=== PATIENT | female | born 1960 | race Caucasian/White ===

== ENCOUNTER 2016-11-03 14:42 | Inpatient (IN) ==
[2016-11-03] MEDS ORDERED: MORPHINE 2 MG/1 ML SYRINGE IV STA (15:13)
[2016-11-03] MEDS ORDERED: NITROGLYCERIN SL 0.4 MG TABLET SL PRN ×2 (15:13→18:25)
[2016-11-03] MEDS ORDERED: NITROGLYCERIN 2% OINT 1 INCH/GM PACK TOP STA (15:13)
[2016-11-03 15:38] LABS: Basophils % 0.3 % (0.0-0.8); Eosinophils # 0.1 10*3/uL (0.0-0.87); Eosinophils % 1.7 % (0.00-10.9); Hematocrit 41.7 VOL% (35.7-47.0); Hemoglobin 14.8 GM/DL (12.0-16.0); Immature Granulocytes % 0.3 %; Immature Granulocytes Absolute 0.02 #; Lymphocytes % 27.8 % (21.3-54.2); Mean Corpuscular HGB Conc 35.5 GM/DL (32-36); Mean Corpuscular Hemoglobin 30 PG (27-34); Mean Corpuscular Volume 84.9 FL (87-102); Mean Platelet Volume 10.1 FL (9.6-12.0); Monocytes # 0.5 10*3/uL (0.11-0.8); Monocytes % 6.3 % (1.7-12.7); Neutrophils # 4.5 10*3/uL (1.4-7.4); Neutrophils % 63.6 % (38.7-73.9); Platelet Count 210 T/CUMM (130-400); Red Blood Count 4.91 MC/CUMM (3.8-5.5); Red Cell Distribution Width 12.4 % (9.3-17.3); White Blood Count 7.1 T/CUMM (4-12)
--- NOTE | 2016-11-03 15:50 | XRay Report ---
XR chest 2V Indication: Chest pain. Chest 2 views: Comparison 05/07/2012. ACDF again shown. Tiny left pleural effusion is present better seen on lateral view. Lungs are clear. Heart size and mediastinal contour normal. Impression: Tiny left pleural effusion posteriorly. Otherwise negative chest. PROCEDURE INTERPRETED AT [facility] DEPARTMENT OF RADIOLOGY Final Report Signed by: Jeremy Mccarthy M.D.
[2016-11-03] MEDS ORDERED: MORPHINE 2 MG/1 ML SYRINGE ONE (15:54)
[2016-11-03] MEDS ORDERED: NITROGLYCERIN 2% OINT 1 INCH/GM PACK TOP ONE (15:54)
[2016-11-03 16:07] LABS: Bilirubin,Total 0.5 MG/DL (0.2-1.0); Calcium 9.1 MG/DL (8.5-10.1); Potassium 3.5 MMOL/L (3.5-5.1); Total Protein 7.6 G/DL (6.4-8.3)
[2016-11-03 16:09] LABS: Albumin 3.8 G/DL (3.4-5.0); Osmolality,Calculated 280.1 MOS/KG (273-304)
--- NOTE | 2016-11-03 16:22 | Order Completion Report ---
See report scanned to EMR
[2016-11-03] MEDS ORDERED: ZALEPLON 5 MG CAPSULE PO PRN (16:47)
[2016-11-03] MEDS ORDERED: DEXTROSE 50% 25 GM/50 ML SYRINGE IV PRN (16:47)
[2016-11-03] MEDS ORDERED: MAGNESIUM SULF RIDER 4 GM in PREMIX 1 EACH IV PRN (16:47)
[2016-11-03] MEDS ORDERED: MORPHINE 2 MG/1 ML SYRINGE IV PRN (16:47)
[2016-11-03] MEDS ORDERED: POTASSIUM CHLORIDE 20 MEQ TABLET PO PRN (16:47)
[2016-11-03] MEDS ORDERED: ONDANSETRON 4 MG/2 ML VIAL IV PRN (16:47)
[2016-11-03] MEDS ORDERED: GLUCAGON 1 MG VIAL IM PRN (16:47)
[2016-11-03] MEDS ORDERED: MAGNESIUM SULF RIDER 2 GM in PREMIX 1 EACH IV PRN (16:47)
--- NOTE | 2016-11-03 16:47 | Emergency Department Note ---
Casper John Brittany, am scribing for, and in the presence of, Bret Barrera MD 15:13. Bruce John Doug C, MD, personally performed the services described in this documentation, ascribed by Clementina Shirley in my presence, and it is both accurate and complete 647 . Arrival - Arrival Chief Complaint: Chest Pain Stated Complaint: heart attack ED Nursing Triage Note: C/o midsternal chest pain and shortness of breath-onset two weeks ago. Denies chest pain right now, but states she was sent from Dr. Child's office for a possible heart attack. Mode of Arrival: Ambulatory Limitations: No Limitations Source: Patient, RN Notes Reviewed - History of Present Illness HPI Narrative: Patient is a 56-year-old white female presents emergency room complaining of weakness, shortness of breath, cough and dyspnea with exertion as well as intermittent chest pain that had been going off and on for the last 2 weeks. Patient states she also has pain in her back with her shortness of breath. Patient went to her regular doctor did an EKG and told to come here as she was fearful she may be having a heart attack. Patient was given a prescription for nitroglycerin on an earlier visit but she did not get them filled. Patient states she is under quite a bit of stress due to problems with her son. She does abuse tobacco and smokes 2 packs of cigarettes a day. Her mother of lung cancer and her father of a heart attack. She denies radiation of her discomfort. She is not having any diaphoresis or vomiting though she does feel a bit nauseated. Onset (ago): week(s) (2) Consistency: intermittent Date of Last Menstrual Period: hysterectomy Allergies/Adverse Reactions: Allergies Allergy/AdvReac Type Severity Reaction Status Date / Time aspirin Allergy Unknown/Unable Verified 11/03/16 14:50 to obtain Cefaclor [From Ceclor] Allergy Unknown/Unable Verified 11/03/16 14:50 to obtain Penicillins Allergy Unknown/Unable Verified 11/03/16 14:50 to obtain Home Medications: Home Medications Medication Instructions Recorded Confirmed Type ALPRAZolam [Xanax] 0.25 mg PO Q8H PRN 11/03/16 11/03/16 History Ergocalciferol (Vitamin D2) 50,000 unit PO Q7D 11/03/16 11/03/16 History [Vitamin D2] Gabapentin 100 mg PO TID PRN 11/03/16 11/03/16 History Hydrocodone/Acetaminophen [[place] 1 each PO Q6H PRN 11/03/16 11/03/16 History 10-325 Tablet] Linaclotide [Linzess] 290 mcg PO BEDTIME 11/03/16 11/03/16 History Linagliptin [Tradjenta] 5 mg PO BEDTIME 11/03/16 11/03/16 History Nitroglycerin [Nitroglycerin SL 0.4 mg SL Q5M PRN 11/03/16 11/03/16 History Tab] Pramipexole Di-HCl [Mirapex] 0.125 mg PO BEDTIME PRN 11/03/16 11/03/16 History Pramipexole [Mirapex] 0.25 mg PO BEDTIME PRN 11/03/16 11/03/16 History Ranitidine Tab [Zantac Tab] 150 mg PO BEDTIME 11/03/16 11/03/16 History Rosuvastatin [Crestor] 10 mg PO BEDTIME 11/03/16 11/03/16 History Trazodone HCl 150 mg PO BEDTIME 11/03/16 11/03/16 History clonazePAM TAB [KlonoPIN] 0.25 mg PO Q12H PRN 11/03/16 11/03/16 History clonazePAM TAB [KlonoPIN] 0.5 mg PO Q12H PRN 11/03/16 11/03/16 History Review of System - Review of System 12 point system: reviewed and no additional remarkable complaints except as stated - Review of System Constitutional: Absent: chills, diaphoresis, fever Eyes: Absent: vision change Head/Ears/Nose/Throat: Absent: nasal drainage, sore throat Respiratory: Present: cough, respiratory distress Cardiovascular: Present: chest pain, dyspnea on exertion, edema Gastrointestinal: Absent: abdominal pain, nausea, vomiting, diarrhea, constipation, melena, hematochezia Genitourinary female: Absent: dysuria, frequency, urgency Musculoskeletal: Absent: arm pain, back pain, leg pain, neck pain Skin: Absent: rash Neurological: Absent: headache Psychiatric: Present: anxiety Hematological/Lymphatic: Absent: easy bleeding, easy bruising Medical,Surgical,& Family Hx - Medical History Neurology: History of: Cerebrovascular Accident Endocrine: History of: Diabetes Mellitus (IDDM), Dyslipidemia - Surgical History Abdominal Surgeries: Surgical HX of: Cholecystectomy Reproductive Surgeries: Surgical HX of;: Section, Hysterectomy - Family History Family History: Reports;: Family Cancer (Lung CA mother), Family Diabetes, Family Heart Disease (Father passed of [place]), Family Hypertension - Social History Smoking Status: Smoker, status unknown Frequency of Alcohol Use: None Type of Drug Use: None Exam Vital Signs: Vital Signs Temperature 97.5 F L 11/03/16 14:45 Pulse Rate 123 H 11/03/16 14:45 Respiratory Rate 16 11/03/16 15:37 Blood Pressure 116/80 11/03/16 14:45 O2 Sat by Pulse Oximetry 97 11/03/16 14:45 - General General appearance: alert, in no apparent distress, other (smells of cigarettes) - Head Head exam: Present: atraumatic, normocephalic, normal inspection - Eye Eye exam: Present: normal appearance, PERRL, EOMI - ENT ENT exam: Present: normal exam, normal oropharynx - Neck Neck exam: Present: normal inspection, full ROM, trachea midline - Chest Chest inspection: Present: symmetric chest wall rise, tenderness (CW TTP) - Respiratory Respiratory exam: Present: normal lung sounds bilaterally. Absent: respiratory distress - Cardiovascular Cardiovascular exam: Present: regular rate, normal rhythm, normal heart sounds. Absent: murmur, rubs, gallop - Abdominal Exam Abdominal exam: Present: soft, normal bowel sounds. Absent: distention, tenderness - Extremities Exam Extremities exam: Present: normal inspection. Absent: pedal edema - Back Exam Back exam: Present: normal inspection - Neurological Exam Neurological exam: Present: alert, oriented X3, CN II-XII intact. Absent: motor sensory deficit - Psychiatric Psychiatric exam: Present: normal affect, normal mood - Skin Skin exam: Present: warm, dry Course Course Narrative: Patient's clinical presentation, laboratory and radiographic findings were discussed with Dr. Ramírez. Patient be admitted to telemetry with the diagnosis of non-STEMI. Results - Labs CBC & BMP: 11/03/16 15:34 11/03/16 15:34 Lab Results: I have reviewed the patients labs Labs: Laboratory Tests 11/03/16 15:34 WBC 7.1 RBC 4.91 Hgb 14.8 Hct 41.7 MCV 84.9 L Plt Count 210 Laboratory Tests 11/03/16 15:34 D-Dimer, Quantitative <= 0.5 Laboratory Tests 11/03/16 11/03/16 15:34 15:34 Sodium 135 L Potassium 3.5 Chloride 101 Carbon Dioxide 26 BUN 9 Creatinine 0.80 Glucose 316 H Troponin I 0.115 H Globulin 3.8 H Albumin/Globulin Ratio 1.0 L - EKG EKG results: interpreted by [facility] EKG shows: tachycardia (Sinus tachycardia rate 101 bpm) - Diagnostic Findings Procedure: Chest x-ray: report reviewed by me (Tiny left pleural effusion posteriorly. Otherwise negative chest.) Disposition Clinical Impression: Non-STEMI (non-ST elevated myocardial infarction) Case discussed with: patient Disposition: Still a Patient Condition: Guarded Time of Disposition: 16:47
[2016-11-03] MEDS ORDERED: ENOXAPARIN 60 MG/0.6 ML SYRINGE SUBCUT STA (16:57)
[2016-11-03 17:03] LABS: Barbiturates Screen,Urine Negative (Negative); Benzodiazepines Screen,Urine Negative (Negative); Cannabinoid Screen,Urine Negative (Negative); Opiate Screen,Urine Negative (Negative); Phencyclidine Screen,Urine Negative (Negative)
--- NOTE | 2016-11-03 18:22 | Cardiology History & Physical ---
Assessment and Plan (1) Chest pain Status: Acute Assessment and plan: This is actually 4 days ago and none since then. Certainly this may have been a cardiac event. Her troponin is not diagnosis in her ECG is abnormal but we have no baseline to compare. Will reevaluate the patient tomorrow using echocardiogram and see what her enzymes look like. If we have evidence for such we make need to consider cardiac catheterization. We will leave her n.p.o. for reevaluation tomorrow. Current Visit: Yes (2) Elevated troponin Status: Acute Assessment and plan: This certainly is borderline but not specifically diagnostic. We will check CPK and MB fraction tomorrow with the troponin. Current Visit: Yes (3) Diabetes mellitus Status: Chronic Assessment and plan: On sliding scale continue her home medications. Current Visit: Yes (4) Heavy cigarette smoker (20-39 per day) Status: Acute Assessment and plan: Needs to stop smoking we discussed this with her. Will need to have smoking cessation therapy. I will start a nicotine patch. Current Visit: Yes (5) Dyslipidemia Status: Chronic Assessment and plan: Apparently chronic and has been on rosuvastatin. Current Visit: Yes History of Present Illness Chief complaint: Abnormal ECG, previous chest pain History of present illness: Ms. Nesbitt is a 56 year old female who is followed by Dr. Stein and sent to the emergency room today through which she was admitted. The patient gives a history that she was recently placed on amitriptyline and since then has been not felt well. She took amitriptyline this past Sunday and then shortly thereafter developed chest pain shortness of breath. She did not go to the emergency room even though that she threatened to do so. Anyway she was a family member's house. The pain though resolved she has had no further pain. She was seen by Dr. Stein today and ECG that was done was abnormal and was told at that ECG with her change since a previous ECG. She has had no no symptomatology this since Sunday. She has no prior cardiac history but did see Dr. Cox 2 years ago for shortness of breath and had echocardiogram stress test was told these were normal. She does have a family history of heart disease and is a smoker. In the emergency room the patient's troponin was 0.115. There is no CPK. We do not have the outside ECG but ECG here revealed sinus rhythm with diffuse ST- T abnormalities especially inferior laterally. Again did not have outside ECG to compare to. Patient chest x-ray fairly unremarkable based on radiology's interpretation. Home Medications Medication Instructions Recorded Confirmed Type ALPRAZolam [Xanax] 0.25 mg PO Q8H PRN 11/03/16 11/03/16 History Ergocalciferol (Vitamin D2) 50,000 unit PO Q7D 11/03/16 11/03/16 History [Vitamin D2] Gabapentin 100 mg PO TID PRN 11/03/16 11/03/16 History Hydrocodone/Acetaminophen [[place] 1 each PO Q6H PRN 11/03/16 11/03/16 History 10-325 Tablet] Linaclotide [Linzess] 290 mcg PO BEDTIME 11/03/16 11/03/16 History Linagliptin [Tradjenta] 5 mg PO BEDTIME 11/03/16 11/03/16 History Nitroglycerin [Nitroglycerin SL 0.4 mg SL Q5M PRN 11/03/16 11/03/16 History Tab] Pramipexole Di-HCl [Mirapex] 0.125 mg PO BEDTIME PRN 11/03/16 11/03/16 History Pramipexole [Mirapex] 0.25 mg PO BEDTIME PRN 11/03/16 11/03/16 History Ranitidine Tab [Zantac Tab] 150 mg PO BEDTIME 11/03/16 11/03/16 History Rosuvastatin [Crestor] 10 mg PO BEDTIME 11/03/16 11/03/16 History Trazodone HCl 150 mg PO BEDTIME 11/03/16 11/03/16 History clonazePAM TAB [KlonoPIN] 0.25 mg PO Q12H PRN 11/03/16 11/03/16 History clonazePAM TAB [KlonoPIN] 0.5 mg PO Q12H PRN 11/03/16 11/03/16 History Allergies Allergy/AdvReac Type Severity Reaction Status Date / Time aspirin Allergy Unknown/Unable Verified 11/03/16 14:50 to obtain Cefaclor [From [facility]] Allergy Unknown/Unable Verified 11/03/16 14:50 to obtain Penicillins Allergy Unknown/Unable Verified 11/03/16 14:50 to obtain Review of systems: Constitutional: Denies anorexia, chills, fatigue, fever, frequent falls, night sweats, weight gain, weight loss Eyes: Denies visual changes or loss of vision Ears: Denies decreased hearing, vertigo Nose, mouth and throat: Denies dysphagia, epistaxis, headaches, neck pain, tongue swelling, Neck: Denies thyromegaly or masses. No stiffness. Cardiovascular: as per HPI Respiratory: Denies cough, dyspnea, hemoptysis, dyspnea on exertion, wheezing, snoring Gastrointestinal: Denies abdominal pain, constipation, dyspepsia, dysphagia, hematemesis, hematochezia, melena, nausea, vomiting Genitourinary: Denies dysuria, hematuria, nocturia Musculoskeletal: Denies arthralgias, joint swelling, muscle weakness, myalgias Neurological: denies abnormal gait, abnormal speech, confusion, convulsions, frequent falls, headaches, memory loss, syncope Psychiatric: Denies anxiety, confusion, depression Endocrine: Denies cold intolerance, fatigue, heat intolerance Hematologic/Lymphatic: Denies easy bleeding, easy bruising Dermatologic: Denies Rash, itching, shingles Medical,Surgical,& Family Hx - Medical History Neurology: History of: Cerebrovascular Accident Endocrine: History of: Diabetes Mellitus (IDDM), Dyslipidemia - Surgical History Abdominal Surgeries: Surgical HX of: Cholecystectomy Reproductive Surgeries: Surgical HX of;: Section, Hysterectomy - Family History Family History: Reports;: Family Cancer (Lung CA mother), Family Diabetes, Family Heart Disease (Father passed of [place]), Family Hypertension - Social History Smoking Status: Heavy tobacco smoker (2 packs per day.) Frequency of Alcohol Use: Occasionally Type of Drug Use: None Marital Status: Single Lives With:: Alone Functional capacity: independent ambulation Cardiology Physical Exam - Constitutional Vitals: Vital Signs Temp Pulse Resp BP Pulse Ox 97.5 F L 102 H 18 108/84 97 11/03/16 14:45 11/03/16 17:26 11/03/16 17:26 11/03/16 17:26 11/03/16 17:26 Intake and Output 11/03/16 11/03/16 11/03/16 07:59 15:59 23:59 Other: Weight 62.142 kg Patient Weight 11/03/16 23:59 Weight 62.142 kg Exam: General appearance: normal weight, no acute distress Head exam: normal inspection, atraumatic Eye exam: Pupils are equal and reactive. EOMI. There is no trauma. Ear exam: Anatomically normal. Normal auditory acuity to conversation. Oral exam: No significant oral lesions. Neck exam: normal inspection no JVD. No carotid bruit. Trachea is in midline. Respiratory exam: clear to auscultation bilaterally posteriorly and anteriorly with good air movement. No rales, rhonchi or wheezes. Cardiovascular exam: regular rate and rhythm, no murmur or gallop or rub. No precordial lift. No bruits over the major arteries. Chest wall/torso: Anatomically normal. No tenderness, deformity Peripheral Pulses: 2+ throughout. GI/Abdominal exam: normal bowel sounds, soft and nontender, no abdominal bruits or pulsatile masses. Musculoskeletal/Extremities exam: normal inspection without edema or cyanosis. No deformities or trauma. Neurological exam: alert, oriented X3. There is no gross neurologic deficits. Psychiatric exam: normal affect, normal mood. Cognitive function is grossly intact. Skin exam: normal color, warm. No rashes or other skin lesions. Result/EKG - Labs CBC & BMP: 11/03/16 15:34 11/03/16 15:34 Lab Results: I have reviewed the past 24 hour labs Labs: Laboratory Results - last 24 hr 11/03/16 11/03/16 11/03/16 15:20 15:34 15:34 WBC RBC Hgb Hct MCV MCH MCHC RDW Plt Count MPV Neut % (Auto) Lymph % (Auto) [place] % (Auto) Eos % (Auto) Baso % (Auto) Neut # (Auto) Lymph # (Auto) [place] # (Auto) Eos # (Auto) Baso # (Auto) Immature Gran % Nucleated RBC % Immature Gran # Nucleated RBCs # Immature Plt Fraction D-Dimer, Quantitative <= 0.5 Sodium 135 L Potassium 3.5 Chloride 101 Carbon Dioxide 26 Anion Gap 11.5 BUN 9 Creatinine 0.80 GFR Calculation 82 BUN/Creatinine Ratio 11.00 Glucose 316 H Calculated Osmolality 280.1 Calcium 9.1 Total Bilirubin 0.50 AST 14 ALT 18 Alkaline Phosphatase 86 Troponin I Total Protein 7.6 Albumin 3.8 Globulin 3.8 H Albumin/Globulin Ratio 1.0 L Urine Opiates Screen Negative Ur Barbiturates Screen Negative Ur Phencyclidine Scrn Negative U Amphetamine/Methamph Negative U Benzodiazepines Scrn Negative U Cocaine Metab Screen Negative U Cannabinoids Screen Negative 11/03/16 11/03/16 15:34 15:34 WBC 7.1 RBC 4.91 Hgb 14.8 Hct 41.7 MCV 84.9 L MCH 30 MCHC 35.5 RDW 12.4 Plt Count 210 MPV 10.1 Neut % (Auto) 63.6 Lymph % (Auto) 27.8 [place] % (Auto) 6.3 Eos % (Auto) 1.7 Baso % (Auto) 0.3 Neut # (Auto) 4.5 Lymph # (Auto) 2.0 Kimble # (Auto) 0.5 Eos # (Auto) 0.1 Baso # (Auto) 0.0 Immature Gran % 0.3 Nucleated RBC % 0.0 Immature Gran # 0.02 Nucleated RBCs # 0.00 Immature Plt Fraction 0.0 D-Dimer, Quantitative Sodium Potassium Chloride Carbon Dioxide Anion Gap BUN Creatinine GFR Calculation BUN/Creatinine Ratio Glucose Calculated Osmolality Calcium Total Bilirubin AST ALT Alkaline Phosphatase Troponin I 0.115 H Total Protein Albumin Globulin Albumin/Globulin Ratio Urine Opiates Screen Ur Barbiturates Screen Ur Phencyclidine Scrn U Amphetamine/Methamph U Benzodiazepines Scrn U Cocaine Metab Screen U Cannabinoids Screen - Impressions Impressions: ECG was sinus rhythm with diffuse inferior lateral ST-T abnormalities.
[2016-11-03] MEDS ORDERED: ALPRAZolam 0.25 MG TABLET PO PRN (18:25)
[2016-11-03] MEDS ORDERED: PRAMIPEXOLE DI HCL 0.125 MG PO PRN (18:25)
[2016-11-03] MEDS ORDERED: PRAMIPEXOLE 0.25 MG TABLET PO PRN (18:25)
[2016-11-03] MEDS ORDERED: GABAPENTIN 100 MG CAPSULE PO PRN (18:25)
[2016-11-03] MEDS ORDERED: clonazePAM 0.5 MG TABLET PO PRN ×2 (18:25)
[2016-11-03] MEDS ORDERED: ERGOCALCIFEROL 50,000 UNIT CAPSULE PO SCH (18:30)
--- NOTE | 2016-11-03 18:31 | Order Completion Report ---
See report scanned to EMR
[2016-11-03] MEDS: ENOXAPARIN 60 MG/0.6 ML SYRINGE SUBCUT SCH (18:40)
[2016-11-03] MEDS: SODIUM CHLORIDE 0.45% 1,000 ML IV SCH (19:07)
[2016-11-03] MEDS ORDERED: FAMOTIDINE 20 MG TABLET PO SCH (21:00)
[2016-11-03] MEDS: INSULIN LISPRO 100 UNIT/ML SUBCUT SCH (21:10)
[2016-11-03] MEDS: METOPROLOL TARTRATE 25 MG TABLET PO SCH (21:11)
[2016-11-03] MEDS: ROSUVASTATIN 10 MG TABLET PO SCH (21:11)
[2016-11-04 05:45] LABS: Basophils % 0.5 % (0.0-0.8); Eosinophils # 0.2 10*3/uL (0.0-0.87); Eosinophils % 2.8 % (0.00-10.9); Hematocrit 39.2 VOL% (35.7-47.0); Hemoglobin 13.7 GM/DL (12.0-16.0); Immature Granulocytes % 0.2 %; Immature Granulocytes Absolute 0.01 #; Lymphocytes # 1.7 10*3/uL (1.4-4.0); Lymphocytes % 29.9 % (21.3-54.2); Mean Corpuscular HGB Conc 34.9 GM/DL (32-36); Mean Corpuscular Hemoglobin 30 PG (27-34); Mean Corpuscular Volume 85.6 FL (87-102); Mean Platelet Volume 10.1 FL (9.6-12.0); Monocytes # 0.5 10*3/uL (0.11-0.8); Monocytes % 8.5 % (1.7-12.7); Neutrophils # 3.3 10*3/uL (1.4-7.4); Neutrophils % 58.1 % (38.7-73.9); Platelet Count 199 T/CUMM (130-400); Red Blood Count 4.58 MC/CUMM (3.8-5.5); Red Cell Distribution Width 12.4 % (9.3-17.3); White Blood Count 5.7 T/CUMM (4-12)
[2016-11-04] MEDS: SODIUM CHLORIDE 0.45% 1,000 ML IV SCH (06:14)
[2016-11-04] MEDS: ENOXAPARIN 60 MG/0.6 ML SYRINGE SUBCUT SCH (06:17)
[2016-11-04 06:19] LABS: Cholesterol 191 MG/DL (50-200); HDL Cholesterol 47 MG/DL (40-60); Risk Ratio 4.06; Triglycerides 156 MG/DL (2-150); VLDL CHOLESTEROL 31.2 MG/DL
[2016-11-04 06:20] LABS: Troponin I Only 0.112 NG/ML (0.00-0.045)
[2016-11-04] MEDS: INSULIN LISPRO 100 UNIT/ML SUBCUT SCH ×4 (08:11→21:02)
--- NOTE | 2016-11-04 09:11 | Order Completion Report ---
See report scanned to EMR
--- NOTE | 2016-11-04 09:15 | XRay Report ---
XR chest 1V portable Indication: Shortness of breath Comparison: 03 November 2016 Findings: The heart and mediastinum are normal in size and configuration. The pulmonary vascularity is normal in caliber. No lung infiltrates, effusions, pneumothorax or other abnormality is demonstrated. Impression: Normal chest x-ray PROCEDURE INTERPRETED AT [facility] DEPARTMENT OF RADIOLOGY Final Report Signed by: Dr. Vu Sutton
--- NOTE | 2016-11-04 10:31 | Order Completion Report ---
See report scanned to EMR
[2016-11-04] MEDS ORDERED: ASPIRIN 325 MG TABLET PO ONE (10:54)
[2016-11-04] MEDS ORDERED: DIAZEPAM 5 MG TABLET PO ONE (10:54)
[2016-11-04] MEDS ORDERED: MAGNESIUM SULF RIDER 2 GM in PREMIX 1 EACH IV PRN (10:54)
[2016-11-04] MEDS ORDERED: POTASSIUM CHLORIDE RIDER 10 MEQ in PREMIX 1 EACH IV PRN (10:54)
[2016-11-04] MEDS ORDERED: diphenhydrAMINE CAP 25 MG CAPSULE PO ONE (10:54)
--- NOTE | 2016-11-04 10:57 | History and Physical Update ---
Sedation H&P Update - History and Physical H&P was reviewed, the patient examined and there: are no changes in the patients condition since last H&P was completed. - Dictation Physical: refer to H&P completed by admitting physician - Physical Exam Mental Status: alert and oriented Heart: regular rate and rhythm Lung: clear to auscultation Abdomen: within normal limits Vitals: within normal limits History and Physical Changes: None - Sedation Plan for Sedation: moderate Patient Consent: Procedure disscussed with patient and patinet has consented., Risks and benefits were discussed with patient,including infection,, bleeding, injury to surrounding structures, seizure, temporary nerve, Patient understands and accepts potential risks/benefits and agrees to, proceed. ASA Class: III Airway Assessment: Class II: Soft palate, uvula, fauces visible
--- NOTE | 2016-11-04 11:00 | Cardiology Progress Note ---
Assessment and Plan - Time spent with patient Time spent with patient: Greater than 30 minutes (1) Chest pain Status: Acute Assessment and plan: This patient's had no chest pain since being hospitalized and has had none since Sunday of this week. It is not clear that his chest pain is ischemic at all in nature. With her risk factors for her cardiomyopathy though coronary disease and certainly significant possibility. Current Visit: Yes (2) Elevated troponin Status: Acute Assessment and plan: These are actually borderline and nondiagnostic. Because they are flat there certainly none ischemic and certainly do not indicate a microinfarction. Current Visit: Yes (3) Diabetes mellitus Status: Chronic Assessment and plan: On sliding scale continue her home medications. Current Visit: Yes (4) Heavy cigarette smoker (20-39 per day) Status: Acute Assessment and plan: Needs to stop smoking we discussed this with her. Will need to have smoking cessation therapy. I will start a nicotine patch. After catheterization we will certainly have cardiac rehab to see the patient. Current Visit: Yes (5) Dyslipidemia Status: Chronic Assessment and plan: Apparently chronic and has been on rosuvastatin. Current Visit: Yes (6) Abnormal ECG Status: Acute Assessment and plan: Duration is really unknown. Has really nondiagnostic T-wave abnormalities inferior laterally. Current Visit: Yes Cardiology - PN: Subj Interval history: Since admission the patient's had no chest pain or significant shortness of breath. She is anxious. Her troponins are flat and really nondiagnostic. Chest x-ray today is normal. Her blood pressures are borderline low. Echocardiograms ejection fraction 20% to 25% may be at best. There is no significant valvular abnormalities and it worse mild elevated right-sided pressures. ECG today reveals nonspecific ST-T abnormalities inferior laterally. This delayed anterior R-wave progression cannot rule out possible prior anterior microinfarction. Since admission the patient's had no chest pain has had no chest pain since this past Sunday. With his severe cardiomyopathy certainly she needs aggressive therapy but is not clear on etiology. Certainly ischemia is a possibility with her multiple risk factors including heavy smoking, diabetes mellitus dyslipidemia. I do not think this patient's had a non-ST segment elevation microinfarction at presentation. Her troponins are flat and again nondiagnostic with normal CPK and MB fraction. I recommend a left heart catheterization which we can do today and discussed the indications procedure risk and benefits with the patient and her sons. I discussed cardiac catheterization and percutaneous coronary intervention with the patient and available family (her sons). I reviewed with them the indications for the procedure and the basis of how the procedure would be carried out. I also reviewed with them the risk of the procedure which include but not necessarily limited to access site bleeding, bruising, pain, swelling or vascular injury that may require emergency vascular surgery, blood transfusion, or thrombin injection. Also discussed the possibility of stroke, myocardial infarction, arrhythmia which may require electrocardioversion, and the possibility of dye reaction that would require medical therapy. Also discussed the possibility of coronary artery injury, ruptured, closure or perforation that may require emergency bypass surgery. We also discussed the possibility of from a major complication. They voice understanding and agree to proceed. She was initially reluctant to do so without her father being here but he will be here shortly. She does agree to proceed. Exam (Progress Note) - Constitutional Vitals: Period Temp Pulse Resp BP Sys/Morillo Pulse Ox Last 24 Hr 97.4 F-99.1 F 52-123 16-18 86-116/54-84 92-98 Exam: General appearance: normal weight/thin, no acute distress HEENT: Atraumatic, eye exam is unremarkable and unchanged. Neck exam: normal inspection no JVD. No carotid bruit. Trachea is in midline. Respiratory exam: clear to auscultation bilaterally posteriorly and anteriorly with good air movement. No rales, rhonchi or wheezes. Cardiovascular exam: regular rate and rhythm, no murmur or gallop or rub. No precordial lift. No bruits over the major arteries. Chest wall/torso: Anatomically normal. No tenderness, deformity Peripheral Pulses: 2+ throughout. GI/Abdominal exam: normal bowel sounds, soft and nontender, no abdominal bruits or pulsatile masses. Musculoskeletal/Extremities exam: normal inspection without edema or cyanosis. No deformities or trauma. Neurological exam: alert, oriented X3. There is no gross neurologic deficits. Psychiatric exam: normal affect, normal mood. Cognitive function is grossly intact. Skin exam: normal color, warm. No rashes or other skin lesions. Result/EKG - Labs CBC & BMP: 11/04/16 05:27 11/03/16 15:34 Lab Results: I have reviewed the past 24 hour labs Labs: Laboratory Results - last 24 hr 11/03/16 11/03/16 11/03/16 15:20 15:34 15:34 WBC RBC Hgb Hct MCV MCH MCHC RDW Plt Count MPV Neut % (Auto) Lymph % (Auto) [place] % (Auto) Eos % (Auto) Baso % (Auto) Neut # (Auto) Lymph # (Auto) [place] # (Auto) Eos # (Auto) Baso # (Auto) Immature Gran % Nucleated RBC % Immature Gran # Nucleated RBCs # Immature Plt Fraction D-Dimer, Quantitative <= 0.5 Sodium 135 L Potassium 3.5 Chloride 101 Carbon Dioxide 26 Anion Gap 11.5 BUN 9 Creatinine 0.80 GFR Calculation 82 BUN/Creatinine Ratio 11.00 Glucose 316 H POC Glucose Calculated Osmolality 280.1 Calcium 9.1 Total Bilirubin 0.50 AST 14 ALT 18 Alkaline Phosphatase 86 Total Creatine Kinase CK-MB (CK-2) Troponin I Total Protein 7.6 Albumin 3.8 Globulin 3.8 H Albumin/Globulin Ratio 1.0 L Triglycerides Cholesterol LDL Cholesterol VLDL Cholesterol HDL Cholesterol Heart Disease Risk Ratio Urine Opiates Screen Negative Ur Barbiturates Screen Negative Ur Phencyclidine Scrn Negative U Amphetamine/Methamph Negative U Benzodiazepines Scrn Negative U Cocaine Metab Screen Negative U Cannabinoids Screen Negative 11/03/16 11/03/16 11/03/16 15:34 15:34 19:12 WBC 7.1 RBC 4.91 Hgb 14.8 Hct 41.7 MCV 84.9 L MCH 30 MCHC 35.5 RDW 12.4 Plt Count 210 MPV 10.1 Neut % (Auto) 63.6 Lymph % (Auto) 27.8 [place] % (Auto) 6.3 Eos % (Auto) 1.7 Baso % (Auto) 0.3 Neut # (Auto) 4.5 Lymph # (Auto) 2.0 [place] # (Auto) 0.5 Eos # (Auto) 0.1 Baso # (Auto) 0.0 Immature Gran % 0.3 Nucleated RBC % 0.0 Immature Gran # 0.02 Nucleated RBCs # 0.00 Immature Plt Fraction 0.0 D-Dimer, Quantitative Sodium Potassium Chloride Carbon Dioxide Anion Gap BUN Creatinine GFR Calculation BUN/Creatinine Ratio Glucose POC Glucose Calculated Osmolality Calcium Total Bilirubin AST ALT Alkaline Phosphatase Total Creatine Kinase CK-MB (CK-2) Troponin I 0.115 H 0.138 H Total Protein Albumin Globulin Albumin/Globulin Ratio Triglycerides Cholesterol LDL Cholesterol VLDL Cholesterol HDL Cholesterol Heart Disease Risk Ratio Urine Opiates Screen Ur Barbiturates Screen Ur Phencyclidine Scrn U Amphetamine/Methamph U Benzodiazepines Scrn U Cocaine Metab Screen U Cannabinoids Screen 11/03/16 11/03/16 11/04/16 20:59 22:15 05:26 WBC RBC Hgb Hct MCV MCH MCHC RDW Plt Count MPV Neut % (Auto) Lymph % (Auto) [place] % (Auto) Eos % (Auto) Baso % (Auto) Neut # (Auto) Lymph # (Auto) [place] # (Auto) Eos # (Auto) Baso # (Auto) Immature Gran % Nucleated RBC % Immature Gran # Nucleated RBCs # Immature Plt Fraction D-Dimer, Quantitative Sodium Potassium Chloride Carbon Dioxide Anion Gap BUN Creatinine GFR Calculation BUN/Creatinine Ratio Glucose POC Glucose 310 H Calculated Osmolality Calcium Total Bilirubin AST ALT Alkaline Phosphatase Total Creatine Kinase 76 CK-MB (CK-2) 1.5 Troponin I 0.126 H 0.112 H Total Protein Albumin Globulin Albumin/Globulin Ratio Triglycerides 156 H Cholesterol 191 LDL Cholesterol 124.0 VLDL Cholesterol 31.2 HDL Cholesterol 47 Heart Disease Risk Ratio 4.06 Urine Opiates Screen Ur Barbiturates Screen Ur Phencyclidine Scrn U Amphetamine/Methamph U Benzodiazepines Scrn U Cocaine Metab Screen U Cannabinoids Screen 11/04/16 11/04/16 05:27 07:09 WBC 5.7 RBC 4.58 Hgb 13.7 Hct 39.2 MCV 85.6 L MCH 30 MCHC 34.9 RDW 12.4 Plt Count 199 MPV 10.1 Neut % (Auto) 58.1 Lymph % (Auto) 29.9 [place] % (Auto) 8.5 Eos % (Auto) 2.8 Baso % (Auto) 0.5 Neut # (Auto) 3.3 Lymph # (Auto) 1.7 [place] # (Auto) 0.5 Eos # (Auto) 0.2 Baso # (Auto) 0.0 Immature Gran % 0.2 Nucleated RBC % 0.0 Immature Gran # 0.01 Nucleated RBCs # 0.00 Immature Plt Fraction 0.0 D-Dimer, Quantitative Sodium Potassium Chloride Carbon Dioxide Anion Gap BUN Creatinine GFR Calculation BUN/Creatinine Ratio Glucose POC Glucose 379 H Calculated Osmolality Calcium Total Bilirubin AST ALT Alkaline Phosphatase Total Creatine Kinase CK-MB (CK-2) Troponin I Total Protein Albumin Globulin Albumin/Globulin Ratio Triglycerides Cholesterol LDL Cholesterol VLDL Cholesterol HDL Cholesterol Heart Disease Risk Ratio Urine Opiates Screen Ur Barbiturates Screen Ur Phencyclidine Scrn U Amphetamine/Methamph U Benzodiazepines Scrn U Cocaine Metab Screen U Cannabinoids Screen - Impressions Impressions: Echocardiogram as noted in history present illness. Please see that.
[2016-11-04] MEDS: sitaGLIPtin 100 MG TABLET PO SCH (11:10)
[2016-11-04] MEDS: NICOTINE 14 MG/24 HR PATCH TRANSDERM SCH (11:10)
[2016-11-04] MEDS: SODIUM CHLORIDE 0.9% 1,000 ML IV SCH (11:20)
[2016-11-04] MEDS ORDERED: MIDAZOLAM 2 MG/2 ML VIAL ONE (11:21)
[2016-11-04] MEDS ORDERED: LIDOCAINE 1% 20 ML VIAL ONE (11:21)
[2016-11-04] MEDS ORDERED: fentaNYL 100 MCG/2 ML VIAL ONE (11:22)
[2016-11-04] MEDS: METOPROLOL TARTRATE 25 MG TABLET PO SCH ×2 (11:26→21:01)
[2016-11-04] MEDS: PANTOPRAZOLE 40 MG TABLET PO SCH (11:26)
[2016-11-04] MEDS ORDERED: diphenhydrAMINE 50 MG/1 ML VIAL ONE (11:49)
[2016-11-04] MEDS ORDERED: NITROGLYCERIN DRIP 50 MG/250 ML BOTTLE IV ONE (11:59)
--- NOTE | 2016-11-04 12:16 | Operative Note ---
Date of procedure: 11/04/16 Procedure Preformed: Left heart catheterization with BEVERLY angiogram. LV gram not done to conserve contrast and echocardiogram done earlier today. Surgeon / Physician: Jeremy Ramírez Nurse Examiner: Alison Sutton Post-op diagnosis: same Findings: Multivessel stenosis. Specimens: none sent Estimated blood loss: minimal Condition: stable Anesthesia: local, conscious sedation Disposition: floor
[2016-11-04] MEDS ORDERED: DEXTROSE 50% 25 GM/50 ML VIAL IV PRN (12:17)
--- NOTE | 2016-11-04 13:27 | Event Note ---
Patient stable postcatheterization but still sedate. Right groin stable. Discussed again with the patient and family findings catheterization. Will await cardiovascular surgery's opinion in regard to her the possibility of bypass surgery. Vessels though were not to graze a target suspicion LAD system.
[2016-11-04 14:46] LABS: ABG Base Excess -2.5 MMOL/L (-2.5-2.5); ABG HCO3 22.3 MMOL/L (20-26); ABG Oxygen Saturation 95.6 % (95-100); ABG PH 7.376 (7.35-7.45); ABG PO2 84.5 MM HG (80-95); ABG TCO2 23.5 MMOL/L (23-27); Allen Test Positive
[2016-11-04] MEDS: ROSUVASTATIN 10 MG TABLET PO SCH (21:01)
[2016-11-04] MEDS: LINACLOTIDE 145 MCG CAPSULE PO SCH (21:03)
[2016-11-05] MEDS: SODIUM CHLORIDE 0.9% 1,000 ML IV SCH (02:33)
[2016-11-05 05:58] LABS: Basophils % 0.3 % (0.0-0.8); Eosinophils # 0.1 10*3/uL (0.0-0.87); Eosinophils % 1.7 % (0.00-10.9); Hematocrit 36.8 VOL% (35.7-47.0); Hemoglobin 12.9 GM/DL (12.0-16.0); Immature Granulocytes % 0.3 %; Immature Granulocytes Absolute 0.02 #; Lymphocytes # 2.1 10*3/uL (1.4-4.0); Lymphocytes % 28.9 % (21.3-54.2); Mean Corpuscular HGB Conc 35.1 GM/DL (32-36); Mean Corpuscular Hemoglobin 30 PG (27-34); Mean Corpuscular Volume 85.4 FL (87-102); Mean Platelet Volume 10.7 FL (9.6-12.0); Monocytes # 0.5 10*3/uL (0.11-0.8); Neutrophils # 4.4 10*3/uL (1.4-7.4); Neutrophils % 61.8 % (38.7-73.9); Platelet Count 161 T/CUMM (130-400); Red Blood Count 4.31 MC/CUMM (3.8-5.5); Red Cell Distribution Width 12.2 % (9.3-17.3); White Blood Count 7.2 T/CUMM (4-12)
[2016-11-05 06:21] LABS: Calcium 8.7 MG/DL (8.5-10.1); Osmolality,Calculated 288.5 MOS/KG (273-304); Potassium 3.9 MMOL/L (3.5-5.1)
--- NOTE | 2016-11-05 08:14 | Order Completion Report ---
See report scanned to EMR
--- NOTE | 2016-11-05 08:38 | Cardiothoracic Progress Note ---
Cardiothoracic Subjective Interval history: Patient seen and cardiac cath films reviewed. Patient has severe three-vessel disease with relatively small coronary vessels. She probably is going to be best treated with surgery and I think that certainly the circumflex and right coronary arteries are suitable targets. My only question would be in the anterior descending which appears to be very small distally. It is possible that she has a diagonal which is significant enough to bypass. She has significant reservations about proceeding with any intervention and wants to go home. I have encouraged her to stay and she is asked to seek a second opinion. She apparently has seen Dr. Cox the past and has confidence in his advice and ability, as do I. We will try to get Dr. Cox to see her tomorrow. Exam (Progress Note) - Constitutional Vitals: Period Temp Pulse Resp BP Sys/Morillo Pulse Ox Last 24 Hr 97.7 F-99.2 F 61-96 16-20 74-108/45-66 91-99 Result/EKG - Labs CBC & BMP: 11/05/16 05:11 11/05/16 05:11 Labs: Laboratory Results - last 24 hr 11/04/16 11/04/16 11/04/16 11:26 14:38 16:02 WBC RBC Hgb Hct MCV MCH MCHC RDW Plt Count MPV Neut % (Auto) Lymph % (Auto) [place] % (Auto) Eos % (Auto) Baso % (Auto) Neut # (Auto) Lymph # (Auto) [place] # (Auto) Eos # (Auto) Baso # (Auto) Immature Gran % Nucleated RBC % Immature Gran # Nucleated RBCs # Immature Plt Fraction ABG pH 7.376 ABG pCO2 39.0 ABG pO2 84.5 ABG HCO3 22.3 ABG Total CO2 23.5 ABG O2 Saturation 95.6 ABG Base Excess -2.5 FiO2 21.00 Sodium Potassium Chloride Carbon Dioxide Anion Gap BUN Creatinine GFR Calculation BUN/Creatinine Ratio Glucose POC Glucose 271 H 427 H Calculated Osmolality Calcium 11/04/16 11/05/16 11/05/16 19:59 05:11 05:11 WBC 7.2 RBC 4.31 Hgb 12.9 Hct 36.8 MCV 85.4 L MCH 30 MCHC 35.1 RDW 12.2 Plt Count 161 MPV 10.7 Neut % (Auto) 61.8 Lymph % (Auto) 28.9 [place] % (Auto) 7.0 Eos % (Auto) 1.7 Baso % (Auto) 0.3 Neut # (Auto) 4.4 Lymph # (Auto) 2.1 [place] # (Auto) 0.5 Eos # (Auto) 0.1 Baso # (Auto) 0.0 Immature Gran % 0.3 Nucleated RBC % 0.0 Immature Gran # 0.02 Nucleated RBCs # 0.00 Immature Plt Fraction 0.0 ABG pH ABG pCO2 ABG pO2 ABG HCO3 ABG Total CO2 ABG O2 Saturation ABG Base Excess FiO2 Sodium 139 Potassium 3.9 Chloride 105 Carbon Dioxide 28 Anion Gap 9.9 BUN 18 Creatinine 0.70 GFR Calculation 99 BUN/Creatinine Ratio 25.00 H Glucose 276 H POC Glucose 159 H Calculated Osmolality 288.5 Calcium 8.7 Quality Measures - VTE Contraindication to Pharmacological VTE Prophylaxis: High Risk of Bleeding
[2016-11-05] MEDS: INSULIN LISPRO 100 UNIT/ML SUBCUT SCH ×4 (10:04→22:07)
[2016-11-05] MEDS: METOPROLOL TARTRATE 25 MG TABLET PO SCH ×2 (10:06→22:08)
[2016-11-05] MEDS: MONTELUKAST 10 MG TABLET PO SCH (10:06)
[2016-11-05] MEDS: sitaGLIPtin 100 MG TABLET PO SCH (10:06)
[2016-11-05] MEDS: PANTOPRAZOLE 40 MG TABLET PO SCH (10:06)
[2016-11-05] MEDS: NICOTINE 14 MG/24 HR PATCH TRANSDERM SCH (10:06)
--- NOTE | 2016-11-05 10:25 | Pulmonology Consult Note ---
History of Present Illness Chief complaint: HD. Possible CABG. COPD. Tobacco abuse. History of present illness: Ms. Nesbitt is a 56 year old white female whom I been asked to see in pulmonary consultation for an opinion concerning her pulmonary status if she should go to surgery. This patient was referred by Dr. Stein. The patient had developed lower extremity edema increased shortness of breath and dyspnea on exertion. Dr. Livingston noted that her EKG was abnormal. Since admission here she has had a cardiac catheterization that shows very significant three-vessel coronary artery disease. This patient has been advised coronary artery bypass is would benefit her situation. At present time she wants a second opinion. See Dr. Elmo Whitehead's thoracic surgery note. I totally agree with his recommendations concerning surgery and a second opinion from Dr. Alex Shah. 2 years ago she was evaluated for shortness of breath and had a stress test and echocardiogram which she says was normal. This patient has some chronic dyspnea on exertion. On my exam she has some mild large airway wheeze with prolonged expiration. She denies any chronic sputum production. The remainder of her review of systems is negative. Allergies. Aspirin. Ceclor. Penicillin. Home medicines. See below Past history. Recent diagnosis of three-vessel coronary artery disease. See above. Diabetes mellitus. Hyperlipidemia. Depression. Irritable bowel syndrome. Vitamin D deficiency. History of CVA. Cholecystectomy. Hysterectomy. Social history. Smokes 1-2 packs of cigarettes per day. Started smoking when she was age 23. Occasionally uses alcohol. Single. Family history. Mother had lung cancer. Her father of myocardial infarction. There is a family history of high blood pressure and diabetes. Chest x-ray. 11/04/2016 and 11/03/2016. My impression. Heart size is normal. Pulmonary arteries are normal. No hilar adenopathy. Mediastinum is normal. Lung flores are mildly hyperinflated with no mass infiltrate or pulmonary edema. I see no bony lesions. Echocardiogram. Mildly dilated left ventricle with severe global hypokinesis and ejection fraction of 20%. Right ventricle is normal. No valvular abnormalities. Possible mild elevation of right-sided pressures. The estimated pulmonary artery systolic pressure was 28.84 mmHg. Microbiology. No positive test. Lab. Electrolytes are normal. Creatinine is 0.7 with a BUN of 18. White count 7200 with a normal differential. H&H 12.9/36.8 and platelets are 161, 000. Cholesterol is 191. HDL is 47. LDL is 124. Triglycerides are 156. Drug screen was negative. Physical exam. Vital signs. See below Psychiatric. Oriented 3. Patient was insisting on discharge. I told her I thought her doctors would go along with any request that she had. I added that if she does go home she needs to be very careful because she has no margin for error as far as her heart disease is concerned. I tried to explain this to her. Face. Symmetrical. No edema of the lips or tongue. Neurologic. Cranial nerves are intact. Patient moves all 4 extremities. Gait was not tested. Sensory exam was not done.. Neck. Symmetrical. No meningismus. Lymphatics. No submandibular cervical supraclavicular or epitrochlear adenopathy. Heart. Regular. I did not hear a gallop or murmur. Chest. Symmetrical and slightly hyperinflated. Patient has very mild large airway wheeze. Breast deferred Abdomen positive bowel sounds Extremities nothing to suggest deep venous thrombophlebitis or ischemia. The remainder the physical exam was negative Impression. 1. Tobacco abuse. 27-76-whwc-year history of smoking. 2. Probable COPD. Mild wheeze. Probable bronchospastic disease. 3. Severe three-vessel heart disease with ejection fraction of 20% and global hypokinesis 4. Hyperlipidemia. 5. Diabetes mellitus. 6. See past history Recommendations. 1. Start Singulair 10 daily. 2. Patient will need intervention of some type with her heart in the near future. 3. She has been counseled by others to stop smoking. 4. Is my opinion from a pulmonary standpoint at this patient will be able to tolerate cardiac surgery. If she decides to have surgery pulmonary function tests with pre-and postbronchodilator spirometry may further clarify her status. Home Medications Medication Instructions Recorded Confirmed Type ALPRAZolam [Xanax] 0.25 mg PO Q8H PRN 11/03/16 11/03/16 History Amitriptyline HCl 25 mg PO BEDTIME 11/03/16 11/03/16 History Ergocalciferol (Vitamin D2) 50,000 unit PO Q7D 11/03/16 11/03/16 History [Vitamin D2] Gabapentin 100 mg PO TID PRN 11/03/16 11/03/16 History Hydrocodone/Acetaminophen [[place] 1 each PO Q6H PRN 11/03/16 11/03/16 History 10-325 Tablet] Linaclotide [Linzess] 290 mcg PO BEDTIME 11/03/16 11/03/16 History Linagliptin [Tradjenta] 5 mg PO BEDTIME 11/03/16 11/03/16 History Nitroglycerin [Nitroglycerin SL 0.4 mg SL Q5M PRN 11/03/16 11/03/16 History Tab] Omeprazole 20 mg PO DAILY 11/03/16 11/03/16 History Pramipexole [Mirapex] 0.25 mg PO BEDTIME PRN 11/03/16 11/03/16 History Ranitidine Tab [Zantac Tab] 150 mg PO BEDTIME 11/03/16 11/03/16 History Rosuvastatin [Crestor] 10 mg PO BEDTIME 11/03/16 11/03/16 History Trazodone HCl 150 mg PO BEDTIME 11/03/16 11/03/16 History clonazePAM TAB [KlonoPIN] 0.25 mg PO Q12H PRN 11/03/16 11/03/16 History clonazePAM TAB [KlonoPIN] 0.5 mg PO Q12H PRN 11/03/16 11/03/16 History hydrOXYzine HCl [Hydroxyzine HCl] 25 mg PO RT Q8H PRN 11/03/16 11/03/16 History Allergies Allergy/AdvReac Type Severity Reaction Status Date / Time aspirin Allergy Unknown/Unable Verified 11/03/16 14:50 to obtain Cefaclor [From [facility]] Allergy Unknown/Unable Verified 11/03/16 14:50 to obtain Penicillins Allergy Unknown/Unable Verified 11/03/16 14:50 to obtain Exam (Pulmonay) H&P - Constitutional Vitals: Period Temp Pulse Resp BP Sys/Morillo Pulse Ox Last 24 Hr 97.7 F-99.2 F 61-96 16-20 74-108/45-66 91-99 Medical,Surgical,& Family Hx - Medical History Cardio: History of: Hypertension Neurology: History of: Cerebrovascular Accident No history of: Seizures Endocrine: History of: Diabetes Mellitus (IDDM), Dyslipidemia - Surgical History Cardiac Surgeries: Patient Denies: Cardiac Catheterization Thoracic Surgeries: Patient denies;: Lobectomy Neurologic Surgeries: Patient denies: Neurologic Surgery Abdominal Surgeries: Surgical HX of: Cholecystectomy Reproductive Surgeries: Surgical HX of;: Section, Hysterectomy - Family History Family History: Reports;: Family Cancer (Lung CA mother), Family Diabetes, Family Heart Disease (Father passed of [place]), Family Hypertension - Social History Smoking Status: Heavy tobacco smoker (2 packs per day.) Frequency of Alcohol Use: Occasionally Type of Drug Use: None Results - Labs CBC & BMP: 11/05/16 05:11 11/05/16 05:11 Quality Measures - VTE Contraindication to Pharmacological VTE Prophylaxis: High Risk of Bleeding
--- NOTE | 2016-11-05 15:20 | Cardiology Progress Note ---
Assessment and Plan (1) Chest pain Status: Acute Assessment and plan: Certainly her anatomy her chest pain certainly may be anginal in nature. She has not had any that over the last 24 hours. Current Visit: Yes (2) Elevated troponin Status: Acute Assessment and plan: There is a borderline troponins were stable. Current Visit: Yes (3) Diabetes mellitus Status: Chronic Assessment and plan: On sliding scale continue her home medications. Current Visit: Yes (4) Heavy cigarette smoker (20-39 per day) Status: Acute Assessment and plan: Prior masses seen the patient assisting us in care for her smoking history and underlying lung disease. Current Visit: Yes (5) Dyslipidemia Status: Chronic Assessment and plan: Apparently chronic and has been on rosuvastatin. Current Visit: Yes (6) Abnormal ECG Status: Acute Assessment and plan: Duration is really unknown. Has really nondiagnostic T-wave abnormalities inferior laterally. Current Visit: Yes Cardiology - PN: Subj Interval history: Patient doing well today post catheterization. She has multivessel coronary disease and would potentially benefit from bypass surgery. She has ischemic cardiomyopathy. Dr. Whitehead is seen the patient and agrees of bypass surgery. Hopefully a diagonal of the LAD can be bypassed. Vessels are generally small in her LAD is diffusely diseased. Pulmonary medicine i.e. Dr. Stewart is seen the patient and evaluated her. He is treating her underlying lung issues. The patient is agreeable to staying will contact Dr. Whitehead to set up surgery. She generally otherwise is doing well. Long-term risk factor modification is necessary. Please note that she did see Dr. Cox 2 years ago. Exam (Progress Note) - Constitutional Vitals: Period Temp Pulse Resp BP Sys/Morillo Pulse Ox Last 24 Hr 98.1 F-99.2 F 61-96 16-20 74-108/46-66 91-99 Exam: General appearance: normal weight/thin, no acute distress HEENT: Atraumatic, eye exam is unremarkable and unchanged. Neck exam: normal inspection no JVD. No carotid bruit. Trachea is in midline. Respiratory exam: clear to auscultation bilaterally posteriorly and anteriorly with good air movement. No rales, rhonchi or wheezes. Cardiovascular exam: regular rate and rhythm, no murmur or gallop or rub. No precordial lift. No bruits over the major arteries. Chest wall/torso: Anatomically normal. No tenderness, deformity Peripheral Pulses: 2+ throughout. GI/Abdominal exam: normal bowel sounds, soft and nontender, no abdominal bruits or pulsatile masses. Musculoskeletal/Extremities exam: normal inspection without edema or cyanosis. Right groin stable. Neurological exam: alert, oriented X3. There is no gross neurologic deficits. Psychiatric exam: normal affect, normal mood. Cognitive function is grossly intact. Skin exam: normal color, warm. No rashes or other skin lesions. Result/EKG - Labs CBC & BMP: 11/05/16 05:11 11/05/16 05:11 Lab Results: I have reviewed the past 24 hour labs Labs: Laboratory Results - last 24 hr 11/04/16 11/04/16 11/05/16 16:02 19:59 05:11 WBC 7.2 RBC 4.31 Hgb 12.9 Hct 36.8 MCV 85.4 L MCH 30 MCHC 35.1 RDW 12.2 Plt Count 161 MPV 10.7 Neut % (Auto) 61.8 Lymph % (Auto) 28.9 [place] % (Auto) 7.0 Eos % (Auto) 1.7 Baso % (Auto) 0.3 Neut # (Auto) 4.4 Lymph # (Auto) 2.1 [place] # (Auto) 0.5 Eos # (Auto) 0.1 Baso # (Auto) 0.0 Immature Gran % 0.3 Nucleated RBC % 0.0 Immature Gran # 0.02 Nucleated RBCs # 0.00 Immature Plt Fraction 0.0 Sodium Potassium Chloride Carbon Dioxide Anion Gap BUN Creatinine GFR Calculation BUN/Creatinine Ratio Glucose POC Glucose 427 H 159 H Calculated Osmolality Calcium 11/05/16 11/05/16 11/05/16 05:11 07:54 12:49 WBC RBC Hgb Hct MCV MCH MCHC RDW Plt Count MPV Neut % (Auto) Lymph % (Auto) [place] % (Auto) Eos % (Auto) Baso % (Auto) Neut # (Auto) Lymph # (Auto) [place] # (Auto) Eos # (Auto) Baso # (Auto) Immature Gran % Nucleated RBC % Immature Gran # Nucleated RBCs # Immature Plt Fraction Sodium 139 Potassium 3.9 Chloride 105 Carbon Dioxide 28 Anion Gap 9.9 BUN 18 Creatinine 0.70 GFR Calculation 99 BUN/Creatinine Ratio 25.00 H Glucose 276 H POC Glucose 288 H 264 H Calculated Osmolality 288.5 Calcium 8.7 - Impressions Impressions: ECG with sinus rhythm with T-wave abnormalities especially inferior laterally. Unchanged. Telemetry is stable. Quality Measures - VTE Contraindication to Pharmacological VTE Prophylaxis: High Risk of Bleeding
[2016-11-05] MEDS: ENOXAPARIN 60 MG/0.6 ML SYRINGE SUBCUT SCH ×2 (16:39→17:45)
[2016-11-05] MEDS: ROSUVASTATIN 10 MG TABLET PO SCH (22:06)
[2016-11-05] MEDS: LINACLOTIDE 145 MCG CAPSULE PO SCH (22:08)
[2016-11-06] MEDS: ENOXAPARIN 60 MG/0.6 ML SYRINGE SUBCUT SCH ×3 (06:07→17:29)
[2016-11-06] MEDS: sitaGLIPtin 100 MG TABLET PO SCH (08:36)
[2016-11-06] MEDS: INSULIN LISPRO 100 UNIT/ML SUBCUT SCH ×4 (08:36→21:12)
[2016-11-06] MEDS: MONTELUKAST 10 MG TABLET PO SCH (08:36)
[2016-11-06] MEDS: NICOTINE 14 MG/24 HR PATCH TRANSDERM SCH (08:36)
[2016-11-06] MEDS: PANTOPRAZOLE 40 MG TABLET PO SCH (08:36)
[2016-11-06] MEDS: METOPROLOL TARTRATE 25 MG TABLET PO SCH ×2 (08:38→21:16)
--- NOTE | 2016-11-06 09:33 | Cardiology Progress Note ---
Assessment and Plan - Time spent with patient Time spent with patient: Greater than 30 minutes (1) 3-vessel CAD Status: Acute Assessment and plan: SEE PLAN OF CARE LISTED BELOW. Current Visit: Yes (2) Elevated troponin Status: Acute Assessment and plan: SEE PLAN OF CARE LISTED BELOW. Current Visit: Yes (3) Heavy cigarette smoker (20-39 per day) Status: Chronic Assessment and plan: SEE PLAN OF CARE LISTED BELOW. Current Visit: Yes (4) Diabetes mellitus Status: Chronic Assessment and plan: SEE PLAN OF CARE LISTED BELOW. Current Visit: Yes (5) Dyslipidemia Status: Chronic Assessment and plan: SEE PLAN OF CARE LISTED BELOW. Current Visit: Yes (6) Anxiety Status: Chronic Assessment and plan: SEE PLAN OF CARE LISTED BELOW. Current Visit: Yes (7) Ischemic cardiomyopathy Status: Acute Assessment and plan: SEE PLAN OF CARE LISTED BELOW. 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 Child office for further evaluation of chest pain that she had been experiencing for 2 weeks. She has a past medical history of dyslipidemia, diabetes, anxiety, tobacco abuse and GERD. She was seen by Dr. Child in the clinic and was noted to have an abnormal EKG. Subsequently, she was sent over to the emergency department. She underwent heart catheterization which revealed multivessel disease. Subsequently, Dr. Whitehead has been consulted to evaluate for surgery. NOVEMBER 06, 2016 Patient was seen and examined on the telemetry unit. She is doing well this morning without complaints of chest pain, heaviness or tightness. Right groin is soft without bleeding, hematoma or bruit. Distal pulses 2+. Patient has ambulated without difficulty. Right groin has remained stable post ambulation. Dr. Whitehead saw patient in consultation yesterday and recommended bypass surgery. Patient is anxious to undergo the surgery but tells me this morning that she will undergo if absolutely necessary. I spent 30 minutes with patient discussing what to expect with bypass surgery. Dr. Whitehead will see her later today to further discuss what to expect. Continue therapeutic Lovenox. If planned for CABG in the morning she will receive last dose tonight. Unfortunately, patient is allergic to aspirin and unable to tolerate this medication. PENNY inhibitor/ARB cannot be initiated as a pressure will not tolerate. Labs reviewed. Patient is hemodynamically stable. I will further discuss with Dr. Coello and await his additional recommendations. REVIEW OF SYSTEMS: Cardiovascular: Denies chest pain, heaviness or tightness. GI: Denies nausea, vomiting and abdominal pain Respiratory: Denies shortness of breath, dyspnea on exertion orthopnea IMPRESSION AND PLAN: 1. MULTIVESSEL CORONARY ARTERY DISEASE - Heart catheterization November 04, 2016 revealed multivessel coronary artery disease. Dr. Whitehead has been consulted and is discussing surgery with patient. Patient is anxious for surgery but tells me today that she will undergo the surgery it if it is necessary. She has been chest pain-free. Patient is allergic to aspirin, therefore this medication has not been initiated. Continue therapeutic Lovenox and nitrates. Beta-blockade has been decreased due to borderline hypotension. Unable to introduce PENNY inhibitor or ARB as a pressure will not tolerate. 2. DYSLIPIDEMIA - LDL 124. I have increased patient's statin to high intensity. 3. DIABETES - I have increased patient's sliding scale to medium regimen. Will continue to monitor and increase sliding scale regimen as needed. 4. ANXIETY - Home medications have been reinitiated. These will be continued. 5. TOBACCO ABUSE - Current everyday smoker. I have spent several minutes discussing the importance of smoking cessation. Continue nicotine patch. 6. ISCHEMIC CARDIOMYOPATHY - EF calculated at 20% per echocardiogram this admission. Unfortunately, her blood pressure will not allow initiation of PENNY inhibitor or ARB. Low-dose beta-blockade will be continued. Will monitor blood pressure closely with this medication. Hopeful, PENNY inhibitor/ARB can be initiated prior to discharge. 7. PROBABLE COPD - Dr. Horan is following and managing. Exam (Progress Note) - Constitutional Vitals: Period Temp Pulse Resp BP Sys/Morillo Pulse Ox Last 24 Hr 97.8 F-99.6 F 72-93 16-18 80-104/54-66 90-98 Exam: General: Appears well with no apparent distress. Pleasant and cooperative. Appears comfortable. HEENT: PERRL, normocephalic, atraumatic. Mucous membranes moist. No jaundice noted. Conjunctiva moist and clear, sclerae anicteric Neck: No JVD/HJR, no thyromegaly or lymphadenopathy noted. No carotid bruit appreciated Cardiac: Regular rate and rhythm. No murmur rub or gallop. Lungs: Clear to auscultation without accessory muscle use to assist the respiratory pattern. Not requiring oxygen. Abdomen: Soft, bowel sounds normoactive. Nontender and nondistended. No abdominal bruit or thrill noted. No masses noted. Extremities: No clubbing, cyanosis noted. No edema noted. Upper extremity pulses 2+. Lower extremity pulses 2+. Capillary refill less than 3 seconds. Right groin soft without bleeding, hematoma or bruit. Distal pulses 2+. Skin: No unusual lesions or rashes. No skin breakdown appreciated. Neuro: Awake, alert and oriented 3. Moves all extremities well without hemiparesis or paralysis. No essential tremor is appreciated. Result/EKG - Labs CBC & BMP: 11/05/16 05:11 11/05/16 05:11 Lab Results: I have reviewed the past 24 hour labs Labs: Laboratory Results - last 24 hr 11/05/16 11/05/16 11/05/16 07:54 12:49 16:05 POC Glucose 288 H 264 H 305 H 11/05/16 11/06/16 21:23 08:00 POC Glucose 227 H 277 H Quality Measures - VTE Contraindication to Pharmacological VTE Prophylaxis: High Risk of Bleeding
--- NOTE | 2016-11-06 10:44 | Cardiothoracic Progress Note ---
Cardiothoracic Subjective Interval history: Patient is decided to go ahead with surgery. We are planning for surgery morning. Patient has out-of-town family and this schedule works well for her. She is to remain in the hospital until surgery. Exam (Progress Note) - Constitutional Vitals: Period Temp Pulse Resp BP Sys/Morillo Pulse Ox Last 24 Hr 97.8 F-99.6 F 72-93 16-18 80-104/54-66 90-98 Result/EKG - Labs CBC & BMP: 11/05/16 05:11 11/05/16 05:11 Labs: Laboratory Results - last 24 hr 11/05/16 11/05/16 11/05/16 07:54 12:49 16:05 POC Glucose 288 H 264 H 305 H 11/05/16 11/06/16 21:23 08:00 POC Glucose 227 H 277 H Quality Measures - VTE Contraindication to Pharmacological VTE Prophylaxis: High Risk of Bleeding
[2016-11-06] MEDS ORDERED: DEXTROSE 50% 25 GM/50 ML SYRINGE IV PRN (10:53)
[2016-11-06] MEDS ORDERED: GLUCAGON 1 MG VIAL IM PRN (10:53)
[2016-11-06] MEDS ORDERED: VANCOMYCIN INJ 1,000 MG in SODIUM CHLORIDE 0.9% 250 ML IV ONE (10:53)
--- NOTE | 2016-11-06 11:58 | Pulmonology Progress Note ---
Pulmonary - PN: Subj Interval history: Gennaro Jiang, TEREZA-, acting as scribe for Dr. Raymond Horan Ms. maldonado is a 56-year-old white female who we saw in initial pulmonary consultation 11/05/2016. At that time, our impressions were: 1. Tobacco abuse. [id number]-year history of smoking. 2. Probable COPD. Mild wheeze. Probable bronchospastic disease. 3. Severe three-vessel heart disease with ejection fraction of 20% and global hypokinesis 4. Hyperlipidemia. 5. Diabetes mellitus. 6. See past history 11/06/2016. The patient has decided to go forth with CABG. This will most likely be done tomorrow. In anticipation of this, we will obtain complete pulmonary function testing today with pre-and post bronchodilator spirometry. Her previously noted large airway wheeze has resolved with the addition of Singulair. This needs to be continued. Medications have been reviewed. We made no changes today. Labs been reviewed. No new labs were drawn today. Exam (Progress Note) - Constitutional Vitals: Period Temp Pulse Resp BP Sys/Morillo Pulse Ox Last 24 Hr 97.8 F-99.6 F 72-93 16-18 80-104/54-66 90-98 Exam: Chest... See above Heart no gallop Abdomen is nontender and nondistended; bowel sounds are positive 4 Lower extremities with nothing to suggest acute deep venous thrombophlebitis Psychiatric oriented 3 Neurologic long-term motor function is intact Plan: Complete pulmonary function tests today. Anticipate CABG tomorrow. Continue present pulmonary treatment. See orders. Results - Labs CBC & BMP: 11/05/16 05:11 11/05/16 05:11
[2016-11-06] MEDS: SODIUM CHLORIDE 0.9% 1,000 ML IV SCH (12:27)
--- NOTE | 2016-11-06 13:18 | Sleep Medicine Consult ---
Assessment and Plan (1) Unspecified sleep apnea Status: Acute Assessment and plan: Her symptoms certainly are consistent with sleep apnea. We will go ahead and schedule her for home sleep test evaluation tonight and follow-up on those results. Thank you for this consult. Current Visit: Yes (2) Diabetes mellitus Status: Chronic Assessment and plan: The prevalence rate for obstructive sleep apnea in patients with type 2 diabetes can be as high as 86%. Those patients with moderate to severe obstructive sleep apnea are at a greater risk for diabetic nephropathy and neuropathy. Compliance with CPAP therapy for these patients can lead to improvement in glycemic control and improvement in insulin sensitivity. Current Visit: Yes (3) 3-vessel CAD Status: Acute Assessment and plan: I reviewed the Dash data from Lancet 2004 with the patient to their understanding. This study proved significant reduction in the risk of fatal and nonfatal cardiac events in patients with severe obstructive sleep apnea compliant with CPAP, in comparison with those noncompliant with CPAP for severe sleep apnea. Current Visit: Yes History of Present Illness Chief complaint: Sleep apnea History of present illness: Ms. Nesbitt is a 56 year old female admitted with chest pain and found to have multivessel coronary artery disease and is scheduled to undergo bypass surgery on . She screened is being at high risk for sleep apnea and sleep medicine was consulted. She does have a long history of loud snoring. She has never been told that she stops breathing during her sleep and she denies awakening from sleep short of breath. However she will awaken multiple times during the night and does not describe her sleep is refreshing. She awakens at least 3-4 times a night to urinate. She does have significant sleepiness during the day, having an [place] sleepiness score of at least 15. She also has symptoms of restless legs and takes Mirapex therapy for that. Home Medications Medication Instructions Recorded Confirmed Type ALPRAZolam [Xanax] 0.25 mg PO Q8H PRN 11/03/16 11/03/16 History Amitriptyline HCl 25 mg PO BEDTIME 11/03/16 11/03/16 History Ergocalciferol (Vitamin D2) 50,000 unit PO Q7D 11/03/16 11/03/16 History [Vitamin D2] Gabapentin 100 mg PO TID PRN 11/03/16 11/03/16 History Hydrocodone/Acetaminophen [[place] 1 each PO Q6H PRN 11/03/16 11/03/16 History 10-325 Tablet] Linaclotide [Linzess] 290 mcg PO BEDTIME 11/03/16 11/03/16 History Linagliptin [Tradjenta] 5 mg PO BEDTIME 11/03/16 11/03/16 History Nitroglycerin [Nitroglycerin SL 0.4 mg SL Q5M PRN 11/03/16 11/03/16 History Tab] Omeprazole 20 mg PO DAILY 11/03/16 11/03/16 History Pramipexole [Mirapex] 0.25 mg PO BEDTIME PRN 11/03/16 11/03/16 History Ranitidine Tab [Zantac Tab] 150 mg PO BEDTIME 11/03/16 11/03/16 History Rosuvastatin [Crestor] 10 mg PO BEDTIME 11/03/16 11/03/16 History Trazodone HCl 150 mg PO BEDTIME 11/03/16 11/03/16 History clonazePAM TAB [KlonoPIN] 0.25 mg PO Q12H PRN 11/03/16 11/03/16 History clonazePAM TAB [KlonoPIN] 0.5 mg PO Q12H PRN 11/03/16 11/03/16 History hydrOXYzine HCl [Hydroxyzine HCl] 25 mg PO RT Q8H PRN 11/03/16 11/03/16 History Allergies Allergy/AdvReac Type Severity Reaction Status Date / Time aspirin Allergy Unknown/Unable Verified 11/03/16 14:50 to obtain Cefaclor [From [facility]] Allergy Unknown/Unable Verified 11/03/16 14:50 to obtain Penicillins Allergy Unknown/Unable Verified 11/03/16 14:50 to obtain Review of systems: Otherwise unremarkable from a sleep medicine standpoint. Exam (Pulmonay) H&P - Constitutional Vitals: Period Temp Pulse Resp BP Sys/Morillo Pulse Ox Last 24 Hr 97.8 F-99.6 F 72-109 16-18 80-104/54-66 90-97 Exam: Patient is alert and responsive in no acute distress. Pupils equal round reactive to light and accommodation. Extraocular movements intact. Oropharynx with a class III Mallampati exam. Neck is supple without adenopathy or thyromegaly. No supraclavicular adenopathy is noted. Chest with symmetrical breath sounds without focal wheeze, rhonchi, or rales. Cardiac exam reveals a regular rhythm without murmur or gallop. Abdomen soft nontender without palpable hepatosplenomegaly or mass. Extremities are without clubbing, cyanosis , or edema. Neurologically, she is grossly intact. She moves all extremities with good strength. Medical,Surgical,& Family Hx - Medical History Cardio: History of: Hypertension Neurology: History of: Cerebrovascular Accident No history of: Seizures Endocrine: History of: Diabetes Mellitus (IDDM), Dyslipidemia - Surgical History Cardiac Surgeries: Patient Denies: Cardiac Catheterization Thoracic Surgeries: Patient denies;: Lobectomy Neurologic Surgeries: Patient denies: Neurologic Surgery Abdominal Surgeries: Surgical HX of: Cholecystectomy Reproductive Surgeries: Surgical HX of;: Section, Hysterectomy - Family History Family History: Reports;: Family Cancer (Lung CA mother), Family Diabetes, Family Heart Disease (Father passed of [place]), Family Hypertension - Social History Smoking Status: Heavy tobacco smoker (2 packs per day.) Frequency of Alcohol Use: Occasionally Type of Drug Use: None Results - Labs CBC & BMP: 11/05/16 05:11 11/05/16 05:11 Lab Results: I have reviewed the past 24 hour labs Quality Measures - VTE Contraindication to Pharmacological VTE Prophylaxis: High Risk of Bleeding
[2016-11-06] MEDS: LINACLOTIDE 145 MCG CAPSULE PO SCH (21:11)
[2016-11-06] MEDS: ROSUVASTATIN 20 MG TABLET PO SCH (21:12)
[2016-11-06] MEDS: CHLORHEXIDINE 0.12% ORAL RINSE 60 ML BOTTLE SWISH/SPIT SCH (21:35)
[2016-11-07] MEDS: ENOXAPARIN 60 MG/0.6 ML SYRINGE SUBCUT SCH (05:52)
--- NOTE | 2016-11-07 06:27 | Cardiothoracic Progress Note ---
Cardiothoracic Subjective Interval history: Patient is ready for surgery on . Exam (Progress Note) - Constitutional Vitals: Period Temp Pulse Resp BP Sys/Morillo Pulse Ox Last 24 Hr 97.3 F-98.5 F 79-109 16-18 82-102/53-64 92-97 Result/EKG - Labs CBC & BMP: 11/05/16 05:11 11/05/16 05:11 Labs: Laboratory Results - last 24 hr 11/06/16 11/06/16 11/06/16 08:00 11:10 11:37 POC Glucose 277 H 267 H Blood Type O POSITIVE Antibody Screen Negative 11/06/16 11/06/16 15:59 19:42 POC Glucose 260 H 225 H Blood Type Antibody Screen Quality Measures - VTE Contraindication to Pharmacological VTE Prophylaxis: High Risk of Bleeding
[2016-11-07 06:47] LABS: Basophils % 0.3 % (0.0-0.8); Eosinophils # 0.2 10*3/uL (0.0-0.87); Eosinophils % 2.2 % (0.00-10.9); Hematocrit 36.5 VOL% (35.7-47.0); Hemoglobin 12.5 GM/DL (12.0-16.0); Immature Granulocytes % 0.3 %; Immature Granulocytes Absolute 0.02 #; Lymphocytes % 29.2 % (21.3-54.2); Mean Corpuscular HGB Conc 34.2 GM/DL (32-36); Mean Corpuscular Hemoglobin 29 PG (27-34); Mean Corpuscular Volume 85.7 FL (87-102); Mean Platelet Volume 11.1 FL (9.6-12.0); Monocytes # 0.6 10*3/uL (0.11-0.8); Monocytes % 8.5 % (1.7-12.7); Neutrophils % 59.5 % (38.7-73.9); Platelet Count 145 T/CUMM (130-400); Red Blood Count 4.26 MC/CUMM (3.8-5.5); Red Cell Distribution Width 12.3 % (9.3-17.3); White Blood Count 6.7 T/CUMM (4-12)
[2016-11-07 07:11] LABS: Calcium 8.8 MG/DL (8.5-10.1); Osmolality,Calculated 286.1 MOS/KG (273-304)
--- NOTE | 2016-11-07 08:03 | Order Completion Report ---
See report scanned to EMR
[2016-11-07] MEDS: CLORAZEPATE 3.75 MG TABLET PO SCH ×3 (08:39→21:25)
[2016-11-07] MEDS: sitaGLIPtin 100 MG TABLET PO SCH (08:39)
[2016-11-07] MEDS: MONTELUKAST 10 MG TABLET PO SCH (08:39)
[2016-11-07] MEDS: PANTOPRAZOLE 40 MG TABLET PO SCH (08:39)
[2016-11-07] MEDS: INSULIN LISPRO 100 UNIT/ML SUBCUT SCH ×4 (08:39→21:28)
[2016-11-07] MEDS: NICOTINE 14 MG/24 HR PATCH TRANSDERM SCH (08:40)
--- NOTE | 2016-11-07 08:59 | Sleep Medicine Progress Note ---
Assessment and Plan (1) Unspecified sleep apnea Status: Acute Assessment and plan: We will follow-up on HST results from last night and further treatment will be forthcoming. Current Visit: Yes (2) Diabetes mellitus Status: Chronic Current Visit: Yes (3) 3-vessel CAD Status: Acute Current Visit: Yes Sleep Medicine Subjective Interval history: Patient had an up-and-down night but did have home sleep testing done. That study has not been reviewed as yet but we will review and follow-up on results. If positive for sleep apnea, we will initiate auto CPAP tonight. Exam (Progress Note) - Constitutional Vitals: Period Temp Pulse Resp BP Sys/Morillo Pulse Ox Last 24 Hr 97.3 F-98.7 F 79-109 16-18 82-102/53-64 92-97 Exam: He is alert and responsive in no acute distress. Equal round reactive to light and accommodation. Extraocular movements intact. Oropharynx with class IV Mallampati exam. Chest with good breath sounds without focal wheeze or rhonchi. Cardiac exam reveals regular rhythm without murmur or gallop. Abdomen soft nontender extremities without edema. Results - Labs CBC & BMP: 11/07/16 05:05 11/07/16 05:05 Lab Results: I have reviewed the past 24 hour labs
[2016-11-07] MEDS: METOPROLOL TARTRATE 25 MG TABLET PO SCH (09:15)
[2016-11-07] MEDS: CHLORHEXIDINE 0.12% ORAL RINSE 60 ML BOTTLE SWISH/SPIT SCH ×2 (09:15→21:47)
--- NOTE | 2016-11-07 12:15 | Cardiology Progress Note ---
Assessment and Plan (1) 3-vessel CAD Status: Acute Assessment and plan: SEE PLAN OF CARE LISTED BELOW. Current Visit: Yes (2) Elevated troponin Status: Acute Assessment and plan: SEE PLAN OF CARE LISTED BELOW. Current Visit: Yes (3) Heavy cigarette smoker (20-39 per day) Status: Chronic Assessment and plan: SEE PLAN OF CARE LISTED BELOW. Current Visit: Yes (4) Diabetes mellitus Status: Chronic Assessment and plan: SEE PLAN OF CARE LISTED BELOW. Current Visit: Yes (5) Dyslipidemia Status: Chronic Assessment and plan: SEE PLAN OF CARE LISTED BELOW. Current Visit: Yes (6) Anxiety Status: Chronic Assessment and plan: SEE PLAN OF CARE LISTED BELOW. Current Visit: Yes (7) Ischemic cardiomyopathy Status: Acute Assessment and plan: SEE PLAN OF CARE LISTED BELOW. Current Visit: Yes (8) Hematoma Status: Acute Assessment and plan: SEE PLAN OF CARE LISTED BELOW. Current Visit: Yes (9) Unspecified sleep apnea Status: Acute Assessment and plan: SEE PLAN OF CARE LISTED BELOW. 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 Child office for further evaluation of chest pain that she had been experiencing for 2 weeks. She has a past medical history of dyslipidemia, diabetes, anxiety, tobacco abuse and GERD. She was seen by Dr. Child in the clinic and was noted to have an abnormal EKG. Subsequently, she was sent over to the emergency department. She underwent heart catheterization which revealed multivessel disease. Subsequently, Dr. Whitehead has been consulted to evaluate for surgery. NOVEMBER 07, 2016 Patient was seen and examined on the telemetry unit along with Dr. Coello. She continues to do well this morning and is without complaints of chest pain, heaviness or tightness. Denies shortness of breath or dyspnea on exertion. She continues to be anxious about the upcoming surgery. She has requested to see her "blockages" that are in her heart. I will print these off and show these to her. She complains of right groin soreness especially when she coughs. Upon exam, she does have a small hematoma to her right groin cath site. Without overt bleeding or bruit. We will order ultrasound to rule out vessel damage. She continues to be borderline hypotensive at times. I will switch her Lopressor to Coreg with hold parameters as this will hopefully not have as much effect on blood pressure. Unable to introduce PENNY inhibitor or ARB at this time. Hopeful that this can be introduced prior to discharge. Labs reviewed and are overall unremarkable. I will discuss with Dr. Coello and await his additional recommendations. REVIEW OF SYSTEMS: Cardiovascular: Denies chest pain, heaviness or tightness. GI: Denies nausea, vomiting and abdominal pain Respiratory: Denies shortness of breath, dyspnea on exertion orthopnea Extremities: Right groin is sore with cough. IMPRESSION AND PLAN: 1. MULTIVESSEL CORONARY ARTERY DISEASE - Heart catheterization November 04, 2016 revealed multivessel coronary artery disease. Dr. Whitehead has been consulted , plan for CABG . Patient has remained chest pain-free. Patient is allergic to aspirin, therefore this medication has not been initiated. Continue therapeutic Lovenox and nitrates. Due to borderline hypotension, will change Lopressor to Coreg with hold parameters as this will likely not have as much effect on her blood pressure. Unable to introduce PENNY inhibitor or ARB as a pressure will not tolerate. Will discontinue Lovenox Sunday night. I will further discuss with Dr. Coello and await his additional recommendations. 2. DYSLIPIDEMIA - LDL 124. I have increased patient's statin to high intensity. 3. DIABETES - I have increased patient's sliding scale to high regimen. 4. ANXIETY - Home medications have been reinitiated. These will be continued. 5. TOBACCO ABUSE - Current everyday smoker. I have spent several minutes discussing the importance of smoking cessation. Continue nicotine patch. 6. ISCHEMIC CARDIOMYOPATHY - EF calculated at 20% per echocardiogram this admission. Unfortunately, her blood pressure will not allow initiation of PENNY inhibitor or ARB. Low-dose beta-blockade will be continued with hold parameters. Will monitor blood pressure closely with this medication. Hopeful , PENNY inhibitor/ARB can be initiated prior to discharge. Plan for revascularization . Patient will need repeat echocardiogram 3 months after discharge to reevaluate ejection fraction. If no improvement is noted she will be a candidate for ICD placement. 7. PROBABLE COPD - Dr. Horan is following and managing. Appreciate his assistance. 8. UNSPECIFIED SLEEP APNEA - Agarwal is following. Appreciate his assistance. 9. SMALL HEMATOMA TO RIGHT GROIN - Will order ultrasound to rule out pseudoaneurysm Exam (Progress Note) - Constitutional Vitals: Period Temp Pulse Resp BP Sys/Morillo Pulse Ox Last 24 Hr 97.3 F-98.7 F 79-92 16-18 82-96/53-64 92-95 Exam: General: Appears well with no apparent distress. Pleasant and cooperative. Appears comfortable. HEENT: PERRL, normocephalic, atraumatic. Mucous membranes moist. No jaundice noted. Conjunctiva moist and clear, sclerae anicteric Neck: No JVD/HJR, no thyromegaly or lymphadenopathy noted. No carotid bruit appreciated Cardiac: Regular rate and rhythm. No murmur rub or gallop. Lungs: Clear to auscultation without accessory muscle use to assist the respiratory pattern. Not requiring oxygen. Abdomen: Soft, bowel sounds normoactive. Nontender and nondistended. No abdominal bruit or thrill noted. No masses noted. Extremities: No clubbing, cyanosis noted. No edema noted. Upper extremity pulses 2+. Lower extremity pulses 2+. Capillary refill less than 3 seconds. Right groin soft without bleeding, hematoma or bruit. Distal pulses 2+. Skin: No unusual lesions or rashes. No skin breakdown appreciated. Neuro: Awake, alert and oriented 3. Moves all extremities well without hemiparesis or paralysis. No essential tremor is appreciated. Result/EKG - Labs CBC & BMP: 11/07/16 05:05 11/07/16 05:05 Lab Results: I have reviewed the past 24 hour labs Labs: Laboratory Results - last 24 hr 11/06/16 11/06/16 11/06/16 11:10 15:59 19:42 WBC RBC Hgb Hct MCV MCH MCHC RDW Plt Count MPV Neut % (Auto) Lymph % (Auto) [place] % (Auto) Eos % (Auto) Baso % (Auto) Neut # (Auto) Lymph # (Auto) [place] # (Auto) Eos # (Auto) Baso # (Auto) Immature Gran % Nucleated RBC % Immature Gran # Nucleated RBCs # Immature Plt Fraction Sodium Potassium Chloride Carbon Dioxide Anion Gap BUN Creatinine GFR Calculation BUN/Creatinine Ratio Glucose POC Glucose 260 H 225 H Hemoglobin A1c Calculated Osmolality Calcium Magnesium Blood Type O POSITIVE Antibody Screen Negative 11/07/16 11/07/16 11/07/16 05:04 05:05 05:05 WBC 6.7 RBC 4.26 Hgb 12.5 Hct 36.5 MCV 85.7 L MCH 29 MCHC 34.2 RDW 12.3 Plt Count 145 MPV 11.1 Neut % (Auto) 59.5 Lymph % (Auto) 29.2 [place] % (Auto) 8.5 Eos % (Auto) 2.2 Baso % (Auto) 0.3 Neut # (Auto) 4.0 Lymph # (Auto) 2.0 [place] # (Auto) 0.6 Eos # (Auto) 0.2 Baso # (Auto) 0.0 Immature Gran % 0.3 Nucleated RBC % 0.0 Immature Gran # 0.02 Nucleated RBCs # 0.00 Immature Plt Fraction 0.0 Sodium 142 Potassium 4.0 Chloride 107 Carbon Dioxide 28 Anion Gap 11.0 BUN 10 Creatinine 0.50 L GFR Calculation 109 BUN/Creatinine Ratio 20.00 Glucose 184 H POC Glucose Hemoglobin A1c 9.5 H Calculated Osmolality 286.1 Calcium 8.8 Magnesium 2.0 Blood Type Antibody Screen 11/07/16 08:29 WBC RBC Hgb Hct MCV MCH MCHC RDW Plt Count MPV Neut % (Auto) Lymph % (Auto) [place] % (Auto) Eos % (Auto) Baso % (Auto) Neut # (Auto) Lymph # (Auto) [place] # (Auto) Eos # (Auto) Baso # (Auto) Immature Gran % Nucleated RBC % Immature Gran # Nucleated RBCs # Immature Plt Fraction Sodium Potassium Chloride Carbon Dioxide Anion Gap BUN Creatinine GFR Calculation BUN/Creatinine Ratio Glucose POC Glucose 254 H Hemoglobin A1c Calculated Osmolality Calcium Magnesium Blood Type Antibody Screen Quality Measures - VTE Contraindication to Pharmacological VTE Prophylaxis: High Risk of Bleeding
[2016-11-07] MEDS: SODIUM CHLORIDE 0.9% 1,000 ML IV SCH (12:33)
--- NOTE | 2016-11-07 12:43 | Pulmonology Progress Note ---
Pulmonary - PN: Subj Interval history: Gennaro Jiang, [facility], acting as scribe for Dr. Raymond Horan MsVeronica okeefe is a 56-year-old white female who we saw in initial pulmonary consultation 11/05/2016. At that time, our impressions were: 1. Tobacco abuse. [id number]-year history of smoking. 2. Probable COPD. Mild wheeze. Probable bronchospastic disease. 3. Severe three-vessel heart disease with ejection fraction of 20% and global hypokinesis 4. Hyperlipidemia. 5. Diabetes mellitus. 6. See past history 11/06/2016. The patient has decided to go forth with CABG. This will most likely be done tomorrow. In anticipation of this, we will obtain complete pulmonary function testing today with pre-and post bronchodilator spirometry. Her previously noted large airway wheeze has resolved with the addition of Singulair. This needs to be continued. Medications have been reviewed. We made no changes today. Labs been reviewed. No new labs were drawn today. 11/07/2016. Patient's CABG has been scheduled for 11/09/2016. We discussed this again with her today. From a pulmonary standpoint she is appropriate for surgery. Pulmonary function tests done 11/06/2016 showed SPO2 96% on room air, small airways disease, paradoxical response to inhaled bronchodilators, no restrictive disease, normal diffusion, and maximum voluntary ventilation was normal. On chest exam, she is still wheeze free. She states that her breathing is doing well. Medications have been reviewed. We made no changes today. Labs been reviewed. White count is 6700 with a normal differential; H&H 10.5/ 36.5; platelet count 145,000; creatinine 0.50, BUN 10, electrolytes were normal ; hemoglobin A1c elevated at 9.5% showing poor control of her diabetes mellitus Exam (Progress Note) - Constitutional Vitals: Period Temp Pulse Resp BP Sys/Morillo Pulse Ox Last 24 Hr 97.3 F-98.9 F 79-94 16-18 82-96/53-64 92-98 Exam: Chest... See above Heart no gallop Abdomen is nontender and nondistended; bowel sounds are positive 4 Lower extremities with nothing to suggest acute deep venous thrombophlebitis Psychiatric oriented 3 Neurologic long-term motor function is intact Plan: Continue present pulmonary treatment. Plans for CABG 11/09/2016 noted. See orders. Results - Labs CBC & BMP: 11/07/16 05:05 11/07/16 05:05
--- NOTE | 2016-11-07 14:40 | Ultrasound Report ---
US arterial duplex LE RT Clinical Information: Right groin pain, HEMATOMA STATUS POST CARDIAC CATH Comparison: None available Technique: Targeted ultrasound evaluation of the right groin including the common femoral artery and vein was performed with grayscale, color Doppler spectral analysis. Findings: No focal vascular abnormality or subcutaneous fluid collection is identified within the right groin. The common femoral artery is patent with normal triphasic waveform. Common femoral vein is widely patent and compressible with normal phasicity on spectral analysis. There is no evidence of arteriovenous fistula. Impression: Negative study. PROCEDURE INTERPRETED AT [facility] DEPARTMENT OF RADIOLOGY Final Report Signed by: Simone Hurley
--- NOTE | 2016-11-07 15:15 | XRay Report ---
2 view chest 11/07/2016 3:05 PM Indication: Chest pain, coronary artery disease Comparison: November 04, 2016 Findings: Cardiomediastinal contours are stable. Development of blunting of the left costophrenic sulcus. No acute osseous abnormalities. Visualized upper abdomen demonstrates no acute pathology. Impression: Small left pleural effusion PROCEDURE INTERPRETED AT [facility] DEPARTMENT OF RADIOLOGY Final Report Signed by: Cathy Reyes MD
--- NOTE | 2016-11-07 17:37 | Order Completion Report ---
See report scanned to EMR
[2016-11-07] MEDS: CARVEDILOL 3.125 MG TABLET PO SCH (21:25)
[2016-11-07] MEDS: ROSUVASTATIN 20 MG TABLET PO SCH (21:25)
[2016-11-07] MEDS: LINACLOTIDE 145 MCG CAPSULE PO SCH (21:25)
[2016-11-08 06:08] LABS: Basophils % 0.4 % (0.0-0.8); Eosinophils # 0.2 10*3/uL (0.0-0.87); Eosinophils % 3.4 % (0.00-10.9); Hematocrit 34.2 VOL% (35.7-47.0); Hemoglobin 11.9 GM/DL (12.0-16.0); Immature Granulocytes % 0.2 %; Immature Granulocytes Absolute 0.01 #; Lymphocytes # 1.8 10*3/uL (1.4-4.0); Lymphocytes % 35.9 % (21.3-54.2); Mean Corpuscular HGB Conc 34.8 GM/DL (32-36); Mean Corpuscular Hemoglobin 30 PG (27-34); Mean Corpuscular Volume 86.6 FL (87-102); Mean Platelet Volume 11.2 FL (9.6-12.0); Monocytes # 0.5 10*3/uL (0.11-0.8); Monocytes % 10.4 % (1.7-12.7); Neutrophils # 2.5 10*3/uL (1.4-7.4); Neutrophils % 49.7 % (38.7-73.9); Platelet Count 139 T/CUMM (130-400); Red Blood Count 3.95 MC/CUMM (3.8-5.5); Red Cell Distribution Width 12.3 % (9.3-17.3)
--- NOTE | 2016-11-08 06:29 | Cardiothoracic Progress Note ---
Cardiothoracic Subjective Interval history: Patient is ready for surgery in the morning. Lovenox has been discontinued. Exam (Progress Note) - Constitutional Vitals: Period Temp Pulse Resp BP Sys/Morillo Pulse Ox Last 24 Hr 97.3 F-99.4 F 73-125 18-20 75-100/47-62 93-98 Result/EKG - Labs CBC & BMP: 11/08/16 05:29 11/07/16 05:05 Labs: Laboratory Results - last 24 hr 11/07/16 11/07/16 11/07/16 05:04 05:05 05:05 WBC 6.7 RBC 4.26 Hgb 12.5 Hct 36.5 MCV 85.7 L MCH 29 MCHC 34.2 RDW 12.3 Plt Count 145 MPV 11.1 Neut % (Auto) 59.5 Lymph % (Auto) 29.2 [place] % (Auto) 8.5 Eos % (Auto) 2.2 Baso % (Auto) 0.3 Neut # (Auto) 4.0 Lymph # (Auto) 2.0 [place] # (Auto) 0.6 Eos # (Auto) 0.2 Baso # (Auto) 0.0 Immature Gran % 0.3 Nucleated RBC % 0.0 Immature Gran # 0.02 Nucleated RBCs # 0.00 Immature Plt Fraction 0.0 Sodium 142 Potassium 4.0 Chloride 107 Carbon Dioxide 28 Anion Gap 11.0 BUN 10 Creatinine 0.50 L GFR Calculation 109 BUN/Creatinine Ratio 20.00 Glucose 184 H POC Glucose Hemoglobin A1c 9.5 H Calculated Osmolality 286.1 Calcium 8.8 Magnesium 2.0 11/07/16 11/07/16 11/07/16 08:29 12:03 16:21 WBC RBC Hgb Hct MCV MCH MCHC RDW Plt Count MPV Neut % (Auto) Lymph % (Auto) [place] % (Auto) Eos % (Auto) Baso % (Auto) Neut # (Auto) Lymph # (Auto) [place] # (Auto) Eos # (Auto) Baso # (Auto) Immature Gran % Nucleated RBC % Immature Gran # Nucleated RBCs # Immature Plt Fraction Sodium Potassium Chloride Carbon Dioxide Anion Gap BUN Creatinine GFR Calculation BUN/Creatinine Ratio Glucose POC Glucose 254 H 239 H 180 H Hemoglobin A1c Calculated Osmolality Calcium Magnesium 11/07/16 11/08/16 20:45 05:29 WBC 5.0 RBC 3.95 Hgb 11.9 L Hct 34.2 L MCV 86.6 L MCH 30 MCHC 34.8 RDW 12.3 Plt Count 139 MPV 11.2 Neut % (Auto) 49.7 Lymph % (Auto) 35.9 [place] % (Auto) 10.4 Eos % (Auto) 3.4 Baso % (Auto) 0.4 Neut # (Auto) 2.5 Lymph # (Auto) 1.8 [place] # (Auto) 0.5 Eos # (Auto) 0.2 Baso # (Auto) 0.0 Immature Gran % 0.2 Nucleated RBC % 0.0 Immature Gran # 0.01 Nucleated RBCs # 0.00 Immature Plt Fraction 0.0 Sodium Potassium Chloride Carbon Dioxide Anion Gap BUN Creatinine GFR Calculation BUN/Creatinine Ratio Glucose POC Glucose 263 H Hemoglobin A1c Calculated Osmolality Calcium Magnesium Quality Measures - VTE Contraindication to Pharmacological VTE Prophylaxis: High Risk of Bleeding
[2016-11-08 06:43] LABS: Calcium 8.4 MG/DL (8.5-10.1); Magnesium 2.1 MG/DL (1.8-2.4); Osmolality,Calculated 288.3 MOS/KG (273-304); Potassium 4.3 MMOL/L (3.5-5.1)
[2016-11-08] MEDS: INSULIN LISPRO 100 UNIT/ML SUBCUT SCH ×4 (08:40→21:27)
[2016-11-08] MEDS: CARVEDILOL 3.125 MG TABLET PO SCH ×2 (08:41→21:26)
[2016-11-08] MEDS: MONTELUKAST 10 MG TABLET PO SCH (08:41)
[2016-11-08] MEDS: sitaGLIPtin 100 MG TABLET PO SCH (08:41)
[2016-11-08] MEDS: PANTOPRAZOLE 40 MG TABLET PO SCH (08:41)
[2016-11-08] MEDS: CLORAZEPATE 3.75 MG TABLET PO SCH ×3 (08:41→21:26)
[2016-11-08] MEDS: NICOTINE 14 MG/24 HR PATCH TRANSDERM SCH (08:42)
[2016-11-08] MEDS: CHLORHEXIDINE 0.12% ORAL RINSE 60 ML BOTTLE SWISH/SPIT SCH ×2 (08:44→21:28)
--- NOTE | 2016-11-08 09:17 | Cardiology Progress Note ---
Assessment and Plan (1) 3-vessel CAD Status: Acute Assessment and plan: SEE PLAN OF CARE LISTED BELOW. Current Visit: Yes (2) Elevated troponin Status: Acute Assessment and plan: SEE PLAN OF CARE LISTED BELOW. Current Visit: Yes (3) Heavy cigarette smoker (20-39 per day) Status: Chronic Assessment and plan: SEE PLAN OF CARE LISTED BELOW. Current Visit: Yes (4) Diabetes mellitus Status: Chronic Assessment and plan: SEE PLAN OF CARE LISTED BELOW. Current Visit: Yes (5) Dyslipidemia Status: Chronic Assessment and plan: SEE PLAN OF CARE LISTED BELOW. Current Visit: Yes (6) Anxiety Status: Chronic Assessment and plan: SEE PLAN OF CARE LISTED BELOW. Current Visit: Yes (7) Ischemic cardiomyopathy Status: Acute Assessment and plan: SEE PLAN OF CARE LISTED BELOW. Current Visit: Yes (8) Hematoma Status: Acute Assessment and plan: SEE PLAN OF CARE LISTED BELOW. Current Visit: Yes (9) Unspecified sleep apnea Status: Acute Assessment and plan: SEE PLAN OF CARE LISTED BELOW. Current Visit: Yes Cardiology - PN: Subj Interval history: REINSTATEMENT CLERK: Dr. Ramírez SUMMARY Patient was sent over from Dr. Child office for further evaluation of chest pain that she had been experiencing for 2 weeks. She has a past medical history of dyslipidemia, diabetes, anxiety, tobacco abuse and GERD. She was seen by Dr. Child in the clinic and was noted to have an abnormal EKG. Subsequently, she was sent over to the emergency department. She underwent heart catheterization which revealed multivessel disease. Subsequently, Dr. Whitehead has been consulted to evaluate for surgery. NOVEMBER 08, 2016 Patient was seen and examined on she will be kept n.p.o. after midnight. The telemetry unit. She continues to do well and is without complaints. Denies chest pain, heaviness or tightness. Denies shortness of breath, dyspnea on exertion orthopnea. Patient reports that she is ready for surgery tomorrow. Lovenox has been discontinued and prepped for surgery tomorrow. Patient continues to be borderline hypotensive. Continue low-dose beta-blockade with hold parameters. Labs reviewed. Overall stable. I will further discuss Dr. Coello and await his additional recommendations. REVIEW OF SYSTEMS: Cardiovascular: Denies chest pain, heaviness or tightness. GI: Denies nausea, vomiting and abdominal pain Respiratory: Denies shortness of breath, dyspnea on exertion orthopnea IMPRESSION AND PLAN: 1. MULTIVESSEL CORONARY ARTERY DISEASE - Heart catheterization November 04, 2016 revealed multivessel coronary artery disease. Dr. Whitehead has been consulted , plan for CABG morning. Patient has remained chest pain-free. Patient is allergic to aspirin, therefore this medication has not been initiated. Repeat Lovenox discontinued for surgery tomorrow. Continue nitrates and low-dose beta-blockade with hold parameters. Unable to introduce PENNY inhibitor or ARB as a pressure will not tolerate. I will further discuss with Dr. Coello and await his additional recommendations. 2. DYSLIPIDEMIA - LDL 124. Continue high intensity statin. 3. DIABETES - Blood sugars remain uncontrolled with high regimen sliding scale. Hemoglobin A1c 9.5. I have consulted hospitalist to assist. 4. ANXIETY - Under well control. 5. TOBACCO ABUSE - Current everyday smoker. I have spent several minutes discussing the importance of smoking cessation. Continue nicotine patch. 6. ISCHEMIC CARDIOMYOPATHY - EF calculated at 20% per echocardiogram this admission. Unfortunately, her blood pressure will not allow initiation of PENNY inhibitor or ARB. Low-dose beta-blockade will be continued with hold parameters. Will monitor blood pressure closely with this medication. Hopeful , PENNY inhibitor/ARB can be initiated prior to discharge. Plan for revascularization . Patient will need repeat echocardiogram 3 months after discharge to reevaluate ejection fraction. If no improvement is noted she will be a candidate for ICD placement. 7. PROBABLE COPD - Dr. Horan is following and managing. Appreciate his assistance. 8. UNSPECIFIED SLEEP APNEA - Agarwal is following. Appreciate his assistance. 9. SMALL HEMATOMA TO RIGHT GROIN - Ultrasound was negative for pseudoaneurysm Exam (Progress Note) - Constitutional Vitals: Period Temp Pulse Resp BP Sys/Morillo Pulse Ox Last 24 Hr 97.3 F-99.4 F 73-125 18-20 75-100/47-62 95-98 Exam: General: Appears well with no apparent distress. Pleasant and cooperative. Appears comfortable. HEENT: PERRL, normocephalic, atraumatic. Mucous membranes moist. No jaundice noted. Conjunctiva moist and clear, sclerae anicteric Neck: No JVD/HJR, no thyromegaly or lymphadenopathy noted. No carotid bruit appreciated Cardiac: Regular rate and rhythm. No murmur rub or gallop. Lungs: Clear to auscultation without accessory muscle use to assist the respiratory pattern. Not requiring oxygen. Abdomen: Soft, bowel sounds normoactive. Nontender and nondistended. No abdominal bruit or thrill noted. No masses noted. Extremities: No clubbing, cyanosis noted. No edema noted. Upper extremity pulses 2+. Lower extremity pulses 2+. Capillary refill less than 3 seconds. Right groin soft without bleeding or bruit. Small hematoma palpated. Distal pulses 2+. Skin: No unusual lesions or rashes. No skin breakdown appreciated. Neuro: Awake, alert and oriented 3. Moves all extremities well without hemiparesis or paralysis. No essential tremor is appreciated. Result/EKG - Labs CBC & BMP: 11/08/16 05:29 11/08/16 05:29 Lab Results: I have reviewed the past 24 hour labs Labs: Laboratory Results - last 24 hr 11/07/16 11/07/16 11/07/16 05:04 12:03 16:21 WBC RBC Hgb Hct MCV MCH MCHC RDW Plt Count MPV Neut % (Auto) Lymph % (Auto) [place] % (Auto) Eos % (Auto) Baso % (Auto) Neut # (Auto) Lymph # (Auto) [place] # (Auto) Eos # (Auto) Baso # (Auto) Immature Gran % Nucleated RBC % Immature Gran # Nucleated RBCs # Immature Plt Fraction Sodium Potassium Chloride Carbon Dioxide Anion Gap BUN Creatinine GFR Calculation BUN/Creatinine Ratio Glucose POC Glucose 239 H 180 H Hemoglobin A1c 9.5 H Calculated Osmolality Calcium Magnesium Blood Type Antibody Screen Crossmatch 11/07/16 11/08/16 11/08/16 20:45 05:29 05:29 WBC 5.0 RBC 3.95 Hgb 11.9 L Hct 34.2 L MCV 86.6 L MCH 30 MCHC 34.8 RDW 12.3 Plt Count 139 MPV 11.2 Neut % (Auto) 49.7 Lymph % (Auto) 35.9 [place] % (Auto) 10.4 Eos % (Auto) 3.4 Baso % (Auto) 0.4 Neut # (Auto) 2.5 Lymph # (Auto) 1.8 [place] # (Auto) 0.5 Eos # (Auto) 0.2 Baso # (Auto) 0.0 Immature Gran % 0.2 Nucleated RBC % 0.0 Immature Gran # 0.01 Nucleated RBCs # 0.00 Immature Plt Fraction 0.0 Sodium 141 Potassium 4.3 Chloride 108 H Carbon Dioxide 27 Anion Gap 10.3 BUN 13 Creatinine 0.60 GFR Calculation 103 BUN/Creatinine Ratio 21.00 H Glucose 240 H POC Glucose 263 H Hemoglobin A1c Calculated Osmolality 288.3 Calcium 8.4 L Magnesium 2.1 Blood Type Antibody Screen Crossmatch 11/08/16 11/08/16 05:29 07:42 WBC RBC Hgb Hct MCV MCH MCHC RDW Plt Count MPV Neut % (Auto) Lymph % (Auto) [place] % (Auto) Eos % (Auto) Baso % (Auto) Neut # (Auto) Lymph # (Auto) [place] # (Auto) Eos # (Auto) Baso # (Auto) Immature Gran % Nucleated RBC % Immature Gran # Nucleated RBCs # Immature Plt Fraction Sodium Potassium Chloride Carbon Dioxide Anion Gap BUN Creatinine GFR Calculation BUN/Creatinine Ratio Glucose POC Glucose 243 H Hemoglobin A1c Calculated Osmolality Calcium Magnesium Blood Type O POSITIVE Antibody Screen Negative Crossmatch See Detail Quality Measures - VTE Contraindication to Pharmacological VTE Prophylaxis: High Risk of Bleeding
[2016-11-08] MEDS ORDERED: DEXTROSE 50% 25 GM/50 ML VIAL IV PRN (11:00)
--- NOTE | 2016-11-08 11:43 | XRay Report ---
XR chest 2V Indication: Shortness of breath Comparison: 07 November 2016 Findings: The heart and mediastinum are normal in size and configuration. The pulmonary vascularity is normal in caliber. Lung volumes are increased with prominent bronchial markings. Linear densities are present left lung base, slightly improved. No other lung infiltrates, effusions, pneumothorax or other abnormality is demonstrated. Impression: Slight improvement of linear densities in left lung base. No other significant changes. PROCEDURE INTERPRETED AT [facility] DEPARTMENT OF RADIOLOGY Final Report Signed by: Dr. Vu Sutton
[2016-11-08] MEDS: SODIUM CHLORIDE 0.9% 1,000 ML IV SCH (12:24)
[2016-11-08] MEDS: CHLORHEXIDINE 4% SOLN 118 ML BOTTLE TOP SCH ×2 (14:39→21:26)
--- NOTE | 2016-11-08 19:09 | Sleep Medicine Progress Note ---
Assessment and Plan (1) Unspecified sleep apnea Status: Acute Assessment and plan: Patient had negative HST evaluation and will be set up for outpatient sleep study evaluation. Thank you for the consult. Current Visit: Yes (2) Diabetes mellitus Status: Chronic Current Visit: Yes (3) 3-vessel CAD Status: Acute Current Visit: Yes Sleep Medicine Subjective Interval history: Patient did undergo home sleep testing but it was negative for sleep apnea. Her pretest suspicion for sleep apnea was high. She will need outpatient polysomnography due to the high pretest probability for sleep apnea with classic symptoms of sleep apnea and medical comorbidities certainly that could be exacerbated by untreated sleep apnea. I reviewed her findings with her to her understanding and we will set her up for outpatient sleep study and sleep clinic follow-up after discharge. Thank you for this consult. Exam (Progress Note) - Constitutional Vitals: Period Temp Pulse Resp BP Sys/Morillo Pulse Ox Last 24 Hr 97.3 F-99.4 F 73-125 18-20 75-99/47-66 94-97 Exam: He is alert and responsive in no acute distress. Equal round reactive to light and accommodation. Extraocular movements intact. Oropharynx with class IV Mallampati exam. Chest with good breath sounds without focal wheeze or rhonchi. Cardiac exam reveals regular rhythm without murmur or gallop. Abdomen soft nontender extremities without edema. Results - Labs CBC & BMP: 11/08/16 05:29 11/08/16 05:29 Lab Results: I have reviewed the past 24 hour labs
[2016-11-08] MEDS: ROSUVASTATIN 20 MG TABLET PO SCH (21:26)
[2016-11-08] MEDS: LINACLOTIDE 145 MCG CAPSULE PO SCH (21:28)
[2016-11-09 04:22] LABS: Basophils % 0.4 % (0.0-0.8); Eosinophils # 0.2 10*3/uL (0.0-0.87); Eosinophils % 3.9 % (0.00-10.9); Hematocrit 34.6 VOL% (35.7-47.0); Hemoglobin 11.9 GM/DL (12.0-16.0); Immature Granulocytes % 0.2 %; Immature Granulocytes Absolute 0.01 #; Lymphocytes # 1.9 10*3/uL (1.4-4.0); Lymphocytes % 35.4 % (21.3-54.2); Mean Corpuscular HGB Conc 34.4 GM/DL (32-36); Mean Corpuscular Hemoglobin 30 PG (27-34); Mean Corpuscular Volume 86.9 FL (87-102); Mean Platelet Volume 11.3 FL (9.6-12.0); Monocytes # 0.5 10*3/uL (0.11-0.8); Monocytes % 9.5 % (1.7-12.7); Neutrophils # 2.7 10*3/uL (1.4-7.4); Neutrophils % 50.6 % (38.7-73.9); Platelet Count 136 T/CUMM (130-400); Red Blood Count 3.98 MC/CUMM (3.8-5.5); Red Cell Distribution Width 12.3 % (9.3-17.3); White Blood Count 5.4 T/CUMM (4-12)
[2016-11-09 04:36] LABS: INR 1.1; PT Patient Result 11.1 SECS
[2016-11-09 04:42] LABS: ABG Base Excess 1.7 MMOL/L (-2.5-2.5); ABG HCO3 25.9 MMOL/L (20-26); ABG Oxygen Saturation 95.9 % (95-100); ABG PCO2 40.2 MM HG (35-48); ABG PH 7.422 (7.35-7.45); ABG PO2 77.6 MM HG (80-95); Allen Test Positive; Pt O2 Delivery Device Room Air
[2016-11-09 04:50] LABS: Calcium 8.7 MG/DL (8.5-10.1); Magnesium 1.9 MG/DL (1.8-2.4); Osmolality,Calculated 287.1 MOS/KG (273-304); Potassium 4.1 MMOL/L (3.5-5.1)
[2016-11-09] MEDS ORDERED: PAPAVERINE 60 MG/2 ML VIAL ONE (04:52)
[2016-11-09] MEDS ORDERED: VANCOMYCIN 1,000 MG VIAL ONE ×2 (04:53→14:11)
[2016-11-09] MEDS ORDERED: ALBUTEROL 2.5 MG/3 ML NEB RESP TX ONE (05:30)
[2016-11-09] MEDS ORDERED: LORazepam 0.5 MG TABLET PO ONE (05:30)
[2016-11-09] MEDS ORDERED: IPRATROPIUM 500 MCG/2.5 ML NEB RESP TX ONE (05:30)
[2016-11-09] MEDS ORDERED: FAMOTIDINE 20 MG TABLET PO ONE (05:30)
[2016-11-09] MEDS ORDERED: VANCOMYCIN INJ 1,000 MG in SODIUM CHLORIDE 0.9% 250 ML IV ONE (06:00)
[2016-11-09] MEDS ORDERED: TRANEXAMIC ACID 1,000 MG/10 ML VIAL IV ONE (06:15)
[2016-11-09] MEDS: PANTOPRAZOLE 40 MG TABLET PO SCH ×2 (06:18→09:33)
[2016-11-09] MEDS: CARVEDILOL 3.125 MG TABLET PO SCH ×2 (06:18→09:32)
[2016-11-09] MEDS: MONTELUKAST 10 MG TABLET PO SCH ×2 (06:18→09:33)
[2016-11-09] MEDS ORDERED: VECURONIUM 10 MG VIAL IV ONE ×2 (07:38→14:36)
[2016-11-09] MEDS ORDERED: CALCIUM CHLORIDE 1,000 MG/10 ML VIAL IV ONE (07:38)
[2016-11-09] MEDS ORDERED: LIDOCAINE 2% 5 ML VIAL ONE (07:38)
[2016-11-09] MEDS ORDERED: ETOMIDATE 20 MG/10 ML VIAL IV ONE (07:38)
[2016-11-09] MEDS ORDERED: PHENYLEPHRINE DRIP 40 MG/250 ML PREMIX IV ONE (07:52)
[2016-11-09] MEDS ORDERED: POTASSIUM CHLORIDE RIDER 100 ML IV ONE (07:52)
[2016-11-09] MEDS ORDERED: NITROPRUSSIDE 50 MG/2 ML VIAL ONE (07:52)
[2016-11-09] MEDS ORDERED: CALCIUM CHLORIDE 1,000 MG/10 ML SYRINGE IV ONE (07:52)
[2016-11-09] MEDS ORDERED: SODIUM BICARBONATE 50 MEQ/50 ML SYRINGE IV ONE ×2 (07:54→10:49)
[2016-11-09 08:47] LABS: ABG Base Excess -0.5 MMOL/L (-2.5-2.5); ABG Oxygen Saturation 99.9 % (95-100); ABG PCO2 40.6 MM HG (35-48); ABG PH 7.387 (7.35-7.45); ABG TCO2 21.8 MMOL/L (23-27); Glucose Heart Surgery 233 MG/DL (74-106); Hematocrit Heart Surgery 35.2 PERCENT (37-47); Hemoglobin Heart Surgery 11.4 G/DL (12.0-16.0); Ionized Calcium Arterial 1.13 MMOL/L (1.21-1.46); PCO2 Patient Temp Arterial 40.6 MMHG; PH Patient Temp Arterial 7.387; Patient Temperature 37 CELCIUS; Potassium Heart/CVR 3.5 MMOL/L (3.5-5.1); Sodium Heart/CVR 138 MMOL/L (135-145)
[2016-11-09 09:16] LABS: Apearance,Urine CLEAR (Clear); Bilirubin,Urine Negative (Negative); Blood, Urine Negative (Negative); Glucose,Urine (UA) >=500 mg/dL (Negative); Ketones,Urine Negative (Negative); Mucus,Urine Occasional /LPF (Occasional); Nitrite,Urine Negative (Negative); Protein,Urine Negative; RBC,Urine 1 /HPF (0-4); Squamous Epithelial Cell,Urine Occasional /HPF (0-10); Urine Color Yellow (Yellow); Urine Specific Gravity 1.029 (1.001-1.035); WBC,Urine 1 /HPF (0-6)
[2016-11-09] MEDS ORDERED: INSULIN REGULAR DRIP 100 ML IV ONE (09:24)
[2016-11-09] MEDS: sitaGLIPtin 100 MG TABLET PO SCH (09:32)
[2016-11-09] MEDS: INSULIN LISPRO 100 UNIT/ML SUBCUT SCH ×2 (09:32→21:09)
[2016-11-09] MEDS: CHLORHEXIDINE 4% SOLN 118 ML BOTTLE TOP SCH (09:32)
[2016-11-09] MEDS: NICOTINE 14 MG/24 HR PATCH TRANSDERM SCH (09:32)
[2016-11-09] MEDS: CHLORHEXIDINE 0.12% ORAL RINSE 60 ML BOTTLE SWISH/SPIT SCH ×2 (09:33→21:04)
[2016-11-09] MEDS: CLORAZEPATE 3.75 MG TABLET PO SCH (09:33)
[2016-11-09 09:42] LABS: Hemoglobin Heart Surgery 7.8 G/DL (12.0-16.0); PCO2 Patient Temp Venous 38.3 MM HG; PH Patient Temp Venous 7.451; PO2 Patient Temp Venous 35.5 MM HG; Potassium Heart/CVR 4.7 MMOL/L (3.5-5.1); VBG HCO3 26.9 MEQ/L (24-28); VBG Oxygen Saturation 81.8 %; VBG PCO2 43.7 MMHG (41-51); VBG PH 7.407; VBG PO2 43.9 MMHG (17-40)
[2016-11-09 10:18] LABS: Hemoglobin Heart Surgery 8.3 G/DL (12.0-16.0); PH Patient Temp Venous 7.445; PO2 Patient Temp Venous 34.1 MM HG; Potassium Heart/CVR 5.3 MMOL/L (3.5-5.1); VBG HCO3 26.2 MEQ/L (24-28); VBG Oxygen Saturation 72.9 %; VBG PH 7.445; VBG PO2 34.1 MMHG (17-40)
[2016-11-09 10:47] LABS: ABG Base Excess -1.7 MMOL/L (-2.5-2.5); ABG Oxygen Saturation 99.7 % (95-100); ABG PCO2 38.7 MM HG (35-48); ABG PH 7.384 (7.35-7.45); ABG TCO2 21.5 MMOL/L (23-27); Glucose Heart Surgery 331 MG/DL (74-106); Hematocrit Heart Surgery 26.2 PERCENT (37-47); Hemoglobin Heart Surgery 8.4 G/DL (12.0-16.0); Ionized Calcium Arterial 1.37 MMOL/L (1.21-1.46); PCO2 Patient Temp Arterial 38.7 MMHG; PH Patient Temp Arterial 7.384; Patient Temperature 37 CELCIUS; Potassium Heart/CVR 4.2 MMOL/L (3.5-5.1); Sodium Heart/CVR 135 MMOL/L (135-145)
[2016-11-09] MEDS ORDERED: DEXTROSE 5% KCL 20 MEQ 20 MEQ/1,000 ML BAG IV ONE (10:48)
[2016-11-09] MEDS ORDERED: ALBUMIN 25% 25 GM/100 ML VIAL IV ONE (10:49)
[2016-11-09] MEDS ORDERED: methylPREDNISolone SOD SUC 1,000 MG/8 ML VIAL ONE (10:49)
[2016-11-09] MEDS ORDERED: MAGNESIUM SULFATE 1 GM/2 ML VIAL ONE (10:49)
[2016-11-09] MEDS ORDERED: PROTAMINE SULFATE 250 MG/25 ML VIAL IV ONE (10:49)
[2016-11-09] MEDS ORDERED: MANNITOL 12.5 GM/50 ML VIAL IV ONE (10:49)
[2016-11-09] MEDS ORDERED: FUROSEMIDE 20 MG/2 ML VIAL ONE (10:49)
[2016-11-09] MEDS ORDERED: HEPARIN 10,000 UNIT/10 ML VIAL ONE (10:50)
[2016-11-09] MEDS ORDERED: PHENYLEPHRINE DRIP 20 MG/250 ML PREMIX IV ONE (10:50)
[2016-11-09] MEDS ORDERED: DOBUTamine 0 MG/0 ML PREMIX IV ONE (11:02)
--- NOTE | 2016-11-09 11:27 | Operative Note ---
Date of procedure: 11/09/16 Pre-op diagnosis: Coronary artery disease Post-op diagnosis: same Procedure: Procedure: Coronary bypass grafting 2 with a left internal mammary graft to the obtuse marginal coronary artery saphenous vein graft to the right coronary artery. Findings: Patient is a 56-year-old lady who was found to have severe coronary disease at cardiac catheterization was referred for bypass surgery. At the time of surgery left ventricular function was noted to be moderately impaired. There was no suitable blood vessel in the anterior wall of the heart for bypass grafting. Left internal mammary artery was grafted to the obtuse marginal coronary artery which was a medium size vessel and free of disease at the site of anastomosis. Saphenous vein graft was placed to the main right coronary artery which was a large vessel and free of disease at the site of anastomosis. Patient tolerated procedure well was returned to recovery in satisfactory condition. Procedure: Patient was brought to the operating room placed on the operating table in supine position. After satisfactory induction of general anesthesia the chest abdomen and legs were prepped and draped in sterile fashion. The greater saphenous vein was harvested from the left lower leg and prepared as an arterial graft. The leg incision was closed with 3-0 subcutaneous Monocryl and skin clary. Standard sternotomy incision was made and the sternum was divided and the heart suspended in pericardial cradle. Left internal mammary artery was dissected free and prepared as an arterial graft. Patient was prepared for cardiopulmonary bypass with systemic heparinization cannulation of the ascending aorta and right atrium. Cardiopulmonary bypass was begun and the heart arrested after aortic crossclamping with cardioplegia solution injected into the aortic root. Heart was protected during the period of crossclamping with topical saline slush. Distal anastomoses were constructed as noted above and then the aorta was unclamped reestablishing cardiac action. The proximal anastomosis was constructed between the saphenous vein graft and the ascending aorta. Patient was then weaned from cardiopulmonary bypass without difficulty and the heparin effect reversed with protamine and decannulation carried out with the defects in the ascending aorta and right atrium closed with 3-0 Prolene. Our operative field was inspected for hemostasis and this was considered adequate the incision was closed with interrupted stainless steel wire and the sternum and 0 Monocryl in the presternal fascia. The skin was closed with 3-0 subcuticular Monocryl. 2 chest tubes were left in the anterior mediastinum and brought out through separate stab incisions. Sterile dressings were applied and the patient was returned to recovery in satisfactory condition. Anesthesia: [facility] Surgeon / Physician: Elmo Whitehead Estimated blood loss: other (Unable to determine because of cardiopulmonary bypass) Condition: stable Disposition: ICU Results - Labs CBC & BMP: 11/09/16 10:40 11/09/16 03:39 Discharge Plan - Discharge Medications No Action Pramipexole [Mirapex] 0.25 mg PO BEDTIME PRN PRN Reason: RESTLESS LEG clonazePAM TAB [KlonoPIN] 0.5 mg PO Q12H PRN PRN Reason: Anxiety Trazodone HCl 150 mg PO BEDTIME Ranitidine Tab [Zantac Tab] 150 mg PO BEDTIME Linaclotide [Linzess] 290 mcg PO BEDTIME Ergocalciferol (Vitamin D2) [Vitamin D2] 50,000 unit PO Q7D Linagliptin [Tradjenta] 5 mg PO BEDTIME ALPRAZolam [Xanax] 0.25 mg PO Q8H PRN PRN Reason: panic attack Nitroglycerin [Nitroglycerin SL Tab] 0.4 mg SL Q5M PRN PRN Reason: Chest Pain Amitriptyline HCl 25 mg PO BEDTIME clonazePAM TAB [KlonoPIN] 0.25 mg PO Q12H PRN PRN Reason: Anxiety Rosuvastatin [Crestor] 10 mg PO BEDTIME Gabapentin 100 mg PO TID PRN PRN Reason: Pain Hydrocodone/Acetaminophen [[place] 10-325 Tablet] 1 each PO Q6H PRN PRN Reason: Pain Omeprazole 20 mg PO DAILY hydrOXYzine HCl [Hydroxyzine HCl] 25 mg PO RT Q8H PRN PRN Reason: Headache - Follow Up or Referral - Forms/Instructions
[2016-11-09] MEDS: LACTATED RINGERS 1,000 ML IV PRN ×3 (11:30→20:15)
[2016-11-09] MEDS ORDERED: SUFentanil 250 MCG/5 ML AMP ONE (11:38)
[2016-11-09] MEDS ORDERED: MIDAZOLAM 10 MG/2 ML VIAL ONE ×2 (11:38→16:02)
[2016-11-09] MEDS ORDERED: INSULIN REGULAR DRIP 100 ML IV SCH (11:41)
[2016-11-09] MEDS ORDERED: ONDANSETRON 4 MG/2 ML VIAL IV PRN (11:41)
[2016-11-09] MEDS ORDERED: VECURONIUM 10 MG VIAL IV PRN ×2 (11:41)
[2016-11-09] MEDS ORDERED: LACTATED RINGERS 250 ML IV PRN (11:41)
[2016-11-09] MEDS ORDERED: PHENYLEPHRINE DRIP 40 MG/250 ML PREMIX IV PRN (11:41)
[2016-11-09] MEDS ORDERED: MIDAZOLAM 10 MG/2 ML VIAL IV PRN (11:41)
[2016-11-09] MEDS ORDERED: SODIUM CHLORIDE 0.45% 1,000 ML IV SCH ×2 (11:41)
[2016-11-09] MEDS ORDERED: MAGNESIUM SULF RIDER 4 GM in PREMIX 1 EACH IV PRN (11:41)
[2016-11-09] MEDS ORDERED: CALCIUM CHLORIDE 1,000 MG/10 ML SYRINGE IV PRN (11:41)
[2016-11-09] MEDS ORDERED: MAGNESIUM SULF RIDER 2 GM in PREMIX 1 EACH IV PRN (11:41)
[2016-11-09] MEDS ORDERED: NITROPRUSSIDE 100 MG in DEXTROSE 5% 250 ML IV PRN (11:41)
[2016-11-09] MEDS ORDERED: ACETAMINOPHEN 650 MG SUPP RECTAL PRN (11:41)
[2016-11-09] MEDS ORDERED: DEXTROSE 50% 25 GM/50 ML VIAL IV PRN ×2 (11:41)
[2016-11-09] MEDS ORDERED: INSULIN REGULAR 100 UNIT/ML IV ONE (11:41)
[2016-11-09] MEDS ORDERED: MORPHINE 10 MG/1 ML VIAL IV PRN (11:41)
[2016-11-09 11:44] LABS: ABG Base Excess -1.5 MMOL/L (-2.5-2.5); ABG HCO3 23.2 MMOL/L (20-26); ABG PCO2 41.9 MM HG (35-48); ABG PH 7.363 (7.35-7.45); ABG TCO2 21.8 MMOL/L (23-27); Glucose Heart Surgery 306 MG/DL (74-106); Hematocrit Heart Surgery 31.1 PERCENT (37-47); Hemoglobin Heart Surgery 10.1 G/DL (12.0-16.0); Potassium Heart/CVR 3.6 MMOL/L (3.5-5.1)
[2016-11-09 11:45] LABS: Basophils % 0.3 % (0.0-0.8); Eosinophils # 0.1 10*3/uL (0.0-0.87); Eosinophils % 0.7 % (0.00-10.9); Hematocrit 29.8 VOL% (35.7-47.0); Hemoglobin 10.3 GM/DL (12.0-16.0); Immature Granulocytes % 1.3 %; Lymphocytes # 0.6 10*3/uL (1.4-4.0); Lymphocytes % 8.5 % (21.3-54.2); Mean Corpuscular HGB Conc 34.6 GM/DL (32-36); Mean Corpuscular Hemoglobin 30 PG (27-34); Mean Corpuscular Volume 86.6 FL (87-102); Mean Platelet Volume 11.1 FL (9.6-12.0); Monocytes # 0.3 10*3/uL (0.11-0.8); Monocytes % 3.4 % (1.7-12.7); Neutrophils # 6.5 10*3/uL (1.4-7.4); Neutrophils % 85.8 % (38.7-73.9); Platelet Count 107 T/CUMM (130-400); Red Blood Count 3.44 MC/CUMM (3.8-5.5); Red Cell Distribution Width 12.4 % (9.3-17.3); White Blood Count 7.6 T/CUMM (4-12)
[2016-11-09] MEDS ORDERED: MIDAZOLAM 2 MG/2 ML VIAL ONE (11:49)
[2016-11-09 11:57] LABS: INR 1.2; Partial Thromboplastin Time 28.2 SECS (0-40)
[2016-11-09] MEDS: POTASSIUM CHLORIDE RIDER 20 MEQ in PREMIX 1 EACH IV PRN ×4 (12:00→22:20)
[2016-11-09] MEDS: ALBUMIN 5% 12.5 GM in PREMIX 1 EACH IV PRN ×2 (12:30→13:30)
[2016-11-09] MEDS: MIDAZOLAM 2 MG/2 ML VIAL IV PRN ×4 (12:30→20:45)
[2016-11-09] MEDS: POTASSIUM CHLORIDE RIDER 10 MEQ in PREMIX 1 EACH IV PRN ×2 (12:30→18:30)
[2016-11-09 12:32] LABS: Albumin 2.8 G/DL (3.4-5.0); Bilirubin,Total 1.2 MG/DL (0.2-1.0); CKMB % 6.3 %; Calcium 8.6 MG/DL (8.5-10.1); Magnesium 1.9 MG/DL (1.8-2.4); Osmolality,Calculated 294.1 MOS/KG (273-304); Potassium 3.8 MMOL/L (3.5-5.1); Total Protein 4.9 G/DL (6.4-8.3); Troponin I Only 0.874 NG/ML (0.00-0.045)
--- NOTE | 2016-11-09 12:45 | XRay Report ---
XR chest 1V portable Indication: Catheter placement, cardiac surgery Comparison: 08 November 2016 Findings: The heart and mediastinum are within normal limits of size and configuration post cardiac surgery. Support structures appear within normal limits. The pulmonary vascularity is normal in caliber. No lung infiltrates, effusions, pneumothorax or other abnormality is demonstrated. Impression: Interval cardiac surgery, support structures appear within normal limits. PROCEDURE INTERPRETED AT [facility] DEPARTMENT OF RADIOLOGY Final Report Signed by: Dr. Vu Sutton
[2016-11-09] MEDS: KETOROLAC 30 MG/1 ML VIAL IV SCH ×3 (13:15→23:26)
--- NOTE | 2016-11-09 13:22 | Cardiology Progress Note ---
Assessment and Plan (1) 3-vessel CAD Status: Acute Assessment and plan: SEE PLAN OF CARE LISTED BELOW. Current Visit: Yes (2) Elevated troponin Status: Acute Assessment and plan: SEE PLAN OF CARE LISTED BELOW. Current Visit: Yes (3) Heavy cigarette smoker (20-39 per day) Status: Chronic Assessment and plan: SEE PLAN OF CARE LISTED BELOW. Current Visit: Yes (4) Diabetes mellitus Status: Chronic Assessment and plan: SEE PLAN OF CARE LISTED BELOW. Current Visit: Yes (5) Dyslipidemia Status: Chronic Assessment and plan: SEE PLAN OF CARE LISTED BELOW. Current Visit: Yes (6) Anxiety Status: Chronic Assessment and plan: SEE PLAN OF CARE LISTED BELOW. Current Visit: Yes (7) Ischemic cardiomyopathy Status: Acute Assessment and plan: SEE PLAN OF CARE LISTED BELOW. Current Visit: Yes (8) Unspecified sleep apnea Status: Acute Assessment and plan: SEE PLAN OF CARE LISTED BELOW. Current Visit: Yes (9) Status post coronary artery bypass graft Status: Acute Assessment and plan: SEE PLAN OF CARE LISTED BELOW. Current Visit: Yes Cardiology - PN: Subj Interval history: EMPLOYMENT OFFICER: Dr. Ramírez SUMMARY Patient was sent over from Dr. Child office for further evaluation of chest pain that she had been experiencing for 2 weeks. She has a past medical history of dyslipidemia, diabetes, anxiety, tobacco abuse and GERD. She was seen by Dr. Child in the clinic and was noted to have an abnormal EKG. Subsequently, she was sent over to the emergency department. She underwent heart catheterization which revealed multivessel disease. Subsequently, Dr. Whitehead has been consulted to evaluate for surgery. She underwent coronary artery bypass grafting 2 November 09, 2016 with left internal mammary graft to obtuse marginal coronary artery and saphenous vein graft to RCA. NOVEMBER 09, 2016 Patient was seen and examined in the CVR. She is status post coronary artery bypass grafting 2 with left internal mammary graft to obtuse marginal coronary artery and saphenous vein graft to RCA today. Patient is doing very well postoperatively. She is without complications. She is currently sedated and ventilated. Chest tube intact. Hemodynamically stable. Per nursing staff, patient is only requiring minimal amount of vasopressors. Weaning off as she tolerates. Will attempt to reinitiate patient's cardiac medications when able. Further plan and addendum to follow per Dr. Coello. REVIEW OF SYSTEMS: Unable to obtain review of systems as patient is sedated and ventilated. IMPRESSION AND PLAN: 1. S/P CABG -status post CABG today with BEVERLY to obtuse marginal coronary artery and SVG to RCA. She is doing well postoperatively. No complications. Continue to follow. Recommend introduction of beta blockade and PENNY inhibitor when blood pressure will tolerate. Patient is allergic to aspirin. 2. DYSLIPIDEMIA - LDL 124. Will attempt to reinitiate statin in a few days. 3. DIABETES - Insulin infusing. 4. ANXIETY - Under well control. 5. TOBACCO ABUSE - Current everyday smoker. I have spent several minutes discussing the importance of smoking cessation. Continue nicotine patch. 6. ISCHEMIC CARDIOMYOPATHY - Now revascularized. EF calculated at 20% per echocardiogram this admission. I will attempt to introduce beta erendira and PENNY inhibitor when blood pressure will allow. Patient will need repeat echocardiogram 3 months after discharge to reevaluate ejection fraction. If no improvement is noted she will be a candidate for ICD placement. 7. PROBABLE COPD - Dr. Horan is following and managing. Appreciate his assistance. 8. UNSPECIFIED SLEEP APNEA - Stefano is following. Appreciate his assistance. Exam (Progress Note) - Constitutional Vitals: Period Temp Pulse Resp BP Sys/[place] Pulse Ox Last 24 Hr 96.7 F-98.1 F 82-96 10-20 79-99/50-66 94-98 Exam: General: Appears comfortable on ventilator. HEENT: normocephalic, atraumatic. No jaundice noted. Conjunctiva moist and clear, sclerae anicteric Neck: No JVD/HJR, no thyromegaly or lymphadenopathy noted. No carotid bruit appreciated Cardiac: Regular rate and rhythm. Soft cardiac rub. Lungs: Clear to auscultation. On ventilator. Abdomen: Soft, nondistended. Extremities: No clubbing, cyanosis noted. No edema noted. Upper extremity pulses 2+. Lower extremity pulses 2+. Capillary refill less than 3 seconds. Skin: No unusual lesions or rashes. Surgical incisions covered with dressing. Clean dry and intact. Neuro: Unable to assess as patient is sedated on the ventilator. Result/EKG - Labs CBC & BMP: 11/09/16 11:40 11/09/16 11:40 Lab Results: I have reviewed the past 24 hour labs Labs: Laboratory Results - last 24 hr 11/08/16 11/08/16 11/08/16 05:29 11:36 15:33 WBC RBC Hgb Hct MCV MCH MCHC RDW Plt Count MPV Neut % (Auto) Lymph % (Auto) [place] % (Auto) Eos % (Auto) Baso % (Auto) Neut # (Auto) Lymph # (Auto) [place] # (Auto) Eos # (Auto) Baso # (Auto) Immature Gran % Nucleated RBC % Immature Gran # Nucleated RBCs # Immature Plt Fraction INR PT Patient/Control Mix Circ Anticoag PTT Patient Temperature ABG pH ABG pH at Pt Temp ABG pCO2 ABG pCO2 at Pt Temp ABG pO2 ABG pO2 at Pt Temp ABG HCO3 ABG Total CO2 ABG O2 Saturation ABG Base Excess ABG Sodium VBG pH VBG pCO2 VBG pO2 VBG HCO3 VBG Total CO2 VBG O2 Saturation VBG Base Excess Hemoglobin Hematocrit Ionized Calcium FiO2 Sodium Potassium Chloride Carbon Dioxide Anion Gap BUN Creatinine GFR Calculation BUN/Creatinine Ratio Glucose POC Glucose 275 H 187 H Calculated Osmolality Calcium Venous Ioniz Calcium Magnesium Total Bilirubin AST ALT Alkaline Phosphatase Total Creatine Kinase CK-MB (CK-2) CK and CKMB Interp Troponin I Total Protein Albumin Globulin Albumin/Globulin Ratio Urine Color Urine Appearance Urine pH Ur Specific [place] Urine Protein Urine Glucose (UA) Urine Ketones Urine Blood Urine Nitrate Urine Bilirubin Urine Urobilinogen Urine Leukocytes Urine RBC Urine WBC Ur Squamous Epith Cells Urine Mucus Ur Culture Indicated? Blood Type O POSITIVE Antibody Screen Negative Crossmatch See Detail 11/08/16 11/09/16 11/09/16 19:36 03:39 03:39 WBC 5.4 RBC 3.98 Hgb 11.9 L Hct 34.6 L MCV 86.9 L MCH 30 MCHC 34.4 RDW 12.3 Plt Count 136 MPV 11.3 Neut % (Auto) 50.6 Lymph % (Auto) 35.4 [place] % (Auto) 9.5 Eos % (Auto) 3.9 Baso % (Auto) 0.4 Neut # (Auto) 2.7 Lymph # (Auto) 1.9 [place] # (Auto) 0.5 Eos # (Auto) 0.2 Baso # (Auto) 0.0 Immature Gran % 0.2 Nucleated RBC % 0.0 Immature Gran # 0.01 Nucleated RBCs # 0.00 Immature Plt Fraction 0.0 INR PT Patient/Control Mix Circ Anticoag PTT Patient Temperature ABG pH ABG pH at Pt Temp ABG pCO2 ABG pCO2 at Pt Temp ABG pO2 ABG pO2 at Pt Temp ABG HCO3 ABG Total CO2 ABG O2 Saturation ABG Base Excess ABG Sodium VBG pH VBG pCO2 VBG pO2 VBG HCO3 VBG Total CO2 VBG O2 Saturation VBG Base Excess Hemoglobin Hematocrit Ionized Calcium FiO2 Sodium 142 Potassium 4.1 Chloride 107 Carbon Dioxide 29 Anion Gap 10.1 BUN 14 Creatinine 0.60 GFR Calculation 103 BUN/Creatinine Ratio 23.00 H Glucose 175 H POC Glucose 224 H Calculated Osmolality 287.1 Calcium 8.7 Venous Ioniz Calcium Magnesium 1.9 Total Bilirubin AST ALT Alkaline Phosphatase Total Creatine Kinase CK-MB (CK-2) CK and CKMB Interp Troponin I Total Protein Albumin Globulin Albumin/Globulin Ratio Urine Color Urine Appearance Urine pH Ur Specific [place] Urine Protein Urine Glucose (UA) Urine Ketones Urine Blood Urine Nitrate Urine Bilirubin Urine Urobilinogen Urine Leukocytes Urine RBC Urine WBC Ur Squamous Epith Cells Urine Mucus Ur Culture Indicated? Blood Type Antibody Screen Crossmatch 11/09/16 11/09/16 11/09/16 03:39 04:06 04:25 WBC RBC Hgb Hct MCV MCH MCHC RDW Plt Count MPV Neut % (Auto) Lymph % (Auto) [place] % (Auto) Eos % (Auto) Baso % (Auto) Neut # (Auto) Lymph # (Auto) [place] # (Auto) Eos # (Auto) Baso # (Auto) Immature Gran % Nucleated RBC % Immature Gran # Nucleated RBCs # Immature Plt Fraction INR 1.1 PT Patient/Control Mix 11.1 Circ Anticoag PTT 24.0 Patient Temperature ABG pH 7.422 ABG pH at Pt Temp ABG pCO2 40.2 ABG pCO2 at Pt Temp ABG pO2 77.6 L ABG pO2 at Pt Temp ABG HCO3 25.9 ABG Total CO2 23.0 ABG O2 Saturation 95.9 ABG Base Excess 1.7 ABG Sodium VBG pH VBG pCO2 VBG pO2 VBG HCO3 VBG Total CO2 VBG O2 Saturation VBG Base Excess Hemoglobin Hematocrit Ionized Calcium FiO2 21.00 Sodium Potassium Chloride Carbon Dioxide Anion Gap BUN Creatinine GFR Calculation BUN/Creatinine Ratio Glucose POC Glucose 194 H Calculated Osmolality Calcium Venous Ioniz Calcium Magnesium Total Bilirubin AST ALT Alkaline Phosphatase Total Creatine Kinase CK-MB (CK-2) CK and CKMB Interp Troponin I Total Protein Albumin Globulin Albumin/Globulin Ratio Urine Color Urine Appearance Urine pH Ur Specific [place] Urine Protein Urine Glucose (UA) Urine Ketones Urine Blood Urine Nitrate Urine Bilirubin Urine Urobilinogen Urine Leukocytes Urine RBC Urine WBC Ur Squamous Epith Cells Urine Mucus Ur Culture Indicated? Blood Type Antibody Screen Crossmatch 11/09/16 11/09/16 11/09/16 08:40 08:40 09:40 WBC RBC Hgb Hct MCV MCH MCHC RDW Plt Count 59 L D MPV Neut % (Auto) Lymph % (Auto) [place] % (Auto) Eos % (Auto) Baso % (Auto) Neut # (Auto) Lymph # (Auto) [place] # (Auto) Eos # (Auto) Baso # (Auto) Immature Gran % Nucleated RBC % Immature Gran # Nucleated RBCs # Immature Plt Fraction INR PT Patient/Control Mix Circ Anticoag PTT Patient Temperature 37 34 ABG pH 7.387 ABG pH at Pt Temp 7.387 7.451 ABG pCO2 40.6 ABG pCO2 at Pt Temp 40.6 38.3 ABG pO2 297.0 H ABG pO2 at Pt Temp 297.0 35.5 ABG HCO3 24.0 ABG Total CO2 21.8 L ABG O2 Saturation 99.9 ABG Base Excess -0.5 ABG Sodium 138 130 L VBG pH 7.407 VBG pCO2 43.7 VBG pO2 43.9 H VBG HCO3 26.9 VBG Total CO2 28.2 VBG O2 Saturation 81.8 VBG Base Excess 2.0 Hemoglobin 11.4 L 7.8 L Hematocrit 35.2 L 23.0 L Ionized Calcium 1.13 L FiO2 80.00 Sodium Potassium 3.5 4.7 Chloride Carbon Dioxide Anion Gap BUN Creatinine GFR Calculation BUN/Creatinine Ratio Glucose 233 H 373 H POC Glucose Calculated Osmolality Calcium Venous Ioniz Calcium 0.88 Magnesium Total Bilirubin AST ALT Alkaline Phosphatase Total Creatine Kinase CK-MB (CK-2) CK and CKMB Interp Troponin I Total Protein Albumin Globulin Albumin/Globulin Ratio Urine Color Urine Appearance Urine pH Ur Specific [place] Urine Protein Urine Glucose (UA) Urine Ketones Urine Blood Urine Nitrate Urine Bilirubin Urine Urobilinogen Urine Leukocytes Urine RBC Urine WBC Ur Squamous Epith Cells Urine Mucus Ur Culture Indicated? Blood Type Antibody Screen Crossmatch 11/09/16 11/09/16 11/09/16 10:10 10:40 10:40 WBC RBC Hgb Hct MCV MCH MCHC RDW Plt Count 103 L D MPV Neut % (Auto) Lymph % (Auto) [place] % (Auto) Eos % (Auto) Baso % (Auto) Neut # (Auto) Lymph # (Auto) [place] # (Auto) Eos # (Auto) Baso # (Auto) Immature Gran % Nucleated RBC % Immature Gran # Nucleated RBCs # Immature Plt Fraction INR PT Patient/Control Mix Circ Anticoag PTT Patient Temperature 37 37 ABG pH 7.384 ABG pH at Pt Temp 7.445 7.384 ABG pCO2 38.7 ABG pCO2 at Pt Temp 39.0 38.7 ABG pO2 190.0 H ABG pO2 at Pt Temp 34.1 190.0 ABG HCO3 23.0 ABG Total CO2 21.5 L ABG O2 Saturation 99.7 ABG Base Excess -1.7 ABG Sodium 131 L 135 VBG pH 7.445 VBG pCO2 39.0 L VBG pO2 34.1 VBG HCO3 26.2 VBG Total CO2 27.4 VBG O2 Saturation 72.9 VBG Base Excess 2.0 Hemoglobin 8.3 L 8.4 L Hematocrit 24.0 L 26.2 L Ionized Calcium 1.37 FiO2 80.00 Sodium Potassium 5.3 H 4.2 Chloride Carbon Dioxide Anion Gap BUN Creatinine GFR Calculation BUN/Creatinine Ratio Glucose 338 H 331 H POC Glucose Calculated Osmolality Calcium Venous Ioniz Calcium 0.94 Magnesium Total Bilirubin AST ALT Alkaline Phosphatase Total Creatine Kinase CK-MB (CK-2) CK and CKMB Interp Troponin I Total Protein Albumin Globulin Albumin/Globulin Ratio Urine Color Urine Appearance Urine pH Ur Specific [place] Urine Protein Urine Glucose (UA) Urine Ketones Urine Blood Urine Nitrate Urine Bilirubin Urine Urobilinogen Urine Leukocytes Urine RBC Urine WBC Ur Squamous Epith Cells Urine Mucus Ur Culture Indicated? Blood Type Antibody Screen Crossmatch 11/09/16 11/09/16 11/09/16 11:40 11:40 11:40 WBC 7.6 D RBC 3.44 L Hgb 10.3 L Hct 29.8 L MCV 86.6 L MCH 30 MCHC 34.6 RDW 12.4 Plt Count 107 L MPV 11.1 Neut % (Auto) 85.8 H Lymph % (Auto) 8.5 L [place] % (Auto) 3.4 Eos % (Auto) 0.7 Baso % (Auto) 0.3 Neut # (Auto) 6.5 Lymph # (Auto) 0.6 L [place] # (Auto) 0.3 Eos # (Auto) 0.1 Baso # (Auto) 0.0 Immature Gran % 1.3 Nucleated RBC % 0.0 Immature Gran # 0.10 Nucleated RBCs # 0.00 Immature Plt Fraction 0.0 INR PT Patient/Control Mix Circ Anticoag PTT Patient Temperature ABG pH 7.363 ABG pH at Pt Temp ABG pCO2 41.9 ABG pCO2 at Pt Temp ABG pO2 136.0 H ABG pO2 at Pt Temp ABG HCO3 23.2 ABG Total CO2 21.8 L ABG O2 Saturation 99.0 ABG Base Excess -1.5 ABG Sodium VBG pH VBG pCO2 VBG pO2 VBG HCO3 VBG Total CO2 VBG O2 Saturation VBG Base Excess Hemoglobin 10.1 L Hematocrit 31.1 L Ionized Calcium FiO2 Sodium 142 Potassium 3.6 3.8 Chloride 108 H Carbon Dioxide 26 Anion Gap 11.8 BUN 12 Creatinine 0.40 L GFR Calculation 120 BUN/Creatinine Ratio 30.00 H Glucose 306 H 307 H POC Glucose Calculated Osmolality 294.1 Calcium 8.6 Venous Ioniz Calcium Magnesium 1.9 Total Bilirubin 1.20 H AST 34 ALT 18 Alkaline Phosphatase 62 Total Creatine Kinase CK-MB (CK-2) CK and CKMB Interp Troponin I Total Protein 4.9 L Albumin 2.8 L Globulin 2.1 L Albumin/Globulin Ratio 1.3 Urine Color Urine Appearance Urine pH Ur Specific [place] Urine Protein Urine Glucose (UA) Urine Ketones Urine Blood Urine Nitrate Urine Bilirubin Urine Urobilinogen Urine Leukocytes Urine RBC Urine WBC Ur Squamous Epith Cells Urine Mucus Ur Culture Indicated? Blood Type Antibody Screen Crossmatch 11/09/16 11/09/16 11/09/16 11:40 11:40 Unknown WBC RBC Hgb Hct MCV MCH MCHC RDW Plt Count MPV Neut % (Auto) Lymph % (Auto) [place] % (Auto) Eos % (Auto) Baso % (Auto) Neut # (Auto) Lymph # (Auto) [place] # (Auto) Eos # (Auto) Baso # (Auto) Immature Gran % Nucleated RBC % Immature Gran # Nucleated RBCs # Immature Plt Fraction INR 1.2 PT Patient/Control Mix 13.0 Circ Anticoag PTT 28.2 Patient Temperature ABG pH ABG pH at Pt Temp ABG pCO2 ABG pCO2 at Pt Temp ABG pO2 ABG pO2 at Pt Temp ABG HCO3 ABG Total CO2 ABG O2 Saturation ABG Base Excess ABG Sodium VBG pH VBG pCO2 VBG pO2 VBG HCO3 VBG Total CO2 VBG O2 Saturation VBG Base Excess Hemoglobin Hematocrit Ionized Calcium FiO2 Sodium Potassium Chloride Carbon Dioxide Anion Gap BUN Creatinine GFR Calculation BUN/Creatinine Ratio Glucose POC Glucose Calculated Osmolality Calcium Venous Ioniz Calcium Magnesium Total Bilirubin AST ALT Alkaline Phosphatase Total Creatine Kinase 120 D CK-MB (CK-2) 7.6 H CK and CKMB Interp 6.3 Troponin I 0.874 H Total Protein Albumin Globulin Albumin/Globulin Ratio Urine Color Yellow Urine Appearance Clear Urine pH 6.0 Ur Specific [place] 1.029 Urine Protein Negative Urine Glucose (UA) >=500 Urine Ketones Negative Urine Blood Negative Urine Nitrate Negative Urine Bilirubin Negative Urine Urobilinogen 4.0 H Urine Leukocytes Negative Urine RBC 1 Urine WBC 1 Ur Squamous Epith Cells Occasional Urine Mucus Occasional Ur Culture Indicated? Not indicated Blood Type Antibody Screen Crossmatch Quality Measures - VTE Contraindication to Pharmacological VTE Prophylaxis: High Risk of Bleeding
--- NOTE | 2016-11-09 14:01 | Operative Note ---
Date of procedure: 11/09/16 Procedure: [place] of left great saphenous vein graft for CABG An incision was made from anterior to the medial malleolus all the way up to the midcalf. The great saphenous vein was dissected circumferentially and all the branches were tied down. Hemostasis was achieved. The graft was harvested in its entirety without any problems. I then closed the fascia was PDS and the skin with Monocryl. Details of the CABG procedure is dictated by Dr. Whitehead. Surgeon / Physician: Justice Rousseau Results - Labs CBC & BMP: 11/09/16 11:40 11/09/16 11:40 Discharge Plan - Discharge Medications No Action Pramipexole [Mirapex] 0.25 mg PO BEDTIME PRN PRN Reason: RESTLESS LEG clonazePAM TAB [KlonoPIN] 0.5 mg PO Q12H PRN PRN Reason: Anxiety Trazodone HCl 150 mg PO BEDTIME Ranitidine Tab [Zantac Tab] 150 mg PO BEDTIME Linaclotide [Linzess] 290 mcg PO BEDTIME Ergocalciferol (Vitamin D2) [Vitamin D2] 50,000 unit PO Q7D Linagliptin [Tradjenta] 5 mg PO BEDTIME ALPRAZolam [Xanax] 0.25 mg PO Q8H PRN PRN Reason: panic attack Nitroglycerin [Nitroglycerin SL Tab] 0.4 mg SL Q5M PRN PRN Reason: Chest Pain Amitriptyline HCl 25 mg PO BEDTIME clonazePAM TAB [KlonoPIN] 0.25 mg PO Q12H PRN PRN Reason: Anxiety Rosuvastatin [Crestor] 10 mg PO BEDTIME Gabapentin 100 mg PO TID PRN PRN Reason: Pain Hydrocodone/Acetaminophen [[place] 10-325 Tablet] 1 each PO Q6H PRN PRN Reason: Pain Omeprazole 20 mg PO DAILY hydrOXYzine HCl [Hydroxyzine HCl] 25 mg PO RT Q8H PRN PRN Reason: Headache - Follow Up or Referral - Forms/Instructions
--- NOTE | 2016-11-09 14:02 | Order Completion Report ---
See report scanned to EMR
[2016-11-09 14:04] LABS: ABG Base Excess -0.5 MMOL/L (-2.5-2.5); ABG HCO3 24.1 MMOL/L (20-26); ABG Oxygen Saturation 99.8 % (95-100); ABG PCO2 39.6 MM HG (35-48); ABG PH 7.396 (7.35-7.45); ABG TCO2 22.5 MMOL/L (23-27); Glucose Heart Surgery 265 MG/DL (74-106); Hematocrit Heart Surgery 26.7 PERCENT (37-47); Hemoglobin Heart Surgery 8.6 G/DL (12.0-16.0); Potassium Heart/CVR 3.9 MMOL/L (3.5-5.1)
[2016-11-09] MEDS: METOPROLOL TARTRATE 25 MG TABLET NG SCH ×2 (14:15→21:02)
[2016-11-09] MEDS ORDERED: PHENYLEPHRINE 1 MG/10 ML SYRINGE IV ONE (14:36)
[2016-11-09 15:01] LABS: ABG Base Excess -0.1 MMOL/L (-2.5-2.5); ABG HCO3 24.2 MMOL/L (20-26); ABG Oxygen Saturation 97.9 % (95-100); ABG PCO2 38.2 MM HG (35-48); ABG PO2 128.1 MM HG (80-95); ABG TCO2 25.4 MMOL/L (23-27); Glucose Heart Surgery 263 MG/DL (74-106); Ionized Calcium Arterial 1.13 MMOL/L (1.21-1.46); PCO2 Patient Temp Arterial 38.2 MMHG; PO2 Patient Temp Arterial 128.1 MM HG; Patient Temperature 37 CELCIUS; Potassium Heart/CVR 3.8 MMOL/L (3.5-5.1); Sodium Heart/CVR 138 MMOL/L (135-145)
--- NOTE | 2016-11-09 15:46 | Cardiothoracic Progress Note ---
Cardiothoracic Subjective Interval history: Patient experienced monitor change of her electrocardiogram associated with moderate hypotension a little earlier. Patient was seen by Dr. Valdes who suspected possible graft occlusion. Because of the possibility of this patient will be returned to surgery for exploration. Exam (Progress Note) - Constitutional Vitals: Period Temp Pulse Resp BP Sys/[place] Pulse Ox Last 24 Hr 96.7 F-98.1 F 82-100 10-20 79-94/50-64 94-100 Result/EKG - Labs CBC & BMP: 11/09/16 11:40 11/09/16 11:40 Labs: Laboratory Results - last 24 hr 11/08/16 11/08/16 11/08/16 05:29 11:36 15:33 WBC RBC Hgb Hct MCV MCH MCHC RDW Plt Count MPV Neut % (Auto) Lymph % (Auto) [place] % (Auto) Eos % (Auto) Baso % (Auto) Neut # (Auto) Lymph # (Auto) [place] # (Auto) Eos # (Auto) Baso # (Auto) Immature Gran % Nucleated RBC % Immature Gran # Nucleated RBCs # Immature Plt Fraction INR PT Patient/Control Mix Circ Anticoag PTT Patient Temperature ABG pH ABG pH at Pt Temp ABG pCO2 ABG pCO2 at Pt Temp ABG pO2 ABG pO2 at Pt Temp ABG HCO3 ABG Total CO2 ABG O2 Saturation ABG Base Excess ABG Sodium VBG pH VBG pCO2 VBG pO2 VBG HCO3 VBG Total CO2 VBG O2 Saturation VBG Base Excess Hemoglobin Hematocrit Ionized Calcium FiO2 Sodium Potassium Chloride Carbon Dioxide Anion Gap BUN Creatinine GFR Calculation BUN/Creatinine Ratio Glucose POC Glucose 275 H 187 H Calculated Osmolality Calcium Venous Ioniz Calcium Magnesium Total Bilirubin AST ALT Alkaline Phosphatase Total Creatine Kinase CK-MB (CK-2) CK and CKMB Interp Troponin I Total Protein Albumin Globulin Albumin/Globulin Ratio Urine Color Urine Appearance Urine pH Ur Specific [place] Urine Protein Urine Glucose (UA) Urine Ketones Urine Blood Urine Nitrate Urine Bilirubin Urine Urobilinogen Urine Leukocytes Urine RBC Urine WBC Ur Squamous Epith Cells Urine Mucus Ur Culture Indicated? Blood Type O POSITIVE Antibody Screen Negative Crossmatch See Detail 11/08/16 11/09/16 11/09/16 19:36 03:39 03:39 WBC 5.4 RBC 3.98 Hgb 11.9 L Hct 34.6 L MCV 86.9 L MCH 30 MCHC 34.4 RDW 12.3 Plt Count 136 MPV 11.3 Neut % (Auto) 50.6 Lymph % (Auto) 35.4 [place] % (Auto) 9.5 Eos % (Auto) 3.9 Baso % (Auto) 0.4 Neut # (Auto) 2.7 Lymph # (Auto) 1.9 [place] # (Auto) 0.5 Eos # (Auto) 0.2 Baso # (Auto) 0.0 Immature Gran % 0.2 Nucleated RBC % 0.0 Immature Gran # 0.01 Nucleated RBCs # 0.00 Immature Plt Fraction 0.0 INR PT Patient/Control Mix Circ Anticoag PTT Patient Temperature ABG pH ABG pH at Pt Temp ABG pCO2 ABG pCO2 at Pt Temp ABG pO2 ABG pO2 at Pt Temp ABG HCO3 ABG Total CO2 ABG O2 Saturation ABG Base Excess ABG Sodium VBG pH VBG pCO2 VBG pO2 VBG HCO3 VBG Total CO2 VBG O2 Saturation VBG Base Excess Hemoglobin Hematocrit Ionized Calcium FiO2 Sodium 142 Potassium 4.1 Chloride 107 Carbon Dioxide 29 Anion Gap 10.1 BUN 14 Creatinine 0.60 GFR Calculation 103 BUN/Creatinine Ratio 23.00 H Glucose 175 H POC Glucose 224 H Calculated Osmolality 287.1 Calcium 8.7 Venous Ioniz Calcium Magnesium 1.9 Total Bilirubin AST ALT Alkaline Phosphatase Total Creatine Kinase CK-MB (CK-2) CK and CKMB Interp Troponin I Total Protein Albumin Globulin Albumin/Globulin Ratio Urine Color Urine Appearance Urine pH Ur Specific [facility] Urine Protein Urine Glucose (UA) Urine Ketones Urine Blood Urine Nitrate Urine Bilirubin Urine Urobilinogen Urine Leukocytes Urine RBC Urine WBC Ur Squamous Epith Cells Urine Mucus Ur Culture Indicated? Blood Type Antibody Screen Crossmatch 11/09/16 11/09/16 11/09/16 03:39 04:06 04:25 WBC RBC Hgb Hct MCV MCH MCHC RDW Plt Count MPV Neut % (Auto) Lymph % (Auto) [place] % (Auto) Eos % (Auto) Baso % (Auto) Neut # (Auto) Lymph # (Auto) [place] # (Auto) Eos # (Auto) Baso # (Auto) Immature Gran % Nucleated RBC % Immature Gran # Nucleated RBCs # Immature Plt Fraction INR 1.1 PT Patient/Control Mix 11.1 Circ Anticoag PTT 24.0 Patient Temperature ABG pH 7.422 ABG pH at Pt Temp ABG pCO2 40.2 ABG pCO2 at Pt Temp ABG pO2 77.6 L ABG pO2 at Pt Temp ABG HCO3 25.9 ABG Total CO2 23.0 ABG O2 Saturation 95.9 ABG Base Excess 1.7 ABG Sodium VBG pH VBG pCO2 VBG pO2 VBG HCO3 VBG Total CO2 VBG O2 Saturation VBG Base Excess Hemoglobin Hematocrit Ionized Calcium FiO2 21.00 Sodium Potassium Chloride Carbon Dioxide Anion Gap BUN Creatinine GFR Calculation BUN/Creatinine Ratio Glucose POC Glucose 194 H Calculated Osmolality Calcium Venous Ioniz Calcium Magnesium Total Bilirubin AST ALT Alkaline Phosphatase Total Creatine Kinase CK-MB (CK-2) CK and CKMB Interp Troponin I Total Protein Albumin Globulin Albumin/Globulin Ratio Urine Color Urine Appearance Urine pH Ur Specific [facility] Urine Protein Urine Glucose (UA) Urine Ketones Urine Blood Urine Nitrate Urine Bilirubin Urine Urobilinogen Urine Leukocytes Urine RBC Urine WBC Ur Squamous Epith Cells Urine Mucus Ur Culture Indicated? Blood Type Antibody Screen Crossmatch 11/09/16 11/09/16 11/09/16 08:40 08:40 09:40 WBC RBC Hgb Hct MCV MCH MCHC RDW Plt Count 59 L D MPV Neut % (Auto) Lymph % (Auto) [place] % (Auto) Eos % (Auto) Baso % (Auto) Neut # (Auto) Lymph # (Auto) [place] # (Auto) Eos # (Auto) Baso # (Auto) Immature Gran % Nucleated RBC % Immature Gran # Nucleated RBCs # Immature Plt Fraction INR PT Patient/Control Mix Circ Anticoag PTT Patient Temperature 37 34 ABG pH 7.387 ABG pH at Pt Temp 7.387 7.451 ABG pCO2 40.6 ABG pCO2 at Pt Temp 40.6 38.3 ABG pO2 297.0 H ABG pO2 at Pt Temp 297.0 35.5 ABG HCO3 24.0 ABG Total CO2 21.8 L ABG O2 Saturation 99.9 ABG Base Excess -0.5 ABG Sodium 138 130 L VBG pH 7.407 VBG pCO2 43.7 VBG pO2 43.9 H VBG HCO3 26.9 VBG Total CO2 28.2 VBG O2 Saturation 81.8 VBG Base Excess 2.0 Hemoglobin 11.4 L 7.8 L Hematocrit 35.2 L 23.0 L Ionized Calcium 1.13 L FiO2 80.00 Sodium Potassium 3.5 4.7 Chloride Carbon Dioxide Anion Gap BUN Creatinine GFR Calculation BUN/Creatinine Ratio Glucose 233 H 373 H POC Glucose Calculated Osmolality Calcium Venous Ioniz Calcium 0.88 Magnesium Total Bilirubin AST ALT Alkaline Phosphatase Total Creatine Kinase CK-MB (CK-2) CK and CKMB Interp Troponin I Total Protein Albumin Globulin Albumin/Globulin Ratio Urine Color Urine Appearance Urine pH Ur Specific [facility] Urine Protein Urine Glucose (UA) Urine Ketones Urine Blood Urine Nitrate Urine Bilirubin Urine Urobilinogen Urine Leukocytes Urine RBC Urine WBC Ur Squamous Epith Cells Urine Mucus Ur Culture Indicated? Blood Type Antibody Screen Crossmatch 11/09/16 11/09/16 11/09/16 10:10 10:40 10:40 WBC RBC Hgb Hct MCV MCH MCHC RDW Plt Count 103 L D MPV Neut % (Auto) Lymph % (Auto) [place] % (Auto) Eos % (Auto) Baso % (Auto) Neut # (Auto) Lymph # (Auto) [place] # (Auto) Eos # (Auto) Baso # (Auto) Immature Gran % Nucleated RBC % Immature Gran # Nucleated RBCs # Immature Plt Fraction INR PT Patient/Control Mix Circ Anticoag PTT Patient Temperature 37 37 ABG pH 7.384 ABG pH at Pt Temp 7.445 7.384 ABG pCO2 38.7 ABG pCO2 at Pt Temp 39.0 38.7 ABG pO2 190.0 H ABG pO2 at Pt Temp 34.1 190.0 ABG HCO3 23.0 ABG Total CO2 21.5 L ABG O2 Saturation 99.7 ABG Base Excess -1.7 ABG Sodium 131 L 135 VBG pH 7.445 VBG pCO2 39.0 L VBG pO2 34.1 VBG HCO3 26.2 VBG Total CO2 27.4 VBG O2 Saturation 72.9 VBG Base Excess 2.0 Hemoglobin 8.3 L 8.4 L Hematocrit 24.0 L 26.2 L Ionized Calcium 1.37 FiO2 80.00 Sodium Potassium 5.3 H 4.2 Chloride Carbon Dioxide Anion Gap BUN Creatinine GFR Calculation BUN/Creatinine Ratio Glucose 338 H 331 H POC Glucose Calculated Osmolality Calcium Venous Ioniz Calcium 0.94 Magnesium Total Bilirubin AST ALT Alkaline Phosphatase Total Creatine Kinase CK-MB (CK-2) CK and CKMB Interp Troponin I Total Protein Albumin Globulin Albumin/Globulin Ratio Urine Color Urine Appearance Urine pH Ur Specific [facility] Urine Protein Urine Glucose (UA) Urine Ketones Urine Blood Urine Nitrate Urine Bilirubin Urine Urobilinogen Urine Leukocytes Urine RBC Urine WBC Ur Squamous Epith Cells Urine Mucus Ur Culture Indicated? Blood Type Antibody Screen Crossmatch 11/09/16 11/09/16 11/09/16 11:40 11:40 11:40 WBC 7.6 D RBC 3.44 L Hgb 10.3 L Hct 29.8 L MCV 86.6 L MCH 30 MCHC 34.6 RDW 12.4 Plt Count 107 L MPV 11.1 Neut % (Auto) 85.8 H Lymph % (Auto) 8.5 L [place] % (Auto) 3.4 Eos % (Auto) 0.7 Baso % (Auto) 0.3 Neut # (Auto) 6.5 Lymph # (Auto) 0.6 L [place] # (Auto) 0.3 Eos # (Auto) 0.1 Baso # (Auto) 0.0 Immature Gran % 1.3 Nucleated RBC % 0.0 Immature Gran # 0.10 Nucleated RBCs # 0.00 Immature Plt Fraction 0.0 INR PT Patient/Control Mix Circ Anticoag PTT Patient Temperature ABG pH 7.363 ABG pH at Pt Temp ABG pCO2 41.9 ABG pCO2 at Pt Temp ABG pO2 136.0 H ABG pO2 at Pt Temp ABG HCO3 23.2 ABG Total CO2 21.8 L ABG O2 Saturation 99.0 ABG Base Excess -1.5 ABG Sodium VBG pH VBG pCO2 VBG pO2 VBG HCO3 VBG Total CO2 VBG O2 Saturation VBG Base Excess Hemoglobin 10.1 L Hematocrit 31.1 L Ionized Calcium FiO2 Sodium 142 Potassium 3.6 3.8 Chloride 108 H Carbon Dioxide 26 Anion Gap 11.8 BUN 12 Creatinine 0.40 L GFR Calculation 120 BUN/Creatinine Ratio 30.00 H Glucose 306 H 307 H POC Glucose Calculated Osmolality 294.1 Calcium 8.6 Venous Ioniz Calcium Magnesium 1.9 Total Bilirubin 1.20 H AST 34 ALT 18 Alkaline Phosphatase 62 Total Creatine Kinase CK-MB (CK-2) CK and CKMB Interp Troponin I Total Protein 4.9 L Albumin 2.8 L Globulin 2.1 L Albumin/Globulin Ratio 1.3 Urine Color Urine Appearance Urine pH Ur Specific [facility] Urine Protein Urine Glucose (UA) Urine Ketones Urine Blood Urine Nitrate Urine Bilirubin Urine Urobilinogen Urine Leukocytes Urine RBC Urine WBC Ur Squamous Epith Cells Urine Mucus Ur Culture Indicated? Blood Type Antibody Screen Crossmatch 11/09/16 11/09/16 11/09/16 11:40 11:40 14:00 WBC RBC Hgb Hct MCV MCH MCHC RDW Plt Count MPV Neut % (Auto) Lymph % (Auto) [place] % (Auto) Eos % (Auto) Baso % (Auto) Neut # (Auto) Lymph # (Auto) [place] # (Auto) Eos # (Auto) Baso # (Auto) Immature Gran % Nucleated RBC % Immature Gran # Nucleated RBCs # Immature Plt Fraction INR 1.2 PT Patient/Control Mix 13.0 Circ Anticoag PTT 28.2 Patient Temperature ABG pH 7.396 ABG pH at Pt Temp ABG pCO2 39.6 ABG pCO2 at Pt Temp ABG pO2 190.0 H ABG pO2 at Pt Temp ABG HCO3 24.1 ABG Total CO2 22.5 L ABG O2 Saturation 99.8 ABG Base Excess -0.5 ABG Sodium VBG pH VBG pCO2 VBG pO2 VBG HCO3 VBG Total CO2 VBG O2 Saturation VBG Base Excess Hemoglobin 8.6 L Hematocrit 26.7 L Ionized Calcium FiO2 Sodium Potassium 3.9 Chloride Carbon Dioxide Anion Gap BUN Creatinine GFR Calculation BUN/Creatinine Ratio Glucose 265 H POC Glucose Calculated Osmolality Calcium Venous Ioniz Calcium Magnesium Total Bilirubin AST ALT Alkaline Phosphatase Total Creatine Kinase 120 D CK-MB (CK-2) 7.6 H CK and CKMB Interp 6.3 Troponin I 0.874 H Total Protein Albumin Globulin Albumin/Globulin Ratio Urine Color Urine Appearance Urine pH Ur Specific [facility] Urine Protein Urine Glucose (UA) Urine Ketones Urine Blood Urine Nitrate Urine Bilirubin Urine Urobilinogen Urine Leukocytes Urine RBC Urine WBC Ur Squamous Epith Cells Urine Mucus Ur Culture Indicated? Blood Type Antibody Screen Crossmatch 11/09/16 11/09/16 14:55 Unknown WBC RBC Hgb Hct MCV MCH MCHC RDW Plt Count MPV Neut % (Auto) Lymph % (Auto) [place] % (Auto) Eos % (Auto) Baso % (Auto) Neut # (Auto) Lymph # (Auto) [place] # (Auto) Eos # (Auto) Baso # (Auto) Immature Gran % Nucleated RBC % Immature Gran # Nucleated RBCs # Immature Plt Fraction INR PT Patient/Control Mix Circ Anticoag PTT Patient Temperature 37 ABG pH 7.420 ABG pH at Pt Temp 7.420 ABG pCO2 38.2 ABG pCO2 at Pt Temp 38.2 ABG pO2 128.1 H ABG pO2 at Pt Temp 128.1 ABG HCO3 24.2 ABG Total CO2 25.4 ABG O2 Saturation 97.9 ABG Base Excess -0.1 ABG Sodium 138 VBG pH VBG pCO2 VBG pO2 VBG HCO3 VBG Total CO2 VBG O2 Saturation VBG Base Excess Hemoglobin 11.0 L Hematocrit 32.0 L Ionized Calcium 1.13 L FiO2 Sodium Potassium 3.8 Chloride Carbon Dioxide Anion Gap BUN Creatinine GFR Calculation BUN/Creatinine Ratio Glucose 263 H POC Glucose Calculated Osmolality Calcium Venous Ioniz Calcium Magnesium Total Bilirubin AST ALT Alkaline Phosphatase Total Creatine Kinase CK-MB (CK-2) CK and CKMB Interp Troponin I Total Protein Albumin Globulin Albumin/Globulin Ratio Urine Color Yellow Urine Appearance Clear Urine pH 6.0 Ur Specific [facility] [place] 1.029 Urine Protein Negative Urine Glucose (UA) >=500 Urine Ketones Negative Urine Blood Negative Urine Nitrate Negative Urine Bilirubin Negative Urine Urobilinogen 4.0 H Urine Leukocytes Negative Urine RBC 1 Urine WBC 1 Ur Squamous Epith Cells Occasional Urine Mucus Occasional Ur Culture Indicated? Not indicated Blood Type Antibody Screen Crossmatch Quality Measures - VTE Contraindication to Pharmacological VTE Prophylaxis: High Risk of Bleeding
--- NOTE | 2016-11-09 15:49 | Operative Note ---
Date of procedure: 11/09/16 Pre-op diagnosis: Possible graft occlusion Post-op diagnosis: same (Patent coronary grafts) Procedure: Procedure: Patient brought to the operating room placed in the operating table in supine position. After satisfactory induction of general anesthesia the chest abdomen and legs were prepped and draped in sterile fashion. Previous sternotomy incision was reopened and sternal wires were removed. The operative field was inspected for hemostasis and this appeared to be adequate. There was no significant mediastinal hematoma or blood accumulation. Heart appeared to be beating about the same as it was at the time of closure from the previous operation. There were excellent pulses in both coronary grafts and there is no obvious evidence of myocardial injury although this is somewhat difficult to evaluate visually. Because I could see no indication to explore the coronary grafts any further we elected to reclose the patient. Incision was closed with sternal wires and 0 Monocryl in the presternal fascia. Skin was closed with 3- 0 subcuticular Monocryl. Chest tubes were left in the anterior mediastinum and brought out through separate stab incision. Anesthesia: GETA Surgeon / Physician: Elmo Whitehead Estimated blood loss: minimal, other Condition: stable Disposition: ICU Results - Labs CBC & BMP: 11/09/16 11:40 11/09/16 11:40 Discharge Plan - Discharge Medications No Action Pramipexole [Mirapex] 0.25 mg PO BEDTIME PRN PRN Reason: RESTLESS LEG clonazePAM TAB [KlonoPIN] 0.5 mg PO Q12H PRN PRN Reason: Anxiety Trazodone HCl 150 mg PO BEDTIME Ranitidine Tab [Zantac Tab] 150 mg PO BEDTIME Linaclotide [Linzess] 290 mcg PO BEDTIME Ergocalciferol (Vitamin D2) [Vitamin D2] 50,000 unit PO Q7D Linagliptin [Tradjenta] 5 mg PO BEDTIME ALPRAZolam [Xanax] 0.25 mg PO Q8H PRN PRN Reason: panic attack Nitroglycerin [Nitroglycerin SL Tab] 0.4 mg SL Q5M PRN PRN Reason: Chest Pain Amitriptyline HCl 25 mg PO BEDTIME clonazePAM TAB [KlonoPIN] 0.25 mg PO Q12H PRN PRN Reason: Anxiety Rosuvastatin [Crestor] 10 mg PO BEDTIME Gabapentin 100 mg PO TID PRN PRN Reason: Pain Hydrocodone/Acetaminophen [[place] 10-325 Tablet] 1 each PO Q6H PRN PRN Reason: Pain Omeprazole 20 mg PO DAILY hydrOXYzine HCl [Hydroxyzine HCl] 25 mg PO RT Q8H PRN PRN Reason: Headache - Follow Up or Referral - Forms/Instructions
[2016-11-09] MEDS ORDERED: SEVOFLURANE 1 UNIT/15 MINUTE INH ONE (16:02)
[2016-11-09] MEDS ORDERED: SODIUM CHLORIDE 0.9% 100 ML IV ONE (16:02)
[2016-11-09] MEDS ORDERED: LACTATED RINGERS 1,000 ML IV ONE (16:02)
[2016-11-09] MEDS ORDERED: SUFentanil 50 MCG/ML AMP ONE (16:02)
--- NOTE | 2016-11-09 16:22 | Order Completion Report ---
See report scanned to EMR
[2016-11-09 16:35] LABS: ABG Base Excess -0.4 MMOL/L (-2.5-2.5); ABG HCO3 23.3 MMOL/L (20-26); ABG Oxygen Saturation 94.8 % (95-100); ABG PCO2 34.8 MM HG (35-48); ABG PH 7.444 (7.35-7.45); ABG PO2 74.1 MM HG (80-95); ABG TCO2 24.4 MMOL/L (23-27); Glucose Heart Surgery 263 MG/DL (74-106); Hemoglobin Heart Surgery 10.7 G/DL (12.0-16.0); Potassium Heart/CVR 3.8 MMOL/L (3.5-5.1)
[2016-11-09 17:15] LABS: Troponin I Only 1.56 NG/ML (0.00-0.045)
[2016-11-09 18:03] LABS: ABG Base Excess -0.3 MMOL/L (-2.5-2.5); ABG HCO3 22.9 MMOL/L (20-26); ABG PH 7.472 (7.35-7.45); ABG PO2 59.5 MM HG (80-95); ABG TCO2 23.9 MMOL/L (23-27); Glucose Heart Surgery 262 MG/DL (74-106); Hemoglobin Heart Surgery 10.5 G/DL (12.0-16.0); Potassium Heart/CVR 3.5 MMOL/L (3.5-5.1)
[2016-11-09] MEDS: INSULIN REGULAR 100 UNIT/ML IV PRN ×3 (18:10→20:50)
[2016-11-09] MEDS ORDERED: FUROSEMIDE 40 MG/4 ML VIAL IV ONE (18:20)
[2016-11-09] MEDS ORDERED: FUROSEMIDE 40 MG/4 ML VIAL ONE (18:38)
[2016-11-09] MEDS: MORPHINE 2 MG/1 ML SYRINGE IV PRN (21:02)
[2016-11-09] MEDS: SODIUM CHLORIDE 0.9% 1,000 ML IV SCH (21:09)
[2016-11-09 21:31] LABS: ABG Base Excess 0.6 MMOL/L (-2.5-2.5); ABG Oxygen Saturation 98.3 % (95-100); ABG PCO2 39.4 MM HG (35-48); ABG PH 7.421 (7.35-7.45); ABG PO2 152.2 MM HG (80-95); ABG TCO2 26.2 MMOL/L (23-27); Glucose Heart Surgery 195 MG/DL (74-106); Hemoglobin Heart Surgery 10.6 G/DL (12.0-16.0); Potassium Heart/CVR 3.2 MMOL/L (3.5-5.1)
[2016-11-09 21:57] LABS: CKMB % 7.2 %
[2016-11-09 21:59] LABS: Troponin I Only 3.72 NG/ML (0.00-0.045)
[2016-11-09] MEDS ORDERED: PROPOFOL 1,000 MG/100 ML BOTTLE IV ONE (22:10)
[2016-11-09] MEDS ORDERED: PROPOFOL 1,000 MG/100 ML BOTTLE IV SCH (22:30)
[2016-11-09] MEDS: VANCOMYCIN INJ 1,000 MG in SODIUM CHLORIDE 0.9% 250 ML IV SCH (23:28)
[2016-11-09 23:50] LABS: ABG Base Excess 0.2 MMOL/L (-2.5-2.5); ABG HCO3 24.6 MMOL/L (20-26); ABG Oxygen Saturation 99.5 % (95-100); ABG PH 7.426 (7.35-7.45); Glucose Heart Surgery 141 MG/DL (74-106); Hematocrit Heart Surgery 31.9 PERCENT (37-47); Hemoglobin Heart Surgery 10.3 G/DL (12.0-16.0); Potassium Heart/CVR 4.3 MMOL/L (3.5-5.1)
[2016-11-10] MEDS ORDERED: FUROSEMIDE 40 MG/4 ML VIAL IV ONE (00:05)
[2016-11-10] MEDS: POTASSIUM CHLORIDE RIDER 10 MEQ in PREMIX 1 EACH IV PRN ×3 (00:26→02:49)
[2016-11-10 01:14] LABS: ABG Base Excess 1.1 MMOL/L (-2.5-2.5); ABG HCO3 25.5 MMOL/L (20-26); ABG Oxygen Saturation 99.3 % (95-100); ABG PCO2 39.2 MM HG (35-48); ABG PH 7.422 (7.35-7.45); Glucose Heart Surgery 117 MG/DL (74-106); Hemoglobin Heart Surgery 10.7 G/DL (12.0-16.0)
[2016-11-10 02:44] LABS: ABG Base Excess 2.2 MMOL/L (-2.5-2.5); ABG HCO3 24.5 MMOL/L (20-26); ABG Oxygen Saturation 98.2 % (95-100); ABG PCO2 30.6 MM HG (35-48); ABG PH 7.522 (7.35-7.45); ABG PO2 124.2 MM HG (80-95); ABG TCO2 25.5 MMOL/L (23-27); Glucose Heart Surgery 90 MG/DL (74-106); Hemoglobin Heart Surgery 10.9 G/DL (12.0-16.0); Potassium Heart/CVR 4.1 MMOL/L (3.5-5.1)
[2016-11-10 03:42] LABS: ABG Base Excess 1.9 MMOL/L (-2.5-2.5); ABG HCO3 26.1 MMOL/L (20-26); ABG Oxygen Saturation 99.5 % (95-100); ABG PH 7.547 (7.35-7.45); ABG TCO2 21.1 MMOL/L (23-27); Glucose Heart Surgery 119 MG/DL (74-106); Hematocrit Heart Surgery 32.3 PERCENT (37-47); Hemoglobin Heart Surgery 10.4 G/DL (12.0-16.0); Potassium Heart/CVR 4.2 MMOL/L (3.5-5.1)
[2016-11-10 03:53] LABS: Basophils % 0.1 % (0.0-0.8); Hematocrit 30.4 VOL% (35.7-47.0); Hemoglobin 10.5 GM/DL (12.0-16.0); Immature Granulocytes % 0.4 %; Immature Granulocytes Absolute 0.05 #; Lymphocytes # 0.8 10*3/uL (1.4-4.0); Lymphocytes % 6.2 % (21.3-54.2); Mean Corpuscular HGB Conc 34.5 GM/DL (32-36); Mean Corpuscular Hemoglobin 29 PG (27-34); Mean Corpuscular Volume 83.7 FL (87-102); Mean Platelet Volume 11.6 FL (9.6-12.0); Monocytes # 0.6 10*3/uL (0.11-0.8); Monocytes % 4.6 % (1.7-12.7); Neutrophils # 11.1 10*3/uL (1.4-7.4); Neutrophils % 88.7 % (38.7-73.9); Platelet Count 127 T/CUMM (130-400); Red Blood Count 3.63 MC/CUMM (3.8-5.5); Red Cell Distribution Width 13.6 % (9.3-17.3); White Blood Count 12.5 T/CUMM (4-12)
[2016-11-10] MEDS: MORPHINE 2 MG/1 ML SYRINGE IV PRN (04:11)
[2016-11-10 04:42] LABS: CKMB % 7.2 %
[2016-11-10 04:48] LABS: Albumin 3.4 G/DL (3.4-5.0); Bilirubin,Direct 0.2 MG/DL (0.0-0.20); Bilirubin,Total 0.9 MG/DL (0.2-1.0); Calcium 8.7 MG/DL (8.5-10.1); Total Protein 5.4 G/DL (6.4-8.3)
[2016-11-10 04:48] LABS: ABG HCO3 24.4 MMOL/L (20-26); ABG Oxygen Saturation 98.4 % (95-100); ABG PCO2 37.7 MM HG (35-48); ABG PH 7.417 (7.35-7.45); Glucose Heart Surgery 142 MG/DL (74-106); Hematocrit Heart Surgery 31.6 PERCENT (37-47); Hemoglobin Heart Surgery 10.2 G/DL (12.0-16.0)
[2016-11-10 04:49] LABS: Magnesium 2.3 MG/DL (1.8-2.4); Osmolality,Calculated 283.1 MOS/KG (273-304); Potassium 4.3 MMOL/L (3.5-5.1)
[2016-11-10 04:51] LABS: Troponin I Only 4.67 NG/ML (0.00-0.045)
[2016-11-10] MEDS: KETOROLAC 30 MG/1 ML VIAL IV SCH ×4 (06:10→23:20)
--- NOTE | 2016-11-10 06:21 | Cardiothoracic Progress Note ---
Cardiothoracic Subjective Interval history: Patient is awake alert and extubated this morning. Vital signs have been stable through the night without any further evidence of hemodynamic instability. She has remained in sinus rhythm and cardiac output has been around 4 L/min. Blood pressure has been stable. Arterial blood gases postextubation are satisfactory and chest tube drainage is minimal and her chest tubes have been removed. Chest x-ray is pending. I think that she probably can be transferred to telemetry later this morning as her laboratory work this morning shows no evidence of cardiac damage with a troponin of around 4. Overall her progress appears satisfactory. Exam (Progress Note) - Constitutional Vitals: Period Temp Pulse Resp BP Sys/[place] Pulse Ox Last 24 Hr 96.8 F-99.7 F 91-119 10-25 84-132/54-72 93-100 Result/EKG - Labs CBC & BMP: 11/10/16 03:30 11/10/16 03:30 Labs: Laboratory Results - last 24 hr 11/08/16 11/09/16 11/09/16 05:29 08:40 08:40 WBC RBC Hgb Hct MCV MCH MCHC RDW Plt Count 59 L D MPV Neut % (Auto) Lymph % (Auto) [place] % (Auto) Eos % (Auto) Baso % (Auto) Neut # (Auto) Lymph # (Auto) [place] # (Auto) Eos # (Auto) Baso # (Auto) Immature Gran % Nucleated RBC % Immature Gran # Nucleated RBCs # Immature Plt Fraction INR PT Patient/Control Mix Circ Anticoag PTT Patient Temperature 37 ABG pH 7.387 ABG pH at Pt Temp 7.387 ABG pCO2 40.6 ABG pCO2 at Pt Temp 40.6 ABG pO2 297.0 H ABG pO2 at Pt Temp 297.0 ABG HCO3 24.0 ABG Total CO2 21.8 L ABG O2 Saturation 99.9 ABG Base Excess -0.5 ABG Sodium 138 VBG pH VBG pCO2 VBG pO2 VBG HCO3 VBG Total CO2 VBG O2 Saturation VBG Base Excess Hemoglobin 11.4 L Hematocrit 35.2 L Potassium 3.5 Glucose 233 H Ionized Calcium 1.13 L FiO2 Sodium Chloride Carbon Dioxide Anion Gap BUN Creatinine GFR Calculation BUN/Creatinine Ratio POC Glucose Calculated Osmolality Calcium Venous Ioniz Calcium Magnesium Total Bilirubin Direct Bilirubin AST ALT Alkaline Phosphatase Total Creatine Kinase CK-MB (CK-2) CK and CKMB Interp Troponin I Total Protein Albumin Globulin Albumin/Globulin Ratio Urine Color Urine Appearance Urine pH Ur Specific [place] Urine Protein Urine Glucose (UA) Urine Ketones Urine Blood Urine Nitrate Urine Bilirubin Urine Urobilinogen Urine Leukocytes Urine RBC Urine WBC Ur Squamous Epith Cells Urine Mucus Ur Culture Indicated? Blood Type O POSITIVE Antibody Screen Negative Crossmatch See Detail 11/09/16 11/09/16 11/09/16 09:40 10:10 10:40 WBC RBC Hgb Hct MCV MCH MCHC RDW Plt Count 103 L D MPV Neut % (Auto) Lymph % (Auto) [place] % (Auto) Eos % (Auto) Baso % (Auto) Neut # (Auto) Lymph # (Auto) [place] # (Auto) Eos # (Auto) Baso # (Auto) Immature Gran % Nucleated RBC % Immature Gran # Nucleated RBCs # Immature Plt Fraction INR PT Patient/Control Mix Circ Anticoag PTT Patient Temperature 34 37 ABG pH ABG pH at Pt Temp 7.451 7.445 ABG pCO2 ABG pCO2 at Pt Temp 38.3 39.0 ABG pO2 ABG pO2 at Pt Temp 35.5 34.1 ABG HCO3 ABG Total CO2 ABG O2 Saturation ABG Base Excess ABG Sodium 130 L 131 L VBG pH 7.407 7.445 VBG pCO2 43.7 39.0 L VBG pO2 43.9 H 34.1 VBG HCO3 26.9 26.2 VBG Total CO2 28.2 27.4 VBG O2 Saturation 81.8 72.9 VBG Base Excess 2.0 2.0 Hemoglobin 7.8 L 8.3 L Hematocrit 23.0 L 24.0 L Potassium 4.7 5.3 H Glucose 373 H 338 H Ionized Calcium FiO2 80.00 80.00 Sodium Chloride Carbon Dioxide Anion Gap BUN Creatinine GFR Calculation BUN/Creatinine Ratio POC Glucose Calculated Osmolality Calcium Venous Ioniz Calcium 0.88 0.94 Magnesium Total Bilirubin Direct Bilirubin AST ALT Alkaline Phosphatase Total Creatine Kinase CK-MB (CK-2) CK and CKMB Interp Troponin I Total Protein Albumin Globulin Albumin/Globulin Ratio Urine Color Urine Appearance Urine pH Ur Specific [place] Urine Protein Urine Glucose (UA) Urine Ketones Urine Blood Urine Nitrate Urine Bilirubin Urine Urobilinogen Urine Leukocytes Urine RBC Urine WBC Ur Squamous Epith Cells Urine Mucus Ur Culture Indicated? Blood Type Antibody Screen Crossmatch 11/09/16 11/09/16 11/09/16 10:40 11:40 11:40 WBC 7.6 D RBC 3.44 L Hgb 10.3 L Hct 29.8 L MCV 86.6 L MCH 30 MCHC 34.6 RDW 12.4 Plt Count 107 L MPV 11.1 Neut % (Auto) 85.8 H Lymph % (Auto) 8.5 L [place] % (Auto) 3.4 Eos % (Auto) 0.7 Baso % (Auto) 0.3 Neut # (Auto) 6.5 Lymph # (Auto) 0.6 L [place] # (Auto) 0.3 Eos # (Auto) 0.1 Baso # (Auto) 0.0 Immature Gran % 1.3 Nucleated RBC % 0.0 Immature Gran # 0.10 Nucleated RBCs # 0.00 Immature Plt Fraction 0.0 INR PT Patient/Control Mix Circ Anticoag PTT Patient Temperature 37 ABG pH 7.384 7.363 ABG pH at Pt Temp 7.384 ABG pCO2 38.7 41.9 ABG pCO2 at Pt Temp 38.7 ABG pO2 190.0 H 136.0 H ABG pO2 at Pt Temp 190.0 ABG HCO3 23.0 23.2 ABG Total CO2 21.5 L 21.8 L ABG O2 Saturation 99.7 99.0 ABG Base Excess -1.7 -1.5 ABG Sodium 135 VBG pH VBG pCO2 VBG pO2 VBG HCO3 VBG Total CO2 VBG O2 Saturation VBG Base Excess Hemoglobin 8.4 L 10.1 L Hematocrit 26.2 L 31.1 L Potassium 4.2 3.6 Glucose 331 H 306 H Ionized Calcium 1.37 FiO2 Sodium Chloride Carbon Dioxide Anion Gap BUN Creatinine GFR Calculation BUN/Creatinine Ratio POC Glucose Calculated Osmolality Calcium Venous Ioniz Calcium Magnesium Total Bilirubin Direct Bilirubin AST ALT Alkaline Phosphatase Total Creatine Kinase CK-MB (CK-2) CK and CKMB Interp Troponin I Total Protein Albumin Globulin Albumin/Globulin Ratio Urine Color Urine Appearance Urine pH Ur Specific [place] Urine Protein Urine Glucose (UA) Urine Ketones Urine Blood Urine Nitrate Urine Bilirubin Urine Urobilinogen Urine Leukocytes Urine RBC Urine WBC Ur Squamous Epith Cells Urine Mucus Ur Culture Indicated? Blood Type Antibody Screen Crossmatch 11/09/16 11/09/16 11/09/16 11:40 11:40 11:40 WBC RBC Hgb Hct MCV MCH MCHC RDW Plt Count MPV Neut % (Auto) Lymph % (Auto) [place] % (Auto) Eos % (Auto) Baso % (Auto) Neut # (Auto) Lymph # (Auto) [place] # (Auto) Eos # (Auto) Baso # (Auto) Immature Gran % Nucleated RBC % Immature Gran # Nucleated RBCs # Immature Plt Fraction INR 1.2 PT Patient/Control Mix 13.0 Circ Anticoag PTT 28.2 Patient Temperature ABG pH ABG pH at Pt Temp ABG pCO2 ABG pCO2 at Pt Temp ABG pO2 ABG pO2 at Pt Temp ABG HCO3 ABG Total CO2 ABG O2 Saturation ABG Base Excess ABG Sodium VBG pH VBG pCO2 VBG pO2 VBG HCO3 VBG Total CO2 VBG O2 Saturation VBG Base Excess Hemoglobin Hematocrit Potassium 3.8 Glucose 307 H Ionized Calcium FiO2 Sodium 142 Chloride 108 H Carbon Dioxide 26 Anion Gap 11.8 BUN 12 Creatinine 0.40 L GFR Calculation 120 BUN/Creatinine Ratio 30.00 H POC Glucose Calculated Osmolality 294.1 Calcium 8.6 Venous Ioniz Calcium Magnesium 1.9 Total Bilirubin 1.20 H Direct Bilirubin AST 34 ALT 18 Alkaline Phosphatase 62 Total Creatine Kinase 120 D CK-MB (CK-2) 7.6 H CK and CKMB Interp 6.3 Troponin I 0.874 H Total Protein 4.9 L Albumin 2.8 L Globulin 2.1 L Albumin/Globulin Ratio 1.3 Urine Color Urine Appearance Urine pH Ur Specific [place] Urine Protein Urine Glucose (UA) Urine Ketones Urine Blood Urine Nitrate Urine Bilirubin Urine Urobilinogen Urine Leukocytes Urine RBC Urine WBC Ur Squamous Epith Cells Urine Mucus Ur Culture Indicated? Blood Type Antibody Screen Crossmatch 11/09/16 11/09/16 11/09/16 13:08 14:00 14:55 WBC RBC Hgb Hct MCV MCH MCHC RDW Plt Count MPV Neut % (Auto) Lymph % (Auto) [place] % (Auto) Eos % (Auto) Baso % (Auto) Neut # (Auto) Lymph # (Auto) [place] # (Auto) Eos # (Auto) Baso # (Auto) Immature Gran % Nucleated RBC % Immature Gran # Nucleated RBCs # Immature Plt Fraction INR PT Patient/Control Mix Circ Anticoag PTT Patient Temperature 37 ABG pH 7.396 7.420 ABG pH at Pt Temp 7.420 ABG pCO2 39.6 38.2 ABG pCO2 at Pt Temp 38.2 ABG pO2 190.0 H 128.1 H ABG pO2 at Pt Temp 128.1 ABG HCO3 24.1 24.2 ABG Total CO2 22.5 L 25.4 ABG O2 Saturation 99.8 97.9 ABG Base Excess -0.5 -0.1 ABG Sodium 138 VBG pH VBG pCO2 VBG pO2 VBG HCO3 VBG Total CO2 VBG O2 Saturation VBG Base Excess Hemoglobin 8.6 L 11.0 L Hematocrit 26.7 L 32.0 L Potassium 3.9 3.8 Glucose 265 H 263 H Ionized Calcium 1.13 L FiO2 Sodium Chloride Carbon Dioxide Anion Gap BUN Creatinine GFR Calculation BUN/Creatinine Ratio POC Glucose 364 H Calculated Osmolality Calcium Venous Ioniz Calcium Magnesium Total Bilirubin Direct Bilirubin AST ALT Alkaline Phosphatase Total Creatine Kinase CK-MB (CK-2) CK and CKMB Interp Troponin I Total Protein Albumin Globulin Albumin/Globulin Ratio Urine Color Urine Appearance Urine pH Ur Specific [place] Urine Protein Urine Glucose (UA) Urine Ketones Urine Blood Urine Nitrate Urine Bilirubin Urine Urobilinogen Urine Leukocytes Urine RBC Urine WBC Ur Squamous Epith Cells Urine Mucus Ur Culture Indicated? Blood Type Antibody Screen Crossmatch 11/09/16 11/09/16 11/09/16 16:30 16:30 16:30 WBC RBC Hgb Hct MCV MCH MCHC RDW Plt Count MPV Neut % (Auto) Lymph % (Auto) [place] % (Auto) Eos % (Auto) Baso % (Auto) Neut # (Auto) Lymph # (Auto) [place] # (Auto) Eos # (Auto) Baso # (Auto) Immature Gran % Nucleated RBC % Immature Gran # Nucleated RBCs # Immature Plt Fraction INR PT Patient/Control Mix Circ Anticoag PTT Patient Temperature ABG pH 7.444 ABG pH at Pt Temp ABG pCO2 34.8 L ABG pCO2 at Pt Temp ABG pO2 74.1 L ABG pO2 at Pt Temp ABG HCO3 23.3 ABG Total CO2 24.4 ABG O2 Saturation 94.8 L ABG Base Excess -0.4 ABG Sodium VBG pH VBG pCO2 VBG pO2 VBG HCO3 VBG Total CO2 VBG O2 Saturation VBG Base Excess Hemoglobin 10.7 L Hematocrit 31.0 L Potassium 3.8 Glucose 263 H Ionized Calcium FiO2 Sodium Chloride Carbon Dioxide Anion Gap BUN Creatinine GFR Calculation BUN/Creatinine Ratio POC Glucose Calculated Osmolality Calcium Venous Ioniz Calcium Magnesium 1.6 L Total Bilirubin Direct Bilirubin AST ALT Alkaline Phosphatase Total Creatine Kinase 159 D CK-MB (CK-2) 9.6 H CK and CKMB Interp 6.0 Troponin I 1.560 H D Total Protein Albumin Globulin Albumin/Globulin Ratio Urine Color Urine Appearance Urine pH Ur Specific [place] Urine Protein Urine Glucose (UA) Urine Ketones Urine Blood Urine Nitrate Urine Bilirubin Urine Urobilinogen Urine Leukocytes Urine RBC Urine WBC Ur Squamous Epith Cells Urine Mucus Ur Culture Indicated? Blood Type Antibody Screen Crossmatch 11/09/16 11/09/16 11/09/16 17:10 18:00 21:20 WBC RBC Hgb Hct MCV MCH MCHC RDW Plt Count MPV Neut % (Auto) Lymph % (Auto) [place] % (Auto) Eos % (Auto) Baso % (Auto) Neut # (Auto) Lymph # (Auto) [place] # (Auto) Eos # (Auto) Baso # (Auto) Immature Gran % Nucleated RBC % Immature Gran # Nucleated RBCs # Immature Plt Fraction INR PT Patient/Control Mix Circ Anticoag PTT Patient Temperature ABG pH 7.472 H ABG pH at Pt Temp ABG pCO2 32.0 L ABG pCO2 at Pt Temp ABG pO2 59.5 L ABG pO2 at Pt Temp ABG HCO3 22.9 ABG Total CO2 23.9 ABG O2 Saturation 92.0 L ABG Base Excess -0.3 ABG Sodium VBG pH VBG pCO2 VBG pO2 VBG HCO3 VBG Total CO2 VBG O2 Saturation VBG Base Excess Hemoglobin 10.5 L Hematocrit 31.0 L Potassium 3.5 Glucose 262 H Ionized Calcium FiO2 Sodium Chloride Carbon Dioxide Anion Gap BUN Creatinine GFR Calculation BUN/Creatinine Ratio POC Glucose 367 H Calculated Osmolality Calcium Venous Ioniz Calcium Magnesium Total Bilirubin Direct Bilirubin AST ALT Alkaline Phosphatase Total Creatine Kinase 229 H D CK-MB (CK-2) 16.6 H D CK and CKMB Interp 7.2 Troponin I 3.720 H D Total Protein Albumin Globulin Albumin/Globulin Ratio Urine Color Urine Appearance Urine pH Ur Specific [place] Urine Protein Urine Glucose (UA) Urine Ketones Urine Blood Urine Nitrate Urine Bilirubin Urine Urobilinogen Urine Leukocytes Urine RBC Urine WBC Ur Squamous Epith Cells Urine Mucus Ur Culture Indicated? Blood Type Antibody Screen Crossmatch 11/09/16 11/09/16 11/09/16 21:20 23:45 Unknown WBC RBC Hgb Hct MCV MCH MCHC RDW Plt Count MPV Neut % (Auto) Lymph % (Auto) [place] % (Auto) Eos % (Auto) Baso % (Auto) Neut # (Auto) Lymph # (Auto) [place] # (Auto) Eos # (Auto) Baso # (Auto) Immature Gran % Nucleated RBC % Immature Gran # Nucleated RBCs # Immature Plt Fraction INR PT Patient/Control Mix Circ Anticoag PTT Patient Temperature ABG pH 7.421 7.426 ABG pH at Pt Temp ABG pCO2 39.4 37.0 ABG pCO2 at Pt Temp ABG pO2 152.2 H 146.0 H ABG pO2 at Pt Temp ABG HCO3 25.0 24.6 ABG Total CO2 26.2 22.0 L ABG O2 Saturation 98.3 99.5 ABG Base Excess 0.6 0.2 ABG Sodium VBG pH VBG pCO2 VBG pO2 VBG HCO3 VBG Total CO2 VBG O2 Saturation VBG Base Excess Hemoglobin 10.6 L 10.3 L Hematocrit 31.0 L 31.9 L Potassium 3.2 L 4.3 Glucose 195 H 141 H Ionized Calcium FiO2 Sodium Chloride Carbon Dioxide Anion Gap BUN Creatinine GFR Calculation BUN/Creatinine Ratio POC Glucose Calculated Osmolality Calcium Venous Ioniz Calcium Magnesium Total Bilirubin Direct Bilirubin AST ALT Alkaline Phosphatase Total Creatine Kinase CK-MB (CK-2) CK and CKMB Interp Troponin I Total Protein Albumin Globulin Albumin/Globulin Ratio Urine Color Yellow Urine Appearance Clear Urine pH 6.0 Ur Specific [place] 1.029 Urine Protein Negative Urine Glucose (UA) >=500 Urine Ketones Negative Urine Blood Negative Urine Nitrate Negative Urine Bilirubin Negative Urine Urobilinogen 4.0 H Urine Leukocytes Negative Urine RBC 1 Urine WBC 1 Ur Squamous Epith Cells Occasional Urine Mucus Occasional Ur Culture Indicated? Not indicated Blood Type Antibody Screen Crossmatch 11/09/16 11/10/16 11/10/16 Unknown 01:12 02:35 WBC RBC Hgb Hct MCV MCH MCHC RDW Plt Count 86 L MPV Neut % (Auto) Lymph % (Auto) [place] % (Auto) Eos % (Auto) Baso % (Auto) Neut # (Auto) Lymph # (Auto) [place] # (Auto) Eos # (Auto) Baso # (Auto) Immature Gran % Nucleated RBC % Immature Gran # Nucleated RBCs # Immature Plt Fraction INR PT Patient/Control Mix Circ Anticoag PTT Patient Temperature ABG pH 7.422 7.522 H ABG pH at Pt Temp ABG pCO2 39.2 30.6 L ABG pCO2 at Pt Temp ABG pO2 136.0 H 124.2 H ABG pO2 at Pt Temp ABG HCO3 25.5 24.5 ABG Total CO2 23.0 25.5 ABG O2 Saturation 99.3 98.2 ABG Base Excess 1.1 2.2 ABG Sodium VBG pH VBG pCO2 VBG pO2 VBG HCO3 VBG Total CO2 VBG O2 Saturation VBG Base Excess Hemoglobin 10.7 L 10.9 L Hematocrit 33.0 L 32.0 L Potassium 4.0 4.1 Glucose 117 H 90 Ionized Calcium FiO2 Sodium Chloride Carbon Dioxide Anion Gap BUN Creatinine GFR Calculation BUN/Creatinine Ratio POC Glucose Calculated Osmolality Calcium Venous Ioniz Calcium Magnesium Total Bilirubin Direct Bilirubin AST ALT Alkaline Phosphatase Total Creatine Kinase CK-MB (CK-2) CK and CKMB Interp Troponin I Total Protein Albumin Globulin Albumin/Globulin Ratio Urine Color Urine Appearance Urine pH Ur Specific [place] Urine Protein Urine Glucose (UA) Urine Ketones Urine Blood Urine Nitrate Urine Bilirubin Urine Urobilinogen Urine Leukocytes Urine RBC Urine WBC Ur Squamous Epith Cells Urine Mucus Ur Culture Indicated? Blood Type Antibody Screen Crossmatch 11/10/16 11/10/16 11/10/16 03:30 03:30 03:30 WBC 12.5 H D RBC 3.63 L Hgb 10.5 L Hct 30.4 L MCV 83.7 L MCH 29 MCHC 34.5 RDW 13.6 Plt Count 127 L D MPV 11.6 Neut % (Auto) 88.7 H Lymph % (Auto) 6.2 L [place] % (Auto) 4.6 Eos % (Auto) 0.0 Baso % (Auto) 0.1 Neut # (Auto) 11.1 H Lymph # (Auto) 0.8 L [place] # (Auto) 0.6 Eos # (Auto) 0.0 Baso # (Auto) 0.0 Immature Gran % 0.4 Nucleated RBC % 0.0 Immature Gran # 0.05 Nucleated RBCs # 0.00 Immature Plt Fraction 0.0 INR PT Patient/Control Mix Circ Anticoag PTT Patient Temperature ABG pH ABG pH at Pt Temp ABG pCO2 ABG pCO2 at Pt Temp ABG pO2 ABG pO2 at Pt Temp ABG HCO3 ABG Total CO2 ABG O2 Saturation ABG Base Excess ABG Sodium VBG pH VBG pCO2 VBG pO2 VBG HCO3 VBG Total CO2 VBG O2 Saturation VBG Base Excess Hemoglobin Hematocrit Potassium 4.3 Glucose 113 H Ionized Calcium FiO2 Sodium 142 Chloride 109 H Carbon Dioxide 24 Anion Gap 13.3 BUN 12 Creatinine 0.50 L GFR Calculation 111 BUN/Creatinine Ratio 24.00 H POC Glucose Calculated Osmolality 283.1 Calcium 8.7 Venous Ioniz Calcium Magnesium 2.3 Total Bilirubin 0.90 Direct Bilirubin 0.200 AST 44 H ALT 29 Alkaline Phosphatase 52 Total Creatine Kinase 245 H CK-MB (CK-2) 17.6 H CK and CKMB Interp 7.2 Troponin I 4.670 H D Total Protein 5.4 L Albumin 3.4 Globulin 2.0 L Albumin/Globulin Ratio 1.7 Urine Color Urine Appearance Urine pH Ur Specific [place] Urine Protein Urine Glucose (UA) Urine Ketones Urine Blood Urine Nitrate Urine Bilirubin Urine Urobilinogen Urine Leukocytes Urine RBC Urine WBC Ur Squamous Epith Cells Urine Mucus Ur Culture Indicated? Blood Type Antibody Screen Crossmatch 11/10/16 11/10/16 03:30 04:45 WBC RBC Hgb Hct MCV MCH MCHC RDW Plt Count MPV Neut % (Auto) Lymph % (Auto) [place] % (Auto) Eos % (Auto) Baso % (Auto) Neut # (Auto) Lymph # (Auto) [place] # (Auto) Eos # (Auto) Baso # (Auto) Immature Gran % Nucleated RBC % Immature Gran # Nucleated RBCs # Immature Plt Fraction INR PT Patient/Control Mix Circ Anticoag PTT Patient Temperature ABG pH 7.547 H 7.417 ABG pH at Pt Temp ABG pCO2 27.0 L 37.7 ABG pCO2 at Pt Temp ABG pO2 122.0 H 106.0 H ABG pO2 at Pt Temp ABG HCO3 26.1 H 24.4 ABG Total CO2 21.1 L 22.0 L ABG O2 Saturation 99.5 98.4 ABG Base Excess 1.9 0.0 ABG Sodium VBG pH VBG pCO2 VBG pO2 VBG HCO3 VBG Total CO2 VBG O2 Saturation VBG Base Excess Hemoglobin 10.4 L 10.2 L Hematocrit 32.3 L 31.6 L Potassium 4.2 4.0 Glucose 119 H 142 H Ionized Calcium FiO2 Sodium Chloride Carbon Dioxide Anion Gap BUN Creatinine GFR Calculation BUN/Creatinine Ratio POC Glucose Calculated Osmolality Calcium Venous Ioniz Calcium Magnesium Total Bilirubin Direct Bilirubin AST ALT Alkaline Phosphatase Total Creatine Kinase CK-MB (CK-2) CK and CKMB Interp Troponin I Total Protein Albumin Globulin Albumin/Globulin Ratio Urine Color Urine Appearance Urine pH Ur Specific [place] Urine Protein Urine Glucose (UA) Urine Ketones Urine Blood Urine Nitrate Urine Bilirubin Urine Urobilinogen Urine Leukocytes Urine RBC Urine WBC Ur Squamous Epith Cells Urine Mucus Ur Culture Indicated? Blood Type Antibody Screen Crossmatch Quality Measures - VTE Contraindication to Pharmacological VTE Prophylaxis: High Risk of Bleeding
[2016-11-10] MEDS ORDERED: PRAMIPEXOLE 0.25 MG TABLET PO PRN (06:24)
--- NOTE | 2016-11-10 07:12 | Order Completion Report ---
See report scanned to EMR
[2016-11-10] MEDS: CLORAZEPATE 3.75 MG TABLET PO SCH ×3 (08:51→20:56)
[2016-11-10] MEDS: MONTELUKAST 10 MG TABLET PO SCH (08:51)
[2016-11-10] MEDS: sitaGLIPtin 100 MG TABLET PO SCH (08:52)
[2016-11-10] MEDS: ERGOCALCIFEROL 50,000 UNIT CAPSULE PO SCH (08:52)
[2016-11-10] MEDS: CHLORHEXIDINE 0.12% ORAL RINSE 60 ML BOTTLE SWISH/SPIT SCH ×3 (08:54→20:55)
[2016-11-10] MEDS ORDERED: METOPROLOL TARTRATE 25 MG TABLET PO SCH (09:00)
[2016-11-10] MEDS ORDERED: CLORAZEPATE 3.75 MG TABLET PO SCH ×2 (09:00→21:11)
--- NOTE | 2016-11-10 09:32 | XRay Report ---
History: Status post thoracotomy. Status post chest tube removal Date: 11/10/2016 Study: Chest x-ray AP portable Comparison exam: 11/09/2016 The endotracheal and nasogastric tubes have been removed. There is a 1-5% pneumothorax on the right and 5-10% pneumothorax on the left. The cardiac silhouette is unchanged in size. There is trace pneumomediastinum. The mediastinal contours are otherwise stable in this patient status post prior median sternotomy. The pulmonary vasculature is upper normal. There is continued atelectatic change in the lower lungs, left greater than right. The right IJ central line is stable in position. The right scrotum V[place]-Jemal catheter is positioned with its tip overlying the proximal left pulmonary artery. The osseous structures are similar. Impression: Small bilateral pneumothoraces are noted in the lung apices as discussed above. Interval chest tube removal Continued mild bibasilar atelectasis PROCEDURE INTERPRETED AT [facility] DEPARTMENT OF RADIOLOGY Final Report Signed by: Dr. Aarti Lo
--- NOTE | 2016-11-10 09:37 | Cardiology Progress Note ---
Assessment and Plan (1) Non-STEMI (non-ST elevated myocardial infarction) Status: Acute Assessment and plan: 56-year-old female, non-STEMI, CABG 2 11/09. Head transients, diffuse ischemic EKG changes immediately postop, with hemodynamic instability. Acute revision did not suggest graft issues. -The events may have been secondary to transient cardiac ischemic event, which seems to have resolved. No significant metabolic issues. Enzymes are only mildly elevated. Her baseline severe ischemic cardiomyopathy was unchanged n echo. -Resume clopidogrel, when bleeding risk lower, she is to have chest tubes in place. ASA ADR -Resume metoprolol -Resume statin, one p.o. intake improves. Current Visit: Yes (2) Chest pain Status: Acute Current Visit: Yes Cardiology - PN: Subj Interval history: The ischemic EKG changes resolved, she now has only mild inferior T-wave abnormality. Has incisional chest pain, hemodynamics improved, she is off pressors. Extubated. Exam (Progress Note) - Constitutional Vitals: Period Temp Pulse Resp BP Sys/[place]illo Pulse Ox Last 24 Hr 96.8 F-99.7 F 91-119 10-25 84-132/50-72 92-100 General appearance: normal weight, no acute distress - Head Head exam: Present: normal inspection, normocephalic - Eye Eye exam: Absent: conjunctival injection, scleral icterus Pupils: Absent: dilated - ENT ENT exam: Present: normal external ear exam - Neck Neck exam: Present: normal inspection - Respiratory Respiratory exam: Present: clear to auscultation bilaterally, chest wall tenderness, other (Rubs on the right side) - Cardiovascular Cardiovascular exam: Present: regular rate and rhythm, systolic murmur - GI/Abdominal GI/Abdominal exam: Present: hypoactive bowel sounds. Absent: distended - Extremities Exam Extremities exam: Present: normal inspection, normal capillary refill, other ( Dressing dry, intact). Absent: edema - Neurological Exam Neurological exam: Present: alert, oriented X3 - Psychiatric Psychiatric exam: Present: normal affect, normal mood - Skin Skin exam: Present: normal color, warm. Absent: cyanosis Result/EKG - Labs CBC & BMP: 11/10/16 03:30 11/10/16 03:30 Lab Results: I have reviewed the past 24 hour labs Labs: Laboratory Results - last 24 hr 11/08/16 11/09/1617 05:29 09:40 10:10 WBC RBC Hgb Hct MCV MCH MCHC RDW Plt Count MPV Neut % (Auto) Lymph % (Auto) [place] % (Auto) Eos % (Auto) Baso % (Auto) Neut # (Auto) Lymph # (Auto) [place] # (Auto) Eos # (Auto) Baso # (Auto) Immature Gran % Nucleated RBC % Immature Gran # Nucleated RBCs # Immature Plt Fraction INR PT Patient/Control Mix Circ Anticoag PTT Patient Temperature 34 37 ABG pH ABG pH at Pt Temp 7.451 7.445 ABG pCO2 ABG pCO2 at Pt Temp 38.3 39.0 ABG pO2 ABG pO2 at Pt Temp 35.5 34.1 ABG HCO3 ABG Total CO2 ABG O2 Saturation ABG Base Excess ABG Sodium 130 L 131 L VBG pH 7.407 7.445 VBG pCO2 43.7 39.0 L VBG pO2 43.9 H 34.1 VBG HCO3 26.9 26.2 VBG Total CO2 28.2 27.4 VBG O2 Saturation 81.8 72.9 VBG Base Excess 2.0 2.0 Hemoglobin 7.8 L 8.3 L Hematocrit 23.0 L 24.0 L Potassium 4.7 5.3 H Glucose 373 H 338 H Ionized Calcium FiO2 80.00 80.00 Sodium Chloride Carbon Dioxide Anion Gap BUN Creatinine GFR Calculation BUN/Creatinine Ratio POC Glucose Calculated Osmolality Calcium Venous Ioniz Calcium 0.88 0.94 Magnesium Total Bilirubin Direct Bilirubin AST ALT Alkaline Phosphatase Total Creatine Kinase CK-MB (CK-2) CK and CKMB Interp Troponin I Total Protein Albumin Globulin Albumin/Globulin Ratio Blood Type O POSITIVE Antibody Screen Negative Crossmatch See Detail 11/09/16 11/09/16 11/09/16 10:40 10:40 11:40 WBC RBC Hgb Hct MCV MCH MCHC RDW Plt Count 103 L D MPV Neut % (Auto) Lymph % (Auto) [place] % (Auto) Eos % (Auto) Baso % (Auto) Neut # (Auto) Lymph # (Auto) [place] # (Auto) Eos # (Auto) Baso # (Auto) Immature Gran % Nucleated RBC % Immature Gran # Nucleated RBCs # Immature Plt Fraction INR PT Patient/Control Mix Circ Anticoag PTT Patient Temperature 37 ABG pH 7.384 7.363 ABG pH at Pt Temp 7.384 ABG pCO2 38.7 41.9 ABG pCO2 at Pt Temp 38.7 ABG pO2 190.0 H 136.0 H ABG pO2 at Pt Temp 190.0 ABG HCO3 23.0 23.2 ABG Total CO2 21.5 L 21.8 L ABG O2 Saturation 99.7 99.0 ABG Base Excess -1.7 -1.5 ABG Sodium 135 VBG pH VBG pCO2 VBG pO2 VBG HCO3 VBG Total CO2 VBG O2 Saturation VBG Base Excess Hemoglobin 8.4 L 10.1 L Hematocrit 26.2 L 31.1 L Potassium 4.2 3.6 Glucose 331 H 306 H Ionized Calcium 1.37 FiO2 Sodium Chloride Carbon Dioxide Anion Gap BUN Creatinine GFR Calculation BUN/Creatinine Ratio POC Glucose Calculated Osmolality Calcium Venous Ioniz Calcium Magnesium Total Bilirubin Direct Bilirubin AST ALT Alkaline Phosphatase Total Creatine Kinase CK-MB (CK-2) CK and CKMB Interp Troponin I Total Protein Albumin Globulin Albumin/Globulin Ratio Blood Type Antibody Screen Crossmatch 11/09/16 11/09/16 11/09/16 11:40 11:40 11:40 WBC 7.6 D RBC 3.44 L Hgb 10.3 L Hct 29.8 L MCV 86.6 L MCH 30 MCHC 34.6 RDW 12.4 Plt Count 107 L MPV 11.1 Neut % (Auto) 85.8 H Lymph % (Auto) 8.5 L [place] % (Auto) 3.4 Eos % (Auto) 0.7 Baso % (Auto) 0.3 Neut # (Auto) 6.5 Lymph # (Auto) 0.6 L [place] # (Auto) 0.3 Eos # (Auto) 0.1 Baso # (Auto) 0.0 Immature Gran % 1.3 Nucleated RBC % 0.0 Immature Gran # 0.10 Nucleated RBCs # 0.00 Immature Plt Fraction 0.0 INR 1.2 PT Patient/Control Mix 13.0 Circ Anticoag PTT 28.2 Patient Temperature ABG pH ABG pH at Pt Temp ABG pCO2 ABG pCO2 at Pt Temp ABG pO2 ABG pO2 at Pt Temp ABG HCO3 ABG Total CO2 ABG O2 Saturation ABG Base Excess ABG Sodium VBG pH VBG pCO2 VBG pO2 VBG HCO3 VBG Total CO2 VBG O2 Saturation VBG Base Excess Hemoglobin Hematocrit Potassium 3.8 Glucose 307 H Ionized Calcium FiO2 Sodium 142 Chloride 108 H Carbon Dioxide 26 Anion Gap 11.8 BUN 12 Creatinine 0.40 L GFR Calculation 120 BUN/Creatinine Ratio 30.00 H POC Glucose Calculated Osmolality 294.1 Calcium 8.6 Venous Ioniz Calcium Magnesium 1.9 Total Bilirubin 1.20 H Direct Bilirubin AST 34 ALT 18 Alkaline Phosphatase 62 Total Creatine Kinase CK-MB (CK-2) CK and CKMB Interp Troponin I Total Protein 4.9 L Albumin 2.8 L Globulin 2.1 L Albumin/Globulin Ratio 1.3 Blood Type Antibody Screen Crossmatch 11/09/16 11/09/16 11/09/16 11:40 13:08 14:00 WBC RBC Hgb Hct MCV MCH MCHC RDW Plt Count MPV Neut % (Auto) Lymph % (Auto) [place] % (Auto) Eos % (Auto) Baso % (Auto) Neut # (Auto) Lymph # (Auto) [place] # (Auto) Eos # (Auto) Baso # (Auto) Immature Gran % Nucleated RBC % Immature Gran # Nucleated RBCs # Immature Plt Fraction INR PT Patient/Control Mix Circ Anticoag PTT Patient Temperature ABG pH 7.396 ABG pH at Pt Temp ABG pCO2 39.6 ABG pCO2 at Pt Temp ABG pO2 190.0 H ABG pO2 at Pt Temp ABG HCO3 24.1 ABG Total CO2 22.5 L ABG O2 Saturation 99.8 ABG Base Excess -0.5 ABG Sodium VBG pH VBG pCO2 VBG pO2 VBG HCO3 VBG Total CO2 VBG O2 Saturation VBG Base Excess Hemoglobin 8.6 L Hematocrit 26.7 L Potassium 3.9 Glucose 265 H Ionized Calcium FiO2 Sodium Chloride Carbon Dioxide Anion Gap BUN Creatinine GFR Calculation BUN/Creatinine Ratio POC Glucose 364 H Calculated Osmolality Calcium Venous Ioniz Calcium Magnesium Total Bilirubin Direct Bilirubin AST ALT Alkaline Phosphatase Total Creatine Kinase 120 D CK-MB (CK-2) 7.6 H CK and CKMB Interp 6.3 Troponin I 0.874 H Total Protein Albumin Globulin Albumin/Globulin Ratio Blood Type Antibody Screen Crossmatch 11/09/16 11/09/16 11/09/16 14:55 16:30 16:30 WBC RBC Hgb Hct MCV MCH MCHC RDW Plt Count MPV Neut % (Auto) Lymph % (Auto) [place] % (Auto) Eos % (Auto) Baso % (Auto) Neut # (Auto) Lymph # (Auto) [place] # (Auto) Eos # (Auto) Baso # (Auto) Immature Gran % Nucleated RBC % Immature Gran # Nucleated RBCs # Immature Plt Fraction INR PT Patient/Control Mix Circ Anticoag PTT Patient Temperature 37 ABG pH 7.420 7.444 ABG pH at Pt Temp 7.420 ABG pCO2 38.2 34.8 L ABG pCO2 at Pt Temp 38.2 ABG pO2 128.1 H 74.1 L ABG pO2 at Pt Temp 128.1 ABG HCO3 24.2 23.3 ABG Total CO2 25.4 24.4 ABG O2 Saturation 97.9 94.8 L ABG Base Excess -0.1 -0.4 ABG Sodium 138 VBG pH VBG pCO2 VBG pO2 VBG HCO3 VBG Total CO2 VBG O2 Saturation VBG Base Excess Hemoglobin 11.0 L 10.7 L Hematocrit 32.0 L 31.0 L Potassium 3.8 3.8 Glucose 263 H 263 H Ionized Calcium 1.13 L FiO2 Sodium Chloride Carbon Dioxide Anion Gap BUN Creatinine GFR Calculation BUN/Creatinine Ratio POC Glucose Calculated Osmolality Calcium Venous Ioniz Calcium Magnesium Total Bilirubin Direct Bilirubin AST ALT Alkaline Phosphatase Total Creatine Kinase 159 D CK-MB (CK-2) 9.6 H CK and CKMB Interp 6.0 Troponin I 1.560 H D Total Protein Albumin Globulin Albumin/Globulin Ratio Blood Type Antibody Screen Crossmatch 11/09/16 11/09/16 11/09/16 16:30 17:10 18:00 WBC RBC Hgb Hct MCV MCH MCHC RDW Plt Count MPV Neut % (Auto) Lymph % (Auto) [place] % (Auto) Eos % (Auto) Baso % (Auto) Neut # (Auto) Lymph # (Auto) [place] # (Auto) Eos # (Auto) Baso # (Auto) Immature Gran % Nucleated RBC % Immature Gran # Nucleated RBCs # Immature Plt Fraction INR PT Patient/Control Mix Circ Anticoag PTT Patient Temperature ABG pH 7.472 H ABG pH at Pt Temp ABG pCO2 32.0 L ABG pCO2 at Pt Temp ABG pO2 59.5 L ABG pO2 at Pt Temp ABG HCO3 22.9 ABG Total CO2 23.9 ABG O2 Saturation 92.0 L ABG Base Excess -0.3 ABG Sodium VBG pH VBG pCO2 VBG pO2 VBG HCO3 VBG Total CO2 VBG O2 Saturation VBG Base Excess Hemoglobin 10.5 L Hematocrit 31.0 L Potassium 3.5 Glucose 262 H Ionized Calcium FiO2 Sodium Chloride Carbon Dioxide Anion Gap BUN Creatinine GFR Calculation BUN/Creatinine Ratio POC Glucose 367 H Calculated Osmolality Calcium Venous Ioniz Calcium Magnesium 1.6 L Total Bilirubin Direct Bilirubin AST ALT Alkaline Phosphatase Total Creatine Kinase CK-MB (CK-2) CK and CKMB Interp Troponin I Total Protein Albumin Globulin Albumin/Globulin Ratio Blood Type Antibody Screen Crossmatch 11/09/16 11/09/16 11/09/16 21:20 21:20 23:45 WBC RBC Hgb Hct MCV MCH MCHC RDW Plt Count MPV Neut % (Auto) Lymph % (Auto) [place] % (Auto) Eos % (Auto) Baso % (Auto) Neut # (Auto) Lymph # (Auto) [place] # (Auto) Eos # (Auto) Baso # (Auto) Immature Gran % Nucleated RBC % Immature Gran # Nucleated RBCs # Immature Plt Fraction INR PT Patient/Control Mix Circ Anticoag PTT Patient Temperature ABG pH 7.421 7.426 ABG pH at Pt Temp ABG pCO2 39.4 37.0 ABG pCO2 at Pt Temp ABG pO2 152.2 H 146.0 H ABG pO2 at Pt Temp ABG HCO3 25.0 24.6 ABG Total CO2 26.2 22.0 L ABG O2 Saturation 98.3 99.5 ABG Base Excess 0.6 0.2 ABG Sodium VBG pH VBG pCO2 VBG pO2 VBG HCO3 VBG Total CO2 VBG O2 Saturation VBG Base Excess Hemoglobin 10.6 L 10.3 L Hematocrit 31.0 L 31.9 L Potassium 3.2 L 4.3 Glucose 195 H 141 H Ionized Calcium FiO2 Sodium Chloride Carbon Dioxide Anion Gap BUN Creatinine GFR Calculation BUN/Creatinine Ratio POC Glucose Calculated Osmolality Calcium Venous Ioniz Calcium Magnesium Total Bilirubin Direct Bilirubin AST ALT Alkaline Phosphatase Total Creatine Kinase 229 H D CK-MB (CK-2) 16.6 H D CK and CKMB Interp 7.2 Troponin I 3.720 H D Total Protein Albumin Globulin Albumin/Globulin Ratio Blood Type Antibody Screen Crossmatch 11/09/16 11/10/16 11/10/16 Unknown 01:12 02:35 WBC RBC Hgb Hct MCV MCH MCHC RDW Plt Count 86 L MPV Neut % (Auto) Lymph % (Auto) [place] % (Auto) Eos % (Auto) Baso % (Auto) Neut # (Auto) Lymph # (Auto) [place] # (Auto) Eos # (Auto) Baso # (Auto) Immature Gran % Nucleated RBC % Immature Gran # Nucleated RBCs # Immature Plt Fraction INR PT Patient/Control Mix Circ Anticoag PTT Patient Temperature ABG pH 7.422 7.522 H ABG pH at Pt Temp ABG pCO2 39.2 30.6 L ABG pCO2 at Pt Temp ABG pO2 136.0 H 124.2 H ABG pO2 at Pt Temp ABG HCO3 25.5 24.5 ABG Total CO2 23.0 25.5 ABG O2 Saturation 99.3 98.2 ABG Base Excess 1.1 2.2 ABG Sodium VBG pH VBG pCO2 VBG pO2 VBG HCO3 VBG Total CO2 VBG O2 Saturation VBG Base Excess Hemoglobin 10.7 L 10.9 L Hematocrit 33.0 L 32.0 L Potassium 4.0 4.1 Glucose 117 H 90 Ionized Calcium FiO2 Sodium Chloride Carbon Dioxide Anion Gap BUN Creatinine GFR Calculation BUN/Creatinine Ratio POC Glucose Calculated Osmolality Calcium Venous Ioniz Calcium Magnesium Total Bilirubin Direct Bilirubin AST ALT Alkaline Phosphatase Total Creatine Kinase CK-MB (CK-2) CK and CKMB Interp Troponin I Total Protein Albumin Globulin Albumin/Globulin Ratio Blood Type Antibody Screen Crossmatch 11/10/16 11/10/16 11/10/16 03:30 03:30 03:30 WBC 12.5 H D RBC 3.63 L Hgb 10.5 L Hct 30.4 L MCV 83.7 L MCH 29 MCHC 34.5 RDW 13.6 Plt Count 127 L D MPV 11.6 Neut % (Auto) 88.7 H Lymph % (Auto) 6.2 L [place] % (Auto) 4.6 Eos % (Auto) 0.0 Baso % (Auto) 0.1 Neut # (Auto) 11.1 H Lymph # (Auto) 0.8 L [place] # (Auto) 0.6 Eos # (Auto) 0.0 Baso # (Auto) 0.0 Immature Gran % 0.4 Nucleated RBC % 0.0 Immature Gran # 0.05 Nucleated RBCs # 0.00 Immature Plt Fraction 0.0 INR PT Patient/Control Mix Circ Anticoag PTT Patient Temperature ABG pH ABG pH at Pt Temp ABG pCO2 ABG pCO2 at Pt Temp ABG pO2 ABG pO2 at Pt Temp ABG HCO3 ABG Total CO2 ABG O2 Saturation ABG Base Excess ABG Sodium VBG pH VBG pCO2 VBG pO2 VBG HCO3 VBG Total CO2 VBG O2 Saturation VBG Base Excess Hemoglobin Hematocrit Potassium 4.3 Glucose 113 H Ionized Calcium FiO2 Sodium 142 Chloride 109 H Carbon Dioxide 24 Anion Gap 13.3 BUN 12 Creatinine 0.50 L GFR Calculation 111 BUN/Creatinine Ratio 24.00 H POC Glucose Calculated Osmolality 283.1 Calcium 8.7 Venous Ioniz Calcium Magnesium 2.3 Total Bilirubin 0.90 Direct Bilirubin 0.200 AST 44 H ALT 29 Alkaline Phosphatase 52 Total Creatine Kinase 245 H CK-MB (CK-2) 17.6 H CK and CKMB Interp 7.2 Troponin I 4.670 H D Total Protein 5.4 L Albumin 3.4 Globulin 2.0 L Albumin/Globulin Ratio 1.7 Blood Type Antibody Screen Crossmatch 11/10/16 11/10/16 03:30 04:45 WBC RBC Hgb Hct MCV MCH MCHC RDW Plt Count MPV Neut % (Auto) Lymph % (Auto) [place] % (Auto) Eos % (Auto) Baso % (Auto) Neut # (Auto) Lymph # (Auto) [place] # (Auto) Eos # (Auto) Baso # (Auto) Immature Gran % Nucleated RBC % Immature Gran # Nucleated RBCs # Immature Plt Fraction INR PT Patient/Control Mix Circ Anticoag PTT Patient Temperature ABG pH 7.547 H 7.417 ABG pH at Pt Temp ABG pCO2 27.0 L 37.7 ABG pCO2 at Pt Temp ABG pO2 122.0 H 106.0 H ABG pO2 at Pt Temp ABG HCO3 26.1 H 24.4 ABG Total CO2 21.1 L 22.0 L ABG O2 Saturation 99.5 98.4 ABG Base Excess 1.9 0.0 ABG Sodium VBG pH VBG pCO2 VBG pO2 VBG HCO3 VBG Total CO2 VBG O2 Saturation VBG Base Excess Hemoglobin 10.4 L 10.2 L Hematocrit 32.3 L 31.6 L Potassium 4.2 4.0 Glucose 119 H 142 H Ionized Calcium FiO2 Sodium Chloride Carbon Dioxide Anion Gap BUN Creatinine GFR Calculation BUN/Creatinine Ratio POC Glucose Calculated Osmolality Calcium Venous Ioniz Calcium Magnesium Total Bilirubin Direct Bilirubin AST ALT Alkaline Phosphatase Total Creatine Kinase CK-MB (CK-2) CK and CKMB Interp Troponin I Total Protein Albumin Globulin Albumin/Globulin Ratio Blood Type Antibody Screen Crossmatch - EKG EKG results: interpreted by me Quality Measures - VTE Contraindication to Pharmacological VTE Prophylaxis: High Risk of Bleeding Specialty Discharge - Follow Up or Referrals
[2016-11-10] MEDS: METOPROLOL TARTRATE 25 MG TABLET NG SCH (09:54)
[2016-11-10] MEDS ORDERED: ALUMINUM/MAGNES/SIMETH MAX STR 30 ML UDCUP PO PRN (10:22)
[2016-11-10] MEDS ORDERED: MORPHINE 2 MG/1 ML SYRINGE IV PRN (10:22)
[2016-11-10] MEDS ORDERED: SODIUM CHLOR 0.45% KCL 20 MEQ 20 MEQ/1,000 ML BAG IV SCH (10:22)
[2016-11-10] MEDS ORDERED: DEXTROSE 50% 25 GM/50 ML VIAL IV PRN ×2 (10:22)
[2016-11-10] MEDS ORDERED: ACETAMINOPHEN 325 MG TABLET PO PRN (10:22)
[2016-11-10] MEDS ORDERED: MAGNESIUM SULF RIDER 4 GM in PREMIX 1 EACH IV PRN (10:22)
[2016-11-10] MEDS ORDERED: GLUCAGON 1 MG VIAL IM PRN ×2 (10:22)
[2016-11-10] MEDS ORDERED: oxyCODONE/ACETAMINOPHEN 5-325 MG TABLET PO PRN (10:22)
[2016-11-10] MEDS ORDERED: ZALEPLON 5 MG CAPSULE PO PRN (10:22)
[2016-11-10] MEDS ORDERED: MAGNESIUM SULF RIDER 2 GM in PREMIX 1 EACH IV PRN (10:22)
[2016-11-10] MEDS ORDERED: MAGNESIUM HYDROXIDE SUSP 30 ML UDCUP PO PRN (10:22)
[2016-11-10] MEDS ORDERED: ASPIRIN EC 325 MG TABLET PO SCH (10:22)
[2016-11-10] MEDS ORDERED: ALBUMIN 5% 12.5 GM/250 ML VIAL IV ONE ×2 (10:53→11:02)
--- NOTE | 2016-11-10 10:54 | Pulmonology Progress Note ---
Pulmonary - PN: Subj Interval history: Ms. okeefe is a 56-year-old white female who we saw in initial pulmonary consultation 11/05/2016. At that time, our impressions were: 1. Tobacco abuse. 25-39-ldlj-year history of smoking. 2. Probable COPD. Mild wheeze. Probable bronchospastic disease. 3. Severe three-vessel heart disease with ejection fraction of 20% and global hypokinesis 4. Hyperlipidemia. 5. Diabetes mellitus. 6. See past history 11/06/2016. The patient has decided to go forth with CABG. This will most likely be done tomorrow. In anticipation of this, we will obtain complete pulmonary function testing today with pre-and post bronchodilator spirometry. Her previously noted large airway wheeze has resolved with the addition of Singulair. This needs to be continued. Medications have been reviewed. We made no changes today. Labs been reviewed. No new labs were drawn today. 11/07/2016. Patient's CABG has been scheduled for 11/09/2016. We discussed this again with her today. From a pulmonary standpoint she is appropriate for surgery. Pulmonary function tests done 11/06/2016 showed SPO2 96% on room air, small airways disease, paradoxical response to inhaled bronchodilators, no restrictive disease, normal diffusion, and maximum voluntary ventilation was normal. On chest exam, she is still wheeze free. She states that her breathing is doing well. Medications have been reviewed. We made no changes today. Labs been reviewed. White count is 6700 with a normal differential; H&H 10.5/ 36.5; platelet count 145,000; creatinine 0.50, BUN 10, electrolytes were normal ; hemoglobin A1c elevated at 9.5% showing poor control of her diabetes mellitus 11/10/2016. This patient had coronary artery bypass grafts on 11/09/2016. She required to reexplore. She came off the ventilator with no problems. She is stable this morning and her chest x-ray shows no heart failure and no infiltrates. ABGs show a pH of 7.42, PCO2 38, PO2 of 106 and a bicarb of 24. Electrolytes are normal. Creatinine is 0.5 with a BUN of 12. H&H 10.5/30.4. She is doing well from a pulmonary standpoint. She has underlying COPD which is not severe. Dr. Sean Dyer will see her for me this weekend. Exam (Progress Note) - Constitutional Vitals: Period Temp Pulse Resp BP Sys/[place] Pulse Ox Last 24 Hr 97.3 F-98.9 F 79-94 16-18 82-96/53-64 92-98 Exam: General. No apparent distress. Already sitting up in a chair. Chest... Wheeze free Heart no gallop Abdomen is nontender and nondistended; bowel sounds are positive 4 Lower extremities with nothing to suggest acute deep venous thrombophlebitis Psychiatric oriented 3 Neurologic long-tract motor function is intact The remainder the physical exam is negative. Plan: 11/07/2016. 1. Continue present pulmonary treatment. 2. Plans for CABG 11/09/2016 noted. 3. See orders. 11/10/2016. 1. See today's note above. 2. Stable post coronary artery bypass grafts. 3. Continue inhalation therapy. 4. Dr. Dyer we will see for me this week Exam (Progress Note) - Constitutional Vitals: Period Temp Pulse Resp BP Sys/[place] Pulse Ox Last 24 Hr 96.8 F-99.7 F 91-119 9-25 80-132/45-72 92-100 Results - Labs CBC & BMP: 11/10/16 03:30 11/10/16 03:30 Specialty Discharge - Follow Up or Referrals
[2016-11-10] MEDS: ALBUMIN 5% 12.5 GM in PREMIX 1 EACH IV PRN ×2 (11:01→11:33)
[2016-11-10] MEDS: PANTOPRAZOLE 40 MG TABLET PO SCH (11:12)
[2016-11-10] MEDS: FERROUS SULFATE 325 MG TABLET PO SCH (11:12)
[2016-11-10] MEDS: DOCUSATE SODIUM 100 MG CAPSULE PO SCH (11:13)
[2016-11-10] MEDS: VANCOMYCIN INJ 1,000 MG in SODIUM CHLORIDE 0.9% 250 ML IV SCH ×2 (11:17→23:59)
[2016-11-10] MEDS ORDERED: INSULIN REGULAR 100 UNIT/ML ONE (12:20)
[2016-11-10] MEDS ORDERED: INSULIN REGULAR 100 UNIT/ML SUBCUT SCH ×2 (12:28→14:00)
[2016-11-10] MEDS: INSULIN REGULAR 100 UNIT/ML SUBCUT SCH ×3 (13:12→20:54)
[2016-11-10] MEDS: ONDANSETRON 4 MG/2 ML VIAL IV PRN (17:28)
[2016-11-10] MEDS: traZODone 50 MG TABLET PO SCH (20:52)
[2016-11-10] MEDS: AMITRIPTYLINE 25 MG TABLET PO SCH (20:53)
[2016-11-10] MEDS: ROSUVASTATIN 20 MG TABLET PO SCH (20:53)
[2016-11-10] MEDS: LINACLOTIDE 145 MCG CAPSULE PO SCH (20:54)
[2016-11-10] MEDS ORDERED: PHENYLEPHRINE DRIP 40 MG/250 ML PREMIX IV ONE (23:31)
[2016-11-10] MEDS ORDERED: FUROSEMIDE 40 MG/4 ML VIAL ONE (23:31)
[2016-11-11] MEDS ORDERED: FUROSEMIDE 40 MG/4 ML VIAL IV ONE ×2 (00:08→06:00)
[2016-11-11] MEDS: KETOROLAC 30 MG/1 ML VIAL IV SCH ×4 (03:45→21:30)
[2016-11-11 03:49] LABS: Basophils % 0.1 % (0.0-0.8); Eosinophils % 0.1 % (0.00-10.9); Hemoglobin 9.8 GM/DL (12.0-16.0); Immature Granulocytes % 0.5 %; Lymphocytes # 4.3 10*3/uL (1.4-4.0); Lymphocytes % 21.2 % (21.3-54.2); Mean Corpuscular HGB Conc 33.8 GM/DL (32-36); Mean Corpuscular Hemoglobin 29 PG (27-34); Mean Corpuscular Volume 87.1 FL (87-102); Mean Platelet Volume 11.4 FL (9.6-12.0); Monocytes # 2.1 10*3/uL (0.11-0.8); Monocytes % 10.4 % (1.7-12.7); Neutrophils # 13.6 10*3/uL (1.4-7.4); Neutrophils % 67.7 % (38.7-73.9); Platelet Count 180 T/CUMM (130-400); Red Blood Count 3.33 MC/CUMM (3.8-5.5); White Blood Count 20.1 T/CUMM (4-12)
[2016-11-11 04:19] LABS: Alanine Aminotransferase 26 U/L (13-56); Albumin 3.1 G/DL (3.4-5.0); Alkaline Phosphatase 57 U/L (45-117); Aspartate Amino Transferase 23 U/L (0-37); Bilirubin,Indirect 0.3 MG/DL (0.0-1.0); Blood Urea Nitrogen 19 MG/DL (7-18); Calcium 8.2 MG/DL (8.5-10.1); Glucose 121 MG/DL (74-106); Magnesium 1.9 MG/DL (1.8-2.4); Osmolality,Calculated 285.1 MOS/KG (273-304); Potassium 3.9 MMOL/L (3.5-5.1); Sodium 142 MMOL/L (136-145); Total Protein 5.1 G/DL (6.4-8.3)
[2016-11-11 05:21] LABS: Lymphocytes 24 % (20-55); Microcytosis 1+; Platelet Estimate Adequate; Segmented Neutrophils 73 % (50-85); Total Cells Counted 100
[2016-11-11] MEDS: INSULIN REGULAR 100 UNIT/ML SUBCUT SCH ×6 (05:51→20:18)
[2016-11-11] MEDS: PHENYLEPHRINE DRIP 40 MG/250 ML PREMIX IV SCH ×2 (06:05)
--- NOTE | 2016-11-11 06:13 | Pulmonology Progress Note ---
Pulmonary - PN: Subj Interval history: Patient is a 56-year-old white lady that had bypass surgery 2 days ago. She came off the ventilator fairly well. She has been a lifelong smoker and has some COPD. She apparently has a significant ischemic cardiomyopathy. She has done well with surgery and she says she is feeling okay. She feels like her breathing is doing well. Her chest soreness is better. She says she is sitting up and moving around some. Her chest x-ray does look a little overloaded. Exam (Progress Note) - Constitutional Vitals: Period Temp Pulse Resp BP Sys/[place] Pulse Ox Last 24 Hr 98.8 F-100.7 F 91-108 9-28 67-113/41-64 92-97 General appearance: normal weight, no acute distress - Head Head exam: Present: normal inspection, normocephalic - Eye Eye exam: Present: EOMI. Absent: scleral icterus Pupils: Present: DONN - ENT ENT exam: Present: normal exam - Neck Neck exam: Absent: lymphadenopathy, thyromegaly - Respiratory Respiratory exam: Present: decreased breath sounds (She has slight decreased breath sounds in the right base.), rales. Absent: wheezes - Cardiovascular Cardiovascular exam: Present: regular rate and rhythm. Absent: gallop, systolic murmur - GI/Abdominal GI/Abdominal exam: Present: normal bowel sounds, soft. Absent: organomegaly, tenderness - Extremities Exam Extremities exam: Absent: calf tenderness, edema - Neurological Exam Neurological exam: Present: alert, oriented X3, CN II-XII intact - Psychiatric Psychiatric exam: Present: normal affect - Skin Skin exam: Present: warm, dry Results - Labs CBC & BMP: 11/11/16 03:45 11/11/16 03:45 - Diagnostic Findings Procedure: Chest x-ray: image reviewed by me, report reviewed by me (Chest x- ray shows some cardiomegaly with probably a mild right effusion.) Assessment and Plan (1) Non-STEMI (non-ST elevated myocardial infarction) Status: Acute Assessment and plan: The patient has had significant coronary disease and now status post bypass. Current Visit: Yes (2) Heavy cigarette smoker (20-39 per day) Status: Chronic Assessment and plan: She certainly needs to quit smoking. She will continue with bronchodilator therapy. Current Visit: Yes (3) 3-vessel CAD Status: Acute Assessment and plan: She had surgery couple days ago. Will diurese a little. Current Visit: Yes (4) Ischemic cardiomyopathy Status: Acute Assessment and plan: The patient had a reduced ejection fraction before surgery. She looks like she is doing reasonably well at present. Current Visit: Yes Specialty Discharge - Follow Up or Referrals
[2016-11-11] MEDS ORDERED: FUROSEMIDE 20 MG/2 ML VIAL IV ONE (06:17)
--- NOTE | 2016-11-11 08:06 | XRay Report ---
Portable chest Indication: Shortness of breath, cough Comparison: Previous day at 0625 hours Findings: Cardiomediastinal contours are stable with underlying cardiomegaly, sternotomy wires at midline. [place] catheter is been removed. Right central venous sheath remains in satisfactory position. Worsening pulmonary edema pattern and bilateral pleural effusions, right greater than left. . No acute osseous abnormalities. Visualized upper abdomen demonstrates no acute pathology. Impression: Worsening pulmonary edema pattern and bilateral pleural effusions, right greater than left PROCEDURE INTERPRETED AT [facility] DEPARTMENT OF RADIOLOGY Final Report Signed by: Cathy Reyes MD
--- NOTE | 2016-11-11 08:12 | Cardiology Progress Note ---
Assessment and Plan (1) Non-STEMI (non-ST elevated myocardial infarction) Status: Acute Assessment and plan: 56-year-old female, non-STEMI, CABG 2 11/09. Head transients, diffuse ischemic EKG changes immediately postop, with hemodynamic instability. Acute revision did not suggest graft issues. -ICM s/p CABG, transient hypotension with pronounced ischemic EKG changes, with normally functioning grafts on revision 11/09. The events may have been secondary to transient cardiac ischemic event, which seems to have resolved. She was also quite anemic. No significant metabolic issues now. Enzymes are only mildly elevated and peaked early. -Hypotension, on pressor. She may need more preload, consider albumin, CVP 8. Also, borderline elevated temperature, increasing WBC, could be SIRS post starnotomy or beginning sepsis -Hold beta-erendira -Aspirin was ordered but was held, due to history of poorly documented ADR. We can use Plavix monotherapy, if this is a true aspirin allergy. She may have gotten a dose of aspirin on 11/04, although the way its documented in the EMR, it is unclear if it was given. We can start Plavix, when surgical bleeding risk is acceptable -cont statin Current Visit: Yes (2) Chest pain Status: Acute Current Visit: Yes Cardiology - PN: Subj Interval history: She had to be started back on pressor, borderline hypotension. CVP trending around 8. Sinus tachycardia, with unchanged repolarization changes. Still having some chest pain, improving. 5 urine output with IV diuresis. Bladder temperature 100. WBC elevated. No high risk arrhythmia on telemetry. Anemia stable Denies shortness of breath, pain improving Exam (Progress Note) - Constitutional Vitals: Period Temp Pulse Resp BP Sys/Morillo Pulse Ox Last 24 Hr 99.5 F-100.7 F 91-108 11-28 67-113/41-64 93-97 General appearance: normal weight, no acute distress - Head Head exam: Present: normal inspection. Absent: contusion - Eye Eye exam: Absent: scleral icterus, laceration to eyelids Pupils: Absent: dilated - ENT ENT exam: Present: normal external ear exam - Neck Neck exam: Present: normal inspection - Respiratory Respiratory exam: Present: decreased breath sounds. Absent: rhonchi, wheezes - Cardiovascular Cardiovascular exam: Present: regular rate and rhythm, systolic murmur, tachycardia. Absent: JVD - GI/Abdominal GI/Abdominal exam: Present: normal bowel sounds. Absent: distended, firm - Extremities Exam Extremities exam: Present: normal inspection, normal capillary refill, edema, other (Dressing dry) - Neurological Exam Neurological exam: Present: alert, oriented X3 - Psychiatric Psychiatric exam: Present: normal affect, normal mood - Skin Skin exam: Present: normal color, warm. Absent: cyanosis Result/EKG - Labs CBC & BMP: 11/11/16 03:45 11/11/16 03:45 Lab Results: I have reviewed the past 24 hour labs Labs: Laboratory Results - last 24 hr 11/09/16 11/09/16 11/10/16 20:11 22:24 00:25 WBC RBC Hgb Hct MCV MCH MCHC RDW Plt Count MPV Neut % (Auto) Lymph % (Auto) [place] % (Auto) Eos % (Auto) Baso % (Auto) Neut # (Auto) Lymph # (Auto) [place] # (Auto) Eos # (Auto) Baso # (Auto) Total Counted Immature Gran % Nucleated RBC % Immature Gran # Segmented Neutrophils Lymphocytes Monocytes Nucleated RBCs # Platelet Estimate Immature Plt Fraction Microcytosis Sodium Potassium Chloride Carbon Dioxide Anion Gap BUN Creatinine GFR Calculation BUN/Creatinine Ratio Glucose POC Glucose 263 H 191 H 133 H Calculated Osmolality Calcium Magnesium Total Bilirubin Direct Bilirubin Indirect Bilirubin AST ALT Alkaline Phosphatase Total Creatine Kinase CK-MB (CK-2) Troponin I Total Protein Albumin Globulin Albumin/Globulin Ratio 11/10/16 11/10/16 11/10/16 04:48 05:54 07:13 WBC RBC Hgb Hct MCV MCH MCHC RDW Plt Count MPV Neut % (Auto) Lymph % (Auto) [place] % (Auto) Eos % (Auto) Baso % (Auto) Neut # (Auto) Lymph # (Auto) [place] # (Auto) Eos # (Auto) Baso # (Auto) Total Counted Immature Gran % Nucleated RBC % Immature Gran # Segmented Neutrophils Lymphocytes Monocytes Nucleated RBCs # Platelet Estimate Immature Plt Fraction Microcytosis Sodium Potassium Chloride Carbon Dioxide Anion Gap BUN Creatinine GFR Calculation BUN/Creatinine Ratio Glucose POC Glucose 141 H 138 H 120 H Calculated Osmolality Calcium Magnesium Total Bilirubin Direct Bilirubin Indirect Bilirubin AST ALT Alkaline Phosphatase Total Creatine Kinase CK-MB (CK-2) Troponin I Total Protein Albumin Globulin Albumin/Globulin Ratio 11/10/16 11/10/16 11/10/16 11:59 16:30 20:21 WBC RBC Hgb Hct MCV MCH MCHC RDW Plt Count MPV Neut % (Auto) Lymph % (Auto) [place] % (Auto) Eos % (Auto) Baso % (Auto) Neut # (Auto) Lymph # (Auto) [place] # (Auto) Eos # (Auto) Baso # (Auto) Total Counted Immature Gran % Nucleated RBC % Immature Gran # Segmented Neutrophils Lymphocytes Monocytes Nucleated RBCs # Platelet Estimate Immature Plt Fraction Microcytosis Sodium Potassium Chloride Carbon Dioxide Anion Gap BUN Creatinine GFR Calculation BUN/Creatinine Ratio Glucose POC Glucose 309 H 360 H 326 H Calculated Osmolality Calcium Magnesium Total Bilirubin Direct Bilirubin Indirect Bilirubin AST ALT Alkaline Phosphatase Total Creatine Kinase CK-MB (CK-2) Troponin I Total Protein Albumin Globulin Albumin/Globulin Ratio 11/10/16 11/11/16 11/11/16 23:47 03:45 03:45 WBC 20.1 H D RBC 3.33 L Hgb 9.8 L Hct 29.0 L MCV 87.1 MCH 29 MCHC 33.8 RDW 14.0 Plt Count 180 D MPV 11.4 Neut % (Auto) 67.7 Lymph % (Auto) 21.2 L [place] % (Auto) 10.4 Eos % (Auto) 0.1 Baso % (Auto) 0.1 Neut # (Auto) 13.6 H Lymph # (Auto) 4.3 H [place] # (Auto) 2.1 H Eos # (Auto) 0.0 Baso # (Auto) 0.0 Total Counted 100 Immature Gran % 0.5 Nucleated RBC % 0.0 Immature Gran # 0.10 Segmented Neutrophils 73 Lymphocytes 24 Monocytes 3 Nucleated RBCs # 0.00 Platelet Estimate Adequate Immature Plt Fraction 0.0 Microcytosis 1+ Sodium 142 Potassium 3.9 Chloride 109 H Carbon Dioxide 27 Anion Gap 9.9 BUN 19 H Creatinine 0.60 GFR Calculation 106 BUN/Creatinine Ratio 31.00 H Glucose 121 H POC Glucose 239 H Calculated Osmolality 285.1 Calcium 8.2 L Magnesium 1.9 Total Bilirubin 0.50 Direct Bilirubin 0.180 Indirect Bilirubin 0.3 AST 23 ALT 26 Alkaline Phosphatase 57 Total Creatine Kinase 198 H CK-MB (CK-2) 4.3 H D Troponin I 2.140 H D Total Protein 5.1 L Albumin 3.1 L Globulin 2.0 L Albumin/Globulin Ratio 1.5 - EKG EKG results: interpreted by me Quality Measures - VTE Contraindication to Pharmacological VTE Prophylaxis: High Risk of Bleeding Specialty Discharge - Follow Up or Referrals
--- NOTE | 2016-11-11 08:41 | Cardiothoracic Progress Note ---
Cardiothoracic Subjective Interval history: Patient looks and feels some better. Vital signs are more stable and we are trying to wean Shar-Synephrine. Hopefully she can be successfully weaned from Shar-Synephrine and we can transfer to telemetry later this morning. Her chest x -ray does show some congestion and I think some of this may be fluid overloaded but some of it is probably related to long-term cigarette smoking. She has a vigorous cough and hopefully as she begins to move around she can clear her lungs some. Overall she looks pretty good for her having had a complicated initial postoperative course. Exam (Progress Note) - Constitutional Vitals: Period Temp Pulse Resp BP Sys/Morillo Pulse Ox Last 24 Hr 99.5 F-100.7 F 91-108 11-28 67-113/41-64 93-97 Result/EKG - Labs CBC & BMP: 11/11/16 03:45 11/11/16 03:45 Labs: Laboratory Results - last 24 hr 11/09/16 11/09/16 11/10/16 20:11 22:24 00:25 WBC RBC Hgb Hct MCV MCH MCHC RDW Plt Count MPV Neut % (Auto) Lymph % (Auto) [place] % (Auto) Eos % (Auto) Baso % (Auto) Neut # (Auto) Lymph # (Auto) [place] # (Auto) Eos # (Auto) Baso # (Auto) Total Counted Immature Gran % Nucleated RBC % Immature Gran # Segmented Neutrophils Lymphocytes Monocytes Nucleated RBCs # Platelet Estimate Immature Plt Fraction Microcytosis Sodium Potassium Chloride Carbon Dioxide Anion Gap BUN Creatinine GFR Calculation BUN/Creatinine Ratio Glucose POC Glucose 263 H 191 H 133 H Calculated Osmolality Calcium Magnesium Total Bilirubin Direct Bilirubin Indirect Bilirubin AST ALT Alkaline Phosphatase Total Creatine Kinase CK-MB (CK-2) Troponin I Total Protein Albumin Globulin Albumin/Globulin Ratio 11/10/16 11/10/16 11/10/16 04:48 05:54 07:13 WBC RBC Hgb Hct MCV MCH MCHC RDW Plt Count MPV Neut % (Auto) Lymph % (Auto) [place] % (Auto) Eos % (Auto) Baso % (Auto) Neut # (Auto) Lymph # (Auto) [place] # (Auto) Eos # (Auto) Baso # (Auto) Total Counted Immature Gran % Nucleated RBC % Immature Gran # Segmented Neutrophils Lymphocytes Monocytes Nucleated RBCs # Platelet Estimate Immature Plt Fraction Microcytosis Sodium Potassium Chloride Carbon Dioxide Anion Gap BUN Creatinine GFR Calculation BUN/Creatinine Ratio Glucose POC Glucose 141 H 138 H 120 H Calculated Osmolality Calcium Magnesium Total Bilirubin Direct Bilirubin Indirect Bilirubin AST ALT Alkaline Phosphatase Total Creatine Kinase CK-MB (CK-2) Troponin I Total Protein Albumin Globulin Albumin/Globulin Ratio 11/10/16 11/10/16 11/10/16 11:59 16:30 20:21 WBC RBC Hgb Hct MCV MCH MCHC RDW Plt Count MPV Neut % (Auto) Lymph % (Auto) [place] % (Auto) Eos % (Auto) Baso % (Auto) Neut # (Auto) Lymph # (Auto) [place] # (Auto) Eos # (Auto) Baso # (Auto) Total Counted Immature Gran % Nucleated RBC % Immature Gran # Segmented Neutrophils Lymphocytes Monocytes Nucleated RBCs # Platelet Estimate Immature Plt Fraction Microcytosis Sodium Potassium Chloride Carbon Dioxide Anion Gap BUN Creatinine GFR Calculation BUN/Creatinine Ratio Glucose POC Glucose 309 H 360 H 326 H Calculated Osmolality Calcium Magnesium Total Bilirubin Direct Bilirubin Indirect Bilirubin AST ALT Alkaline Phosphatase Total Creatine Kinase CK-MB (CK-2) Troponin I Total Protein Albumin Globulin Albumin/Globulin Ratio 11/10/16 11/11/16 11/11/16 23:47 03:45 03:45 WBC 20.1 H D RBC 3.33 L Hgb 9.8 L Hct 29.0 L MCV 87.1 MCH 29 MCHC 33.8 RDW 14.0 Plt Count 180 D MPV 11.4 Neut % (Auto) 67.7 Lymph % (Auto) 21.2 L [place] % (Auto) 10.4 Eos % (Auto) 0.1 Baso % (Auto) 0.1 Neut # (Auto) 13.6 H Lymph # (Auto) 4.3 H [place] # (Auto) 2.1 H Eos # (Auto) 0.0 Baso # (Auto) 0.0 Total Counted 100 Immature Gran % 0.5 Nucleated RBC % 0.0 Immature Gran # 0.10 Segmented Neutrophils 73 Lymphocytes 24 Monocytes 3 Nucleated RBCs # 0.00 Platelet Estimate Adequate Immature Plt Fraction 0.0 Microcytosis 1+ Sodium 142 Potassium 3.9 Chloride 109 H Carbon Dioxide 27 Anion Gap 9.9 BUN 19 H Creatinine 0.60 GFR Calculation 106 BUN/Creatinine Ratio 31.00 H Glucose 121 H POC Glucose 239 H Calculated Osmolality 285.1 Calcium 8.2 L Magnesium 1.9 Total Bilirubin 0.50 Direct Bilirubin 0.180 Indirect Bilirubin 0.3 AST 23 ALT 26 Alkaline Phosphatase 57 Total Creatine Kinase 198 H CK-MB (CK-2) 4.3 H D Troponin I 2.140 H D Total Protein 5.1 L Albumin 3.1 L Globulin 2.0 L Albumin/Globulin Ratio 1.5 11/11/16 08:08 WBC RBC Hgb Hct MCV MCH MCHC RDW Plt Count MPV Neut % (Auto) Lymph % (Auto) [place] % (Auto) Eos % (Auto) Baso % (Auto) Neut # (Auto) Lymph # (Auto) [place] # (Auto) Eos # (Auto) Baso # (Auto) Total Counted Immature Gran % Nucleated RBC % Immature Gran # Segmented Neutrophils Lymphocytes Monocytes Nucleated RBCs # Platelet Estimate Immature Plt Fraction Microcytosis Sodium Potassium Chloride Carbon Dioxide Anion Gap BUN Creatinine GFR Calculation BUN/Creatinine Ratio Glucose POC Glucose 168 H Calculated Osmolality Calcium Magnesium Total Bilirubin Direct Bilirubin Indirect Bilirubin AST ALT Alkaline Phosphatase Total Creatine Kinase CK-MB (CK-2) Troponin I Total Protein Albumin Globulin Albumin/Globulin Ratio Quality Measures - VTE Contraindication to Pharmacological VTE Prophylaxis: High Risk of Bleeding Specialty Discharge - Follow Up or Referrals
[2016-11-11] MEDS ORDERED: METOPROLOL TARTRATE 25 MG TABLET PO SCH (09:00)
[2016-11-11] MEDS: FERROUS SULFATE 325 MG TABLET PO SCH (09:13)
[2016-11-11] MEDS: MONTELUKAST 10 MG TABLET PO SCH (09:13)
[2016-11-11] MEDS: CLORAZEPATE 3.75 MG TABLET PO SCH ×3 (09:13→20:10)
[2016-11-11] MEDS: DOCUSATE SODIUM 100 MG CAPSULE PO SCH (09:14)
[2016-11-11] MEDS: PANTOPRAZOLE 40 MG TABLET PO SCH (09:14)
[2016-11-11] MEDS: sitaGLIPtin 100 MG TABLET PO SCH (09:14)
[2016-11-11] MEDS: CHLORHEXIDINE 0.12% ORAL RINSE 60 ML BOTTLE SWISH/SPIT SCH ×2 (09:15→20:18)
[2016-11-11] MEDS: VANCOMYCIN INJ 1,000 MG in SODIUM CHLORIDE 0.9% 250 ML IV SCH (12:43)
[2016-11-11] MEDS ORDERED: ALBUMIN 5% 12.5 GM/250 ML VIAL IV ONE ×2 (16:22)
[2016-11-11] MEDS ORDERED: ALBUMIN 5% 12.5 GM in PREMIX 1 EACH IV ONE (16:23)
[2016-11-11] MEDS: ROSUVASTATIN 20 MG TABLET PO SCH (20:05)
[2016-11-11] MEDS: traZODone 50 MG TABLET PO SCH (20:05)
[2016-11-11] MEDS: AMITRIPTYLINE 25 MG TABLET PO SCH (20:05)
[2016-11-11] MEDS: LINACLOTIDE 145 MCG CAPSULE PO SCH (20:06)
[2016-11-12] MEDS: PHENYLEPHRINE DRIP 40 MG/250 ML PREMIX IV SCH (00:30)
[2016-11-12] MEDS: INSULIN REGULAR 100 UNIT/ML SUBCUT SCH ×6 (00:31→21:41)
[2016-11-12] MEDS: KETOROLAC 30 MG/1 ML VIAL IV SCH ×4 (04:37→21:40)
[2016-11-12 05:05] LABS: Basophils % 0.3 % (0.0-0.8); Eosinophils # 0.3 10*3/uL (0.0-0.87); Eosinophils % 2.3 % (0.00-10.9); Hematocrit 27.7 VOL% (35.7-47.0); Hemoglobin 9.3 GM/DL (12.0-16.0); Immature Granulocytes % 0.4 %; Immature Granulocytes Absolute 0.05 #; Lymphocytes # 2.3 10*3/uL (1.4-4.0); Lymphocytes % 20.4 % (21.3-54.2); Mean Corpuscular HGB Conc 33.6 GM/DL (32-36); Mean Corpuscular Hemoglobin 30 PG (27-34); Mean Corpuscular Volume 88.8 FL (87-102); Mean Platelet Volume 11.6 FL (9.6-12.0); Monocytes # 1.3 10*3/uL (0.11-0.8); Monocytes % 11.8 % (1.7-12.7); Neutrophils # 7.3 10*3/uL (1.4-7.4); Neutrophils % 64.8 % (38.7-73.9); Platelet Count 144 T/CUMM (130-400); Red Blood Count 3.12 MC/CUMM (3.8-5.5); Red Cell Distribution Width 13.8 % (9.3-17.3); White Blood Count 11.2 T/CUMM (4-12)
[2016-11-12 05:40] LABS: Calcium 8.2 MG/DL (8.5-10.1); Osmolality,Calculated 288.1 MOS/KG (273-304)
[2016-11-12 06:24] LABS: Alanine Aminotransferase 29 U/L (13-56); Albumin 3.4 G/DL (3.4-5.0); Alkaline Phosphatase 77 U/L (45-117); Aspartate Amino Transferase 24 U/L (0-37); Bilirubin,Indirect 0.8 MG/DL (0.0-1.0); Blood Urea Nitrogen 26 MG/DL (7-18); Glucose 150 MG/DL (74-106); Magnesium 2.3 MG/DL (1.8-2.4); Osmolality,Calculated 288.3 MOS/KG (273-304); Potassium 3.9 MMOL/L (3.5-5.1); Sodium 141 MMOL/L (136-145); Total Protein 5.1 G/DL (6.4-8.3)
--- NOTE | 2016-11-12 07:22 | Pulmonology Progress Note ---
Pulmonary - PN: Subj Interval history: Patient is a 56-year-old white lady that had bypass surgery 2 days ago. She came off the ventilator fairly well. She has been a lifelong smoker and has some COPD. She apparently has a significant ischemic cardiomyopathy. She has done well with surgery and she says she is feeling okay. She says she occasionally gets a little short of breath but for the most part she had a good night. She says she is coughing okay. She is still on some Shar-Synephrine. Her blood pressure is still on the low side. Her chest x-ray still looks a little wet. She has normal renal function. Exam (Progress Note) - Constitutional Vitals: Period Temp Pulse Resp BP Sys/Morillo Pulse Ox Last 24 Hr 97.3 F-99.9 F 89-110 16-32 65-116/38-83 91-98 Exam: General appearance: normal weight, no acute distress, she is comfortable lying in bed and is alert. - Head Head exam: Present: normal inspection, normocephalic - Eye Eye exam: Present: EOMI. Absent: scleral icterus Pupils: Present: DONN - ENT ENT exam: Present: normal exam - Neck Neck exam: Absent: lymphadenopathy, thyromegaly - Respiratory Respiratory exam: Present: She has fair breath sounds bilaterally with only minimal rhonchi. She has mild decreased breath sounds in the bases. - Cardiovascular Cardiovascular exam: Present: regular rate and rhythm. Absent: gallop, systolic murmur - GI/Abdominal GI/Abdominal exam: Present: normal bowel sounds, soft. Absent: organomegaly, tenderness - Extremities Exam Extremities exam: Absent: calf tenderness, edema - Neurological Exam Neurological exam: Present: alert, oriented X3, CN II-XII intact, she is moving her extremities okay. - Psychiatric Psychiatric exam: Present: normal affect - Skin Skin exam: Present: warm, dry Results - Labs CBC & BMP: 11/12/16 04:30 11/12/16 04:30 - Diagnostic Findings Procedure: Chest x-ray: image reviewed by me, report reviewed by me (She has cardiomegaly with mild volume overload and pleural effusions.) Assessment and Plan (1) Non-STEMI (non-ST elevated myocardial infarction) Status: Acute Assessment and plan: The patient has had significant coronary disease and now status post bypass. Current Visit: Yes (2) Heavy cigarette smoker (20-39 per day) Status: Chronic Assessment and plan: She certainly needs to quit smoking. She will continue with bronchodilator therapy. Current Visit: Yes (3) 3-vessel CAD Status: Acute Assessment and plan: She had surgery couple days ago. She is reasonably stable at present. Current Visit: Yes (4) Ischemic cardiomyopathy Status: Acute Assessment and plan: The patient had a reduced ejection fraction before surgery. She is hard to diurese because of her low blood pressure. She is comfortable at present. Current Visit: Yes Specialty Discharge - Follow Up or Referrals
[2016-11-12] MEDS ORDERED: FUROSEMIDE 40 MG/4 ML VIAL IV ONE (07:44)
--- NOTE | 2016-11-12 08:07 | Cardiology Progress Note ---
Assessment and Plan (1) Non-STEMI (non-ST elevated myocardial infarction) Status: Acute Assessment and plan: 56-year-old female, non-STEMI, CABG 2 11/09. Head transients, diffuse ischemic EKG changes immediately postop, with hemodynamic instability. Acute revision did not suggest graft issues. -ICM s/p CABG, transient hypotension with pronounced ischemic EKG changes, with normally functioning grafts on revision 11/09. The events may have been secondary to transient cardiac ischemic event, which seems to have resolved. She was also quite anemic. No significant metabolic issues now. Enzymes are only mildly elevated and peaked early. -Hypotension, improved, now only minimal pressor. Likely due to severe underlying cardiomyopathy. Continue to wean, she may need more preload, if persists. No signs of significant volume overload or pulmonary congestion on exam today -Continue to hold beta-erendira today -Reviewed aspirin ADR with the patient. She had throat swelling, with aspirin in the past, this would be an absolute contraindication for its use. I recommend starting Plavix 75 mg as antiplatelet monotherapy. Stable anemia, no active bleeding. -cont statin Current Visit: Yes (2) Chest pain Status: Acute Current Visit: Yes Cardiology - PN: Subj Interval history: She is still complaining of moderate chest discomfort, when she takes a deep breath or coughs. The dressings are dry, intact. Sinus rhythm on telemetry. She now only requires minimal pressor support, Shar is a 10. No shortness of breath, no leg swelling. Exam (Progress Note) - Constitutional Vitals: Period Temp Pulse Resp BP Sys/Morillo Pulse Ox Last 24 Hr 97.3 F-99.5 F 89-110 16-32 65-116/38-83 91-98 General appearance: normal weight, no acute distress - Head Head exam: Present: normal inspection, normocephalic - Eye Eye exam: Absent: periorbital swelling, scleral icterus Pupils: Absent: dilated - ENT ENT exam: Present: normal external ear exam - Neck Neck exam: Present: normal inspection - Respiratory Respiratory exam: Present: chest wall tenderness, decreased breath sounds. Absent: rhonchi, wheezes - Cardiovascular Cardiovascular exam: Present: regular rate and rhythm. Absent: JVD, systolic murmur - GI/Abdominal GI/Abdominal exam: Present: normal bowel sounds - Extremities Exam Extremities exam: Present: normal inspection, normal capillary refill, other ( Dressing dry and intact). Absent: edema - Neurological Exam Neurological exam: Present: alert, oriented X3 - Psychiatric Psychiatric exam: Present: normal affect, normal mood - Skin Skin exam: Present: normal color, warm. Absent: cyanosis Result/EKG - Labs CBC & BMP: 11/12/16 04:30 11/12/16 04:30 Lab Results: I have reviewed the past 24 hour labs Labs: Laboratory Results - last 24 hr 11/11/16 11/11/16 11/11/16 08:08 11:54 12:06 WBC RBC Hgb Hct MCV MCH MCHC RDW Plt Count MPV Neut % (Auto) Lymph % (Auto) [place] % (Auto) Eos % (Auto) Baso % (Auto) Neut # (Auto) Lymph # (Auto) [place] # (Auto) Eos # (Auto) Baso # (Auto) Immature Gran % Nucleated RBC % Immature Gran # Nucleated RBCs # Immature Plt Fraction Sodium Potassium Chloride Carbon Dioxide Anion Gap BUN Creatinine GFR Calculation BUN/Creatinine Ratio Glucose POC Glucose 168 H 326 H 289 H Calculated Osmolality Calcium Magnesium Total Bilirubin Direct Bilirubin Indirect Bilirubin AST ALT Alkaline Phosphatase Total Creatine Kinase CK-MB (CK-2) Troponin I Total Protein Albumin Globulin Albumin/Globulin Ratio 11/11/16 11/11/16 11/12/16 16:27 20:13 00:12 WBC RBC Hgb Hct MCV MCH MCHC RDW Plt Count MPV Neut % (Auto) Lymph % (Auto) [place] % (Auto) Eos % (Auto) Baso % (Auto) Neut # (Auto) Lymph # (Auto) [place] # (Auto) Eos # (Auto) Baso # (Auto) Immature Gran % Nucleated RBC % Immature Gran # Nucleated RBCs # Immature Plt Fraction Sodium Potassium Chloride Carbon Dioxide Anion Gap BUN Creatinine GFR Calculation BUN/Creatinine Ratio Glucose POC Glucose 247 H 293 H 206 H Calculated Osmolality Calcium Magnesium Total Bilirubin Direct Bilirubin Indirect Bilirubin AST ALT Alkaline Phosphatase Total Creatine Kinase CK-MB (CK-2) Troponin I Total Protein Albumin Globulin Albumin/Globulin Ratio 11/12/16 11/12/16 11/12/16 04:26 04:30 04:30 WBC 11.2 D RBC 3.12 L Hgb 9.3 L Hct 27.7 L MCV 88.8 MCH 30 MCHC 33.6 RDW 13.8 Plt Count 144 MPV 11.6 Neut % (Auto) 64.8 Lymph % (Auto) 20.4 L [place] % (Auto) 11.8 Eos % (Auto) 2.3 Baso % (Auto) 0.3 Neut # (Auto) 7.3 Lymph # (Auto) 2.3 [place] # (Auto) 1.3 H Eos # (Auto) 0.3 Baso # (Auto) 0.0 Immature Gran % 0.4 Nucleated RBC % 0.0 Immature Gran # 0.05 Nucleated RBCs # 0.00 Immature Plt Fraction 0.0 Sodium 141 Potassium 3.9 Chloride 107 Carbon Dioxide 26 Anion Gap 11.9 BUN 26 H Creatinine 0.60 GFR Calculation 106 BUN/Creatinine Ratio 43.00 H Glucose 150 H POC Glucose 159 H Calculated Osmolality 288.3 Calcium 8.0 L Magnesium 2.3 Total Bilirubin 0.90 Direct Bilirubin 0.140 Indirect Bilirubin 0.8 AST 24 ALT 29 Alkaline Phosphatase 77 Total Creatine Kinase 166 CK-MB (CK-2) 2.2 Troponin I 1.380 H D Total Protein 5.1 L Albumin 3.4 Globulin 1.7 L Albumin/Globulin Ratio 2.0 11/12/16 04:30 WBC RBC Hgb Hct MCV MCH MCHC RDW Plt Count MPV Neut % (Auto) Lymph % (Auto) [place] % (Auto) Eos % (Auto) Baso % (Auto) Neut # (Auto) Lymph # (Auto) [place] # (Auto) Eos # (Auto) Baso # (Auto) Immature Gran % Nucleated RBC % Immature Gran # Nucleated RBCs # Immature Plt Fraction Sodium 142 Potassium 4.0 Chloride 109 H Carbon Dioxide 26 Anion Gap 11.0 BUN 24 H Creatinine 0.50 L GFR Calculation 112 BUN/Creatinine Ratio 48.00 H Glucose 143 H POC Glucose Calculated Osmolality 288.1 Calcium 8.2 L Magnesium Total Bilirubin Direct Bilirubin Indirect Bilirubin AST ALT Alkaline Phosphatase Total Creatine Kinase CK-MB (CK-2) Troponin I Total Protein Albumin Globulin Albumin/Globulin Ratio - EKG EKG results: interpreted by me Quality Measures - VTE Contraindication to Pharmacological VTE Prophylaxis: High Risk of Bleeding Specialty Discharge - Follow Up or Referrals
--- NOTE | 2016-11-12 08:10 | Cardiothoracic Progress Note ---
Cardiothoracic Subjective Interval history: Patient looks and feels okay. She is breathing fairly comfortably and her blood pressure is in the mid 90s systolic. We are trying to wean her off Shar- Synephrine and I am hoping that this can be done later this morning. She wants to be out of intensive care and hopefully once off the Shar-Synephrine we can transfer her. Her chest x-ray does appear to have some degree of pulmonary vascular congestion and we will attempt cautious diuresis. Overall her progress appears to be satisfactory. Exam (Progress Note) - Constitutional Vitals: Period Temp Pulse Resp BP Sys/Morillo Pulse Ox Last 24 Hr 97.3 F-99.5 F 89-110 16-32 65-116/38-83 91-98 Result/EKG - Labs CBC & BMP: 11/12/16 04:30 11/12/16 04:30 Labs: Laboratory Results - last 24 hr 11/11/16 11/11/16 11/11/16 08:08 11:54 12:06 WBC RBC Hgb Hct MCV MCH MCHC RDW Plt Count MPV Neut % (Auto) Lymph % (Auto) [place] % (Auto) Eos % (Auto) Baso % (Auto) Neut # (Auto) Lymph # (Auto) [place] # (Auto) Eos # (Auto) Baso # (Auto) Immature Gran % Nucleated RBC % Immature Gran # Nucleated RBCs # Immature Plt Fraction Sodium Potassium Chloride Carbon Dioxide Anion Gap BUN Creatinine GFR Calculation BUN/Creatinine Ratio Glucose POC Glucose 168 H 326 H 289 H Calculated Osmolality Calcium Magnesium Total Bilirubin Direct Bilirubin Indirect Bilirubin AST ALT Alkaline Phosphatase Total Creatine Kinase CK-MB (CK-2) Troponin I Total Protein Albumin Globulin Albumin/Globulin Ratio 11/11/16 11/11/16 11/12/16 16:27 20:13 00:12 WBC RBC Hgb Hct MCV MCH MCHC RDW Plt Count MPV Neut % (Auto) Lymph % (Auto) [place] % (Auto) Eos % (Auto) Baso % (Auto) Neut # (Auto) Lymph # (Auto) [place] # (Auto) Eos # (Auto) Baso # (Auto) Immature Gran % Nucleated RBC % Immature Gran # Nucleated RBCs # Immature Plt Fraction Sodium Potassium Chloride Carbon Dioxide Anion Gap BUN Creatinine GFR Calculation BUN/Creatinine Ratio Glucose POC Glucose 247 H 293 H 206 H Calculated Osmolality Calcium Magnesium Total Bilirubin Direct Bilirubin Indirect Bilirubin AST ALT Alkaline Phosphatase Total Creatine Kinase CK-MB (CK-2) Troponin I Total Protein Albumin Globulin Albumin/Globulin Ratio 11/12/16 11/12/16 11/12/16 04:26 04:30 04:30 WBC 11.2 D RBC 3.12 L Hgb 9.3 L Hct 27.7 L MCV 88.8 MCH 30 MCHC 33.6 RDW 13.8 Plt Count 144 MPV 11.6 Neut % (Auto) 64.8 Lymph % (Auto) 20.4 L [place] % (Auto) 11.8 Eos % (Auto) 2.3 Baso % (Auto) 0.3 Neut # (Auto) 7.3 Lymph # (Auto) 2.3 [place] # (Auto) 1.3 H Eos # (Auto) 0.3 Baso # (Auto) 0.0 Immature Gran % 0.4 Nucleated RBC % 0.0 Immature Gran # 0.05 Nucleated RBCs # 0.00 Immature Plt Fraction 0.0 Sodium 141 Potassium 3.9 Chloride 107 Carbon Dioxide 26 Anion Gap 11.9 BUN 26 H Creatinine 0.60 GFR Calculation 106 BUN/Creatinine Ratio 43.00 H Glucose 150 H POC Glucose 159 H Calculated Osmolality 288.3 Calcium 8.0 L Magnesium 2.3 Total Bilirubin 0.90 Direct Bilirubin 0.140 Indirect Bilirubin 0.8 AST 24 ALT 29 Alkaline Phosphatase 77 Total Creatine Kinase 166 CK-MB (CK-2) 2.2 Troponin I 1.380 H D Total Protein 5.1 L Albumin 3.4 Globulin 1.7 L Albumin/Globulin Ratio 2.0 11/12/16 04:30 WBC RBC Hgb Hct MCV MCH MCHC RDW Plt Count MPV Neut % (Auto) Lymph % (Auto) [place] % (Auto) Eos % (Auto) Baso % (Auto) Neut # (Auto) Lymph # (Auto) [place] # (Auto) Eos # (Auto) Baso # (Auto) Immature Gran % Nucleated RBC % Immature Gran # Nucleated RBCs # Immature Plt Fraction Sodium 142 Potassium 4.0 Chloride 109 H Carbon Dioxide 26 Anion Gap 11.0 BUN 24 H Creatinine 0.50 L GFR Calculation 112 BUN/Creatinine Ratio 48.00 H Glucose 143 H POC Glucose Calculated Osmolality 288.1 Calcium 8.2 L Magnesium Total Bilirubin Direct Bilirubin Indirect Bilirubin AST ALT Alkaline Phosphatase Total Creatine Kinase CK-MB (CK-2) Troponin I Total Protein Albumin Globulin Albumin/Globulin Ratio Quality Measures - VTE Contraindication to Pharmacological VTE Prophylaxis: High Risk of Bleeding Specialty Discharge - Follow Up or Referrals
--- NOTE | 2016-11-12 08:26 | XRay Report ---
Portable chest Indication: Shortness of breath, cough Comparison: November 11, 2016 Findings: Cardiomediastinal contours are stable with sternotomy wires and midline and no change in central venous catheter placement. Stable pulmonary edema pattern with no change in the bilateral pleural effusions, right greater than left. No acute osseous abnormalities. Visualized upper abdomen demonstrates no acute pathology. Impression: Stable chest again demonstrating underlying pulmonary edema and bilateral pleural effusions, right greater than left PROCEDURE INTERPRETED AT [facility] DEPARTMENT OF RADIOLOGY Final Report Signed by: Cathy Reyes MD
[2016-11-12] MEDS: CLORAZEPATE 3.75 MG TABLET PO SCH ×3 (08:48→20:51)
[2016-11-12] MEDS: CLOPIDOGREL 75 MG TABLET PO SCH (08:48)
[2016-11-12] MEDS: sitaGLIPtin 100 MG TABLET PO SCH (08:48)
[2016-11-12] MEDS: FERROUS SULFATE 325 MG TABLET PO SCH (08:48)
[2016-11-12] MEDS: PANTOPRAZOLE 40 MG TABLET PO SCH (08:49)
[2016-11-12] MEDS: DOCUSATE SODIUM 100 MG CAPSULE PO SCH (08:49)
[2016-11-12] MEDS: MONTELUKAST 10 MG TABLET PO SCH (08:50)
[2016-11-12] MEDS: CHLORHEXIDINE 0.12% ORAL RINSE 60 ML BOTTLE SWISH/SPIT SCH ×3 (11:31→20:51)
[2016-11-12] MEDS: LEVOFLOXACIN 500 MG TABLET PO SCH (13:29)
[2016-11-12] MEDS: ALBUTEROL 2.5 MG/3 ML NEB RESP TX SCH (15:07)
[2016-11-12] MEDS: ROSUVASTATIN 20 MG TABLET PO SCH (20:49)
[2016-11-12] MEDS: AMITRIPTYLINE 25 MG TABLET PO SCH (20:50)
[2016-11-12] MEDS: traZODone 50 MG TABLET PO SCH (20:50)
[2016-11-12] MEDS: LINACLOTIDE 145 MCG CAPSULE PO SCH (20:51)
[2016-11-13] MEDS: ALBUTEROL 2.5 MG/3 ML NEB RESP TX SCH ×3 (00:39→15:05)
[2016-11-13] MEDS: PHENYLEPHRINE DRIP 40 MG/250 ML PREMIX IV SCH (01:22)
[2016-11-13] MEDS: KETOROLAC 30 MG/1 ML VIAL IV SCH (04:14)
[2016-11-13 05:46] LABS: Basophils % 0.2 % (0.0-0.8); Eosinophils # 0.3 10*3/uL (0.0-0.87); Eosinophils % 4.8 % (0.00-10.9); Hemoglobin 8.2 GM/DL (12.0-16.0); Immature Granulocytes % 0.4 %; Immature Granulocytes Absolute 0.02 #; Lymphocytes # 1.5 10*3/uL (1.4-4.0); Lymphocytes % 27.8 % (21.3-54.2); Mean Corpuscular HGB Conc 34.2 GM/DL (32-36); Mean Corpuscular Hemoglobin 30 PG (27-34); Mean Corpuscular Volume 87.3 FL (87-102); Mean Platelet Volume 11.3 FL (9.6-12.0); Monocytes # 0.5 10*3/uL (0.11-0.8); Neutrophils # 3.1 10*3/uL (1.4-7.4); Neutrophils % 56.8 % (38.7-73.9); Platelet Count 134 T/CUMM (130-400); Red Blood Count 2.75 MC/CUMM (3.8-5.5); Red Cell Distribution Width 13.2 % (9.3-17.3); White Blood Count 5.4 T/CUMM (4-12)
[2016-11-13 06:19] LABS: Albumin 2.5 G/DL (3.4-5.0); Bilirubin,Total 0.9 MG/DL (0.2-1.0); Calcium 8.1 MG/DL (8.5-10.1); Osmolality,Calculated 288.1 MOS/KG (273-304); Potassium 3.9 MMOL/L (3.5-5.1); Total Protein 4.5 G/DL (6.4-8.3)
[2016-11-13] MEDS ORDERED: SODIUM CHLORIDE 0.9% 250 ML IV PRN (06:29)
--- NOTE | 2016-11-13 06:29 | Cardiothoracic Progress Note ---
Cardiothoracic Subjective Interval history: Patient looks and feels okay. She remains relatively hypotensive but seems to be asymptomatic with this. Vital signs are otherwise stable and she is breathing comfortably. Renal function is within normal limits. Her hematocrit is 24% this morning and I think she might benefit from transfusion of 2 units of packed red blood cells. We will arrange for this today but also try to increase her activities as tolerated. Exam (Progress Note) - Constitutional Vitals: Period Temp Pulse Resp BP Sys/Morillo Pulse Ox Last 24 Hr 96.3 F-99.3 F 57-118 16-30 66-112/39-84 90-100 Result/EKG - Labs CBC & BMP: 11/13/16 04:01 11/13/16 04:01 Labs: Laboratory Results - last 24 hr 11/08/16 11/12/16 11/12/16 05:29 09:38 12:46 WBC RBC Hgb Hct MCV MCH MCHC RDW Plt Count MPV Neut % (Auto) Lymph % (Auto) [place] % (Auto) Eos % (Auto) Baso % (Auto) Neut # (Auto) Lymph # (Auto) [place] # (Auto) Eos # (Auto) Baso # (Auto) Immature Gran % Nucleated RBC % Immature Gran # Nucleated RBCs # Immature Plt Fraction Sodium Potassium Chloride Carbon Dioxide Anion Gap BUN Creatinine GFR Calculation BUN/Creatinine Ratio Glucose POC Glucose 131 H 189 H Calculated Osmolality Calcium Total Bilirubin AST ALT Alkaline Phosphatase Total Protein Albumin Globulin Albumin/Globulin Ratio Crossmatch See Detail 11/12/16 11/13/16 11/13/16 15:22 04:01 04:01 WBC 5.4 D RBC 2.75 L Hgb 8.2 L Hct 24.0 L MCV 87.3 MCH 30 MCHC 34.2 RDW 13.2 Plt Count 134 MPV 11.3 Neut % (Auto) 56.8 Lymph % (Auto) 27.8 [place] % (Auto) 10.0 Eos % (Auto) 4.8 Baso % (Auto) 0.2 Neut # (Auto) 3.1 Lymph # (Auto) 1.5 [place] # (Auto) 0.5 Eos # (Auto) 0.3 Baso # (Auto) 0.0 Immature Gran % 0.4 Nucleated RBC % 0.0 Immature Gran # 0.02 Nucleated RBCs # 0.00 Immature Plt Fraction 0.0 Sodium 142 Potassium 3.9 Chloride 106 Carbon Dioxide 29 Anion Gap 10.9 BUN 23 H Creatinine 0.50 L GFR Calculation 112 BUN/Creatinine Ratio 46.00 H Glucose 140 H POC Glucose 174 H Calculated Osmolality 288.1 Calcium 8.1 L Total Bilirubin 0.90 AST 16 ALT 19 Alkaline Phosphatase 70 Total Protein 4.5 L Albumin 2.5 L Globulin 2.0 L Albumin/Globulin Ratio 1.2 Crossmatch Quality Measures - VTE Contraindication to Pharmacological VTE Prophylaxis: High Risk of Bleeding Specialty Discharge - Follow Up or Referrals
--- NOTE | 2016-11-13 08:40 | XRay Report ---
Portable chest Date: 11/13/2016 Clinical history: Postop Comparison: 11/12/2016 Technique: Portable AP sitting chest Findings: Status post median sternotomy with persistent cardiomegaly and stable right IJ CVP line. No evidence of pneumothorax with persistent diffuse atelectasis/edema with larger bilateral pleural effusions. Stable mediastinum with prior anterior cervical fusion.. Impression: Persistent pulmonary edema and atelectasis in patient with median sternotomy. Larger small to moderate right and small left pleural effusions. PROCEDURE INTERPRETED AT [facility] DEPARTMENT OF RADIOLOGY Final Report Signed by: Dr. Ros Braden
[2016-11-13] MEDS: sitaGLIPtin 100 MG TABLET PO SCH (09:20)
[2016-11-13] MEDS: LEVOFLOXACIN 500 MG TABLET PO SCH (09:20)
[2016-11-13] MEDS: CLORAZEPATE 3.75 MG TABLET PO SCH ×3 (09:20→21:02)
[2016-11-13] MEDS: FERROUS SULFATE 325 MG TABLET PO SCH (09:20)
[2016-11-13] MEDS: PANTOPRAZOLE 40 MG TABLET PO SCH (09:21)
[2016-11-13] MEDS: MONTELUKAST 10 MG TABLET PO SCH (09:21)
[2016-11-13] MEDS: DOCUSATE SODIUM 100 MG CAPSULE PO SCH (09:21)
[2016-11-13] MEDS: CHLORHEXIDINE 0.12% ORAL RINSE 60 ML BOTTLE SWISH/SPIT SCH ×2 (09:21→23:33)
[2016-11-13] MEDS: CLOPIDOGREL 75 MG TABLET PO SCH (09:21)
--- NOTE | 2016-11-13 09:31 | Pulmonology Progress Note ---
Pulmonary - PN: Subj Interval history: Ms. okeefe is a 56-year-old white female who we saw in initial pulmonary consultation 11/05/2016. At that time, our impressions were: 1. Tobacco abuse. [id number]-year history of smoking. 2. Probable COPD. Mild wheeze. Probable bronchospastic disease. 3. Severe three-vessel heart disease with ejection fraction of 20% and global hypokinesis 4. Hyperlipidemia. 5. Diabetes mellitus. 6. See past history 11/06/2016. The patient has decided to go forth with CABG. This will most likely be done tomorrow. In anticipation of this, we will obtain complete pulmonary function testing today with pre-and post bronchodilator spirometry. Her previously noted large airway wheeze has resolved with the addition of Singulair. This needs to be continued. Medications have been reviewed. We made no changes today. Labs been reviewed. No new labs were drawn today. 11/07/2016. Patient's CABG has been scheduled for 11/09/2016. We discussed this again with her today. From a pulmonary standpoint she is appropriate for surgery. Pulmonary function tests done 11/06/2016 showed SPO2 96% on room air, small airways disease, paradoxical response to inhaled bronchodilators, no restrictive disease, normal diffusion, and maximum voluntary ventilation was normal. On chest exam, she is still wheeze free. She states that her breathing is doing well. Medications have been reviewed. We made no changes today. Labs been reviewed. White count is 6700 with a normal differential; H&H 10.5/ 36.5; platelet count 145,000; creatinine 0.50, BUN 10, electrolytes were normal ; hemoglobin A1c elevated at 9.5% showing poor control of her diabetes mellitus 11/10/2016. This patient had coronary artery bypass grafts on 11/09/2016. She required to reexplore. She came off the ventilator with no problems. She is stable this morning and her chest x-ray shows no heart failure and no infiltrates. ABGs show a pH of 7.42, PCO2 38, PO2 of 106 and a bicarb of 24. Electrolytes are normal. Creatinine is 0.5 with a BUN of 12. H&H 10.5/30.4. She is doing well from a pulmonary standpoint. She has underlying COPD which is not severe. Dr. Sean Dyer will see her for me this weekend. 11/13/2016. Patient complains of a slight cough. Will check a sputum for Gram stain culture and sensitivity. Her chest x-ray shows small bilateral pleural effusions. We will get another tomorrow. Her H&H is 8.2/24.1. She told me she is getting 2 units of blood today. White count is 5400 with 57 segs 28 lymphs and 10 monos. Electrolytes are normal. Creatinine 0.5. BUNs 26. Patient was seen with the family member who did not bother to wake up while we are there. Exam (Progress Note) - Constitutional Vitals: Period Temp Pulse Resp BP Sys/Morillo Pulse Ox Last 24 Hr 97.3 F-98.9 F 79-94 16-18 82-96/53-64 92-98 Exam: General. No apparent distress. Chest... Wheeze free. Slight cough Heart no gallop Abdomen is nontender and nondistended; bowel sounds are positive 4 Lower extremities with nothing to suggest acute deep venous thrombophlebitis Psychiatric oriented 3 Neurologic long-tract motor function is intact The remainder the physical exam is negative. Plan: 11/07/2016. 1. Continue present pulmonary treatment. 2. Plans for CABG 11/09/2016 noted. 3. See orders. 11/10/2016. 1. See today's note above. 2. Stable post coronary artery bypass grafts. 3. Continue inhalation therapy. 4. Dr. Dyer we will see for me this week 11/13/2016. 1. See my note above. 2. Blood transfusion 3. Sputum for Gram stain culture and sensitivity 4. Follow-up lab and chest x-ray tomorrow Exam (Progress Note) - Constitutional Vitals: Period Temp Pulse Resp BP Sys/Morillo Pulse Ox Last 24 Hr 96.3 F-99.3 F 57-118 16-30 66-108/39-84 90-100 Results - Labs CBC & BMP: 11/13/16 04:01 11/13/16 04:01 Specialty Discharge - Follow Up or Referrals
--- NOTE | 2016-11-13 10:49 | Cardiology Progress Note ---
Assessment and Plan (1) 3-vessel CAD Status: Acute Assessment and plan: SEE PLAN OF CARE LISTED BELOW. Current Visit: Yes (2) Elevated troponin Status: Acute Assessment and plan: SEE PLAN OF CARE LISTED BELOW. Current Visit: Yes (3) Heavy cigarette smoker (20-39 per day) Status: Chronic Assessment and plan: SEE PLAN OF CARE LISTED BELOW. Current Visit: Yes (4) Diabetes mellitus Status: Chronic Assessment and plan: SEE PLAN OF CARE LISTED BELOW. Current Visit: Yes (5) Dyslipidemia Status: Chronic Assessment and plan: SEE PLAN OF CARE LISTED BELOW. Current Visit: Yes (6) Anxiety Status: Chronic Assessment and plan: SEE PLAN OF CARE LISTED BELOW. Current Visit: Yes (7) Ischemic cardiomyopathy Status: Acute Assessment and plan: SEE PLAN OF CARE LISTED BELOW. Current Visit: Yes (8) Unspecified sleep apnea Status: Acute Assessment and plan: SEE PLAN OF CARE LISTED BELOW. Current Visit: Yes (9) Status post coronary artery bypass graft Status: Acute Assessment and plan: SEE PLAN OF CARE LISTED BELOW. Current Visit: Yes (10) Anemia Status: Acute Assessment and plan: SEE PLAN OF CARE LISTED BELOW. Current Visit: Yes (11) Tachycardia Status: Acute Assessment and plan: SEE PLAN OF CARE LISTED BELOW. Current Visit: Yes Cardiology - PN: Subj Interval history: PRODUCTION LINE: Dr. Cox SUMMARY Patient was sent over from Dr. Child office for further evaluation of chest pain that she had been experiencing for 2 weeks. She has a past medical history of dyslipidemia, diabetes, anxiety, tobacco abuse and GERD. She was seen by Dr. Child in the clinic and was noted to have an abnormal EKG. Subsequently, she was sent over to the emergency department. She underwent heart catheterization which revealed multivessel disease. Subsequently, Dr. Whitehead has been consulted to evaluate for surgery. She underwent coronary artery bypass grafting 2 November 09, 2016 with left internal mammary graft to obtuse marginal coronary artery and saphenous vein graft to RCA. Patient was taken emergently back to the operating room November 09, 2016 after having EKG changes concerning for ischemia. No evidence of myocardial injury was noted in surgery. Patient was requested no intervention was needed. EKG changes have resolved. Now only mild inferior T-wave abnormality. Echocardiogram this hospitalization revealed ischemic cardiomyopathy with ejection fraction estimated at 20%. NOVEMBER 13, 2016 Patient was seen and examined on the telemetry unit. She is status post coronary artery bypass grafting 2 with left internal mammary graft to obtuse marginal coronary artery and saphenous vein graft to RCA. Postop day #4. Surgical incisions are currently covered with bandages. Anemia of 8.2 and 24.0 noted. Currently receiving blood transfusion. Continues to have mild chest soreness. Without chest pain, heaviness or tightness. Mild dyspnea. Currently on oxygen via nasal cannula. Patient is mildly tachycardic. Hopeful this will improve after blood transfusion. Will attempt to initiate beta- blockade when blood pressure will allow. Patient is allergic to aspirin. Continue Plavix. Continue lipid-lowering agent. EF 20%. Unfortunately, blood pressure will not allow initiation of beta blockade or PENNY inhibitor/ARB. Will monitor blood pressure and hopefully will be able to introduce these medications prior to discharge. I will further discuss with Dr. Cox and await his additional recommendations. REVIEW OF SYSTEMS: Cardiovascular: Denies chest pain, heaviness or tightness. Does confirm chest soreness. GI: Denies nausea, vomiting and abdominal pain. Respiratory: Confirms mild dyspnea. No orthopnea. IMPRESSION AND PLAN: 1. S/P CABG - Status post CABG today with BEVERLY to obtuse marginal coronary artery and SVG to RCA. Postop day #4. Patient is allergic to aspirin. Continue Plavix. Continue lipid-lowering agent. EF 20%. Unfortunately, blood pressure will not allow initiation of beta blockade or PENNY inhibitor/ARB. Will monitor blood pressure and hopefully will be able to introduce these medications prior to discharge. I will further discuss with Dr. Cox and await his additional recommendations. 2. DYSLIPIDEMIA - LDL 124. Continue high intensity statin. Repeat lipid panel in 4-6 weeks. 3. DIABETES - Continue sliding scale insulin. Accu-Cheks before meals and at bedtime. 4. ANXIETY - Under well control. 5. TOBACCO ABUSE - Current everyday smoker. Continue to reiterate importance of smoke cessation. Continue nicotine patch. 6. ISCHEMIC CARDIOMYOPATHY - Now revascularized. EF calculated at 20% per echocardiogram this admission. She will need beta-blockade and PENNY inhibitor prior to discharge. However, blood pressure will not allow initiation of these medications at this time. We will introduce these medications when able. Patient will need repeat echocardiogram 3 months after discharge to reevaluate ejection fraction. If no improvement is noted she will be a candidate for ICD placement. 7. PROBABLE COPD - Dr. Horan is following and managing. Appreciate his assistance. 8. UNSPECIFIED SLEEP APNEA - Negative HST evaluation. She will be set up for outpatient sleep study evaluation. 9. ANEMIA - Receiving blood transfusion. Daily CBC. 10. TACHYCARDIA - Hopeful this will improve after blood transfusion. Will introduce beta blockade when blood pressure will allow. Exam (Progress Note) - Constitutional Vitals: Period Temp Pulse Resp BP Sys/Morillo Pulse Ox Last 24 Hr 96.3 F-99.3 F 57-118 16-30 66-108/39-81 92-100 Exam: General: Appears well with no apparent distress. Pleasant and cooperative. Appears comfortable. HEENT: PERRL, normocephalic, atraumatic. Mucous membranes moist. No jaundice noted. Conjunctiva moist and clear, sclerae anicteric Neck: No JVD/HJR, no thyromegaly or lymphadenopathy noted. No carotid bruit appreciated Cardiac: Regular rate and rhythm, tachycardia. No murmur rub or gallop. Chest wall: Tender to palpation. Bandage to midsternal chest wall clean dry and intact. Lungs: Decreased breath sounds without accessory muscle use to assist the respiratory pattern. Requiring oxygen intermittently. Abdomen: Soft, bowel sounds normoactive. Nontender and nondistended. No abdominal bruit or thrill noted. No masses noted. Extremities: No clubbing, cyanosis noted. No edema noted. Upper extremity pulses 2+. Lower extremity pulses 2+. Capillary refill less than 3 seconds. Bandage to left lower extremity clean, dry and intact. Skin: No unusual lesions or rashes. No skin breakdown appreciated. Neuro: Awake, alert and oriented 3. Moves all extremities well without hemiparesis or paralysis. No essential tremor is appreciated. Result/EKG - Labs CBC & BMP: 11/13/16 04:01 11/13/16 04:01 Lab Results: I have reviewed the past 24 hour labs Labs: Laboratory Results - last 24 hr 11/08/16 11/12/16 11/12/16 05:29 12:46 15:22 WBC RBC Hgb Hct MCV MCH MCHC RDW Plt Count MPV Neut % (Auto) Lymph % (Auto) [place] % (Auto) Eos % (Auto) Baso % (Auto) Neut # (Auto) Lymph # (Auto) [place] # (Auto) Eos # (Auto) Baso # (Auto) Immature Gran % Nucleated RBC % Immature Gran # Nucleated RBCs # Immature Plt Fraction Sodium Potassium Chloride Carbon Dioxide Anion Gap BUN Creatinine GFR Calculation BUN/Creatinine Ratio Glucose POC Glucose 189 H 174 H Calculated Osmolality Calcium Total Bilirubin AST ALT Alkaline Phosphatase Total Protein Albumin Globulin Albumin/Globulin Ratio Blood Type Antibody Screen Crossmatch See Detail 11/13/16 11/13/16 11/13/16 04:01 04:01 04:01 WBC 5.4 D RBC 2.75 L Hgb 8.2 L Hct 24.0 L MCV 87.3 MCH 30 MCHC 34.2 RDW 13.2 Plt Count 134 MPV 11.3 Neut % (Auto) 56.8 Lymph % (Auto) 27.8 [place] % (Auto) 10.0 Eos % (Auto) 4.8 Baso % (Auto) 0.2 Neut # (Auto) 3.1 Lymph # (Auto) 1.5 [place] # (Auto) 0.5 Eos # (Auto) 0.3 Baso # (Auto) 0.0 Immature Gran % 0.4 Nucleated RBC % 0.0 Immature Gran # 0.02 Nucleated RBCs # 0.00 Immature Plt Fraction 0.0 Sodium 142 Potassium 3.9 Chloride 106 Carbon Dioxide 29 Anion Gap 10.9 BUN 23 H Creatinine 0.50 L GFR Calculation 112 BUN/Creatinine Ratio 46.00 H Glucose 140 H POC Glucose Calculated Osmolality 288.1 Calcium 8.1 L Total Bilirubin 0.90 AST 16 ALT 19 Alkaline Phosphatase 70 Total Protein 4.5 L Albumin 2.5 L Globulin 2.0 L Albumin/Globulin Ratio 1.2 Blood Type O POSITIVE Antibody Screen Negative Crossmatch See Detail 11/13/16 07:39 WBC RBC Hgb Hct MCV MCH MCHC RDW Plt Count MPV Neut % (Auto) Lymph % (Auto) [place] % (Auto) Eos % (Auto) Baso % (Auto) Neut # (Auto) Lymph # (Auto) [place] # (Auto) Eos # (Auto) Baso # (Auto) Immature Gran % Nucleated RBC % Immature Gran # Nucleated RBCs # Immature Plt Fraction Sodium Potassium Chloride Carbon Dioxide Anion Gap BUN Creatinine GFR Calculation BUN/Creatinine Ratio Glucose POC Glucose 195 H Calculated Osmolality Calcium Total Bilirubin AST ALT Alkaline Phosphatase Total Protein Albumin Globulin Albumin/Globulin Ratio Blood Type Antibody Screen Crossmatch Quality Measures - VTE Contraindication to Pharmacological VTE Prophylaxis: High Risk of Bleeding Specialty Discharge - Follow Up or Referrals
[2016-11-13] MEDS: INSULIN REGULAR 100 UNIT/ML SUBCUT SCH ×4 (10:56→23:32)
[2016-11-13] MEDS: traZODone 50 MG TABLET PO SCH (21:02)
[2016-11-13] MEDS: ROSUVASTATIN 20 MG TABLET PO SCH (21:02)
[2016-11-13] MEDS: GABAPENTIN 100 MG CAPSULE PO PRN (21:03)
[2016-11-13] MEDS: AMITRIPTYLINE 25 MG TABLET PO SCH (21:03)
[2016-11-13] MEDS: LINACLOTIDE 145 MCG CAPSULE PO SCH (23:33)
[2016-11-13] MEDS ORDERED: ALBUTEROL 2.5 MG/3 ML NEB RESP TX ONE (23:36)
[2016-11-14] MEDS: ALBUTEROL 2.5 MG/3 ML NEB RESP TX SCH ×4 (00:11→23:37)
[2016-11-14] MEDS: PHENYLEPHRINE DRIP 40 MG/250 ML PREMIX IV SCH ×2 (01:06→23:49)
[2016-11-14 03:54] LABS: Basophils % 0.2 % (0.0-0.8); Eosinophils # 0.3 10*3/uL (0.0-0.87); Eosinophils % 5.1 % (0.00-10.9); Hemoglobin 10.3 GM/DL (12.0-16.0); Immature Granulocytes % 0.4 %; Immature Granulocytes Absolute 0.02 #; Mean Corpuscular HGB Conc 34.3 GM/DL (32-36); Mean Corpuscular Hemoglobin 29 PG (27-34); Mean Corpuscular Volume 85.7 FL (87-102); Mean Platelet Volume 10.9 FL (9.6-12.0); Monocytes # 0.8 10*3/uL (0.11-0.8); Monocytes % 13.9 % (1.7-12.7); Neutrophils # 3.6 10*3/uL (1.4-7.4); Neutrophils % 62.4 % (38.7-73.9); Platelet Count 168 T/CUMM (130-400); Red Cell Distribution Width 13.1 % (9.3-17.3); White Blood Count 5.7 T/CUMM (4-12)
[2016-11-14 04:30] LABS: Alanine Aminotransferase 18 U/L (13-56); Albumin 2.5 G/DL (3.4-5.0); Alkaline Phosphatase 75 U/L (45-117); Aspartate Amino Transferase 13 U/L (0-37); Bilirubin,Indirect 0.6 MG/DL (0.0-1.0); Blood Urea Nitrogen 19 MG/DL (7-18); Calcium 8.2 MG/DL (8.5-10.1); Glucose 194 MG/DL (74-106); Magnesium 2.1 MG/DL (1.8-2.4); Osmolality,Calculated 287.3 MOS/KG (273-304); Potassium 3.8 MMOL/L (3.5-5.1); Sodium 141 MMOL/L (136-145); Total Protein 4.7 G/DL (6.4-8.3)
[2016-11-14 04:33] LABS: Troponin I Only 0.878 NG/ML (0.00-0.045)
--- NOTE | 2016-11-14 06:31 | Cardiothoracic Progress Note ---
Cardiothoracic Subjective Interval history: Patient had a fairly comfortable night. Vital signs have been stable she is breathing comfortably. She is having a fair amount of serosanguineous drainage from her wound but this appears to be benign. The wound looks intact and does not appear infected. White blood cell count is within normal limits. Overall her progress appears satisfactory and we will try to increase her activity as she tolerates it today. Exam (Progress Note) - Constitutional Vitals: Period Temp Pulse Resp BP Sys/Morillo Pulse Ox Last 24 Hr 96.6 F-99.2 F 91-110 16-20 82-108/51-77 89-99 Result/EKG - Labs CBC & BMP: 11/14/16 02:45 11/14/16 02:45 Labs: Laboratory Results - last 24 hr 11/08/16 11/12/16 11/13/16 05:29 20:57 04:01 WBC RBC Hgb Hct MCV MCH MCHC RDW Plt Count MPV Neut % (Auto) Lymph % (Auto) [place] % (Auto) Eos % (Auto) Baso % (Auto) Neut # (Auto) Lymph # (Auto) [place] # (Auto) Eos # (Auto) Baso # (Auto) Immature Gran % Nucleated RBC % Immature Gran # Nucleated RBCs # Immature Plt Fraction Sodium Potassium Chloride Carbon Dioxide Anion Gap BUN Creatinine GFR Calculation BUN/Creatinine Ratio Glucose POC Glucose 262 H Calculated Osmolality Calcium Magnesium Total Bilirubin Direct Bilirubin Indirect Bilirubin AST ALT Alkaline Phosphatase Total Creatine Kinase CK-MB (CK-2) Troponin I Total Protein Albumin Globulin Albumin/Globulin Ratio Blood Type O POSITIVE Antibody Screen Negative Crossmatch See Detail See Detail 11/13/16 11/13/16 11/13/16 07:39 11:10 16:52 WBC RBC Hgb Hct MCV MCH MCHC RDW Plt Count MPV Neut % (Auto) Lymph % (Auto) [place] % (Auto) Eos % (Auto) Baso % (Auto) Neut # (Auto) Lymph # (Auto) [place] # (Auto) Eos # (Auto) Baso # (Auto) Immature Gran % Nucleated RBC % Immature Gran # Nucleated RBCs # Immature Plt Fraction Sodium Potassium Chloride Carbon Dioxide Anion Gap BUN Creatinine GFR Calculation BUN/Creatinine Ratio Glucose POC Glucose 195 H 314 H 151 H Calculated Osmolality Calcium Magnesium Total Bilirubin Direct Bilirubin Indirect Bilirubin AST ALT Alkaline Phosphatase Total Creatine Kinase CK-MB (CK-2) Troponin I Total Protein Albumin Globulin Albumin/Globulin Ratio Blood Type Antibody Screen Crossmatch 11/13/16 11/14/16 11/14/16 20:26 02:45 02:45 WBC 5.7 RBC 3.50 L D Hgb 10.3 L D Hct 30.0 L MCV 85.7 L MCH 29 MCHC 34.3 RDW 13.1 Plt Count 168 D MPV 10.9 Neut % (Auto) 62.4 Lymph % (Auto) 18.0 L [place] % (Auto) 13.9 H Eos % (Auto) 5.1 Baso % (Auto) 0.2 Neut # (Auto) 3.6 Lymph # (Auto) 1.0 L [place] # (Auto) 0.8 Eos # (Auto) 0.3 Baso # (Auto) 0.0 Immature Gran % 0.4 Nucleated RBC % 0.0 Immature Gran # 0.02 Nucleated RBCs # 0.00 Immature Plt Fraction 0.0 Sodium 141 Potassium 3.8 Chloride 105 Carbon Dioxide 27 Anion Gap 12.8 BUN 19 H Creatinine 0.60 GFR Calculation 106 BUN/Creatinine Ratio 31.00 H Glucose 194 H POC Glucose 205 H Calculated Osmolality 287.3 Calcium 8.2 L Magnesium 2.1 Total Bilirubin 0.80 Direct Bilirubin 0.240 H Indirect Bilirubin 0.6 AST 13 ALT 18 Alkaline Phosphatase 75 Total Creatine Kinase 68 D CK-MB (CK-2) 1.2 Troponin I 0.878 H D Total Protein 4.7 L Albumin 2.5 L Globulin 2.2 L Albumin/Globulin Ratio 1.1 Blood Type Antibody Screen Crossmatch Quality Measures - VTE Contraindication to Pharmacological VTE Prophylaxis: High Risk of Bleeding Specialty Discharge - Follow Up or Referrals
[2016-11-14] MEDS: INSULIN REGULAR 100 UNIT/ML SUBCUT SCH ×4 (08:16→22:05)
[2016-11-14] MEDS: CLORAZEPATE 3.75 MG TABLET PO SCH ×3 (08:16→22:05)
[2016-11-14] MEDS: CLOPIDOGREL 75 MG TABLET PO SCH (08:17)
[2016-11-14] MEDS: LEVOFLOXACIN 500 MG TABLET PO SCH (08:17)
[2016-11-14] MEDS: FERROUS SULFATE 325 MG TABLET PO SCH (08:17)
[2016-11-14] MEDS: MONTELUKAST 10 MG TABLET PO SCH (08:17)
[2016-11-14] MEDS: sitaGLIPtin 100 MG TABLET PO SCH (08:17)
[2016-11-14] MEDS: PANTOPRAZOLE 40 MG TABLET PO SCH (08:17)
[2016-11-14] MEDS: POTASSIUM CHLORIDE 20 MEQ TABLET PO PRN ×2 (08:18→08:59)
--- NOTE | 2016-11-14 08:51 | Pulmonology Progress Note ---
Pulmonary - PN: Subj Interval history: Ms. okeefe is a 56-year-old white female who we saw in initial pulmonary consultation 11/05/2016. At that time, our impressions were: 1. Tobacco abuse. 90-77-[id number]-year history of smoking. 2. Probable COPD. Mild wheeze. Probable bronchospastic disease. 3. Severe three-vessel heart disease with ejection fraction of 20% and global hypokinesis 4. Hyperlipidemia. 5. Diabetes mellitus. 6. See past history 11/06/2016. The patient has decided to go forth with CABG. This will most likely be done tomorrow. In anticipation of this, we will obtain complete pulmonary function testing today with pre-and post bronchodilator spirometry. Her previously noted large airway wheeze has resolved with the addition of Singulair. This needs to be continued. Medications have been reviewed. We made no changes today. Labs been reviewed. No new labs were drawn today. 11/07/2016. Patient's CABG has been scheduled for 11/09/2016. We discussed this again with her today. From a pulmonary standpoint she is appropriate for surgery. Pulmonary function tests done 11/06/2016 showed SPO2 96% on room air, small airways disease, paradoxical response to inhaled bronchodilators, no restrictive disease, normal diffusion, and maximum voluntary ventilation was normal. On chest exam, she is still wheeze free. She states that her breathing is doing well. Medications have been reviewed. We made no changes today. Labs been reviewed. White count is 6700 with a normal differential; H&H 10.5/ 36.5; platelet count 145,000; creatinine 0.50, BUN 10, electrolytes were normal ; hemoglobin A1c elevated at 9.5% showing poor control of her diabetes mellitus 11/10/2016. This patient had coronary artery bypass grafts on 11/09/2016. She required to reexplore. She came off the ventilator with no problems. She is stable this morning and her chest x-ray shows no heart failure and no infiltrates. ABGs show a pH of 7.42, PCO2 38, PO2 of 106 and a bicarb of 24. Electrolytes are normal. Creatinine is 0.5 with a BUN of 12. H&H 10.5/30.4. She is doing well from a pulmonary standpoint. She has underlying COPD which is not severe. Dr. Sean Dyer will see her for me this weekend. 11/13/2016. Patient complains of a slight cough. Will check a sputum for Gram stain culture and sensitivity. Her chest x-ray shows small bilateral pleural effusions. We will get another tomorrow. Her H&H is 8.2/24.1. She told me she is getting 2 units of blood today. White count is 5400 with 57 segs 28 lymphs and 10 monos. Electrolytes are normal. Creatinine 0.5. BUNs 26. Patient was seen with the family member who did not bother to wake up while we are there. 11/14/2016. Patient was seen along with her daughter. She complains of some musculoskeletal chest pain. Her chest x-ray shows a small left-sided pleural effusion and a larger right-sided pleural effusion. She has just gotten a collection jar her chart for the sputum ordered yesterday. So far no specimen but she is trying. The patient notices her breathing was much better as far as the wheezing is concerned and asking she takes Singulair on a long-term basis. The answer is yes and I think this would improve her overall. Also had a discussion with her about not restarting smoking and I think she is made her per mine to quit smoking. Creatinine is 0.6 BUN is 19. Electrolytes normal. Patient required a blood transfusion yesterday and H&H is improved from 8.2/24.0 -10.3/30.3. White count is 5762 segs 18 lymphs and 14 monocytes. Exam (Progress Note) - Constitutional Vitals: Period Temp Pulse Resp BP Sys/Morillo Pulse Ox Last 24 Hr 97.3 F-98.9 F 79-94 16-18 82-96/53-64 92-98 Exam: General. No apparent distress. Chest... Wheeze free. Slight cough Heart no gallop Abdomen is nontender and nondistended; bowel sounds are positive 4 Lower extremities with nothing to suggest acute deep venous thrombophlebitis Psychiatric oriented 3 Neurologic long-tract motor function is intact The remainder the physical exam is negative. Plan: 11/07/2016. 1. Continue present pulmonary treatment. 2. Plans for CABG 11/09/2016 noted. 3. See orders. 11/10/2016. 1. See today's note above. 2. Stable post coronary artery bypass grafts. 3. Continue inhalation therapy. 4. Dr. Dyer we will see for me this week 11/13/2016. 1. See my note above. 2. Blood transfusion 3. Sputum for Gram stain culture and sensitivity 4. Follow-up lab and chest x-ray tomorrow 11/14/2016. 1. See today's note above 2. Bilateral pleural effusions. 3. Chest x-ray in the morning. 4. Sputum pending 5. Continue Singulair indefinitely Exam (Progress Note) - Constitutional Vitals: Period Temp Pulse Resp BP Sys/Morillo Pulse Ox Last 24 Hr 96.8 F-99.2 F 91-110 16-20 82-109/51-77 89-99 Results - Labs CBC & BMP: 11/14/16 02:45 11/14/16 02:45 Specialty Discharge - Follow Up or Referrals
[2016-11-14] MEDS: DOCUSATE SODIUM 100 MG CAPSULE PO SCH (08:59)
[2016-11-14] MEDS: CHLORHEXIDINE 0.12% ORAL RINSE 60 ML BOTTLE SWISH/SPIT SCH ×2 (09:00→22:04)
--- NOTE | 2016-11-14 09:18 | XRay Report ---
XR chest 2V Date: 11/14/2016 4:00 AM History: Shortness of breath Comparison: 11/13/2016 Technique: PA and lateral chest Findings: Stable cardiomegaly with prior median sternotomy. Right IJ CVP line is unchanged in position. Minimal reduction in the edema/atelectasis with minimally smaller pleural effusions. Stable mediastinum and osseous structures. Prior anterior cervical fusion. Impression: Improved pulmonary edema/atelectasis in patient with median sternotomy. Minimally smaller moderate right and small left pleural effusions. PROCEDURE INTERPRETED AT [facility] DEPARTMENT OF RADIOLOGY Final Report Signed by: Dr. Ros Braden
--- NOTE | 2016-11-14 09:36 | Cardiology Progress Note ---
Assessment and Plan (1) 3-vessel CAD Status: Acute Assessment and plan: SEE PLAN OF CARE LISTED BELOW. Current Visit: Yes (2) Elevated troponin Status: Acute Assessment and plan: SEE PLAN OF CARE LISTED BELOW. Current Visit: Yes (3) Heavy cigarette smoker (20-39 per day) Status: Chronic Assessment and plan: SEE PLAN OF CARE LISTED BELOW. Current Visit: Yes (4) Diabetes mellitus Status: Chronic Assessment and plan: SEE PLAN OF CARE LISTED BELOW. Current Visit: Yes (5) Dyslipidemia Status: Chronic Assessment and plan: SEE PLAN OF CARE LISTED BELOW. Current Visit: Yes (6) Anxiety Status: Chronic Assessment and plan: SEE PLAN OF CARE LISTED BELOW. Current Visit: Yes (7) Ischemic cardiomyopathy Status: Acute Assessment and plan: SEE PLAN OF CARE LISTED BELOW. Current Visit: Yes (8) Unspecified sleep apnea Status: Acute Assessment and plan: SEE PLAN OF CARE LISTED BELOW. Current Visit: Yes (9) Status post coronary artery bypass graft Status: Acute Assessment and plan: SEE PLAN OF CARE LISTED BELOW. Current Visit: Yes (10) Anemia Status: Acute Assessment and plan: SEE PLAN OF CARE LISTED BELOW. Current Visit: Yes (11) Tachycardia Status: Acute Assessment and plan: SEE PLAN OF CARE LISTED BELOW. Current Visit: Yes (12) CHF (congestive heart failure) Status: Acute Assessment and plan: SEE PLAN OF CARE LISTED BELOW. 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 Child office for further evaluation of chest pain that she had been experiencing for 2 weeks. She has a past medical history of dyslipidemia, diabetes, anxiety, tobacco abuse and GERD. She was seen by Dr. Child in the clinic and was noted to have an abnormal EKG. Subsequently, she was sent over to the emergency department. She underwent heart catheterization which revealed multivessel disease. Subsequently, Dr. Whitehead has been consulted to evaluate for surgery. She underwent coronary artery bypass grafting 2 November 09, 2016 with left internal mammary graft to obtuse marginal coronary artery and saphenous vein graft to RCA. Patient was taken emergently back to the operating room November 09, 2016 after having EKG changes concerning for ischemia. No evidence of myocardial injury was noted in surgery. Patient was requested no intervention was needed. EKG changes have resolved. Now only mild inferior T-wave abnormality. Echocardiogram this hospitalization revealed ischemic cardiomyopathy with ejection fraction estimated at 20%. Received blood transfusion November 13, 2016 for anemia. NOVEMBER 14, 2016 Patient continues to be followed for the following chronic, stable conditions: CAD, dyslipidemia, diabetes, anxiety, tobacco use and ischemic cardiomyopathy. We are also monitoring the following more acute conditions: Anemia, status post CABG 2, CHF, and tachycardia. Patient was seen and examined on the telemetry unit today. She is status post coronary artery bypass grafting 2 with left internal mammary graft to obtuse marginal coronary artery and saphenous vein graft to RCA. Postop day #5. She received blood transfusion yesterday. H&H has improved this morning. Continues to have mild chest soreness. Confirms dyspnea. Chest x-ray this morning reveals pulmonary edema. BNP 1148. I have added IV Lasix twice daily. Will monitor renal function and electrolyte closely with this. Strict I's and O's and daily weights. She reports that she has been up walking around the room. Dyspnea on exertion noted. Blood pressure is slightly improved this morning. She remains slightly tachycardic. I will add low-dose beta-blockade with hold parameters. Patient is allergic to aspirin. Continue Plavix. Continue lipid-lowering agent. EF 20%. Unfortunately, blood pressure will not allow initiation of PENNY inhibitor/ARB. Will monitor blood pressure and hopefully will be able to introduce this medication prior to discharge. I will further discuss with Dr. Cox and await his additional recommendations. REVIEW OF SYSTEMS, NOVEMBER 14, 2016: Cardiovascular: Denies chest pain, heaviness or tightness. Does confirm chest soreness. GI: Denies nausea, vomiting and abdominal pain. Respiratory: Confirms dyspnea, TIERNEY and orthopnea. IMPRESSION AND PLAN: 1. S/P CABG - Status post CABG today with BEVERLY to obtuse marginal coronary artery and SVG to RCA. Postop day #5. Patient is allergic to aspirin. Continue Plavix. Continue lipid-lowering agent. EF 20%. Blood pressure is slightly better today. I will initiate low-dose beta-blockade with hold parameters. Blood pressure unable to tolerate introduction of PENNY inhibitor or ARB. Will monitor blood pressure and hopefully will be able to introduce PENNY/ ARB prior to discharge. I will further discuss with Dr. Cox and await his additional recommendations. 2. DYSLIPIDEMIA - LDL 124. Continue high intensity statin. Repeat lipid panel in 4-6 weeks. 3. DIABETES - Continue sliding scale insulin. Accu-Cheks before meals and at bedtime. 4. ANXIETY - Under well control. 5. TOBACCO ABUSE - Current everyday smoker. Continue to reiterate importance of smoke cessation. Continue nicotine patch. 6. ISCHEMIC CARDIOMYOPATHY - Now revascularized. EF calculated at 20% per echocardiogram this admission. Blood pressure is slightly better today. I will initiate low-dose beta-blockade with hold parameters. Blood pressure unable to tolerate introduction of PENNY inhibitor or ARB. We will continue to monitor blood pressure and introduce when able. Patient will need repeat echocardiogram 3 months after discharge to reevaluate ejection fraction. If no improvement is noted she will be a candidate for ICD placement. 7. PROBABLE COPD - Dr. Horan is following and managing. Appreciate his assistance. 8. UNSPECIFIED SLEEP APNEA - Negative HST evaluation. She will be set up for outpatient sleep study evaluation. 9. ANEMIA - Received blood transfusion 11/13/16. H&H much improved this morning. Daily CBC, transfuse as needed. 10. TACHYCARDIA - Blood pressure has improved today. I will introduce low dose beta-blockade with hold parameters. 11 CHF - This is acute. Etiology systolic dysfunction. Chest x-ray this morning does reveal pulmonary edema. BNP 1148. I have initiated IV Lasix today. Will monitor renal function and electrolytes closely with this. Will repeat chest x-ray morning. Strict I's and O's and daily weights. Exam (Progress Note) - Constitutional Vitals: Period Temp Pulse Resp BP Sys/Morillo Pulse Ox Last 24 Hr 96.8 F-99.2 F 91-110 16-20 82-109/51-77 88-99 Exam: General: Appears well with no apparent distress. Pleasant and cooperative. Appears comfortable. HEENT: PERRL, normocephalic, atraumatic. Mucous membranes moist. No jaundice noted. Conjunctiva moist and clear, sclerae anicteric Neck: No JVD/HJR, no thyromegaly or lymphadenopathy noted. No carotid bruit appreciated Cardiac: Regular rate and rhythm, tachycardia. No murmur rub or gallop. Chest wall: Tender to palpation. Bandage to midsternal chest wall intact. Lungs: Decreased breath sounds, bibasilar rales without accessory muscle use to assist the respiratory pattern. Requiring oxygen via nasal cannula. Abdomen: Soft, bowel sounds normoactive. Nontender and nondistended. No abdominal bruit or thrill noted. No masses noted. Extremities: No clubbing, cyanosis noted. Trace edema to lower extremities. Upper extremity pulses 2+. Lower extremity pulses 2+. Capillary refill less than 3 seconds. Incision open to air. [place] intact. Without signs of infection. Skin: No unusual lesions or rashes. No skin breakdown appreciated. Neuro: Awake, alert and oriented 3. Moves all extremities well without hemiparesis or paralysis. No essential tremor is appreciated. Result/EKG - Labs CBC & BMP: 11/14/16 02:45 11/14/16 02:45 Lab Results: I have reviewed the past 24 hour labs Labs: Laboratory Results - last 24 hr 11/12/16 11/13/16 11/13/16 20:57 04:01 11:10 WBC RBC Hgb Hct MCV MCH MCHC RDW Plt Count MPV Neut % (Auto) Lymph % (Auto) [place] % (Auto) Eos % (Auto) Baso % (Auto) Neut # (Auto) Lymph # (Auto) [place] # (Auto) Eos # (Auto) Baso # (Auto) Immature Gran % Nucleated RBC % Immature Gran # Nucleated RBCs # Immature Plt Fraction Sodium Potassium Chloride Carbon Dioxide Anion Gap BUN Creatinine GFR Calculation BUN/Creatinine Ratio Glucose POC Glucose 262 H 314 H Calculated Osmolality Calcium Magnesium Total Bilirubin Direct Bilirubin Indirect Bilirubin AST ALT Alkaline Phosphatase Total Creatine Kinase CK-MB (CK-2) Troponin I B-Natriuretic Peptide Total Protein Albumin Globulin Albumin/Globulin Ratio Blood Type O POSITIVE Antibody Screen Negative Crossmatch See Detail 11/13/16 11/13/16 11/14/16 16:52 20:26 02:45 WBC 5.7 RBC 3.50 L D Hgb 10.3 L D Hct 30.0 L MCV 85.7 L MCH 29 MCHC 34.3 RDW 13.1 Plt Count 168 D MPV 10.9 Neut % (Auto) 62.4 Lymph % (Auto) 18.0 L [place] % (Auto) 13.9 H Eos % (Auto) 5.1 Baso % (Auto) 0.2 Neut # (Auto) 3.6 Lymph # (Auto) 1.0 L [place] # (Auto) 0.8 Eos # (Auto) 0.3 Baso # (Auto) 0.0 Immature Gran % 0.4 Nucleated RBC % 0.0 Immature Gran # 0.02 Nucleated RBCs # 0.00 Immature Plt Fraction 0.0 Sodium Potassium Chloride Carbon Dioxide Anion Gap BUN Creatinine GFR Calculation BUN/Creatinine Ratio Glucose POC Glucose 151 H 205 H Calculated Osmolality Calcium Magnesium Total Bilirubin Direct Bilirubin Indirect Bilirubin AST ALT Alkaline Phosphatase Total Creatine Kinase CK-MB (CK-2) Troponin I B-Natriuretic Peptide Total Protein Albumin Globulin Albumin/Globulin Ratio Blood Type Antibody Screen Crossmatch 11/14/16 11/14/16 11/14/16 02:45 03:00 07:44 WBC RBC Hgb Hct MCV MCH MCHC RDW Plt Count MPV Neut % (Auto) Lymph % (Auto) [place] % (Auto) Eos % (Auto) Baso % (Auto) Neut # (Auto) Lymph # (Auto) [place] # (Auto) Eos # (Auto) Baso # (Auto) Immature Gran % Nucleated RBC % Immature Gran # Nucleated RBCs # Immature Plt Fraction Sodium 141 Potassium 3.8 Chloride 105 Carbon Dioxide 27 Anion Gap 12.8 BUN 19 H Creatinine 0.60 GFR Calculation 106 BUN/Creatinine Ratio 31.00 H Glucose 194 H POC Glucose 218 H Calculated Osmolality 287.3 Calcium 8.2 L Magnesium 2.1 Total Bilirubin 0.80 Direct Bilirubin 0.240 H Indirect Bilirubin 0.6 AST 13 ALT 18 Alkaline Phosphatase 75 Total Creatine Kinase 68 D CK-MB (CK-2) 1.2 Troponin I 0.878 H D B-Natriuretic Peptide 1148 H Total Protein 4.7 L Albumin 2.5 L Globulin 2.2 L Albumin/Globulin Ratio 1.1 Blood Type Antibody Screen Crossmatch Quality Measures - VTE Contraindication to Pharmacological VTE Prophylaxis: High Risk of Bleeding Specialty Discharge - Follow Up or Referrals
[2016-11-14] MEDS: CARVEDILOL 3.125 MG TABLET PO SCH ×2 (11:15→22:05)
[2016-11-14] MEDS: FUROSEMIDE 40 MG/4 ML VIAL IV SCH (16:33)
[2016-11-14] MEDS: traZODone 50 MG TABLET PO SCH (22:04)
[2016-11-14] MEDS: ROSUVASTATIN 20 MG TABLET PO SCH (22:05)
[2016-11-14] MEDS: LINACLOTIDE 145 MCG CAPSULE PO SCH (22:15)
[2016-11-15 04:58] LABS: Basophils % 0.4 % (0.0-0.8); Eosinophils # 0.3 10*3/uL (0.0-0.87); Eosinophils % 5.6 % (0.00-10.9); Hematocrit 31.2 VOL% (35.7-47.0); Hemoglobin 10.9 GM/DL (12.0-16.0); Immature Granulocytes % 0.2 %; Immature Granulocytes Absolute 0.01 #; Lymphocytes # 1.1 10*3/uL (1.4-4.0); Mean Corpuscular HGB Conc 34.9 GM/DL (32-36); Mean Corpuscular Hemoglobin 30 PG (27-34); Mean Corpuscular Volume 85.2 FL (87-102); Mean Platelet Volume 10.3 FL (9.6-12.0); Monocytes # 0.8 10*3/uL (0.11-0.8); Monocytes % 14.5 % (1.7-12.7); Neutrophils # 3.3 10*3/uL (1.4-7.4); Neutrophils % 59.3 % (38.7-73.9); Platelet Count 199 T/CUMM (130-400); Red Blood Count 3.66 MC/CUMM (3.8-5.5); Red Cell Distribution Width 12.8 % (9.3-17.3); White Blood Count 5.5 T/CUMM (4-12)
[2016-11-15 05:28] LABS: Alanine Aminotransferase 17 U/L (13-56); Albumin 2.6 G/DL (3.4-5.0); Alkaline Phosphatase 75 U/L (45-117); Aspartate Amino Transferase 9 U/L (0-37); Bilirubin,Indirect 0.3 MG/DL (0.0-1.0); Blood Urea Nitrogen 10 MG/DL (7-18); Calcium 8.3 MG/DL (8.5-10.1); Glucose 153 MG/DL (74-106); Magnesium 1.8 MG/DL (1.8-2.4); Osmolality,Calculated 280.4 MOS/KG (273-304); Potassium 3.5 MMOL/L (3.5-5.1); Sodium 140 MMOL/L (136-145); Total Protein 4.9 G/DL (6.4-8.3)
[2016-11-15 05:30] LABS: Troponin I Only 0.538 NG/ML (0.00-0.045)
[2016-11-15] MEDS: POTASSIUM CHLORIDE 20 MEQ TABLET PO PRN ×2 (05:41→06:43)
--- NOTE | 2016-11-15 06:35 | Cardiothoracic Progress Note ---
Cardiothoracic Subjective Interval history: Patient looks and feels some better. She is breathing comfortably and her vital signs have been a little more stable as her blood pressure is gradually coming up. Laboratory work looks essentially within normal limits at this postoperative stage and x-ray is pending from today. She was able to walk in the hallway some yesterday and we will gradually try to increase her activity as tolerated today. Overall her progress appears satisfactory. Exam (Progress Note) - Constitutional Vitals: Period Temp Pulse Resp BP Sys/Morillo Pulse Ox Last 24 Hr 97.9 F-99.6 F 93-110 18-20 80-112/52-77 88-98 Result/EKG - Labs CBC & BMP: 11/15/16 Unknown 11/15/16 Unknown Labs: Laboratory Results - last 24 hr 11/14/16 11/14/16 11/14/16 03:00 07:44 11:38 WBC RBC Hgb Hct MCV MCH MCHC RDW Plt Count MPV Neut % (Auto) Lymph % (Auto) [place] % (Auto) Eos % (Auto) Baso % (Auto) Neut # (Auto) Lymph # (Auto) [place] # (Auto) Eos # (Auto) Baso # (Auto) Immature Gran % Nucleated RBC % Immature Gran # Nucleated RBCs # Immature Plt Fraction Sodium Potassium Chloride Carbon Dioxide Anion Gap BUN Creatinine GFR Calculation BUN/Creatinine Ratio Glucose POC Glucose 218 H 215 H Calculated Osmolality Calcium Magnesium Total Bilirubin Direct Bilirubin Indirect Bilirubin AST ALT Alkaline Phosphatase Total Creatine Kinase CK-MB (CK-2) Troponin I B-Natriuretic Peptide 1148 H Total Protein Albumin Globulin Albumin/Globulin Ratio 11/14/16 11/14/16 11/15/16 16:12 19:01 Unknown WBC 5.5 RBC 3.66 L Hgb 10.9 L Hct 31.2 L MCV 85.2 L MCH 30 MCHC 34.9 RDW 12.8 Plt Count 199 MPV 10.3 Neut % (Auto) 59.3 Lymph % (Auto) 20.0 L [place] % (Auto) 14.5 H Eos % (Auto) 5.6 Baso % (Auto) 0.4 Neut # (Auto) 3.3 Lymph # (Auto) 1.1 L [place] # (Auto) 0.8 Eos # (Auto) 0.3 Baso # (Auto) 0.0 Immature Gran % 0.2 Nucleated RBC % 0.0 Immature Gran # 0.01 Nucleated RBCs # 0.00 Immature Plt Fraction 0.0 Sodium Potassium Chloride Carbon Dioxide Anion Gap BUN Creatinine GFR Calculation BUN/Creatinine Ratio Glucose POC Glucose 145 H 242 H Calculated Osmolality Calcium Magnesium Total Bilirubin Direct Bilirubin Indirect Bilirubin AST ALT Alkaline Phosphatase Total Creatine Kinase CK-MB (CK-2) Troponin I B-Natriuretic Peptide Total Protein Albumin Globulin Albumin/Globulin Ratio 11/15/16 Unknown WBC RBC Hgb Hct MCV MCH MCHC RDW Plt Count MPV Neut % (Auto) Lymph % (Auto) [place] % (Auto) Eos % (Auto) Baso % (Auto) Neut # (Auto) Lymph # (Auto) [place] # (Auto) Eos # (Auto) Baso # (Auto) Immature Gran % Nucleated RBC % Immature Gran # Nucleated RBCs # Immature Plt Fraction Sodium 140 Potassium 3.5 Chloride 103 Carbon Dioxide 31 Anion Gap 9.5 BUN 10 Creatinine 0.60 GFR Calculation 105 BUN/Creatinine Ratio 16.00 Glucose 153 H POC Glucose Calculated Osmolality 280.4 Calcium 8.3 L Magnesium 1.8 Total Bilirubin 0.50 Direct Bilirubin 0.230 H Indirect Bilirubin 0.3 AST 9 ALT 17 Alkaline Phosphatase 75 Total Creatine Kinase 44 D CK-MB (CK-2) < 1.0 Troponin I 0.538 H D B-Natriuretic Peptide Total Protein 4.9 L Albumin 2.6 L Globulin 2.3 Albumin/Globulin Ratio 1.1 Quality Measures - VTE Contraindication to Pharmacological VTE Prophylaxis: High Risk of Bleeding Specialty Discharge - Follow Up or Referrals
--- NOTE | 2016-11-15 07:07 | Order Completion Report ---
See report scanned to EMR
[2016-11-15] MEDS: ALBUTEROL 2.5 MG/3 ML NEB RESP TX SCH ×3 (08:01→23:22)
--- NOTE | 2016-11-15 08:15 | XRay Report ---
XR chest 2V Date: 11/15/2016 4:00 AM History: Shortness of breath Comparison: 11/14/2016 Technique: PA and lateral chest Findings: Stable cardiomegaly with prior median sternotomy and stable right IJ CVP line. No evidence pneumothorax with persistent diffuse atelectasis/edema at the lung bases with moderate right and small left pleural effusions. Prior cholecystectomy and anterior cervical fusion. Impression: Status post median sternotomy with fairly stable edema/atelectasis in the mid to lower lung zones with moderate right pleural effusion and minimally larger left left pleural effusion. PROCEDURE INTERPRETED AT [facility] DEPARTMENT OF RADIOLOGY Final Report Signed by: Dr. Ros Braden
--- NOTE | 2016-11-15 09:22 | Pulmonology Progress Note ---
Pulmonary - PN: Subj Interval history: Ms. okeefe is a 56-year-old white female who we saw in initial pulmonary consultation 11/05/2016. At that time, our impressions were: 1. Tobacco abuse. [id number]-year history of smoking. 2. Probable COPD. Mild wheeze. Probable bronchospastic disease. 3. Severe three-vessel heart disease with ejection fraction of 20% and global hypokinesis 4. Hyperlipidemia. 5. Diabetes mellitus. 6. See past history 11/06/2016. The patient has decided to go forth with CABG. This will most likely be done tomorrow. In anticipation of this, we will obtain complete pulmonary function testing today with pre-and post bronchodilator spirometry. Her previously noted large airway wheeze has resolved with the addition of Singulair. This needs to be continued. Medications have been reviewed. We made no changes today. Labs been reviewed. No new labs were drawn today. 11/07/2016. Patient's CABG has been scheduled for 11/09/2016. We discussed this again with her today. From a pulmonary standpoint she is appropriate for surgery. Pulmonary function tests done 11/06/2016 showed SPO2 96% on room air, small airways disease, paradoxical response to inhaled bronchodilators, no restrictive disease, normal diffusion, and maximum voluntary ventilation was normal. On chest exam, she is still wheeze free. She states that her breathing is doing well. Medications have been reviewed. We made no changes today. Labs been reviewed. White count is 6700 with a normal differential; H&H 10.5/ 36.5; platelet count 145,000; creatinine 0.50, BUN 10, electrolytes were normal ; hemoglobin A1c elevated at 9.5% showing poor control of her diabetes mellitus 11/10/2016. This patient had coronary artery bypass grafts on 11/09/2016. She required to reexplore. She came off the ventilator with no problems. She is stable this morning and her chest x-ray shows no heart failure and no infiltrates. ABGs show a pH of 7.42, PCO2 38, PO2 of 106 and a bicarb of 24. Electrolytes are normal. Creatinine is 0.5 with a BUN of 12. H&H 10.5/30.4. She is doing well from a pulmonary standpoint. She has underlying COPD which is not severe. Dr. Sean Dyer will see her for me this weekend. 11/13/2016. Patient complains of a slight cough. Will check a sputum for Gram stain culture and sensitivity. Her chest x-ray shows small bilateral pleural effusions. We will get another tomorrow. Her H&H is 8.2/24.1. She told me she is getting 2 units of blood today. White count is 5400 with 57 segs 28 lymphs and 10 monos. Electrolytes are normal. Creatinine 0.5. BUNs 26. Patient was seen with the family member who did not bother to wake up while we are there. 11/14/2016. Patient was seen along with her daughter. She complains of some musculoskeletal chest pain. Her chest x-ray shows a small left-sided pleural effusion and a larger right-sided pleural effusion. She has just gotten a collection jar her chart for the sputum ordered yesterday. So far no specimen but she is trying. The patient notices her breathing was much better as far as the wheezing is concerned and asking she takes Singulair on a long-term basis. The answer is yes and I think this would improve her overall. Also had a discussion with her about not restarting smoking and I think she is made her per mine to quit smoking. Creatinine is 0.6 BUN is 19. Electrolytes normal. Patient required a blood transfusion yesterday and H&H is improved from 8.2/24.0 -10.3/30.3. White count is 5762 segs 18 lymphs and 14 monocytes. 03/18/2016. Today's chest x-ray is much better. The bilateral pleural effusions are 80% resolved. BNP is pending. BNP done yesterday was 1148. Electrolytes are normal. Creatinine 0.6 with a BUN of 10. H&H is stable at 10.9/31.2. Platelets 199,000. White count is 5559 620 lymphs and 14 monocytes patient says she feels much better. There are no new problems. Sputum's are pending Exam (Progress Note) - Constitutional Vitals: Period Temp Pulse Resp BP Sys/Morillo Pulse Ox Last 24 Hr 97.3 F-98.9 F 79-94 16-18 82-96/53-64 92-98 Exam: General. No apparent distress. Chest... Wheeze free. Slight cough Heart no gallop Abdomen is nontender and nondistended; bowel sounds are positive 4 Lower extremities with nothing to suggest acute deep venous thrombophlebitis Psychiatric oriented 3 Neurologic long-tract motor function is intact The remainder the physical exam is negative. Plan: 11/07/2016. 1. Continue present pulmonary treatment. 2. Plans for CABG 11/09/2016 noted. 3. See orders. 11/10/2016. 1. See today's note above. 2. Stable post coronary artery bypass grafts. 3. Continue inhalation therapy. 4. Dr. Dyer we will see for me this week 11/13/2016. 1. See my note above. 2. Blood transfusion 3. Sputum for Gram stain culture and sensitivity 4. Follow-up lab and chest x-ray tomorrow 11/14/2016. 1. See today's note above 2. Bilateral pleural effusions. 3. Chest x-ray in the morning. 4. Sputum pending 5. Continue Singulair indefinitely 11/15/2016. 1. See today's note above 2. Chest x-ray and BNP in the morning to Exam (Progress Note) - Constitutional Vitals: Period Temp Pulse Resp BP Sys/Morillo Pulse Ox Last 24 Hr 96.4 F-99.6 F 93-109 18-20 80-112/52-77 90-98 Results - Labs CBC & BMP: 11/15/16 Unknown 11/15/16 Unknown Specialty Discharge - Follow Up or Referrals
[2016-11-15] MEDS: FUROSEMIDE 40 MG/4 ML VIAL IV SCH ×2 (09:50→15:25)
[2016-11-15] MEDS: INSULIN REGULAR 100 UNIT/ML SUBCUT SCH ×4 (09:50→22:28)
[2016-11-15] MEDS: CLOPIDOGREL 75 MG TABLET PO SCH (09:54)
[2016-11-15] MEDS: PANTOPRAZOLE 40 MG TABLET PO SCH (09:54)
[2016-11-15] MEDS: LEVOFLOXACIN 500 MG TABLET PO SCH (09:54)
[2016-11-15] MEDS: DOCUSATE SODIUM 100 MG CAPSULE PO SCH (09:54)
[2016-11-15] MEDS: CLORAZEPATE 3.75 MG TABLET PO SCH ×3 (09:54→21:57)
[2016-11-15] MEDS: sitaGLIPtin 100 MG TABLET PO SCH (09:55)
[2016-11-15] MEDS: FERROUS SULFATE 325 MG TABLET PO SCH (09:55)
[2016-11-15] MEDS: CHLORHEXIDINE 0.12% ORAL RINSE 60 ML BOTTLE SWISH/SPIT SCH ×2 (09:55→21:59)
[2016-11-15] MEDS: MONTELUKAST 10 MG TABLET PO SCH (09:55)
[2016-11-15] MEDS: CARVEDILOL 3.125 MG TABLET PO SCH (09:58)
--- NOTE | 2016-11-15 11:47 | Cardiology Progress Note ---
<Diana Aguilar - Last Filed: 11/15/16 11:54> Assessment and Plan (1) 3-vessel CAD Status: Acute Assessment and plan: SEE PLAN OF CARE LISTED BELOW. Current Visit: Yes (2) Elevated troponin Status: Acute Assessment and plan: SEE PLAN OF CARE LISTED BELOW. Current Visit: Yes (3) Heavy cigarette smoker (20-39 per day) Status: Chronic Assessment and plan: SEE PLAN OF CARE LISTED BELOW. Current Visit: Yes (4) Diabetes mellitus Status: Chronic Assessment and plan: SEE PLAN OF CARE LISTED BELOW. Current Visit: Yes (5) Dyslipidemia Status: Chronic Assessment and plan: SEE PLAN OF CARE LISTED BELOW. Current Visit: Yes (6) Anxiety Status: Chronic Assessment and plan: SEE PLAN OF CARE LISTED BELOW. Current Visit: Yes (7) Ischemic cardiomyopathy Status: Acute Assessment and plan: SEE PLAN OF CARE LISTED BELOW. Current Visit: Yes (8) Unspecified sleep apnea Status: Acute Assessment and plan: SEE PLAN OF CARE LISTED BELOW. Current Visit: Yes (9) Status post coronary artery bypass graft Status: Acute Assessment and plan: SEE PLAN OF CARE LISTED BELOW. Current Visit: Yes (10) Anemia Status: Acute Assessment and plan: SEE PLAN OF CARE LISTED BELOW. Current Visit: Yes (11) Tachycardia Status: Acute Assessment and plan: SEE PLAN OF CARE LISTED BELOW. Current Visit: Yes (12) CHF (congestive heart failure) Status: Acute Assessment and plan: SEE PLAN OF CARE LISTED BELOW. 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 Cox SUMMARY Patient was sent over from Dr. Child office for further evaluation of chest pain that she had been experiencing for 2 weeks. She has a past medical history of dyslipidemia, diabetes, anxiety, tobacco abuse and GERD. She was seen by Dr. Child in the clinic and was noted to have an abnormal EKG. Subsequently, she was sent over to the emergency department. She underwent heart catheterization which revealed multivessel disease. Subsequently, Dr. Whitehead has been consulted to evaluate for surgery. She underwent coronary artery bypass grafting 2 November 09, 2016 with left internal mammary graft to obtuse marginal coronary artery and saphenous vein graft to RCA. Patient was taken emergently back to the operating room November 09, 2016 after having EKG changes concerning for ischemia. No evidence of myocardial injury was noted in surgery. Patient was requested no intervention was needed. EKG changes have resolved. Now only mild inferior T-wave abnormality. Echocardiogram this hospitalization revealed ischemic cardiomyopathy with ejection fraction estimated at 20%. Received blood transfusion November 13, 2016 for anemia. H&H now holding. NOVEMBER 15, 2016 Patient continues to be followed for the following chronic, stable conditions: CAD, dyslipidemia, diabetes, anxiety, tobacco use and ischemic cardiomyopathy. We are also monitoring the following more acute conditions: Anemia, status post CABG 2, CHF, pleural effusions and tachycardia. Patient was seen and examined on the telemetry unit today. She is status post coronary artery bypass grafting 2 with left internal mammary graft to obtuse marginal coronary artery and saphenous vein graft to RCA. Postop day #6. Her breathing has improved today. Requiring oxygen intermittently. She does report continued TIERNEY. Requires oxygen when walking. Physical therapy has been working with her and she does report that she walked around the entire telemetry unit yesterday. She did reasonably well with this per her report. Chest x-ray is improving. Continue IV Lasix. Unfortunately, I's and O's and daily weights have not been strictly recorded. I have requested this per nursing staff. We will continue to monitor renal function and electrolytes closely with diuresis. Unfortunately , blood pressure will not allow initiation of PENNY inhibitor/ARB or beta- blockade. Hopeful we will be able to introduce these medications prior to discharge. Patient is allergic to aspirin. Continue Plavix. Continue lipid- lowering agent. I will further discuss with Dr. Cox and await his additional recommendations. REVIEW OF SYSTEMS, NOVEMBER 15, 2016: Cardiovascular: Denies chest pain, heaviness or tightness. Does confirm chest soreness. GI: Denies nausea, vomiting and abdominal pain. Respiratory: Dyspnea improving. Confirms TIERNEY. IMPRESSION AND PLAN: 1. S/P CABG - Status post CABG today with BEVERLY to obtuse marginal coronary artery and SVG to RCA. Postop day #6. Patient is allergic to aspirin. Continue Plavix. Continue lipid-lowering agent. EF 20%. Unfortunately, blood pressure will not allow initiation of PENNY inhibitor/ARB or beta-blockade. Hopeful we will be able to introduce these medications prior to discharge. Increase activity level as tolerated. Incentive spirometry. 2. DYSLIPIDEMIA - LDL 124. Continue high intensity statin. Repeat lipid panel in 4-6 weeks. 3. DIABETES - Continue sliding scale insulin. Accu-Cheks before meals and at bedtime. 4. ANXIETY - Under well control. 5. TOBACCO ABUSE - Current everyday smoker. Continue to reiterate importance of smoke cessation. Continue nicotine patch. 6. ISCHEMIC CARDIOMYOPATHY - Now revascularized. EF calculated at 20% per echocardiogram this admission. Unfortunately, blood pressure will not allow initiation of PENNY inhibitor/ARB or beta-blockade. Hopeful we will be able to introduce these medications prior to discharge. Patient will need repeat echocardiogram 3 months after discharge to reevaluate ejection fraction. If no improvement is noted she will be a candidate for ICD placement. 7. PROBABLE COPD - Dr. Horan is following and managing. Appreciate his assistance. 8. UNSPECIFIED SLEEP APNEA - Negative HST evaluation. She will be set up for outpatient sleep study evaluation. 9. ANEMIA - Received blood transfusion 11/13/16. H&H holding. Daily CBC, transfuse as needed. 10. TACHYCARDIA - Will introduce beta blockade when blood pressure will allow. 11 CHF - This is acute. Etiology systolic dysfunction. Chest x-ray improving. Continue IV Lasix. Will continue to monitor renal function and electrolytes closely. Will repeat chest x-ray morning. Strict I's and O's and daily weights. 12. BILATERAL PLEURAL EFFUSION - These are improving. Continue Lasix. Exam (Progress Note) - Constitutional Vitals: Period Temp Pulse Resp BP Sys/Morillo Pulse Ox Last 24 Hr 96.4 F-99.6 F 93-112 16-20 80-112/52-77 90-98 Exam: General: Appears well with no apparent distress. Pleasant and cooperative. Appears comfortable. HEENT: PERRL, normocephalic, atraumatic. Mucous membranes moist. No jaundice noted. Conjunctiva moist and clear, sclerae anicteric Neck: No JVD/HJR, no thyromegaly or lymphadenopathy noted. No carotid bruit appreciated Cardiac: Regular rate and rhythm, tachycardia. No murmur rub or gallop. Chest wall: Tender to palpation. Midsternal chest incision healing well without dehiscence or drainage. Lungs: Decreased breath sounds without accessory muscle use to assist the respiratory pattern. Requiring oxygen via nasal cannula. Abdomen: Soft, bowel sounds normoactive. Nontender and nondistended. No abdominal bruit or thrill noted. No masses noted. Extremities: No clubbing, cyanosis noted. No edema. Upper extremity pulses 2+ . Lower extremity pulses 2+. Capillary refill less than 3 seconds. Surgical incision open to air. Downs intact. Without drainage or signs of infection. Skin: No unusual lesions or rashes. No skin breakdown appreciated. Neuro: Awake, alert and oriented 3. Moves all extremities well without hemiparesis or paralysis. No essential tremor is appreciated. Result/EKG - Labs CBC & BMP: 11/15/16 Unknown 11/15/16 Unknown Lab Results: I have reviewed the past 24 hour labs Labs: Laboratory Results - last 24 hr 11/14/16 11/14/16 11/15/16 16:12 19:01 07:33 WBC RBC Hgb Hct MCV MCH MCHC RDW Plt Count MPV Neut % (Auto) Lymph % (Auto) [place] % (Auto) Eos % (Auto) Baso % (Auto) Neut # (Auto) Lymph # (Auto) [place] # (Auto) Eos # (Auto) Baso # (Auto) Immature Gran % Nucleated RBC % Immature Gran # Nucleated RBCs # Immature Plt Fraction Sodium Potassium Chloride Carbon Dioxide Anion Gap BUN Creatinine GFR Calculation BUN/Creatinine Ratio Glucose POC Glucose 145 H 242 H 209 H Calculated Osmolality Calcium Magnesium Total Bilirubin Direct Bilirubin Indirect Bilirubin AST ALT Alkaline Phosphatase Total Creatine Kinase CK-MB (CK-2) Troponin I B-Natriuretic Peptide Total Protein Albumin Globulin Albumin/Globulin Ratio 11/15/16 11/15/16 11/15/16 09:30 11:20 Unknown WBC 5.5 RBC 3.66 L Hgb 10.9 L Hct 31.2 L MCV 85.2 L MCH 30 MCHC 34.9 RDW 12.8 Plt Count 199 MPV 10.3 Neut % (Auto) 59.3 Lymph % (Auto) 20.0 L [place] % (Auto) 14.5 H Eos % (Auto) 5.6 Baso % (Auto) 0.4 Neut # (Auto) 3.3 Lymph # (Auto) 1.1 L [place] # (Auto) 0.8 Eos # (Auto) 0.3 Baso # (Auto) 0.0 Immature Gran % 0.2 Nucleated RBC % 0.0 Immature Gran # 0.01 Nucleated RBCs # 0.00 Immature Plt Fraction 0.0 Sodium Potassium Chloride Carbon Dioxide Anion Gap BUN Creatinine GFR Calculation BUN/Creatinine Ratio Glucose POC Glucose 218 H Calculated Osmolality Calcium Magnesium Total Bilirubin Direct Bilirubin Indirect Bilirubin AST ALT Alkaline Phosphatase Total Creatine Kinase CK-MB (CK-2) Troponin I B-Natriuretic Peptide 1049 H Total Protein Albumin Globulin Albumin/Globulin Ratio 11/15/16 Unknown WBC RBC Hgb Hct MCV MCH MCHC RDW Plt Count MPV Neut % (Auto) Lymph % (Auto) [place] % (Auto) Eos % (Auto) Baso % (Auto) Neut # (Auto) Lymph # (Auto) [place] # (Auto) Eos # (Auto) Baso # (Auto) Immature Gran % Nucleated RBC % Immature Gran # Nucleated RBCs # Immature Plt Fraction Sodium 140 Potassium 3.5 Chloride 103 Carbon Dioxide 31 Anion Gap 9.5 BUN 10 Creatinine 0.60 GFR Calculation 105 BUN/Creatinine Ratio 16.00 Glucose 153 H POC Glucose Calculated Osmolality 280.4 Calcium 8.3 L Magnesium 1.8 Total Bilirubin 0.50 Direct Bilirubin 0.230 H Indirect Bilirubin 0.3 AST 9 ALT 17 Alkaline Phosphatase 75 Total Creatine Kinase 44 D CK-MB (CK-2) < 1.0 Troponin I 0.538 H D B-Natriuretic Peptide Total Protein 4.9 L Albumin 2.6 L Globulin 2.3 Albumin/Globulin Ratio 1.1 Quality Measures - VTE Contraindication to Pharmacological VTE Prophylaxis: High Risk of Bleeding Specialty Discharge - Follow Up or Referrals <Alex Cox - Last Filed: 11/15/16 22:02> Assessment and Plan (1) Hypoalbuminemia Status: Acute Current Visit: Yes (2) Bilateral pleural effusion Status: Acute Current Visit: Yes Exam (Progress Note) - Constitutional Vitals: Period Temp Pulse Resp BP Sys/Morillo Pulse Ox Last 24 Hr 96.4 F-99.6 F 101-114 16-20 84-113/52-73 90-94 Result/EKG - Labs CBC & BMP: 11/15/16 Unknown 11/15/16 Unknown Labs: Laboratory Results - last 24 hr 11/15/16 11/15/16 11/15/16 07:33 09:30 11:20 WBC RBC Hgb Hct MCV MCH MCHC RDW Plt Count MPV Neut % (Auto) Lymph % (Auto) [place] % (Auto) Eos % (Auto) Baso % (Auto) Neut # (Auto) Lymph # (Auto) [place] # (Auto) Eos # (Auto) Baso # (Auto) Immature Gran % Nucleated RBC % Immature Gran # Nucleated RBCs # Immature Plt Fraction Sodium Potassium Chloride Carbon Dioxide Anion Gap BUN Creatinine GFR Calculation BUN/Creatinine Ratio Glucose POC Glucose 209 H 218 H Calculated Osmolality Calcium Magnesium Total Bilirubin Direct Bilirubin Indirect Bilirubin AST ALT Alkaline Phosphatase Total Creatine Kinase CK-MB (CK-2) Troponin I B-Natriuretic Peptide 1049 H Total Protein Albumin Globulin Albumin/Globulin Ratio 11/15/16 11/15/16 11/15/16 15:57 20:34 Unknown WBC 5.5 RBC 3.66 L Hgb 10.9 L Hct 31.2 L MCV 85.2 L MCH 30 MCHC 34.9 RDW 12.8 Plt Count 199 MPV 10.3 Neut % (Auto) 59.3 Lymph % (Auto) 20.0 L [place] % (Auto) 14.5 H Eos % (Auto) 5.6 Baso % (Auto) 0.4 Neut # (Auto) 3.3 Lymph # (Auto) 1.1 L [place] # (Auto) 0.8 Eos # (Auto) 0.3 Baso # (Auto) 0.0 Immature Gran % 0.2 Nucleated RBC % 0.0 Immature Gran # 0.01 Nucleated RBCs # 0.00 Immature Plt Fraction 0.0 Sodium Potassium Chloride Carbon Dioxide Anion Gap BUN Creatinine GFR Calculation BUN/Creatinine Ratio Glucose POC Glucose 178 H 264 H Calculated Osmolality Calcium Magnesium Total Bilirubin Direct Bilirubin Indirect Bilirubin AST ALT Alkaline Phosphatase Total Creatine Kinase CK-MB (CK-2) Troponin I B-Natriuretic Peptide Total Protein Albumin Globulin Albumin/Globulin Ratio 11/15/16 Unknown WBC RBC Hgb Hct MCV MCH MCHC RDW Plt Count MPV Neut % (Auto) Lymph % (Auto) [place] % (Auto) Eos % (Auto) Baso % (Auto) Neut # (Auto) Lymph # (Auto) [place] # (Auto) Eos # (Auto) Baso # (Auto) Immature Gran % Nucleated RBC % Immature Gran # Nucleated RBCs # Immature Plt Fraction Sodium 140 Potassium 3.5 Chloride 103 Carbon Dioxide 31 Anion Gap 9.5 BUN 10 Creatinine 0.60 GFR Calculation 105 BUN/Creatinine Ratio 16.00 Glucose 153 H POC Glucose Calculated Osmolality 280.4 Calcium 8.3 L Magnesium 1.8 Total Bilirubin 0.50 Direct Bilirubin 0.230 H Indirect Bilirubin 0.3 AST 9 ALT 17 Alkaline Phosphatase 75 Total Creatine Kinase 44 D CK-MB (CK-2) < 1.0 Troponin I 0.538 H D B-Natriuretic Peptide Total Protein 4.9 L Albumin 2.6 L Globulin 2.3 Albumin/Globulin Ratio 1.1
[2016-11-15] MEDS: ONDANSETRON 4 MG/2 ML VIAL IV PRN (15:22)
[2016-11-15] MEDS: traZODone 50 MG TABLET PO SCH (21:57)
[2016-11-15] MEDS: ROSUVASTATIN 20 MG TABLET PO SCH (21:57)
[2016-11-15] MEDS: LINACLOTIDE 145 MCG CAPSULE PO SCH (21:58)
[2016-11-16] MEDS: PHENYLEPHRINE DRIP 40 MG/250 ML PREMIX IV SCH (00:49)
[2016-11-16 04:38] LABS: Basophils % 0.3 % (0.0-0.8); Eosinophils # 0.4 10*3/uL (0.0-0.87); Eosinophils % 5.7 % (0.00-10.9); Hematocrit 34.5 VOL% (35.7-47.0); Hemoglobin 12.1 GM/DL (12.0-16.0); Immature Granulocytes % 0.4 %; Immature Granulocytes Absolute 0.03 #; Lymphocytes # 1.2 10*3/uL (1.4-4.0); Lymphocytes % 16.7 % (21.3-54.2); Mean Corpuscular HGB Conc 35.1 GM/DL (32-36); Mean Corpuscular Hemoglobin 29 PG (27-34); Mean Corpuscular Volume 83.7 FL (87-102); Mean Platelet Volume 9.9 FL (9.6-12.0); Monocytes # 1.1 10*3/uL (0.11-0.8); Monocytes % 15.2 % (1.7-12.7); Neutrophils # 4.5 10*3/uL (1.4-7.4); Neutrophils % 61.7 % (38.7-73.9); Platelet Count 253 T/CUMM (130-400); Red Blood Count 4.12 MC/CUMM (3.8-5.5); Red Cell Distribution Width 12.7 % (9.3-17.3); White Blood Count 7.3 T/CUMM (4-12)
[2016-11-16 05:12] LABS: Calcium 8.6 MG/DL (8.5-10.1); Magnesium 1.8 MG/DL (1.8-2.4); Osmolality,Calculated 275.8 MOS/KG (273-304); Potassium 3.5 MMOL/L (3.5-5.1)
--- NOTE | 2016-11-16 06:17 | Cardiothoracic Progress Note ---
Cardiothoracic Subjective Interval history: Patient had a fairly comfortable night. Vital signs have been stable although she remains relatively hypotensive. She has been breathing comfortably. Laboratory work is essentially within normal limits. Chest x-ray from today is pending. We will gradually try to increase her activities as she tolerates it. Exam (Progress Note) - Constitutional Vitals: Period Temp Pulse Resp BP Sys/Mor[place] Pulse Ox Last 24 Hr 96.3 F-99.5 F 94-114 16-20 83-113/53-73 90-94 Result/EKG - Labs CBC & BMP: 11/16/16 04:15 11/16/16 04:15 Labs: Laboratory Results - last 24 hr 11/15/16 11/15/16 11/15/16 07:33 09:30 11:20 WBC RBC Hgb Hct MCV MCH MCHC RDW Plt Count MPV Neut % (Auto) Lymph % (Auto) [place] % (Auto) Eos % (Auto) Baso % (Auto) Neut # (Auto) Lymph # (Auto) [place] # (Auto) Eos # (Auto) Baso # (Auto) Immature Gran % Nucleated RBC % Immature Gran # Nucleated RBCs # Immature Plt Fraction Sodium Potassium Chloride Carbon Dioxide Anion Gap BUN Creatinine GFR Calculation BUN/Creatinine Ratio Glucose POC Glucose 209 H 218 H Calculated Osmolality Calcium Magnesium B-Natriuretic Peptide 1049 H 11/15/16 11/15/16 11/16/16 15:57 20:34 04:15 WBC 7.3 D RBC 4.12 Hgb 12.1 Hct 34.5 L MCV 83.7 L MCH 29 MCHC 35.1 RDW 12.7 Plt Count 253 D MPV 9.9 Neut % (Auto) 61.7 Lymph % (Auto) 16.7 L [place] % (Auto) 15.2 H Eos % (Auto) 5.7 Baso % (Auto) 0.3 Neut # (Auto) 4.5 Lymph # (Auto) 1.2 L [place] # (Auto) 1.1 H Eos # (Auto) 0.4 Baso # (Auto) 0.0 Immature Gran % 0.4 Nucleated RBC % 0.0 Immature Gran # 0.03 Nucleated RBCs # 0.00 Immature Plt Fraction 0.0 Sodium Potassium Chloride Carbon Dioxide Anion Gap BUN Creatinine GFR Calculation BUN/Creatinine Ratio Glucose POC Glucose 178 H 264 H Calculated Osmolality Calcium Magnesium B-Natriuretic Peptide 11/16/16 11/16/16 04:15 04:15 WBC RBC Hgb Hct MCV MCH MCHC RDW Plt Count MPV Neut % (Auto) Lymph % (Auto) [place] % (Auto) Eos % (Auto) Baso % (Auto) Neut # (Auto) Lymph # (Auto) [place] # (Auto) Eos # (Auto) Baso # (Auto) Immature Gran % Nucleated RBC % Immature Gran # Nucleated RBCs # Immature Plt Fraction Sodium 137 Potassium 3.5 Chloride 99 Carbon Dioxide 32 Anion Gap 9.5 BUN 12 Creatinine 0.70 GFR Calculation 100 BUN/Creatinine Ratio 17.00 Glucose 149 H POC Glucose Calculated Osmolality 275.8 Calcium 8.6 Magnesium 1.8 B-Natriuretic Peptide 862 H Quality Measures - VTE Contraindication to Pharmacological VTE Prophylaxis: High Risk of Bleeding Specialty Discharge - Follow Up or Referrals
[2016-11-16] MEDS: ALBUTEROL 2.5 MG/3 ML NEB RESP TX SCH ×3 (07:15→23:40)
--- NOTE | 2016-11-16 08:37 | XRay Report ---
XR chest 2V Date: 11/16/2016 4:00 AM History: Shortness of breath Comparison: 11/15/2016 Technique: PA and lateral chest Findings: The heart appears smaller in size with prior median sternotomy. Stable right IJ CVP line with no pneumothorax. Reduced atelectasis/edema with smaller pleural effusions. Prior cholecystectomy and anterior cervical fusion. Impression: Status post median sternotomy with reduced atelectasis/edema. Persistent moderate right and small left pleural effusions. PROCEDURE INTERPRETED AT [facility] DEPARTMENT OF RADIOLOGY Final Report Signed by: Dr. Ros Braden
[2016-11-16] MEDS: FUROSEMIDE 40 MG/4 ML VIAL IV SCH ×2 (09:39→16:47)
[2016-11-16] MEDS: INSULIN REGULAR 100 UNIT/ML SUBCUT SCH ×4 (09:39→21:37)
[2016-11-16] MEDS: LEVOFLOXACIN 500 MG TABLET PO SCH (09:40)
[2016-11-16] MEDS: FERROUS SULFATE 325 MG TABLET PO SCH (09:40)
[2016-11-16] MEDS: MONTELUKAST 10 MG TABLET PO SCH (09:40)
[2016-11-16] MEDS: CLORAZEPATE 3.75 MG TABLET PO SCH ×3 (09:40→21:36)
[2016-11-16] MEDS: PANTOPRAZOLE 40 MG TABLET PO SCH (09:41)
[2016-11-16] MEDS: sitaGLIPtin 100 MG TABLET PO SCH (09:41)
[2016-11-16] MEDS: DOCUSATE SODIUM 100 MG CAPSULE PO SCH (09:41)
[2016-11-16] MEDS: CHLORHEXIDINE 0.12% ORAL RINSE 60 ML BOTTLE SWISH/SPIT SCH ×2 (09:42→21:44)
--- NOTE | 2016-11-16 10:33 | Pulmonology Progress Note ---
Pulmonary - PN: Subj Interval history: Ms. okeefe is a 56-year-old white female who we saw in initial pulmonary consultation 11/05/2016. At that time, our impressions were: 1. Tobacco abuse. 89-90-jeoz-year history of smoking. 2. Probable COPD. Mild wheeze. Probable bronchospastic disease. 3. Severe three-vessel heart disease with ejection fraction of 20% and global hypokinesis 4. Hyperlipidemia. 5. Diabetes mellitus. 6. See past history 11/06/2016. The patient has decided to go forth with CABG. This will most likely be done tomorrow. In anticipation of this, we will obtain complete pulmonary function testing today with pre-and post bronchodilator spirometry. Her previously noted large airway wheeze has resolved with the addition of Singulair. This needs to be continued. Medications have been reviewed. We made no changes today. Labs been reviewed. No new labs were drawn today. 11/07/2016. Patient's CABG has been scheduled for 11/09/2016. We discussed this again with her today. From a pulmonary standpoint she is appropriate for surgery. Pulmonary function tests done 11/06/2016 showed SPO2 96% on room air, small airways disease, paradoxical response to inhaled bronchodilators, no restrictive disease, normal diffusion, and maximum voluntary ventilation was normal. On chest exam, she is still wheeze free. She states that her breathing is doing well. Medications have been reviewed. We made no changes today. Labs been reviewed. White count is 6700 with a normal differential; H&H 10.5/ 36.5; platelet count 145,000; creatinine 0.50, BUN 10, electrolytes were normal ; hemoglobin A1c elevated at 9.5% showing poor control of her diabetes mellitus 11/10/2016. This patient had coronary artery bypass grafts on 11/09/2016. She required to reexplore. She came off the ventilator with no problems. She is stable this morning and her chest x-ray shows no heart failure and no infiltrates. ABGs show a pH of 7.42, PCO2 38, PO2 of 106 and a bicarb of 24. Electrolytes are normal. Creatinine is 0.5 with a BUN of 12. H&H 10.5/30.4. She is doing well from a pulmonary standpoint. She has underlying COPD which is not severe. Dr. Sean Dyer will see her for me this weekend. 11/13/2016. Patient complains of a slight cough. Will check a sputum for Gram stain culture and sensitivity. Her chest x-ray shows small bilateral pleural effusions. We will get another tomorrow. Her H&H is 8.2/24.1. She told me she is getting 2 units of blood today. White count is 5400 with 57 segs 28 lymphs and 10 monos. Electrolytes are normal. Creatinine 0.5. BUNs 26. Patient was seen with the family member who did not bother to wake up while we are there. 11/14/2016. Patient was seen along with her daughter. She complains of some musculoskeletal chest pain. Her chest x-ray shows a small left-sided pleural effusion and a larger right-sided pleural effusion. She has just gotten a collection jar her chart for the sputum ordered yesterday. So far no specimen but she is trying. The patient notices her breathing was much better as far as the wheezing is concerned and asking she takes Singulair on a long-term basis. The answer is yes and I think this would improve her overall. Also had a discussion with her about not restarting smoking and I think she is made her per mine to quit smoking. Creatinine is 0.6 BUN is 19. Electrolytes normal. Patient required a blood transfusion yesterday and H&H is improved from 8.2/24.0 -10.3/30.3. White count is 5762 segs 18 lymphs and 14 monocytes. 11/15/2016. Today's chest x-ray is much better. The bilateral pleural effusions are 80% resolved. BNP is pending. BNP done yesterday was 1148. Electrolytes are normal. Creatinine 0.6 with a BUN of 10. H&H is stable at 10.9/31.2. Platelets 199,000. White count is 5559 620 lymphs and 14 monocytes patient says she feels much better. There are no new problems. Sputum's are pending 11/16/2016. This patient continues to do well from a pulmonary standpoint. Her chest x-ray shows bilateral pleural effusions. These are decreasing in size rapidly. 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 These are postop changes. Patient's oxygenation is good and she is comfortable with breathing. Before surgery she had tracheal and large airway wheeze and is completely resolved overnight with the very first dose of Singulair. She should be continued on this indefinitely and have talked to her about this. Sputum cultures are negative. Electrolytes are normal. Creatinine is 0.7 with a BUN of 12. White count 7300 with 62 segs 17 lymphs and 15 monos. H&H is 12.1/ 34.5. Platelets are 253,000. Natruretic peptide remains elevated 862. Patient is receiving Lasix 40 IV push twice a day. I think this can be converted to p.o. and not she should do well with that. The patient asked me about when she could go home. I told her that the heart status is the carpio here. From a pulmonary standpoint I think she is ready and I think we should continue to give her Lasix and I think she should stay on Singulair 10 mg daily indefinitely. Patient's son was present and SHARIF Frazier nurse practitioner was present. Exam (Progress Note) - Constitutional Vitals: Period Temp Pulse Resp BP Sys/Morillo Pulse Ox Last 24 Hr 97.3 F-98.9 F 79-94 16-18 82-96/53-64 92-98 Exam: General. No apparent distress. Chest... Wheeze free. Slight cough Face. Symmetrical. No edema to lips and tongue. Neck. No meningismus. Heart no gallop Abdomen is nontender and nondistended; bowel sounds are positive 4 Lower extremities with nothing to suggest acute deep venous thrombophlebitis Psychiatric oriented 3 Neurologic long-tract motor function is intact The remainder the physical exam is negative. Plan: 11/07/2016. 1. Continue present pulmonary treatment. 2. Plans for CABG 11/09/2016 noted. 3. See orders. 11/10/2016. 1. See today's note above. 2. Stable post coronary artery bypass grafts. 3. Continue inhalation therapy. 4. Dr. Dyer we will see for me this week 11/13/2016. 1. See my note above. 2. Blood transfusion 3. Sputum for Gram stain culture and sensitivity 4. Follow-up lab and chest x-ray tomorrow 11/14/2016. 1. See today's note above 2. Bilateral pleural effusions. 3. Chest x-ray in the morning. 4. Sputum pending 5. Continue Singulair indefinitely 11/15/2016. 1. See today's note above 2. Chest x-ray and BNP in the morning to 11/16/2016. 1. Please see today's note above 2. From a pulmonary standpoint I think this patient can be discharged. I emphasized to her that her cardiac status is the determining factor. 3. Continue Lasix 4. Continue Singulair Exam (Progress Note) - Constitutional Vitals: Period Temp Pulse Resp BP Sys/Morillo Pulse Ox Last 24 Hr 96.3 F-99.5 F 94-114 16-20 83-113/53-73 87-94 Results - Labs CBC & BMP: 11/16/16 04:15 11/16/16 04:15 Specialty Discharge - Follow Up or Referrals
[2016-11-16] MEDS: ONDANSETRON 4 MG/2 ML VIAL IV PRN (21:27)
[2016-11-16] MEDS: traZODone 50 MG TABLET PO SCH (21:36)
[2016-11-16] MEDS: ROSUVASTATIN 20 MG TABLET PO SCH (21:36)
[2016-11-16] MEDS: LINACLOTIDE 145 MCG CAPSULE PO SCH (21:46)
--- NOTE | 2016-11-16 23:00 | Cardiology Progress Note ---
Charly John Lesley, NP, am scribing for, and in the presence of, Alex Cox MD 23:00. Assessment and Plan - Time spent with patient Time spent with patient: Greater than 30 minutes (Record review, assessment, and documentation) (1) Diabetes mellitus Status: Chronic Assessment and plan: SEE PLAN LISTED BELOW Continue diuresis as tolerated Continue O2 May ultimately need a thoracentesis for mechanical removal of the pleural effusion. Her low blood pressure prevents much diuresis Prognosis is guarded with this low blood pressure and her cardiomyopathy and inability to tolerate Coreg and PENNY inhibitor Current Visit: Yes (2) Heavy cigarette smoker (20-39 per day) Status: Chronic Assessment and plan: SEE PLAN LISTED BELOW Current Visit: Yes (3) Dyslipidemia Status: Chronic Assessment and plan: SEE PLAN LISTED BELOW Current Visit: Yes (4) 3-vessel CAD Status: Acute Assessment and plan: SEE PLAN LISTED BELOW Current Visit: Yes (5) Ischemic cardiomyopathy Status: Acute Assessment and plan: SEE PLAN LISTED BELOW Current Visit: Yes (6) Unspecified sleep apnea Status: Acute Assessment and plan: SEE PLAN LISTED BELOW Current Visit: Yes (7) Status post coronary artery bypass graft Status: Chronic Current Visit: Yes (8) Tachycardia Status: Acute Assessment and plan: SEE PLAN LISTED BELOW Current Visit: Yes (9) CHF (congestive heart failure) Status: Chronic Assessment and plan: SEE PLAN LISTED BELOW Current Visit: Yes Qualifiers: Congestive heart failure type: systolic Congestive heart failure chronicity : acute Qualified Code(s): I50.21 - Acute systolic (congestive) heart failure Cardiology - PN: Subj Interval history: CNA INSTRUCTOR: Dr. Cox SUMMARY: Patient was sent over from Dr. Child office for further evaluation of chest pain and abnormal EKG, she was sent to ER for evaluation. Past medical history includes dyslipidemia, diabetes, anxiety, tobacco abuse and GERD. Cardiac catheterization revealed multivessel disease. She underwent coronary artery bypass grafting 2 (11/09/16) with left internal mammary graft to obtuse marginal coronary artery and saphenous vein graft to RCA. Patient was taken emergently back to OR the same day due to ischemic EKG changes. No evidence of myocardial injury was noted in surgery, no further intervention was needed. EKG changes resolved, now mild inferior T-wave abnormality noted on EKG. Echocardiogram this hospitalization revealed ischemic cardiomyopathy with ejection fraction estimated at 20%. Received blood transfusion 11/13/16. NOVEMBER 16, 2016 Continues to be followed for the following chronic, stable conditions: CAD, dyslipidemia, diabetes, and ischemic cardiomyopathy. Postop day #7. Dyspnea continues to improve, requiring oxygen intermittently. Blood pressure continues on the low side, 86/61 this morning. She continues to be tachycardic heart rate noted in the high 90s to low 100s. I's and O's are negative. Labs reviewed, normalizing, potassium 3.5, creatinine 0.7, BUN 12, glucose 149. BNP improving 862. Chest x-ray improved, persistent moderate right and small left pleural effusions, reduced atelectasis. The patient is requesting to go home. REVIEW OF SYSTEMS: absent: chest pain present: chest soreness present: TIERNEY no acute distress noted, pt. requesting to go home IMPRESSION AND PLAN: 1. S/P CABG - Postop day #7. Patient is allergic to aspirin. Continue Plavix. Continue lipid-lowering agent. EF 20%. Unfortunately, blood pressure will not allow initiation of PENNY inhibitor/ARB or beta-blockade. Hopeful we will be able to introduce these medications prior to discharge. Increase activity level as tolerated. Incentive spirometry. 2. DYSLIPIDEMIA - LDL 124. Continue high intensity statin. Repeat lipid panel in 4-6 weeks. 3. DIABETES - Continue sliding scale insulin. Accu-Cheks before meals and at bedtime. 4. ANXIETY - controlled. 5. TOBACCO ABUSE - Current everyday smoker. Continue to reiterate importance of smoke cessation. Continue nicotine patch. 6. ISCHEMIC CARDIOMYOPATHY - Now revascularized. EF 20%. Will need repeat echo 3 months to reevaluate ejection fraction, if no improvement is noted she will be a candidate for ICD placement. 7. PROBABLE COPD - Dr. Horan is managing. Appreciate his assistance. 8. UNSPECIFIED SLEEP APNEA - Negative HST evaluation, will need outpatient sleep study evaluation. 9. ANEMIA - resolving. 10. TACHYCARDIA - continue beta blockade when blood pressure will allow. 11. CHF - Acute, systolic dysfunction. Chest x-ray improving. Continue IV Lasix. CXR persistent mod Right and small Left Pleural effusions. Exam (Progress Note) - Constitutional Vitals: Period Temp Pulse Resp BP Sys/Morillo Pulse Ox Last 24 Hr 96.3 F-99.5 F 94-114 16-20 83-113/53-73 87-94 Exam: General: Appears well with no apparent distress. Pleasant and cooperative. Appears comfortable. HEENT: PERRL, normocephalic, atraumatic. Mucous membranes moist. No jaundice noted. Conjunctiva moist and clear, sclerae anicteric. Neck: No JVD, no thyromegaly or lymphadenopathy noted. No carotid bruit appreciated. Cardiac: Regular rate and rhythm. No murmur rub or gallop. PMI is nondisplaced. Lungs: Breath sounds reduced in the right base, no accessory muscle use to assist the respiratory pattern. Oxygen in use via nasal cannula intermittently. Abdomen: Soft, bowel sounds normoactive. Nontender and nondistended. No abdominal bruit or thrill noted. No masses noted. Musculoskeletal: No fluid collection. Decreased range of motion is noted. Extremities: No clubbing, cyanosis noted. No edema noted. Upper extremity pulses 2+. Lower extremity pulses 2+. Capillary refill less than 3 seconds. Skin: Warm and dry no unusual lesions or rashes. No skin breakdown appreciated. Midsternal incision open to air, no evidence of infection. Left leg incision open to air, no evidence of infection. Neuro: Awake, alert and oriented 3. Moves all extremities well without hemiparesis or paralysis. No essential tremor is appreciated. Result/EKG - Labs CBC & BMP: 11/16/16 04:15 11/16/16 04:15 Lab Results: I have reviewed the past 24 hour labs Labs: Laboratory Results - last 24 hr 11/15/16 11/15/16 11/15/16 09:30 11:20 15:57 WBC RBC Hgb Hct MCV MCH MCHC RDW Plt Count MPV Neut % (Auto) Lymph % (Auto) Geary % (Auto) Eos % (Auto) Baso % (Auto) Neut # (Auto) Lymph # (Auto) Geary # (Auto) Eos # (Auto) Baso # (Auto) Immature Gran % Nucleated RBC % Immature Gran # Nucleated RBCs # Immature Plt Fraction Sodium Potassium Chloride Carbon Dioxide Anion Gap BUN Creatinine GFR Calculation BUN/Creatinine Ratio Glucose POC Glucose 218 H 178 H Calculated Osmolality Calcium Magnesium B-Natriuretic Peptide 1049 H 11/15/16 11/16/16 11/16/16 20:34 04:15 04:15 WBC 7.3 D RBC 4.12 Hgb 12.1 Hct 34.5 L MCV 83.7 L MCH 29 MCHC 35.1 RDW 12.7 Plt Count 253 D MPV 9.9 Neut % (Auto) 61.7 Lymph % (Auto) 16.7 L Geary % (Auto) 15.2 H Eos % (Auto) 5.7 Baso % (Auto) 0.3 Neut # (Auto) 4.5 Lymph # (Auto) 1.2 L Geary # (Auto) 1.1 H Eos # (Auto) 0.4 Baso # (Auto) 0.0 Immature Gran % 0.4 Nucleated RBC % 0.0 Immature Gran # 0.03 Nucleated RBCs # 0.00 Immature Plt Fraction 0.0 Sodium 137 Potassium 3.5 Chloride 99 Carbon Dioxide 32 Anion Gap 9.5 BUN 12 Creatinine 0.70 GFR Calculation 100 BUN/Creatinine Ratio 17.00 Glucose 149 H POC Glucose 264 H Calculated Osmolality 275.8 Calcium 8.6 Magnesium 1.8 B-Natriuretic Peptide 11/16/16 11/16/16 04:15 07:23 WBC RBC Hgb Hct MCV MCH MCHC RDW Plt Count MPV Neut % (Auto) Lymph % (Auto) Geary % (Auto) Eos % (Auto) Baso % (Auto) Neut # (Auto) Lymph # (Auto) Geary # (Auto) Eos # (Auto) Baso # (Auto) Immature Gran % Nucleated RBC % Immature Gran # Nucleated RBCs # Immature Plt Fraction Sodium Potassium Chloride Carbon Dioxide Anion Gap BUN Creatinine GFR Calculation BUN/Creatinine Ratio Glucose POC Glucose 180 H Calculated Osmolality Calcium Magnesium B-Natriuretic Peptide 862 H - Diagnostic Findings Procedure: Chest x-ray: report reviewed by me - EKG EKG results: interpreted by me EKG shows: tachycardia Quality Measures - VTE Contraindication to Pharmacological VTE Prophylaxis: High Risk of Bleeding Specialty Discharge - Follow Up or Referrals Brooke John Dale, MD, personally performed the services described in this documentation, ascribed by Maria C Parks NP in my presence, and it is both accurate and complete .
[2016-11-17] MEDS: PHENYLEPHRINE DRIP 40 MG/250 ML PREMIX IV SCH (00:11)
[2016-11-17 05:37] LABS: Basophils % 0.2 % (0.0-0.8); Eosinophils # 0.5 10*3/uL (0.0-0.87); Eosinophils % 5.3 % (0.00-10.9); Hematocrit 37.2 VOL% (35.7-47.0); Immature Granulocytes % 0.3 %; Immature Granulocytes Absolute 0.03 #; Lymphocytes # 1.6 10*3/uL (1.4-4.0); Lymphocytes % 18.7 % (21.3-54.2); Mean Corpuscular HGB Conc 34.9 GM/DL (32-36); Mean Corpuscular Hemoglobin 29 PG (27-34); Mean Platelet Volume 9.7 FL (9.6-12.0); Monocytes # 1.2 10*3/uL (0.11-0.8); Neutrophils # 5.3 10*3/uL (1.4-7.4); Neutrophils % 61.5 % (38.7-73.9); Platelet Count 286 T/CUMM (130-400); Red Blood Count 4.48 MC/CUMM (3.8-5.5); Red Cell Distribution Width 12.5 % (9.3-17.3); White Blood Count 8.7 T/CUMM (4-12)
[2016-11-17 06:10] LABS: Calcium 8.9 MG/DL (8.5-10.1); Magnesium 1.8 MG/DL (1.8-2.4); Potassium 3.3 MMOL/L (3.5-5.1)
[2016-11-17] MEDS: ERGOCALCIFEROL 50,000 UNIT CAPSULE PO SCH (06:25)
[2016-11-17] MEDS: POTASSIUM CHLORIDE 20 MEQ TABLET PO PRN ×2 (06:25→08:36)
[2016-11-17] MEDS: ALBUTEROL 2.5 MG/3 ML NEB RESP TX SCH ×2 (07:26→14:23)
[2016-11-17] MEDS: MONTELUKAST 10 MG TABLET PO SCH (08:35)
[2016-11-17] MEDS: DOCUSATE SODIUM 100 MG CAPSULE PO SCH (08:35)
[2016-11-17] MEDS: FERROUS SULFATE 325 MG TABLET PO SCH (08:35)
[2016-11-17] MEDS: CLORAZEPATE 3.75 MG TABLET PO SCH ×3 (08:35→21:36)
[2016-11-17] MEDS: sitaGLIPtin 100 MG TABLET PO SCH (08:36)
[2016-11-17] MEDS: PANTOPRAZOLE 40 MG TABLET PO SCH (08:36)
[2016-11-17] MEDS: LEVOFLOXACIN 500 MG TABLET PO SCH (08:36)
[2016-11-17] MEDS: FUROSEMIDE 40 MG/4 ML VIAL IV SCH ×2 (08:37→16:39)
[2016-11-17] MEDS: CLOPIDOGREL 75 MG TABLET PO SCH (08:40)
[2016-11-17] MEDS: CHLORHEXIDINE 0.12% ORAL RINSE 60 ML BOTTLE SWISH/SPIT SCH ×2 (08:40→21:39)
[2016-11-17] MEDS: INSULIN REGULAR 100 UNIT/ML SUBCUT SCH ×4 (08:40→21:37)
--- NOTE | 2016-11-17 09:41 | Cardiothoracic Progress Note ---
Cardiothoracic Subjective Interval history: Patient looks and feels okay. Vital signs have been stable and she is breathing comfortably. Patient wires have been removed. She is gradually increasing her activity as tolerated. She wants to go home and I think she may be ready to go tomorrow. She is inquiring about home oxygen and I am going to defer to Dr. Stewart regarding this question. She seems to get along reasonably well off her O2 here in the hospital. Exam (Progress Note) - Constitutional Vitals: Period Temp Pulse Resp BP Sys/Morillo Pulse Ox Last 24 Hr 96.7 F-99.7 F 91-118 16-18 80-110/55-66 91-95 Result/EKG - Labs CBC & BMP: 11/17/16 04:59 11/17/16 04:59 Labs: Laboratory Results - last 24 hr 11/16/16 11/16/16 11/16/16 11:06 16:31 20:05 WBC RBC Hgb Hct MCV MCH MCHC RDW Plt Count MPV Neut % (Auto) Lymph % (Auto) Iron % (Auto) Eos % (Auto) Baso % (Auto) Neut # (Auto) Lymph # (Auto) Iron # (Auto) Eos # (Auto) Baso # (Auto) Immature Gran % Nucleated RBC % Immature Gran # Nucleated RBCs # Immature Plt Fraction Sodium Potassium Chloride Carbon Dioxide Anion Gap BUN Creatinine GFR Calculation BUN/Creatinine Ratio Glucose POC Glucose 294 H 242 H 230 H Calculated Osmolality Calcium Magnesium 11/17/16 11/17/16 04:59 04:59 WBC 8.7 RBC 4.48 Hgb 13.0 Hct 37.2 MCV 83.0 L MCH 29 MCHC 34.9 RDW 12.5 Plt Count 286 MPV 9.7 Neut % (Auto) 61.5 Lymph % (Auto) 18.7 L Iron % (Auto) 14.0 H Eos % (Auto) 5.3 Baso % (Auto) 0.2 Neut # (Auto) 5.3 Lymph # (Auto) 1.6 Iron # (Auto) 1.2 H Eos # (Auto) 0.5 Baso # (Auto) 0.0 Immature Gran % 0.3 Nucleated RBC % 0.0 Immature Gran # 0.03 Nucleated RBCs # 0.00 Immature Plt Fraction 0.0 Sodium 136 Potassium 3.3 L Chloride 96 L Carbon Dioxide 33 H Anion Gap 10.3 BUN 14 Creatinine 0.70 GFR Calculation 97 BUN/Creatinine Ratio 20.00 Glucose 139 H POC Glucose Calculated Osmolality 274.0 Calcium 8.9 Magnesium 1.8 Quality Measures - VTE Contraindication to Pharmacological VTE Prophylaxis: High Risk of Bleeding Specialty Discharge - Follow Up or Referrals
--- NOTE | 2016-11-17 10:21 | Pulmonology Progress Note ---
Pulmonary - PN: Subj Interval history: Ms. okeefe is a 56-year-old white female who we saw in initial pulmonary consultation 11/05/2016. At that time, our impressions were: 1. Tobacco abuse. 67-77-tewr-year history of smoking. 2. Probable COPD. Mild wheeze. Probable bronchospastic disease. 3. Severe three-vessel heart disease with ejection fraction of 20% and global hypokinesis 4. Hyperlipidemia. 5. Diabetes mellitus. 6. See past history 11/06/2016. The patient has decided to go forth with CABG. This will most likely be done tomorrow. In anticipation of this, we will obtain complete pulmonary function testing today with pre-and post bronchodilator spirometry. Her previously noted large airway wheeze has resolved with the addition of Singulair. This needs to be continued. Medications have been reviewed. We made no changes today. Labs been reviewed. No new labs were drawn today. 11/07/2016. Patient's CABG has been scheduled for 11/09/2016. We discussed this again with her today. From a pulmonary standpoint she is appropriate for surgery. Pulmonary function tests done 11/06/2016 showed SPO2 96% on room air, small airways disease, paradoxical response to inhaled bronchodilators, no restrictive disease, normal diffusion, and maximum voluntary ventilation was normal. On chest exam, she is still wheeze free. She states that her breathing is doing well. Medications have been reviewed. We made no changes today. Labs been reviewed. White count is 6700 with a normal differential; H&H 10.5/ 36.5; platelet count 145,000; creatinine 0.50, BUN 10, electrolytes were normal ; hemoglobin A1c elevated at 9.5% showing poor control of her diabetes mellitus 11/10/2016. This patient had coronary artery bypass grafts on 11/09/2016. She required to reexplore. She came off the ventilator with no problems. She is stable this morning and her chest x-ray shows no heart failure and no infiltrates. ABGs show a pH of 7.42, PCO2 38, PO2 of 106 and a bicarb of 24. Electrolytes are normal. Creatinine is 0.5 with a BUN of 12. H&H 10.5/30.4. She is doing well from a pulmonary standpoint. She has underlying COPD which is not severe. Dr. Sean Dyer will see her for me this weekend. 11/13/2016. Patient complains of a slight cough. Will check a sputum for Gram stain culture and sensitivity. Her chest x-ray shows small bilateral pleural effusions. We will get another tomorrow. Her H&H is 8.2/24.1. She told me she is getting 2 units of blood today. White count is 5400 with 57 segs 28 lymphs and 10 monos. Electrolytes are normal. Creatinine 0.5. BUNs 26. Patient was seen with the family member who did not bother to wake up while we are there. 11/14/2016. Patient was seen along with her daughter. She complains of some musculoskeletal chest pain. Her chest x-ray shows a small left-sided pleural effusion and a larger right-sided pleural effusion. She has just gotten a collection jar her chart for the sputum ordered yesterday. So far no specimen but she is trying. The patient notices her breathing was much better as far as the wheezing is concerned and asking she takes Singulair on a long-term basis. The answer is yes and I think this would improve her overall. Also had a discussion with her about not restarting smoking and I think she is made her per mine to quit smoking. Creatinine is 0.6 BUN is 19. Electrolytes normal. Patient required a blood transfusion yesterday and H&H is improved from 8.2/24.0 -10.3/30.3. White count is 5762 segs 18 lymphs and 14 monocytes. 11/15/2016. Today's chest x-ray is much better. The bilateral pleural effusions are 80% resolved. BNP is pending. BNP done yesterday was 1148. Electrolytes are normal. Creatinine 0.6 with a BUN of 10. H&H is stable at 10.9/31.2. Platelets 199,000. White count is 5559 620 lymphs and 14 monocytes patient says she feels much better. There are no new problems. Sputum's are pending 11/16/2016. This patient continues to do well from a pulmonary standpoint. Her chest x-ray shows bilateral pleural effusions. These are decreasing in size rapidly. I do not think these will vehicle return associate to be physiologically significant and I think that they will gradually resolve. These are postop changes. Patient's oxygenation is good and she is comfortable with breathing. Before surgery she had tracheal and large airway wheeze and is completely resolved overnight with the very first dose of Singulair. She should be continued on this indefinitely and have talked to her about this. Sputum cultures are negative. Electrolytes are normal. Creatinine is 0.7 with a BUN of 12. White count 7300 with 62 segs 17 lymphs and 15 monos. H&H is 12.1/ 34.5. Platelets are 253,000. Natruretic peptide remains elevated 862. Patient is receiving Lasix 40 IV push twice a day. I think this can be converted to p.o. and not she should do well with that. The patient asked me about when she could go home. I told her that the heart status is the carpio here. From a pulmonary standpoint I think she is ready and I think we should continue to give her Lasix and I think she should stay on Singulair 10 mg daily indefinitely. Patient's son was present and SHARIF Frazier nurse practitioner was present. 11/17/2016. This patient's had her chest wires pulled today. She says she feels much better and she denies any shortness of breath. When she is lying in bed with no oxygen her O2 sats are 9193%. She said yesterday when she walked O2 sats dropped to 75. I have asked her nurse to recheck this. I will be surprised if the O2 sats drop low with walking but if they do patient may need home oxygen for a while. An O2 sat of 87% which is documented qualifies her for. Patient's chest x-ray on 11/16/2016 was markedly better and the pleural effusions have all practical purposes resolved. I do not expect them to persist. I understand the plans are to discharge the patient tomorrow. I am agreeable to this. The only thing pending is the exercise O2 sats. Exam (Progress Note) - Constitutional Vitals: Period Temp Pulse Resp BP Sys/[place]illo Pulse Ox Last 24 Hr 97.3 F-98.9 F 79-94 16-18 82-96/53-64 92-98 Exam: General. No apparent distress. Chest... Wheeze free. Face. Symmetrical. No edema to lips and tongue. Neck. No meningismus. Heart no gallop Abdomen is nontender and nondistended; bowel sounds are positive 4 Lower extremities with nothing to suggest acute deep venous thrombophlebitis Psychiatric oriented 3 Neurologic long-tract motor function is intact The remainder the physical exam is negative. Plan: 11/07/2016. 1. Continue present pulmonary treatment. 2. Plans for CABG 11/09/2016 noted. 3. See orders. 11/10/2016. 1. See today's note above. 2. Stable post coronary artery bypass grafts. 3. Continue inhalation therapy. 4. Dr. Dyer we will see for me this week 11/13/2016. 1. See my note above. 2. Blood transfusion 3. Sputum for Gram stain culture and sensitivity 4. Follow-up lab and chest x-ray tomorrow 11/14/2016. 1. See today's note above 2. Bilateral pleural effusions. 3. Chest x-ray in the morning. 4. Sputum pending 5. Continue Singulair indefinitely 11/15/2016. 1. See today's note above 2. Chest x-ray and BNP in the morning to 11/16/2016. 1. Please see today's note above 2. From a pulmonary standpoint I think this patient can be discharged. I emphasized to her that her cardiac status is the determining factor. 3. Continue Lasix 4. Continue Singulair 11/17/2016. 1. See today's note above. 2. Rest O2 sats are 91 and 92%. Check exercise O2 sats. If 87 or less will need home oxygen. 3. I agree with plans for discharge tomorrow. Exam (Progress Note) - Constitutional Vitals: Period Temp Pulse Resp BP Sys/Morillo Pulse Ox Last 24 Hr 96.7 F-99.7 F 91-118 16-18 80-110/55-66 91-95 Results - Labs CBC & BMP: 11/17/16 04:59 11/17/16 04:59 Specialty Discharge - Follow Up or Referrals
[2016-11-17] MEDS: ONDANSETRON 4 MG/2 ML VIAL IV PRN ×2 (11:02→22:44)
[2016-11-17 18:04] LABS: Apearance,Urine CLEAR (Clear); Bilirubin,Urine Negative (Negative); Blood, Urine Negative (Negative); Glucose,Urine (UA) 150 mg/dL (Negative); Ketones,Urine Negative (Negative); Mucus,Urine Occasional /LPF (Occasional); Nitrite,Urine Negative (Negative); Protein,Urine Negative; RBC,Urine <1 /HPF (0-4); Squamous Epithelial Cell,Urine Occasional /HPF (0-10); Urine Color Yellow (Yellow); Urine Specific Gravity 1.005 (1.001-1.035); Urine Urobilinogen < 2.0 EU/DL (0.2-1.0); WBC,Urine 2 /HPF (0-6)
[2016-11-17] MEDS: ROSUVASTATIN 20 MG TABLET PO SCH (21:36)
[2016-11-17] MEDS: traZODone 50 MG TABLET PO SCH (21:36)
[2016-11-17] MEDS: LINACLOTIDE 145 MCG CAPSULE PO SCH (21:37)
[2016-11-17] MEDS ORDERED: POTASSIUM CHLORIDE 20 MEQ PACK PO ONE (23:33)
--- NOTE | 2016-11-17 23:40 | Cardiology Progress Note ---
Charly John Lesley, ILA, am scribing for, and in the presence of, Alex Cox MD 23:39. Assessment and Plan - Time spent with patient Time spent with patient: Greater than 30 minutes (1) CHF (congestive heart failure) Status: Chronic Assessment and plan: SEE PLAN LISTED BELOW not having overt heart failure Does continue have pleural effusions Try to diurese Low blood pressure limits what medicines we can use Will replete potassium by giving 40 mEq by mouth Current Visit: Yes Qualifiers: Congestive heart failure type: systolic Congestive heart failure chronicity : acute Qualified Code(s): I50.21 - Acute systolic (congestive) heart failure (2) Diabetes mellitus Status: Chronic Assessment and plan: SEE PLAN LISTED BELOW Current Visit: Yes (3) Heavy cigarette smoker (20-39 per day) Status: Chronic Assessment and plan: SEE PLAN LISTED BELOW Current Visit: Yes (4) Dyslipidemia Status: Chronic Assessment and plan: SEE PLAN LISTED BELOW Current Visit: Yes (5) 3-vessel CAD Status: Acute Assessment and plan: SEE PLAN LISTED BELOW Current Visit: Yes (6) Ischemic cardiomyopathy Status: Acute Assessment and plan: SEE PLAN LISTED BELOW Current Visit: Yes (7) Unspecified sleep apnea Status: Acute Assessment and plan: SEE PLAN LISTED BELOW Current Visit: Yes (8) Status post coronary artery bypass graft Status: Chronic Current Visit: Yes (9) Tachycardia Status: Acute Assessment and plan: SEE PLAN LISTED BELOW Current Visit: Yes Cardiology - PN: Subj 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 Cox SUMMARY: Patient was sent over from Dr. Child office for further evaluation of chest pain and abnormal EKG, she was sent to ER for evaluation. Past medical history includes dyslipidemia, diabetes, anxiety, tobacco abuse and GERD. Cardiac catheterization revealed multivessel disease. She underwent coronary artery bypass grafting 2 (11/09/16) with left internal mammary graft to obtuse marginal coronary artery and saphenous vein graft to RCA. Patient was taken emergently back to OR the same day due to ischemic EKG changes. No evidence of myocardial injury was noted in surgery, no further intervention was needed. EKG changes resolved, now mild inferior T-wave abnormality noted on EKG. Echocardiogram this hospitalization revealed ischemic cardiomyopathy with ejection fraction estimated at 20%. Received blood transfusion 11/13/16. NOVEMBER 17, 2016 Continues to be followed for the following chronic, stable conditions: CAD, dyslipidemia, diabetes, and ischemic cardiomyopathy. Postop day #8. Dyspnea continues to improve, requiring oxygen intermittently. She is being evaluated for home oxygen because of oxygen desaturations with ambulation. Blood pressure continues to be low in the 80's systolically, not allowing for restarting of beta blockade. 88/65 this morning. She continues to be tachycardic, heart rate noted in the high 90s to 118. I's and O's are negative, weight stable. Labs reviewed, normalizing hemoglobin and hematocrit, potassium 3.3, creatinine 0.7, BUN 14, glucose 139. Preparing for possible discharge tomorrow. Will need follow up with Cardiology in one week for close monitoring of blood pressure and medication adjustment. Will add Urinalysis. REVIEW OF SYSTEMS: absent: chest pain present: chest soreness present: TIERNEY no acute distress noted, pt. requesting to go home IMPRESSION AND PLAN: 1. S/P CABG - Postop day #8. Patient is allergic to aspirin. Continue Plavix. Continue lipid-lowering agent. EF 20%. Unfortunately, blood pressure will not allow initiation of PENNY inhibitor/ARB or beta-blockade. Hopeful we will be able to introduce these medications prior to discharge. Increase activity level as tolerated. Incentive spirometry. 2. DYSLIPIDEMIA - LDL 124. Continue high intensity statin. Repeat lipid panel in 4-6 weeks. 3. DIABETES - Continue sliding scale insulin. Accu-Cheks before meals and at bedtime. 4. ANXIETY - controlled. 5. TOBACCO ABUSE - Current everyday smoker. Continue to reiterate importance of smoke cessation. Continue nicotine patch. 6. ISCHEMIC CARDIOMYOPATHY - Now revascularized. EF 20%. Will need repeat echo 3 months to reevaluate ejection fraction, if no improvement is noted she will be a candidate for ICD placement. 7. PROBABLE COPD - Dr. Horan is managing. Appreciate his assistance. 8. UNSPECIFIED SLEEP APNEA - Negative HST evaluation, will need outpatient sleep study evaluation. 9. ANEMIA - resolving. 10. TACHYCARDIA - will get Urinalysis, (WBC WNL, afebrile) continue beta blockade when blood pressure will allow. 11. CHF - Acute, systolic dysfunction. Chest x-ray improving. Continue IV Lasix. CXR persistent pleural effusions. Exam (Progress Note) - Constitutional Vitals: Period Temp Pulse Resp BP Sys/Morillo Pulse Ox Last 24 Hr 96.7 F-99.7 F 91-118 16-18 80-110/55-66 91-95 Exam: General: Appears well with no apparent distress. Pleasant and cooperative. Appears comfortable. HEENT: PERRL, normocephalic, atraumatic. Mucous membranes moist. No jaundice noted. Conjunctiva moist and clear, sclerae anicteric. Neck: No JVD, no thyromegaly or lymphadenopathy noted. No carotid bruit appreciated. Cardiac: Regular rate and rhythm. No murmur rub or gallop. PMI is nondisplaced. Lungs: Breath sounds reduced in the right base, no accessory muscle use to assist the respiratory pattern. Oxygen in use via nasal cannula intermittently. Abdomen: Soft, bowel sounds normoactive. Nontender and nondistended. No abdominal bruit or thrill noted. No masses noted. Musculoskeletal: No fluid collection. Decreased range of motion is noted. Extremities: No clubbing, cyanosis noted. No edema noted. Upper extremity pulses 2+. Lower extremity pulses 2+. Capillary refill less than 3 seconds. Skin: Warm and dry no unusual lesions or rashes. No skin breakdown appreciated. Midsternal incision open to air, no evidence of infection. Left leg incision open to air, no evidence of infection. Neuro: Awake, alert and oriented 3. Moves all extremities well without hemiparesis or paralysis. No essential tremor is appreciated. Result/EKG - Labs CBC & BMP: 11/17/16 04:59 11/17/16 04:59 Lab Results: I have reviewed the past 24 hour labs Labs: Laboratory Results - last 24 hr 11/16/16 11/16/16 11/16/16 11:06 16:31 20:05 WBC RBC Hgb Hct MCV MCH MCHC RDW Plt Count MPV Neut % (Auto) Lymph % (Auto) [place] % (Auto) Eos % (Auto) Baso % (Auto) Neut # (Auto) Lymph # (Auto) [place] # (Auto) Eos # (Auto) Baso # (Auto) Immature Gran % Nucleated RBC % Immature Gran # Nucleated RBCs # Immature Plt Fraction Sodium Potassium Chloride Carbon Dioxide Anion Gap BUN Creatinine GFR Calculation BUN/Creatinine Ratio Glucose POC Glucose 294 H 242 H 230 H Calculated Osmolality Calcium Magnesium 11/17/16 11/17/16 04:59 04:59 WBC 8.7 RBC 4.48 Hgb 13.0 Hct 37.2 MCV 83.0 L MCH 29 MCHC 34.9 RDW 12.5 Plt Count 286 MPV 9.7 Neut % (Auto) 61.5 Lymph % (Auto) 18.7 L [place] % (Auto) 14.0 H Eos % (Auto) 5.3 Baso % (Auto) 0.2 Neut # (Auto) 5.3 Lymph # (Auto) 1.6 [place] # (Auto) 1.2 H Eos # (Auto) 0.5 Baso # (Auto) 0.0 Immature Gran % 0.3 Nucleated RBC % 0.0 Immature Gran # 0.03 Nucleated RBCs # 0.00 Immature Plt Fraction 0.0 Sodium 136 Potassium 3.3 L Chloride 96 L Carbon Dioxide 33 H Anion Gap 10.3 BUN 14 Creatinine 0.70 GFR Calculation 97 BUN/Creatinine Ratio 20.00 Glucose 139 H POC Glucose Calculated Osmolality 274.0 Calcium 8.9 Magnesium 1.8 - EKG EKG results: interpreted by me, sinus rhythm Quality Measures - VTE Contraindication to Pharmacological VTE Prophylaxis: High Risk of Bleeding Specialty Discharge - Follow Up or Referrals Follow up with: Alex Cox MD [Physician] - IBrooke Dale, MD, personally performed the services described in this documentation, ascribed by Maria C Parks NP in my presence, and it is both accurate and complete [id number] .
[2016-11-18] MEDS: PHENYLEPHRINE DRIP 40 MG/250 ML PREMIX IV SCH (00:12)
[2016-11-18] MEDS: ALBUTEROL 2.5 MG/3 ML NEB RESP TX SCH ×2 (00:56→07:42)
[2016-11-18 05:21] LABS: Basophils % 0.3 % (0.0-0.8); Eosinophils # 0.4 10*3/uL (0.0-0.87); Eosinophils % 3.8 % (0.00-10.9); Hematocrit 40.1 VOL% (35.7-47.0); Hemoglobin 13.8 GM/DL (12.0-16.0); Immature Granulocytes % 0.3 %; Immature Granulocytes Absolute 0.03 #; Lymphocytes # 1.3 10*3/uL (1.4-4.0); Lymphocytes % 13.3 % (21.3-54.2); Mean Corpuscular HGB Conc 34.4 GM/DL (32-36); Mean Corpuscular Hemoglobin 29 PG (27-34); Mean Corpuscular Volume 82.7 FL (87-102); Mean Platelet Volume 9.5 FL (9.6-12.0); Monocytes # 1.1 10*3/uL (0.11-0.8); Monocytes % 11.5 % (1.7-12.7); Neutrophils % 70.8 % (38.7-73.9); Platelet Count 321 T/CUMM (130-400); Red Blood Count 4.85 MC/CUMM (3.8-5.5); Red Cell Distribution Width 12.4 % (9.3-17.3); White Blood Count 9.9 T/CUMM (4-12)
[2016-11-18 05:47] LABS: Calcium 9.1 MG/DL (8.5-10.1); Magnesium 2.1 MG/DL (1.8-2.4); Osmolality,Calculated 275.4 MOS/KG (273-304); Potassium 3.4 MMOL/L (3.5-5.1)
[2016-11-18] MEDS: INSULIN REGULAR 100 UNIT/ML SUBCUT SCH (09:10)
[2016-11-18] MEDS: LEVOFLOXACIN 500 MG TABLET PO SCH (09:11)
[2016-11-18] MEDS: CLOPIDOGREL 75 MG TABLET PO SCH (09:11)
[2016-11-18] MEDS: MONTELUKAST 10 MG TABLET PO SCH (09:11)
[2016-11-18] MEDS: sitaGLIPtin 100 MG TABLET PO SCH (09:11)
[2016-11-18] MEDS: PANTOPRAZOLE 40 MG TABLET PO SCH (09:11)
[2016-11-18] MEDS: FERROUS SULFATE 325 MG TABLET PO SCH (09:11)
[2016-11-18] MEDS: GABAPENTIN 100 MG CAPSULE PO PRN (09:11)
[2016-11-18] MEDS: CLORAZEPATE 3.75 MG TABLET PO SCH (09:11)
[2016-11-18] MEDS: DOCUSATE SODIUM 100 MG CAPSULE PO SCH (09:12)
[2016-11-18] MEDS: POTASSIUM CHLORIDE 20 MEQ TABLET PO PRN ×2 (09:13→09:14)
[2016-11-18] MEDS: CHLORHEXIDINE 0.12% ORAL RINSE 60 ML BOTTLE SWISH/SPIT SCH (09:14)
--- NOTE | 2016-11-18 09:46 | Discharge Summary ---
Hospital Course - Hospital Course Hospital Course: History of present illness: Patient is a 56-year-old lady who presented with recent onset of substernal chest discomfort. She underwent cardiac catheterization demonstrating critical coronary disease and she was advised to have bypass surgery. She was admitted for that purpose. Of note is that she has been a heavy smoker for most of her life. Past medical history review of systems social history and family history are documented in her previous note. Hospital course: Patient was taken to surgery and two-vessel bypass was carried out with a left internal mammary graft to the obtuse marginal coronary artery and a saphenous vein graft to the right coronary artery. Patient's postoperative course was slow but 1 of progressive recovery. Her recovery was slowed by her pulmonary dysfunction which gradually improved. At the time of surgery she was ambulating in the hallway without assistance. She is to be followed up in 1 month and discharge medications are listed below. Specialty Discharge - Follow Up or Referrals Follow up with: Alex Cox MD [Physician] - Elmo Whitehead MD [Physician] - 1 Month Discharge Plan - Discharge Data Disposition: Disch To Home/Self Care Condition at Discharge: Stable Discharge Diet: advance to your usual diet Activity: resume usual activities as tolerated Hygiene: no restrictions Weight Bearing at Discharge: full weight bearing Driving: not until seen by doctor - Discharge Medications New Clopidogrel [Plavix] 75 mg PO DAILY #30 tablet Montelukast Tab [Singulair Tab] 10 mg PO DAILY #30 tablet Continue Pramipexole [Mirapex] 0.25 mg PO BEDTIME PRN PRN Reason: RESTLESS LEG clonazePAM TAB [KlonoPIN] 0.5 mg PO Q12H PRN PRN Reason: Anxiety Trazodone HCl 150 mg PO BEDTIME Ranitidine Tab [Zantac Tab] 150 mg PO BEDTIME Linaclotide [Linzess] 290 mcg PO BEDTIME Ergocalciferol (Vitamin D2) [Vitamin D2] 50,000 unit PO Q7D Linagliptin [Tradjenta] 5 mg PO BEDTIME ALPRAZolam [Xanax] 0.25 mg PO Q8H PRN PRN Reason: panic attack Nitroglycerin [Nitroglycerin SL Tab] 0.4 mg SL Q5M PRN PRN Reason: Chest Pain Amitriptyline HCl 25 mg PO BEDTIME Rosuvastatin [Crestor] 10 mg PO BEDTIME Gabapentin 100 mg PO TID PRN PRN Reason: Pain Hydrocodone/Acetaminophen [[place] 10-325 Tablet] 1 each PO Q6H PRN PRN Reason: Pain Omeprazole 20 mg PO DAILY hydrOXYzine HCl [Hydroxyzine HCl] 25 mg PO RT Q8H PRN PRN Reason: Headache Discontinued clonazePAM TAB [KlonoPIN] 0.25 mg PO Q12H PRN PRN Reason: Anxiety - Follow Up or Referral Follow Up: Alex Cox MD [Physician] - - Forms/Instructions Instructions: Myocardial Infarction (GEN), Coronary Artery Bypass Graft (DC), How to Stop Smoking (GEN), Heart Healthy Diet (GEN), Cigarette Smoking and Your Health (GEN), Sternal Precautions (GEN) Exam - Constitutional Vitals: Period Temp Pulse Resp BP Sys/Morillo Pulse Ox Last 24 Hr 96.0 F-98.3 F 78-117 14-18 88-110/58-67 87-97 Discharge Results Procedures and tests throughout hospitalization: Pending Orders 11/08/16 05:29 Fresh Frozen Plasma IN AM Red Blood Cells Leuko Red IN AM Single Donor Platelets IN AM Type and Screen Routine 11/17/16 08:54 IR thoracentesis aspiration Routine 11/19/16 04:00 BMP w/ Mg [Basic Metabolic Panel w/Mg] IN AM CBC [Comp Blood Count Auto Diff] IN AM 11/20/16 04:00 BMP w/ Mg [Basic Metabolic Panel w/Mg] IN AM CBC [Comp Blood Count Auto Diff] IN AM Labs on day of discharge: Labs from last 24 hours 11/18/16 11/18/16 11/18/16 07:25 04:43 04:43 WBC 9.9 RBC 4.85 Hgb 13.8 Hct 40.1 MCV 82.7 L MCH 29 MCHC 34.4 RDW 12.4 Plt Count 321 MPV 9.5 L Neut % (Auto) 70.8 Lymph % (Auto) 13.3 L Iron % (Auto) 11.5 Eos % (Auto) 3.8 Baso % (Auto) 0.3 Neut # (Auto) 7.0 Lymph # (Auto) 1.3 L Iron # (Auto) 1.1 H Eos # (Auto) 0.4 Baso # (Auto) 0.0 Immature Gran % 0.3 Nucleated RBC % 0.0 Immature Gran # 0.03 Nucleated RBCs # 0.00 Immature Plt Fraction 0.0 Sodium 133 L Potassium 3.4 L Chloride 93 L Carbon Dioxide 29 Anion Gap 14.4 BUN 20 H Creatinine 0.70 GFR Calculation 96 BUN/Creatinine Ratio 28.00 H Glucose 221 H POC Glucose 243 H Calculated Osmolality 275.4 Calcium 9.1 Magnesium 2.1 Urine Color Urine Appearance Urine pH Ur Specific [place] Urine Protein Urine Glucose (UA) Urine Ketones Urine Blood Urine Nitrate Urine Bilirubin Urine Urobilinogen Urine Leukocytes Urine RBC Urine WBC Ur Squamous Epith Cells Urine Mucus Urine Yeast (Budding) Ur Culture Indicated? 11/17/16 11/17/16 11/17/16 20:04 18:00 15:29 WBC RBC Hgb Hct MCV MCH MCHC RDW Plt Count MPV Neut % (Auto) Lymph % (Auto) [place] % (Auto) Eos % (Auto) Baso % (Auto) Neut # (Auto) Lymph # (Auto) [place] # (Auto) Eos # (Auto) Baso # (Auto) Immature Gran % Nucleated RBC % Immature Gran # Nucleated RBCs # Immature Plt Fraction Sodium Potassium Chloride Carbon Dioxide Anion Gap BUN Creatinine GFR Calculation BUN/Creatinine Ratio Glucose POC Glucose 116 H 270 H Calculated Osmolality Calcium Magnesium Urine Color Yellow Urine Appearance Clear Urine pH 7.0 Ur Specific [place] 1.005 Urine Protein Negative Urine Glucose (UA) 150 Urine Ketones Negative Urine Blood Negative Urine Nitrate Negative Urine Bilirubin Negative Urine Urobilinogen < 2.0 H Urine Leukocytes Negative Urine RBC <1 Urine WBC 2 Ur Squamous Epith Cells Occasional Urine Mucus Occasional Urine Yeast (Budding) Moderate Ur Culture Indicated? Not indicated 11/17/16 11/17/16 10:56 07:43 WBC RBC Hgb Hct MCV MCH MCHC RDW Plt Count MPV Neut % (Auto) Lymph % (Auto) [place] % (Auto) Eos % (Auto) Baso % (Auto) Neut # (Auto) Lymph # (Auto) Iron # (Auto) Eos # (Auto) Baso # (Auto) Immature Gran % Nucleated RBC % Immature Gran # Nucleated RBCs # Immature Plt Fraction Sodium Potassium Chloride Carbon Dioxide Anion Gap BUN Creatinine GFR Calculation BUN/Creatinine Ratio Glucose POC Glucose 216 H 187 H Calculated Osmolality Calcium Magnesium Urine Color Urine Appearance Urine pH Ur Specific [place] Urine Protein Urine Glucose (UA) Urine Ketones Urine Blood Urine Nitrate Urine Bilirubin Urine Urobilinogen Urine Leukocytes Urine RBC Urine WBC Ur Squamous Epith Cells Urine Mucus Urine Yeast (Budding) Ur Culture Indicated? DS: Provider Date of admission: 11/03/16 16:47 Primary care physician: . No PCP Attending physician on admission: Alex Cox MD Consults: 11/06/16 10:53 Consult to Dietitian [CONS] Routine Reason for Dietitian: Other Consult Comment: low salt, low cholesterol, diet 11/08/16 09:14 Consult to [facility], Educator [CONS] Routine Reason for Glue Drier Operator: Diabetes Education 11/10/16 10:22 Consult to Cardiac Rehabilitation [CONS] Routine Reason for Cardiac Rehabilitation: Other Consult Comment: Post CABG/heart surgery Consult to Diabetes Center, Educator [CONS] Routine Reason for Glue Drier Operator: Diabetes Education Initial Insulin Education Consult Comment: insulin education Consult to Dietitian [CONS] Routine Reason for Dietitian: Dietary Consult Consult Comment: Cardiac, low salt, low cholesterol diet Consult to Physical Therapy [CONS] Routine Reason for Physical Therapy: Other Consult Comment: CV Rehab 11/10/16 13:03 Consult to Physician [CONS] Routine Comment: Consulting Provider: Elmo Whitehead Consult Notification Comment: Already notified Discharging clinician: Elmo Whitehead MD Expected date of discharge: 11/18/16
--- NOTE | 2016-11-18 09:58 | Cardiology Progress Note ---
Assessment and Plan (1) CHF (congestive heart failure) Status: Chronic Assessment and plan: SEE PLAN LISTED BELOW not having overt heart failure Does continue have pleural effusions Try to diurese Low blood pressure limits what medicines we can use Will replete potassium by giving 40 mEq by mouth 11/18/16 KCl, p.o. was given Anxiety is a problem with the patient. She admits it. We will treat by giving her sertraline 25 mg now, then 50 mg half nightly for 3 days then 1 nightly, #30 , 3 refills I will see her back in the next 3-6 weeks Because of her low blood pressure, she cannot take much medication such as Coreg PENNY inhibitor and much Lasix Qualifiers: Congestive heart failure type: systolic Congestive heart failure chronicity : acute Qualified Code(s): I50.21 - Acute systolic (congestive) heart failure (2) Diabetes mellitus Status: Chronic Assessment and plan: SEE PLAN LISTED BELOW (3) Heavy cigarette smoker (20-39 per day) Status: Chronic Assessment and plan: SEE PLAN LISTED BELOW (4) Dyslipidemia Status: Chronic Assessment and plan: SEE PLAN LISTED BELOW (5) 3-vessel CAD Status: Acute Assessment and plan: SEE PLAN LISTED BELOW (6) Ischemic cardiomyopathy Status: Acute Assessment and plan: SEE PLAN LISTED BELOW (7) Unspecified sleep apnea Status: Acute Assessment and plan: SEE PLAN LISTED BELOW (8) Status post coronary artery bypass graft Status: Chronic (9) Tachycardia Status: Acute Assessment and plan: SEE PLAN LISTED BELOW Cardiology - PN: Subj Interval history: No chest pain or shortness of breath Exam (Progress Note) - Constitutional Vitals: Period Temp Pulse Resp BP Sys/Morillo Pulse Ox Last 24 Hr 96.0 F-98.3 F 78-117 14-18 88-110/58-67 87-97 Exam: General: Appears well with no apparent distress. Pleasant and cooperative. Appears comfortable. HEENT: PERRL, normocephalic, atraumatic. Mucous membranes moist. No jaundice noted. Conjunctiva moist and clear, sclerae anicteric. Neck: No JVD, no thyromegaly or lymphadenopathy noted. No carotid bruit appreciated. Cardiac: Regular rate and rhythm. No murmur rub or gallop. PMI is nondisplaced. Lungs: Breath sounds reduced in the right base, no accessory muscle use to assist the respiratory pattern. Oxygen in use via nasal cannula intermittently. Abdomen: Soft, bowel sounds normoactive. Nontender and nondistended. No abdominal bruit or thrill noted. No masses noted. Musculoskeletal: No fluid collection. Decreased range of motion is noted. Extremities: No clubbing, cyanosis noted. No edema noted. Upper extremity pulses 2+. Lower extremity pulses 2+. Capillary refill less than 3 seconds. Skin: Warm and dry no unusual lesions or rashes. No skin breakdown appreciated. Midsternal incision open to air, no evidence of infection. Left leg incision open to air, no evidence of infection. Neuro: Awake, alert and oriented 3. Moves all extremities well without hemiparesis or paralysis. No essential tremor is appreciated. Result/EKG - Labs CBC & BMP: 11/18/16 04:43 11/18/16 04:43 Lab Results: I have reviewed the past 24 hour labs Labs: Laboratory Results - last 24 hr 11/17/16 11/17/16 11/17/16 07:43 10:56 15:29 WBC RBC Hgb Hct MCV MCH MCHC RDW Plt Count MPV Neut % (Auto) Lymph % (Auto) [place] % (Auto) Eos % (Auto) Baso % (Auto) Neut # (Auto) Lymph # (Auto) [place] # (Auto) Eos # (Auto) Baso # (Auto) Immature Gran % Nucleated RBC % Immature Gran # Nucleated RBCs # Immature Plt Fraction Sodium Potassium Chloride Carbon Dioxide Anion Gap BUN Creatinine GFR Calculation BUN/Creatinine Ratio Glucose POC Glucose 187 H 216 H 270 H Calculated Osmolality Calcium Magnesium Urine Color Urine Appearance Urine pH Ur Specific Brule Urine Protein Urine Glucose (UA) Urine Ketones Urine Blood Urine Nitrate Urine Bilirubin Urine Urobilinogen Urine Leukocytes Urine RBC Urine WBC Ur Squamous Epith Cells Urine Mucus Urine Yeast (Budding) Ur Culture Indicated? 11/17/16 11/17/16 11/18/16 18:00 20:04 04:43 WBC 9.9 RBC 4.85 Hgb 13.8 Hct 40.1 MCV 82.7 L MCH 29 MCHC 34.4 RDW 12.4 Plt Count 321 MPV 9.5 L Neut % (Auto) 70.8 Lymph % (Auto) 13.3 L [place] % (Auto) 11.5 Eos % (Auto) 3.8 Baso % (Auto) 0.3 Neut # (Auto) 7.0 Lymph # (Auto) 1.3 L [place] # (Auto) 1.1 H Eos # (Auto) 0.4 Baso # (Auto) 0.0 Immature Gran % 0.3 Nucleated RBC % 0.0 Immature Gran # 0.03 Nucleated RBCs # 0.00 Immature Plt Fraction 0.0 Sodium Potassium Chloride Carbon Dioxide Anion Gap BUN Creatinine GFR Calculation BUN/Creatinine Ratio Glucose POC Glucose 116 H Calculated Osmolality Calcium Magnesium Urine Color Yellow Urine Appearance Clear Urine pH 7.0 Ur Specific Brule 1.005 Urine Protein Negative Urine Glucose (UA) 150 Urine Ketones Negative Urine Blood Negative Urine Nitrate Negative Urine Bilirubin Negative Urine Urobilinogen < 2.0 H Urine Leukocytes Negative Urine RBC <1 Urine WBC 2 Ur Squamous Epith Cells Occasional Urine Mucus Occasional Urine Yeast (Budding) Moderate Ur Culture Indicated? Not indicated 11/18/16 11/18/16 04:43 07:25 WBC RBC Hgb Hct MCV MCH MCHC RDW Plt Count MPV Neut % (Auto) Lymph % (Auto) [place] % (Auto) Eos % (Auto) Baso % (Auto) Neut # (Auto) Lymph # (Auto) [place] # (Auto) Eos # (Auto) Baso # (Auto) Immature Gran % Nucleated RBC % Immature Gran # Nucleated RBCs # Immature Plt Fraction Sodium 133 L Potassium 3.4 L Chloride 93 L Carbon Dioxide 29 Anion Gap 14.4 BUN 20 H Creatinine 0.70 GFR Calculation 96 BUN/Creatinine Ratio 28.00 H Glucose 221 H POC Glucose 243 H Calculated Osmolality 275.4 Calcium 9.1 Magnesium 2.1 Urine Color Urine Appearance Urine pH Ur Specific Brule Urine Protein Urine Glucose (UA) Urine Ketones Urine Blood Urine Nitrate Urine Bilirubin Urine Urobilinogen Urine Leukocytes Urine RBC Urine WBC Ur Squamous Epith Cells Urine Mucus Urine Yeast (Budding) Ur Culture Indicated? - EKG EKG results: interpreted by me Quality Measures - VTE Contraindication to Pharmacological VTE Prophylaxis: High Risk of Bleeding Specialty Discharge - Follow Up or Referrals Follow up with: Elmo Whitehead MD [Physician] - 1 Month Alex Cox MD [Physician] - (3 WEEKS)
[2016-11-18] MEDS ORDERED: SERTRALINE 25 MG TABLET PO SCH (10:46)
[2016-11-18] MEDS: FUROSEMIDE 40 MG/4 ML VIAL IV SCH ×2 (11:18→11:40)
[2016-11-18 11:47] VITALS: BP 104/62
--- NOTE | 2016-11-18 11:49 | Pulmonology Progress Note ---
Pulmonary - PN: Subj Interval history: Ms. okeefe is a 56-year-old white female who we saw in initial pulmonary consultation 11/05/2016. At that time, our impressions were: 1. Tobacco abuse. 57-13-ptkf-year history of smoking. 2. Probable COPD. Mild wheeze. Probable bronchospastic disease. 3. Severe three-vessel heart disease with ejection fraction of 20% and global hypokinesis 4. Hyperlipidemia. 5. Diabetes mellitus. 6. See past history 11/06/2016. The patient has decided to go forth with CABG. This will most likely be done tomorrow. In anticipation of this, we will obtain complete pulmonary function testing today with pre-and post bronchodilator spirometry. Her previously noted large airway wheeze has resolved with the addition of Singulair. This needs to be continued. Medications have been reviewed. We made no changes today. Labs been reviewed. No new labs were drawn today. 11/07/2016. Patient's CABG has been scheduled for 11/09/2016. We discussed this again with her today. From a pulmonary standpoint she is appropriate for surgery. Pulmonary function tests done 11/06/2016 showed SPO2 96% on room air, small airways disease, paradoxical response to inhaled bronchodilators, no restrictive disease, normal diffusion, and maximum voluntary ventilation was normal. On chest exam, she is still wheeze free. She states that her breathing is doing well. Medications have been reviewed. We made no changes today. Labs been reviewed. White count is 6700 with a normal differential; H&H 10.5/ 36.5; platelet count 145,000; creatinine 0.50, BUN 10, electrolytes were normal ; hemoglobin A1c elevated at 9.5% showing poor control of her diabetes mellitus 11/10/2016. This patient had coronary artery bypass grafts on 11/09/2016. She required to reexplore. She came off the ventilator with no problems. She is stable this morning and her chest x-ray shows no heart failure and no infiltrates. ABGs show a pH of 7.42, PCO2 38, PO2 of 106 and a bicarb of 24. Electrolytes are normal. Creatinine is 0.5 with a BUN of 12. H&H 10.5/30.4. She is doing well from a pulmonary standpoint. She has underlying COPD which is not severe. Dr. Sean Dyer will see her for me this weekend. 11/13/2016. Patient complains of a slight cough. Will check a sputum for Gram stain culture and sensitivity. Her chest x-ray shows small bilateral pleural effusions. We will get another tomorrow. Her H&H is 8.2/24.1. She told me she is getting 2 units of blood today. White count is 5400 with 57 segs 28 lymphs and 10 monos. Electrolytes are normal. Creatinine 0.5. BUNs 26. Patient was seen with the family member who did not bother to wake up while we are there. 11/14/2016. Patient was seen along with her daughter. She complains of some musculoskeletal chest pain. Her chest x-ray shows a small left-sided pleural effusion and a larger right-sided pleural effusion. She has just gotten a collection jar her chart for the sputum ordered yesterday. So far no specimen but she is trying. The patient notices her breathing was much better as far as the wheezing is concerned and asking she takes Singulair on a long-term basis. The answer is yes and I think this would improve her overall. Also had a discussion with her about not restarting smoking and I think she is made her per mine to quit smoking. Creatinine is 0.6 BUN is 19. Electrolytes normal. Patient required a blood transfusion yesterday and H&H is improved from 8.2/24.0 -10.3/30.3. White count is 5762 segs 18 lymphs and 14 monocytes. 11/15/2016. Today's chest x-ray is much better. The bilateral pleural effusions are 80% resolved. BNP is pending. BNP done yesterday was 1148. Electrolytes are normal. Creatinine 0.6 with a BUN of 10. H&H is stable at 10.9/31.2. Platelets 199,000. White count is 5559 620 lymphs and 14 monocytes patient says she feels much better. There are no new problems. Sputum's are pending 11/16/2016. This patient continues to do well from a pulmonary standpoint. Her chest x-ray shows bilateral pleural effusions. These are decreasing in size rapidly. I do not think these will nocturnist to be physiologically significant and I think that they will gradually resolve. These are postop changes. Patient's oxygenation is good and she is comfortable with breathing. Before surgery she had tracheal and large airway wheeze and is completely resolved overnight with the very first dose of Singulair. She should be continued on this indefinitely and have talked to her about this. Sputum cultures are negative. Electrolytes are normal. Creatinine is 0.7 with a BUN of 12. White count 7300 with 62 segs 17 lymphs and 15 monos. H&H is 12.1/ 34.5. Platelets are 253,000. Natruretic peptide remains elevated 862. Patient is receiving Lasix 40 IV push twice a day. I think this can be converted to p.o. and not she should do well with that. The patient asked me about when she could go home. I told her that the heart status is the carpio here. From a pulmonary standpoint I think she is ready and I think we should continue to give her Lasix and I think she should stay on Singulair 10 mg daily indefinitely. Patient's son was present and SHARIF Frazier nurse practitioner was present. 11/17/2016. This patient's had her chest wires pulled today. She says she feels much better and she denies any shortness of breath. When she is lying in bed with no oxygen her O2 sats are 9193%. She said yesterday when she walked O2 sats dropped to 75. I have asked her nurse to recheck this. I will be surprised if the O2 sats drop low with walking but if they do patient may need home oxygen for a while. An O2 sat of 87% which is documented qualifies her for. Patient's chest x-ray on 11/16/2016 was markedly better and the pleural effusions have all practical purposes resolved. I do not expect them to persist. I understand the plans are to discharge the patient tomorrow. I am agreeable to this. The only thing pending is the exercise O2 sats. 11/18/2016. Patient says her breathing is better. Her O2 sats have improved. She has no new complaints. Dr. Elmo Whitehead and I have discussed the case and we have coordinated her care. The patient is ready for discharge. She is referred back to her primary care doctor, Dr. Kelley Livingston. Sodium is 133, potassium 3.4, creatinine 0.7, BUN 20. H&H is 13.8/40.1. White blood cells are 9900 with 71% segs, 13% lymphocytes and 11% monocytes. The patient remains wheeze free. Singulair has worked well with her and I think this should be continued outpatient. Patient's done well with a coronary artery bypass grafts. Exam (Progress Note) - Constitutional Vitals: Period Temp Pulse Resp BP Sys/Morillo Pulse Ox Last 24 Hr 97.3 F-98.9 F 79-94 16-18 82-96/53-64 92-98 Exam: General. No apparent distress. Chest... Wheeze free. Face. Symmetrical. No edema to lips and tongue. Neck. No meningismus. Heart no gallop Abdomen is nontender and nondistended; bowel sounds are positive 4 Lower extremities with nothing to suggest acute deep venous thrombophlebitis Psychiatric oriented 3 Neurologic long-tract motor function is intact The remainder the physical exam is negative. Plan: 11/07/2016. 1. Continue present pulmonary treatment. 2. Plans for CABG 11/09/2016 noted. 3. See orders. 11/10/2016. 1. See today's note above. 2. Stable post coronary artery bypass grafts. 3. Continue inhalation therapy. 4. Dr. Dyer we will see for me this week 11/13/2016. 1. See my note above. 2. Blood transfusion 3. Sputum for Gram stain culture and sensitivity 4. Follow-up lab and chest x-ray tomorrow 11/14/2016. 1. See today's note above 2. Bilateral pleural effusions. 3. Chest x-ray in the morning. 4. Sputum pending 5. Continue Singulair indefinitely 11/15/2016. 1. See today's note above 2. Chest x-ray and BNP in the morning to 11/16/2016. 1. Please see today's note above 2. From a pulmonary standpoint I think this patient can be discharged. I emphasized to her that her cardiac status is the determining factor. 3. Continue Lasix 4. Continue Singulair 11/17/2016. 1. See today's note above. 2. Rest O2 sats are 91 and 92%. Check exercise O2 sats. If 87 or less will need home oxygen. 3. I agree with plans for discharge tomorrow. 11/18/2016. 1. Agree with discharge. 2. Continue Singulair 3. Refer back to Dr. Kelley Livingston. 4. I will sign off. Reconsult if needed Exam (Progress Note) - Constitutional Vitals: Period Temp Pulse Resp BP Sys/Morillo Pulse Ox Last 24 Hr 96.0 F-98.3 F 78-117 14-18 93-110/58-67 87-97 Results - Labs CBC & BMP: 11/18/16 04:43 11/18/16 04:43 Specialty Discharge - Follow Up or Referrals Follow up with: Elmo Whitehead MD [Physician] - 1 Month Alex Cox MD [Physician] - (3 WEEKS)
== END 2016-11-18 12:49 | disposition home or self-care (01) | DRG 233 ==
LOC: N.ED 14:42 → N.EDINP 16:47 → N.TELEN 18:09 → N.CVR 11-09 08:35 → N.ICU 11-10 11:02 → N.TELES 11-12 13:59
PROVIDERS: ADMIT Internal Medicine Cardiovascular Disease; ATTEND Internal Medicine Cardiovascular Disease